=== PATIENT | male | born 1940 | race Caucasian/White ===

== ENCOUNTER → 2016-06-10 | Outpatient (CLI) | payer OTHER ==
[~2016-06-10] MED LIST: AMLO2.5T2 PO; ATOR10TA88 PO; CINN1CAP2 PO; DIPH30CA2 PO; FLM4 PO; GLC5 PO; LISI40TA PO; LORA0.5T12 PO; MELA1CAP5 PO; NRV/5 PO; OMEGCAP2 PO; TAMS0.4C59 PO; TOLT1CAP6 PO
[2016-06-10 09:31] LABS: BASO % 0.3 %; BASO ABS # 0.01 K/uL (0-0.2); COMPLETE YES; EOS % 1.2 %; HEMATOCRIT 45.7 % (42-52); IG% 0.3 %; LYMPH % 20.9 %; LYMPH ABS # 0.72 K/uL (1.2-3.4); MEAN CELL VOLUME 91.4 fL (80-100); MEAN CORPUSCULAR HEMOGLOBIN 31.2 pg (25-34); MEAN CORPUSCULAR HGB CONC 34.1 g/dl (32-36); MEAN PLATELET VOLUME 12.2 fL (7.4-10.4); MONO % 6.4 %; NEUT % 70.9 %; PLATELET COUNT 73 K/uL (130-400); WHITE BLOOD COUNT 3.44 K/uL (4.8-10.8)
[2016-06-10 09:44] LABS: ALT/SGPT 33 U/L (12-78); BLOOD UREA NITROGEN 15 mg/dl (7-18); BUN/CREATININE RATIO 11.8 (10-20); CALCIUM 9.1 mg/dl (8.5-10.1); CARBON DIOXIDE 27 mmol/L (21-32); CHLORIDE 103 mmol/L (98-107); CHOLESTEROL 119 mg/dl (0-200); GLUCOSE 123 mg/dl (70-99); SODIUM 139 mmol/L (136-145); TRIGLYCERIDES 62 mg/dl (0-150); VERY LOW DENSITY LIPOPROT CALC 12 mg/dl
[2016-06-10 09:46] LABS: ALB/GLOB RATIO 0.9 (0.9-2); ALKALINE PHOSPHATASE 82 U/L (45-117); AST/SGOT 33 U/L (15-37); CHOLESTEROL/HDL RATIO 2.5; HDL CHOLESTEROL 48 mg/dl; LDL CHOLESTEROL CALCULATED 59 mg/dl
[2016-06-10 10:01] LABS: ESTIMATED AVERAGE GLUCOSE 146 mg/dl; HA1C FLAG Normal (Normal)
== END | disposition home or self-care (01) ==
LOC: C.LAB 07:52
PROVIDERS: ATTEND Internal Medicine Geriatric Medicine
DX: I10 Essential (primary) hypertension (principal); E11.9 Type 2 diabetes mellitus without complications; R31.9 Hematuria, unspecified; D72.819 Decreased white blood cell count, unspecified; D69.6 Thrombocytopenia, unspecified

== ENCOUNTER 2016-06-22 09:26 | Emergency (ER) | payer OTHER ==
[~2016-06-22] VITALS: Ht 170.2 cm; Wt 71.7 kg
[~2016-06-22 09:26] MED LIST changes: -ATOR10TA88 PO; -FLM4 PO; -MELA1CAP5 PO; -NRV/5 PO; -TOLT1CAP6 PO
[2016-06-22 09:34] VITALS: TEMP 36.6; Ht 170.2 cm; Wt 71.7 kg
--- NOTE | 2016-06-22 09:49 | EMERGENCY ROOM VISIT NOTE ---
History Report prepared by Scribe: Serenity Victor Under the Supervision of: Dr. Navin Patrick M.D. First contact with patient: 09:38 Chief Complaint: STROKE SYMPTOMS Stated Complaint: NUMBNESS IN FACE, SHAKES, DRY MOUTH Nursing Triage Summary: pt c/o facial numbness started on thursady after starting med called sertraline 50mg, 1/2 tab daily. right eye is normally droop. feels like had teeth pulled and novacaine has not worn off. denies any difficulty breathing History of Present Illness The patient is a 75 year old male who presents to the Emergency Room with complaints of possible stroke-like symptoms that started 2 days ago. He is accompanied by his . The patient complains of persistent bilateral facial numbness, worse on the left side, that began 2 days ago, after starting Sertraline, mg daily, for 6 days. He took the Sertraline 2 days ago, and yesterday, but did not take it this morning. He states he feels like he has " had teeth pulled, and the Novocaine has not worn off yet". He denies any difficulty breathing but complains of a "tingling" feeling in his bilateral hands. His notes he complained of chest pain intermittently over the past few days and told her the pain felt "like gas". The patient was born with a right eye droop that is unchanged by his current symptoms. He denies any previous history of TIA's or CVA's but admits to a history of seizures. He is a non-smoker. He states he has been eating and drinking normally recently. 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 A total of 10 systems reviewed and were otherwise negative. Past Medical & Surgical Medical Problems: (1) DIAB JACK WO COMPL, TYPE II OR UNSPEC TYPE, NOT UNCNTRLD (2) DIVERTICULOSIS COLON (W/O MENT OF HEMORRHAGE) (3) HYPERLIPIDEMIA NEC/NOS (4) HYPERTENSION NOS (5) MALIGNANT NEOPL RECTUM Social History Smoking Status: Never Smoker Alcohol Use: occasionally Drug Use: none Marital Status: Housing Status: lives with family Occupation Status: retired Current/Historical Medications Scheduled Amlodipine Besylate (Amlodipine Besylate), 5 MG PO DAILY Atorvastatin (Lipitor), 10 MG PO DAILY Cinnamon (Cinnamon), 500 MG PO DAILY Lisinopril (Zestril), 40 MG PO DAILY Oxjuusaum-Sczhhyke-Swyllnlsk-P (Sleep), 1 CAP PO DAILY [place]-3 Fatty Acids (Fish Oil), 1 CAP PO DAILY Tamsulosin HCl (Tamsulosin HCl), 0.4 MG PO DAILY Tolterodine Tartrate (Tolterodine Tartrate ER), 2 MG PO DAILY Scheduled PRN Diphenhydramine Hcl (Sleep) (Zzzquil), 2 CAP PO HS PRN for Sleep Glipizide (Glipizide), 5 MG PO DAILY PRN for PRN Lorazepam (Lorazepam), 0.5 MG PO DAILY PRN Allergies Coded Allergies: Metoprolol (Verified Allergy, Intermediate, NONTOLERATED, DIZZINESS, ) Sertraline (Unverified Allergy, Unknown, "NUMBNESS IN MY FACE", 06/22/16) PT SAID HE THINKS IT'S THE ZOLOFT THAT CAUSE THE NUMBNESS IN HIS FACE, BUT NOT 100% SURE Physical Exam Vital Signs Date Time Temp Pulse Resp B/P Pulse Ox O2 Delivery O2 Flow Rate FiO2 06/22/16 14:32 46 16 151/73 96 06/22/16 13:57 46 16 134/65 96 06/22/16 12:01 47 06/22/16 11:57 50 16 172/72 98 06/22/16 09:34 36.6 83 18 157/81 98 Room Air Physical Exam GENERAL: Patient is anxious appearing but appears to be in no acute distress. HEENT: Droop of right eyelid (chronic). Mild pain with palpation of bilateral sinuses. No acute trauma, normocephalic atraumatic, mucous membranes moist, clear rhinorrhea, no scleral icterus. NECK: No stridor, no adenopathy, no meningismus, trachea is midline. LUNGS: No dyspnea. Clear to auscultation and equal bilaterally. No wheeze, no rhonchi. HEART: Regular rate and rhythm with multiple dropped beats. No murmurs, rubs, gallops appreciated. ABDOMEN: Soft, nontender, bowel sounds positive, no masses appreciated, no peritonitis. BACK: No midline tenderness, no CVA tenderness EXTREMITIES: Normal motion all extremities, no cyanosis, no edema. NEUROLOGIC: Alert and oriented, no acute motor or sensory deficits, no focal weakness, cranial nerves grossly intact. SKIN: No rash, no jaundice, no diaphoresis. Medical Decision & Procedures ER Provider Diagnostic Interpretation: These CT scans were reviewed and interpreted by the radiologist and reviewed by myself. CT SCAN OF THE BRAIN WITHOUT IV CONTRAST IMPRESSION: There is no hemorrhage, mass effect, or evidence of acute territorial ischemia by CT criteria. Electronically signed by: Richy Grace M.D. 06/22/2016 10:[address] SCAN OF THE PARANASAL SINUSES IMPRESSION: No significant paranasal sinus disease. See above. Electronically signed by: Richy Grace M.D. 06/22/2016 10:31 AM This MRI was reviewed and interpreted by the radiologist and reviewed by myself. MRI OF THE BRAIN WITHOUT IV CONTRAST IMPRESSION: There is no hemorrhage, mass effect, or evidence of acute ischemia. Electronically signed by: Richy Grace M.D. 06/22/2016 1:35 PM Laboratory Results 06/22/16 09:59 Red Blood Count 5.04, Mean Corpuscular Volume 91.1, Mean Corpuscular Hemoglobin 32.9, Mean Corpuscular Hemoglobin Concent 36.2, Mean Platelet Volume 11.1, Neutrophils (%) (Auto) 78.7, Lymphocytes (%) (Auto) 13.2, Monocytes (%) (Auto) 6.8, Eosinophils (%) (Auto) 1.0, Basophils (%) (Auto) 0.0, Neutrophils # (Auto) 3.03, Lymphocytes # (Auto) 0.51, Monocytes # (Auto) 0.26, Eosinophils # (Auto) 0.04, Basophils # (Auto) 0.00 06/22/16 09:59 Test 06/22/16 09:59 White Blood Count 3.85 K/uL (4.8-10.8) Red Blood Count 5.04 M/uL (4.7-6.1) Hemoglobin 16.6 g/dL (14.0-18.0) Hematocrit 45.9 % (42-52) Mean Corpuscular Volume 91.1 fL (80-100) Mean Corpuscular Hemoglobin 32.9 pg (25-34) Mean Corpuscular Hemoglobin Concent 36.2 g/dl (32-36) Platelet Count 63 K/uL (130-400) Mean Platelet Volume 11.1 fL (7.4-10.4) Neutrophils (%) (Auto) 78.7 % Lymphocytes (%) (Auto) 13.2 % Monocytes (%) (Auto) 6.8 % Eosinophils (%) (Auto) 1.0 % Basophils (%) (Auto) 0.0 % Neutrophils # (Auto) 3.03 K/uL (1.4-6.5) Lymphocytes # (Auto) 0.51 K/uL (1.2-3.4) Monocytes # (Auto) 0.26 K/uL (0.11-0.59) Eosinophils # (Auto) 0.04 K/uL (0-0.5) Basophils # (Auto) 0.00 K/uL (0-0.2) RDW Standard Deviation 42.4 fL (36.4-46.3) RDW Coefficient of Variation 12.7 % (11.5-14.5) Immature Granulocyte % (Auto) 0.3 % Immature Granulocyte # (Auto) 0.01 K/uL (0.00-0.02) Anion Gap 10.0 mmol/L (3-11) Est Creatinine Clear Calc Drug Dose 42.6 ml/min Estimated GFR () 56.6 Estimated GFR (Non- 48.8 BUN/Creatinine Ratio 11.5 (10-20) Calcium Level 9.2 mg/dl (8.5-10.1) Magnesium Level 2.2 mg/dl (1.8-2.4) Troponin I < 0.015 ng/ml (0-0.045) Laboratory results as reviewed by me. ECG Indication: weakness (weakness, bilateral facial numbness) Rate (beats per minute): 52 Rhythm: sinus bradycardia Findings: mobitz I block, other (bifasicular block similar to previous EKG) Comparison ECG Date: 2nd degree heart block is new. QRS is similar to previous Change: 2nd EKG from 06/22/16: Sinus bradycardia, rate of 51, 2nd degree AV block, Movitz type 1. When compared to EKG from earlier today, it is felt to be similar. ED Course 0941: The patient was evaluated in room A10. A complete history and physical exam was performed. 1037: I reevaluated the patient. He is resting comfortably. I discussed the risks and benefits associated with an MRI and he is agreeable to get one. 1145: I reevaluated the patient. He is feeling alright and resting comfortably. 1219: I discussed the patients case with [place]. [place], [facility] [place] [facility] He looked at both EKGs and feels they are both a second degree heart block, type 1. If the patient is ruled out from ACS stand point, he will follow up with the patient in the clinic and will try to get the patient a 24 hour heart monitor. 1230: I reevaluated the patient. He is feeling well. 1345: I reevaluated the patient. He is feeling well and will follow up as an outpatient with his doctors. I discussed his results and discharge instructions and he verbalized complete understanding and agreement. Medical Decision Differential: Sepsis, Infectious (UTI/Pneumonia/Meningitis/etc), Metabolic/ Electrolyte Abnormality, Cardiac, Hepatic, Endocrine, Toxicologic, Neurologic, amongst other pathologies entertained. 75 yr old male arrives with bilateral (L>R) facial paresthesias. He has no other neuro deficits nor any CN deficits other than right eye droop which is chronic. Exam unremarkable other than cardiac which revealed multiple skipped beats. EKG with what appears to be 2nd degree heart block with similar QRS to previous EKGs. Repeat EKG similar. He has no CP though relates some epigastric discomfort every so often (last time yesterday) which resolved after burping. Denies any chest pain. Walks several miles every day and never any cp nor sob. With no acute ischemia on EKG and normal Trop I do not feel that he has had ACS in last few days. States he feels fine now other than some facial paresthesia that he was sent over by PCP for stroke rule out. Given minimal symptom went ahead with MRI head here (as this is necessary with his risk factor). MRI without acute findings. I suspect paresthesias may be reaction to new sertraline rx. He is stable, no dstress and feeling well. Reviewed with cardiology who will see as outpatient. Ordered holter monitor which will get set up in next few days. Patient aware of symptoms requiring immediate return to ED. Consults Time Called: 1210 Consulting Physician: [facility] Returned Call: 1219 I discussed the patients case with [facility]. He looked at both EKGs and feels they are both a second degree heart block, type 1. If the patient is ruled out from ACS stand point, he will follow up with the patient in the clinic and will try to get the patient a 24 hour heart monitor. Impression Primary Impression: Second degree heart block Additional Impression: Left facial numbness Scribe Attestation The scribe's documentation has been prepared under my direction and personally reviewed by me in its entirety. I confirm that the note above accurately reflects all work, treatment, procedures, and medical decision making performed by me. Departure Information Dispostion Home / Self-Care Referrals Estuardo Daigle M.D. (PCP) Patient Instructions My [facility] Additional Instructions Your work-up reveals no clear cause of the tingling in your face. It is likely this is due to your new medication and if this symptom is bothering you you should stop further use of the medication. Your EKG shows that you have a dropped heart beat on a regular basis. There is no indication of a heart attack or need for admission at this time. Call 911 if you develop chest pain/pressure, lightheaded or passing out, nausea/ vomiting, difficulty breathing, weakness in extremities or other concerns. We are Always here to help. You will need to follow up with Cardiology. Dr Giordano is aware of your case and you will be seen by either him or his colleague in the then week. Problem Qualifiers
[2016-06-22 10:07] LABS: HEMATOCRIT 45.9 % (42-52); MEAN CELL VOLUME 91.1 fL (80-100); MEAN CORPUSCULAR HEMOGLOBIN 32.9 pg (25-34); MEAN CORPUSCULAR HGB CONC 36.2 g/dl (32-36); RED BLOOD COUNT 5.04 M/uL (4.7-6.1); WHITE BLOOD COUNT 3.85 K/uL (4.8-10.8)
[2016-06-22 10:17] LABS: COMPLETE YES; IG% 0.3 %; LYMPH % 13.2 %; LYMPH ABS # 0.51 K/uL (1.2-3.4); MEAN PLATELET VOLUME 11.1 fL (7.4-10.4); MONO % 6.8 %; NEUT % 78.7 %; PLATELET COUNT 63 K/uL (130-400)
[2016-06-22 10:24] LABS: BLOOD UREA NITROGEN 16 mg/dl (7-18); BUN/CREATININE RATIO 11.5 (10-20); CALCIUM 9.2 mg/dl (8.5-10.1); CARBON DIOXIDE 27 mmol/L (21-32); CHLORIDE 102 mmol/L (98-107); GLUCOSE 139 mg/dl (70-99); MAGNESIUM 2.2 mg/dl (1.8-2.4); POTASSIUM 3.9 mmol/L (3.5-5.1); SODIUM 139 mmol/L (136-145)
--- NOTE | 2016-06-22 10:31 | DIAGNOSTIC IMAGING REPORT ---
CT SCAN OF THE BRAIN WITHOUT IV CONTRAST CLINICAL HISTORY: Generalized weakness. COMPARISON STUDY: No priors. TECHNIQUE: Unenhanced axial CT scan of the brain is performed from the vertex to the skull base. FINDINGS: Brain parenchyma: There are age-related involutional changes noting mild subcortical and periventricular microangiopathic change. There is no hemorrhage, mass effect, or evidence of acute territorial ischemia by CT criteria. Talbert-white matter is preserved. No extra-axial fluid collection is seen. Ventricles, sulci, cisterns: Prominent secondary to involutional change. Intracranial vasculature: There is atherosclerotic calcification of the cavernous carotid and vertebral arteries. Calvarium: Unremarkable. Sinuses and mastoids: The visualized paranasal sinuses are clear. The mastoid air cells are well pneumatized. Orbits: The bony orbits are grossly intact. IMPRESSION: There is no hemorrhage, mass effect, or evidence of acute territorial ischemia by CT criteria. Electronically signed by: Richy Grace M.D. 06/22/2016 10:29 AM Dictated Date/Time: 06/22/2016 10:27 AM
--- NOTE | 2016-06-22 10:33 | DIAGNOSTIC IMAGING REPORT ---
CT SCAN OF THE PARANASAL SINUSES CLINICAL HISTORY: Sinus congestion. COMPARISON STUDY: No priors. TECHNIQUE: High-resolution CT scan of the paranasal sinuses is performed. Images are reviewed in the axial, sagittal, and coronal planes. IV contrast was not administered for this examination. FINDINGS: Maxillary antra: There is trace dependent mucosal thickening seen bilaterally. Anterior ethmoid sinuses: Clear. Posterior ethmoid sinuses: Clear. Sphenoid sinuses: Clear. Frontal sinuses: Trace mucosal thickening is seen bilaterally. Ostiomeatal complexes: Patent bilaterally. Frontoethmoidal and sphenoethmoidal recesses: Patent bilaterally. Carotid arteries: The carotid arteries are covered and without septal attachments. Ethmoid roofs: The ethmoid roofs are symmetric. Nasal turbinates: Normal in appearance. Nasal septum: There is leftward deviation of the bony nasal septum with a small spur. Optic nerves: Covered. Orbits: The bony orbits are intact. Orbital contents are normal in appearance. Calvarium: The skeletal structures are osteopenic. The imaged calvarium is normal in appearance Mastoid air cells: There is a trace right mastoid effusion. The left mastoid air cells are well Pneumatized. Brain parenchyma: Partially visualized brain parenchyma is within normal limits noting age-related involutional change. IMPRESSION: No significant paranasal sinus disease. See above. Electronically signed by: Richy Grace M.D. 06/22/2016 10:31 AM Dictated Date/Time: 06/22/2016 10:29 AM
[2016-06-22] MEDS ORDERED: NRV/5 PO (10:42)
[2016-06-22] MEDS ORDERED: GLC5 PO (10:42)
[2016-06-22] MEDS ORDERED: FLM4 PO (10:42)
[2016-06-22] MEDS ORDERED: TOLT1CAP6 PO (10:42)
[2016-06-22] MEDS ORDERED: MELA1CAP5 PO (10:42)
[2016-06-22] MEDS ORDERED: ATOR10TA88 PO (10:42)
--- NOTE | 2016-06-22 13:37 | DIAGNOSTIC IMAGING REPORT ---
MRI OF THE BRAIN WITHOUT IV CONTRAST CLINICAL HISTORY: Left facial paresthesias. COMPARISON STUDY: CT of the brain dated 06/22/2016. TECHNIQUE: MRI of the brain was performed utilizing various T1 and T2-weighted sequences in the axial, sagittal, and coronal planes. IV contrast was not administered for this examination. FINDINGS: Brain parenchyma: There are age-related involutional changes noting mild patchy subcortical and periventricular microangiopathic disease. 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 There is no hemorrhage or mass effect. There is no restricted diffusion to suggest acute ischemia. Talbert-white matter differentiation is preserved. No extra-axial fluid collection is seen. The cerebellar tonsils are normal in configuration. Ventricles, sulci, and cisterns: Prominent secondary to involutional change. Pituitary and sella: Unremarkable. Intracranial vasculature: Normal flow voids are maintained at the skull base. Orbits: The bony orbits are grossly intact. Orbital contents are normal in appearance. Sinuses and mastoids: There is a trace right mastoid effusion. The left mastoid air cells are clear, as are the paranasal sinuses. Calvarium: Unremarkable. Cervical cord: Partially visualized cervical spinal cord is normal in morphology and signal intensity. IMPRESSION: There is no hemorrhage, mass effect, or evidence of acute ischemia. Electronically signed by: Richy Grace M.D. 06/22/2016 1:35 PM Dictated Date/Time: 06/22/2016 1:30 PM
[2016-06-22 14:32] VITALS: BP 151/73; PULSE 46; O2SAT 96
== END 2016-06-22 14:50 | disposition home or self-care (01) ==
LOC: C.EDB 09:30 → C.EDA 14:50
DX: I44.1 Atrioventricular block, second degree (principal); R20.0 Anesthesia of skin; E11.9 Type 2 diabetes mellitus without complications; E78.5 Hyperlipidemia, unspecified; I10 Essential (primary) hypertension

== ENCOUNTER → 2016-07-15 | Outpatient (CLI) | payer OTHER ==
[~2016-07-15] MED LIST changes: -AMLO2.5T2 PO; +ATOR10TA88 PO; +FLM4 PO; +MELA1CAP5 PO; +NRV/5 PO; -TAMS0.4C59 PO; +TOLT1CAP6 PO
[2016-07-15 14:22] LABS: LYME DISEASE AB IGG NEG (NEG); LYME DISEASE AB IGM EQUIVOCAL (NEG)
[2016-07-19 10:34] LABS: 18KDIGG BAND NONREACTIVE (NONREACTIVE); 23KDIGG BAND NONREACTIVE (NONREACTIVE); 23KDIGM BAND REACTIVE (NONREACTIVE); 28KDIGG BAND NONREACTIVE (NONREACTIVE); 30KDIGG BAND NONREACTIVE (NONREACTIVE); 39KDIGG BAND NONREACTIVE (NONREACTIVE); 39KDIGM BAND NONREACTIVE (NONREACTIVE); 41KDIGG BAND REACTIVE (NONREACTIVE); 41KDIGM BAND NONREACTIVE (NONREACTIVE); 45KDIGG BAND NONREACTIVE (NONREACTIVE); 58KDIGG BAND NONREACTIVE (NONREACTIVE); 66KDIGG BAND NONREACTIVE (NONREACTIVE); 93KDIGG BAND NONREACTIVE (NONREACTIVE)
== END | disposition home or self-care (01) ==
LOC: C.LABBC 09:14
PROVIDERS: ATTEND Internal Medicine Geriatric Medicine
DX: R20.0 Anesthesia of skin (principal)

== ENCOUNTER → 2016-08-05 | Outpatient (CLI) | payer OTHER ==
[2016-08-05 09:39] LABS: HEMATOCRIT 42.9 % (42-52); MEAN CELL VOLUME 90.3 fL (80-100); MEAN CORPUSCULAR HEMOGLOBIN 31.4 pg (25-34); MEAN CORPUSCULAR HGB CONC 34.7 g/dl (32-36); RED BLOOD COUNT 4.75 M/uL (4.7-6.1); WHITE BLOOD COUNT 3.49 K/uL (4.8-10.8)
[2016-08-05 09:46] LABS: INR 1.1 (0.9-1.1); PARTIAL THROMBOPLASTIN RATIO 1.1; PROTHROMBIN TIME (PATIENT) 12.3 SECONDS (9.0-12.0)
[2016-08-05 09:55] LABS: BLOOD UREA NITROGEN 14 mg/dl (7-18); BUN/CREATININE RATIO 10.8 (10-20); CALCIUM 8.7 mg/dl (8.5-10.1); CARBON DIOXIDE 31 mmol/L (21-32); CHLORIDE 102 mmol/L (98-107); GLUCOSE 111 mg/dl (70-99); POTASSIUM 4.1 mmol/L (3.5-5.1); SODIUM 140 mmol/L (136-145)
[2016-08-05 10:03] LABS: MEAN PLATELET VOLUME 11.6 fL (7.4-10.4); PLATELET COUNT 73 K/uL (130-400)
== END | disposition home or self-care (01) ==
LOC: C.LAB 07:50
PROVIDERS: ATTEND Internal Medicine Cardiovascular Disease
DX: Z01.818 Encounter for other preprocedural examination (principal)

== ENCOUNTER 2016-08-08 08:19 | Observation (INO) | payer OTHER ==
[~2016-08-08] VITALS: Ht 170.2 cm; Wt 69.8 kg
[2016-08-08] VITALS (8 sets, daily range): BP systolic 133–157; BP diastolic 64–87; PULSE 60–75; TEMP 36.3–37; O2SAT 95–98; Ht 170.2 cm; Wt 69.8 kg
[2016-08-08] MEDS: CEFAZOLIN 1000MG/55 ML D5W 55 ML IV SCH ×2 (10:19→10:54)
[2016-08-08] MEDS ORDERED: BACITRACIN 50000 UNIT VIAL ONE (10:20)
[2016-08-08] MEDS ORDERED: LIDOCAINE HCL 1% 20 ML VIAL ONE (10:20)
[2016-08-08] MEDS ORDERED: MIDAZOLAM HCL 5 MG/ML 1 ML VIAL ONE (10:20)
[2016-08-08] MEDS ORDERED: BACITRACIN OINT 0.9 GM PKT ONE (10:20)
[2016-08-08] MEDS ORDERED: FENTANYL CITRATE INJ 50 MCG/1 ML 2 ML VIAL ONE ×2 (10:20→10:54)
--- NOTE | 2016-08-08 10:45 | Procedure Note ---
Pre-Mod Sedation Assessment General Date of Moderate Sedation: Aug 08, 2016. Vital Signs: Vital Signs Past 12 Hours Date Time Temp Pulse Resp B/P Pulse Ox O2 Delivery O2 Flow Rate FiO2 08/08/16 09:19 36.3 70 20 151/64 98 Room Air Review Cardiovascular: + bradycardia, + irregularly irregular (Second degree AV block) Abdomen: normal bowel sounds Lungs: lungs clear Pre-Sedation Airway Assessment Oral Cavity: WNL Smoking Status: Never Smoker Procedure Planning Contraindications-for Mod Sed: None Yes Notes The planned sedation has been discussed with the patient and consent obtained. I have identified the patient, determined the appropriateness of sedation and have assessed the patient immediately prior to the procedure. All medicine(s) and interventions are by my order.
[2016-08-08] MEDS: MIDAZOLAM HCL 5 MG/ML 1 ML VIAL ONE (10:54)
--- NOTE | 2016-08-08 11:48 | Procedure Note ---
Post-Mod Sedation Assessment General Date of Moderate Sedation Aug 08, 2016. Vital Signs: Vital Signs Past 12 Hours Date Time Temp Pulse Resp B/P Pulse Ox O2 Delivery O2 Flow Rate FiO2 08/08/16 09:19 36.3 70 20 151/64 98 Room Air Review - Discharge Criteria Vital Signs Stable: Yes Alert/Oriented/Conversant: Yes Returned to Baseline Mental St: Yes Nausea Absent/Minimal: Yes Pain/Discomfort/Absent/Minimal: Yes Normal/Baseline Respirations: Yes Active Bleeding?: No
--- NOTE | 2016-08-08 11:49 | Cardiology Procedure Brief Nt ---
Preliminary Cardiology Note Procedure Date Aug 08, 2016. Pre-Procedure Diagnosis second-degree AV block Post-Procedure Diagnosis same Procedure(s) Performed Dual chamber pacemaker implantation Eligibility Manager Dr. Giordano Drying Equipment Operator(s) none Estimated Blood Loss 20 cc Preliminary Findings Good lead position, good measurements Recommendations Monitor overnight Specimens None Anesthesia local with sedation Complication(s) None Disposition PCU
[2016-08-08] MEDS ORDERED: KETOROLAC TROMETHAMINE 10 MG TAB PO PRN (12:00)
[2016-08-08] MEDS ORDERED: ACETAMINOPHEN 325 MG TAB PO PRN (12:00)
[2016-08-08] MEDS ORDERED: IV FLUIDS COMPLETED PRN (13:30)
[2016-08-08] MEDS: CEFAZOLIN IV 1,000 MG in DEXTROSE 5% 50ML 50 ML IV SCH (17:12)
--- NOTE | 2016-08-08 23:12 | OPERATIVE REPORT ---
DATE OF OPERATION: 08/08/2016 PREOPERATIVE DIAGNOSIS: Second degree atrioventricular block. POSTOPERATIVE DIAGNOSIS: Same. PROCEDURE: Dual chamber pacemaker implantation. SURGEON: Benjamin Giordano MD ANESTHESIA: Local with sedation. 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 On Holter monitoring, his heart rate ranged from 32-87 with an average of only 53 beats per minute. He has very frequent episodes of what appears to be Mobitz I second degree AV block. He is having diminished exercise tolerance, which might be due to poor heart rate response with activity. Given his bradycardia, his very abnormal intraventricular conduction pattern and the progressive nature of this, it is felt that he should have a pacemaker in place. He is therefore brought to the laboratory for dual chamber pacemaker implantation. DESCRIPTION OF PROCEDURE: After obtaining informed consent for the procedure, he was brought to the laboratory on the morning of 08/08/2016 being NPO after midnight. He was identified in the laboratory, prepped and draped in standard sterile manner for a left-sided pacemaker implantation. The left prepectoral region was anesthetized with 1% lidocaine local anesthetic and left subclavian venipuncture was performed by percutaneous technique and a guidewire placed through the left subclavian vein into the superior vena cava. The area was further infiltrated with 1% lidocaine local anesthetic and a 5 cm incision was made parallel to the left clavicle and 2 cm below it and carried down to the anterior pectoralis fascia. A pacemaker pocket was formed by blunt dissection anterior to the pectoralis fascia and a bacitracin-soaked sponge (50,000 units in 50 mL normal saline solution) was placed in the pocket. An 8-[place] Medtronic lead introducer was placed over the guidewire into the left subclavian vein, the dilator and guidewire were removed and a bipolar active fixation steroid-tipped ventricular lead was advanced through the introducer into the superior vena cava. The guidewire was traced back through introducer and introducer stripped away from lead and guidewire. Another 8-[place] Medtronic lead introducer was placed over the guidewire into the left subclavian vein, the dilator and guidewire were removed and a bipolar active fixation steroid-tipped atrial lead was advanced through the introducer into the superior vena cava. The guidewire was placed through the introducer and introducer stripped away from lead and guidewire. Using a curved stylette, the ventricular lead was advanced through the right ventricular outflow tract into the pulmonary artery and then using a straight stylette was positioned in the right ventricular apex. Once in position, the ventricular pacing threshold was evaluated in bipolar configuration at a pulse width of 0.5 milliseconds. Final ventricular pacing threshold was 0.4 volts with a current of 0.5 milliamp, 5-volt lead impedance was 707 ohms and R-waves were sensed at 7.0 millivolts. Diaphragmatic pacing was not present with a 10 volt bipolar output. The atrial lead was positioned in the region of the atrial appendage and screw extended fixing the lead in position. The atrial pacing threshold was evaluated in bipolar configuration and a pulse of 0.5 milliseconds. Final atrial pacing threshold was 0.8 volts with a current of 1.2 milliamps, 5-volt lead impedance is 889 ohms and P-waves were sensed at 3.1 millivolts. Diaphragmatic pacing was not present with a 10 volt bipolar output. Once leads were in position, they were attached to the anterior pectoralis fascia using 2 sutures of 2-0 silk around each lead collar. The bacitracin-soaked sponge was removed from the pocket, the guidewire was removed from left subclavian vein and hemostasis was obtained. The pacemaker (Medtronic Advisa DR) was attached to the leads and found to be functioning normally. It was placed in the pocket with the leads coiled beneath it and the incision was closed with a running double subcutaneous closure of 3-0 Vicryl followed by running subcuticular skin closure of 4-0 Vicryl. Bacitracin ointment was placed on incision and a pressure dressing applied. The patient tolerated the procedure well, there were no complications and estimated blood loss was 20 mL. The patient was transferred to the telemetry unit for monitoring. The atrial lead is a Medtronic model 5076, serial #[id number] and is a bipolar active fixation steroid-tipped MRI compatible lead. The ventricular lead is a Medtronic model 5076, serial #[id number] and is a bipolar active fixation steroid-tipped MRI compatible lead. The pacemaker is a Medtronic Advisa DR MRI SureScan model A2DR01, serial #[id number]. The pacemaker was reprogrammed in the laboratory to final settings. This is an MRI compatible device. YENNY
[2016-08-09] MEDS ORDERED: NURSING VERBAL MED ORDER ONE (00:45)
[2016-08-09] MEDS: CEFAZOLIN IV 1,000 MG in DEXTROSE 5% 50ML 50 ML IV SCH ×2 (01:29→09:29)
[2016-08-09 03:49] VITALS: BP 131/73; PULSE 60; TEMP 36.9; O2SAT 96
--- NOTE | 2016-08-09 06:25 | DIAGNOSTIC IMAGING REPORT ---
CHEST 2 VIEWS ROUTINE CLINICAL HISTORY: EXACT TIME ORDERED Evaluate for pneumothorax and lead placement COMPARISON STUDY: 72,013 FINDINGS: Bipolar cardiac pacemaker in position. Leads are in good position. No evidence of pneumothorax. Several old right-sided rib fractures. IMPRESSION: Cardiac pacemaker placed with leads in good position. No evidence of pneumothorax. Electronically signed by: Cruz Landry M.D. 08/09/2016 6:24 AM Dictated Date/Time: 08/09/2016 6:23 AM
[2016-08-09 08:19] VITALS: BP 154/88; PULSE 74; TEMP 37.2; O2SAT 99
[2016-08-09 08:26] VITALS: BP 135/75; PULSE 75; TEMP 37.5; O2SAT 95
[2016-08-09] MEDS ORDERED: LISINOPRIL 40 MG TAB PO SCH (09:00)
[2016-08-09] MEDS ORDERED: ATORVASTATIN 10 MG TAB PO SCH (09:00)
[2016-08-09] MEDS ORDERED: AMLODIPINE BESYLATE 5 MG TAB PO SCH (09:00)
[2016-08-09] MEDS ORDERED: TAMSULOSIN HCL 0.4 MG CAP PO SCH (09:00)
[2016-08-09] MEDS ORDERED: TOLTERODINE TARTRATE LA 2 MG CAPCR PO SCH (09:00)
--- NOTE | 2016-08-09 09:21 | Discharge Instructions ---
Discharge Instructions Date of Service Aug 09, 2016. Admission Second Degree AV Block Discharge Discharge Diagnosis / Problem: Dual-chamber pacemaker implantation Discharge Goals Goal(s): Improve disease control Activity Recommendations Activity Limitations: as noted below ACTIVITY RECOMMENDATIONS: * Do not raise affected arm over head for 2 weeks. SPECIAL CARE INSTRUCTIONS: * If bleeding occurs, apply direct pressure to area for 5 minutes. * Call your doctor if you have severe pain, fever, drainage or bleeding at site. * Keep dressing on and dry for 48 hours then remove. * Keep any scheduled doctor's appointment. * Implant Card - hand held device with website information given. SKIN IRRITATION: * You may experience some redness and/or swelling in the area where radiation was administered. If any skin irritation occurs, please contact your family physician. FOLLOW UP VISIT: 08/12/16 @ 10:30 am for incision check 09/04/16 @ 2:30 pm for device check . Current Hospital Diet Patient's current hospital diet: AHA Diet (Heart Healthy) Discharge Diet Recommended Diet: AHA Diet (Heart Healthy) Pending Studies Studies pending at discharge: no Laboratory Results Hemoglobin A1c Test 06/10/16 08:00 Range/Units Estimated Average Glucose 146 mg/dl Hemoglobin A1c 6.7 H 4.5-5.6 % Lipid Panel Test 06/10/16 08:00 Range/Units Triglycerides Level 62 0-150 mg/dl Cholesterol Level 119 0-200 mg/dl HDL Cholesterol 48 mg/dl Cholesterol/HDL Ratio 2.5 LDL Cholesterol, Calculated 59 mg/dl Medical Emergencies . Who to Call and When: Medical Emergencies: If at any time you feel your situation is an emergency, please call 911 immediately. . Non-Emergent Contact Non-Emergency issues call your: Statement Processor . . "Provider Documentation" section prepared by Uzma Sun. VTE Core Measure Inpt VTE Proph given/why not?: Treatment not indicated
--- NOTE | 2016-08-09 09:23 | Cardiology Follow-Up ---
Subjective Date of Service: Aug 09, 2016. Pt evaluation today including: conversation w/ patient, physical exam, lab review, review of studies, review of inpatient medication list History of Present Illness No complaints today, doing well post-pacemaker implantation yesterday. Social History Smoking Status: Never Smoker History of Alcohol Use: No Review of Systems Respiratory: No shortness of breath Cardiac: No chest pain Objective Vital Signs Past 12 Hours Date Time Temp Pulse Resp B/P Pulse Ox O2 Delivery O2 Flow Rate FiO2 08/09/16 08:26 37.5 75 16 135/75 95 Room Air 08/09/16 08:00 Room Air 08/09/16 04:00 Room Air 08/09/16 03:49 36.9 60 18 131/73 96 Room Air 08/08/16 23:59 Room Air 08/08/16 23:25 37.0 60 18 143/74 97 Room Air Last Recorded Weight-Kilograms: 69.800 Intake & Output 8-Hour Column 08/08/16 08/09/16 08/09/16 16:00 00:00 08:00 Intake Total 150 ml 50 ml Output Total 375 ml 300 ml 400 ml Balance -225 ml -300 ml -350 ml 24-Hour Column 08/09/16 08:00 Intake Total 200 ml Output Total 1075 ml Balance -875 ml Physical Exam Constitutional: Level of Distress: NAD Lungs: Auscultation: breath sounds normal Cardiovascular: Heart Auscultation: RRR, no rubs Pacemaker site is clean and dry, no significant swelling or hematoma Data Imaging: Chest x-ray shows good lead position, no pneumothorax EKG: AV sequential pacing with appropriate atrial and ventricular capture. Telemetry reviewed: Predominantly AV sequential pacing, appropriate pacemaker function. Pacemaker evaluation, excellent pacing and sensing characteristics. Assessment and Plan Doing well POD#1 pace implant, site looks good, CXR and pacer check good. Stable for discharge.
--- NOTE | 2016-08-09 09:30 | Discharge Summary ---
Discharge Summary Admission Date: Aug 08, 2016 at 11:53 Discharge Date: Aug 09, 2016 Discharge Disposition: Home Primary Diagnosis: Second degree AV block Secondary Diagnoses/Problems: Medical Problems: (1) Left facial numbness Status: Acute (2) Second degree heart block Status: Acute Procedures: Dual-chamber pacemaker implantation Discharge Instructions Last Recorded Wt (Kilograms): 69.800 Activity Recommendations: limitations as noted below Diet At Discharge: resume previous diet Allergies: Coded Allergies: Metoprolol (Verified Allergy, Intermediate, NONTOLERATED, DIZZINESS, ) Sertraline (Verified Allergy, Intermediate, "NUMBNESS IN MY FACE", 08/08/16) PT SAID HE THINKS IT'S THE ZOLOFT THAT CAUSE THE NUMBNESS IN HIS FACE, BUT NOT 100% SURE Additional Instructions: ACTIVITY RECOMMENDATIONS: * Do not raise affected arm over head for 2 weeks. SPECIAL CARE INSTRUCTIONS: * If bleeding occurs, apply direct pressure to area for 5 minutes. * Call your doctor if you have severe pain, fever, drainage or bleeding at site. * Keep dressing on and dry for 48 hours then remove. * Keep any scheduled doctor's appointment. * Implant Card - hand held device with website information given. SKIN IRRITATION: * You may experience some redness and/or swelling in the area where radiation was administered. If any skin irritation occurs, please contact your family physician. FOLLOW UP VISIT: Keep any scheduled doctor appointments. Special Care: Call your doctor if: * Temperature above 101 degrees * Pain not relieved by pain medicine ordered * There is increased drainage or redness from any incision * You have any unanswered questions or concerns. Avoid all tobacco products. If you need help to stop smoking, call [place]'s FREE QUITLINE at . This is a free call. 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 On Holter monitoring, his heart rate ranged from 32-87 with an average of only 53 beats per minute. He has very frequent episodes of what appears to be Mobitz I second degree AV block. He is having diminished exercise tolerance, which might be due to poor heart rate response with activity. Given his bradycardia, his very abnormal intraventricular conduction pattern and the progressive nature of this, it is felt that he should have a pacemaker in place. He is therefore brought to the laboratory for dual chamber pacemaker implantation. Admission Physical Exam Constitutional: Alert, cooperative and in no distress. HEENT: Unremarkable Neck: No jugular venous distention, carotid pulses are normal and equal bilaterally without bruits. Pulmonary: Clear to auscultation bilaterally. Cardiac: Slow irregular rhythm with no murmur, gallop or rub. Abdomen: Soft, nontender with normal bowel sounds. Extremities: No edema. Distal pulses intact. Neurologic: No focal findings. Gait is steady. Skin: No rash, ecchymoses or petechiae. Hospital Course Patient is a 75-year-old male with second degree AV block who underwent dual- chamber pacemaker implantation on 08/08/[address] Giordano. He tolerated the procedure well. Device check the following day showed excellent sensing and pacing characteristics. CXR showed good lead placement and no evidence of pneumothorax. He was deemed stable for discharge home. He will have follow-up in 3 days for a wound check and in 1 month for a device check. Total time spent on discharge = This includes examination of the patient, discharge planning, medication reconciliation, and communication with other providers.
[2016-08-09 09:58] VITALS: BP 135/75; PULSE 75; TEMP 37.5; O2SAT 95
== END 2016-08-09 10:45 | disposition home or self-care (01) ==
LOC: C.ACU 08:19 → C.2T 11:53
PROVIDERS: ADMIT Internal Medicine Cardiovascular Disease; ATTEND Internal Medicine Cardiovascular Disease
DX: I44.1 Atrioventricular block, second degree (principal); R00.1 Bradycardia, unspecified; I10 Essential (primary) hypertension; L57.0 Actinic keratosis; E11.3299 Type 2 diabetes mellitus with mild nonproliferative diabetic retinopathy without macular edema, unspecified eye; Z86.008 Personal history of in-situ neoplasm of other site; Z90.49 Acquired absence of other specified parts of digestive tract; Z80.0 Family history of malignant neoplasm of digestive organs

== ENCOUNTER → 2016-12-24 | Outpatient (CLI) | payer OTHER ==
[~2016-12-24] MED LIST changes: -MELA1CAP5 PO
== END | disposition home or self-care (01) ==
LOC: C.PATHSPEC 11:35
PROVIDERS: ATTEND Plastic Surgery
DX: C44.729 Squamous cell carcinoma of skin of left lower limb, including hip (principal)

== ENCOUNTER → 2016-12-25 | Outpatient (CLI) | payer OTHER ==
[2016-12-25 09:45] LABS: BLOOD UREA NITROGEN 21 mg/dl (7-18); CARBON DIOXIDE 30 mmol/L (21-32); CHLORIDE 106 mmol/L (98-107); GLUCOSE 121 mg/dl (70-99); POTASSIUM 4.1 mmol/L (3.5-5.1); SODIUM 140 mmol/L (136-145)
[2016-12-25 09:49] LABS: HEMATOCRIT 44.2 % (42-52); MEAN CELL VOLUME 92.7 fL (80-100); MEAN CORPUSCULAR HEMOGLOBIN 32.3 pg (25-34); MEAN CORPUSCULAR HGB CONC 34.8 g/dl (32-36); RED BLOOD COUNT 4.77 M/uL (4.7-6.1)
[2016-12-25 09:54] LABS: ESTIMATED AVERAGE GLUCOSE 163 mg/dl; HA1C FLAG Normal (Normal)
[2016-12-25 10:01] LABS: URINE PROTIEN/CREAT RATIO 0.1 (0-0.2); URINE TOTAL PROTEIN 11.9 mg/dl (0-11.9)
[2016-12-25 10:09] LABS: COMPLETE YES; EOS % 1.6 %; IG% 0.3 %; LYMPH % 17.7 %; LYMPH ABS # 0.55 K/uL (1.2-3.4); MEAN PLATELET VOLUME 11.8 fL (7.4-10.4); MONO % 9.7 %; NEUT % 70.7 %; PLATELET COUNT 69 K/uL (130-400); PLT ESTIMATE DECREASED
== END | disposition home or self-care (01) ==
LOC: C.LAB 07:29
PROVIDERS: ATTEND Internal Medicine Geriatric Medicine
DX: I10 Essential (primary) hypertension (principal); E11.9 Type 2 diabetes mellitus without complications; D72.819 Decreased white blood cell count, unspecified; D69.6 Thrombocytopenia, unspecified

== ENCOUNTER → 2017-01-03 | Outpatient (CLI) | payer OTHER ==
--- NOTE | 2017-01-03 12:17 | DIAGNOSTIC IMAGING REPORT ---
(RENAL)RETROPERITON COMP CLINICAL HISTORY: 76 years-old Male presenting with CHRONIC KIDNEY DISEASE STAGE 3. TECHNIQUE: Real-time grayscale and limited color Doppler ultrasound imaging of the kidneys and bladder was performed. COMPARISON: 12/06/2012. FINDINGS: Right kidney: Normal echogenicity. Right kidney measures 11.2 cm. No hydronephrosis. 2 subcentimeter anechoic well-defined lesions consistent with simple cysts. Additionally, 2 mm hyperechogenic shadowing focus with tingling artifact indicative of a lower pole calculus. Additional similar-appearing 2 millimeter calculus at the lower pole. Minimal perinephric fluid at the inferior pole. Normal perfusion. Left kidney: Normal echogenicity. Left kidney measures 11.6 cm. No hydronephrosis. Minimal perinephric fluid noted. Normal perfusion. Bladder: No bladder wall thickening. Bilateral ureteral jets present. Other: Heterogeneous liver parenchyma, possibly indicating fibrosis or steatosis. Hepatic veins patent. IMPRESSION: 1. No evidence of obstruction. 2. Two nonobstructing small renal calculi at the lower pole of the right kidney. 3. Heterogeneous liver parenchyma can indicate fibrosis or steatosis. Electronically signed by: Rex Goldberg M.D. 01/03/2017 12:16 PM Dictated Date/Time: 01/03/2017 12:13 PM
== END | disposition home or self-care (01) ==
LOC: C.ULTRBC 10:42
PROVIDERS: ATTEND Internal Medicine Geriatric Medicine
DX: N18.3 Chronic kidney disease, stage 3 (moderate) (principal); N20.0 Calculus of kidney

== ENCOUNTER → 2017-03-06 | Outpatient (CLI) | payer OTHER ==
--- NOTE | 2017-03-06 14:28 | DIAGNOSTIC IMAGING REPORT ---
L-SPINE MIN 4 VIEWS ROUTINE CLINICAL HISTORY: Low back pain. COMPARISON: None. FINDINGS: Alignment of the lumbar spine is anatomic. Vertebral body heights are maintained. No fracture or suspicious lesion is identified within the lumbar spine. Mild multilevel disc space narrowing and osteophytosis is noted with moderate to severe multilevel facet arthrosis. Iliolumbar ligament ossification is noted. This is chronic. IMPRESSION: 1. No acute lumbar spine fracture or subluxation. 2. Mild multilevel degenerative disc disease and moderate to severe multilevel facet arthrosis of the lumbar spine. 3. Ossification of the iliolumbar ligaments, a chronic finding. Electronically signed by: Jordan Tim M.D. 03/06/2017 2:27 PM Dictated Date/Time: 03/06/2017 2:22 PM
== END | disposition home or self-care (01) ==
LOC: C.RAD 13:55
PROVIDERS: ATTEND Nurse Practitioner
DX: M47.896 Other spondylosis, lumbar region (principal); M67.88 Other specified disorders of synovium and tendon, other site

== ENCOUNTER → 2017-07-10 | Outpatient (CLI) | payer OTHER ==
[~2017-07-10] MED LIST changes: +ATOR10TA82 PO; -ATOR10TA88 PO
[2017-07-10 10:26] LABS: HEMATOCRIT 42.3 % (42-52); HEMOGLOBIN 14.6 g/dL (14.0-18.0); MEAN CELL VOLUME 92.4 fL (80-100); MEAN CORPUSCULAR HEMOGLOBIN 31.9 pg (25-34); MEAN CORPUSCULAR HGB CONC 34.5 g/dl (32-36); PLATELET COUNT 63 K/uL (130-400); RED CELL DISTRIBUTION WIDTH SD 43.9 fL (36.4-46.3); WHITE BLOOD COUNT 2.88 K/uL (4.8-10.8)
[2017-07-10 10:27] LABS: EOS % 2.4 %; EOS ABS # 0.07 K/uL (0-0.5); LYMPH % 22.2 %; LYMPH ABS # 0.64 K/uL (1.2-3.4); MONO % 6.9 %; NEUT % 68.5 %; NEUT ABS # 1.97 K/uL (1.4-6.5)
[2017-07-10 10:30] LABS: ALBUMIN 3.6 gm/dl (3.4-5.0); BLOOD UREA NITROGEN 17 mg/dl (7-18); CALCIUM 8.8 mg/dl (8.5-10.1); CARBON DIOXIDE 26 mmol/L (21-32); CREATININE 1.23 mg/dl (0.60-1.40); GLUCOSE 114 mg/dl (70-99); POTASSIUM 3.9 mmol/L (3.5-5.1); SODIUM 137 mmol/L (136-145)
[2017-07-10 10:34] LABS: ALKALINE PHOSPHATASE 101 U/L (45-117); ALT/SGPT 40 U/L (12-78); AST/SGOT 39 U/L (15-37); CHOLESTEROL 93 mg/dl (0-200); LDL CHOLESTEROL CALCULATED 40 mg/dl; TOTAL PROTEIN 7.3 gm/dl (6.4-8.2)
== END | disposition home or self-care (01) ==
LOC: C.LAB 08:09
PROVIDERS: ATTEND Internal Medicine Geriatric Medicine
DX: E11.29 Type 2 diabetes mellitus with other diabetic kidney complication (principal); I12.9 Hypertensive chronic kidney disease with stage 1 through stage 4 chronic kidney disease, or unspecified chronic kidney disease; N18.3 Chronic kidney disease, stage 3 (moderate); D69.6 Thrombocytopenia, unspecified

== ENCOUNTER → 2017-07-30 | Outpatient (CLI) | payer OTHER | END | disposition home or self-care (01) | LOC: C.PATHSPEC 16:46 | PROVIDERS: ATTEND Physician Assistant | DX: C44.629 Squamous cell carcinoma of skin of left upper limb, including shoulder (principal) ==

== ENCOUNTER → 2017-08-19 | Outpatient (CLI) | payer OTHER | END | disposition home or self-care (01) | LOC: C.PATHSPEC 17:52 | PROVIDERS: ATTEND Plastic Surgery | DX: C44.629 Squamous cell carcinoma of skin of left upper limb, including shoulder (principal); D04.62 Carcinoma in situ of skin of left upper limb, including shoulder ==

== ENCOUNTER 2020-10-27 09:17 | Observation (INO) ==
[2020-10-27 10:17] LABS: Hemoglobin 12.9 g/dL (14.0-18.0); Mean Corpuscular Hemoglobin 30.9 pg (25-34); Mean Corpuscular Hgb Conc 33.9 g/dL (32-36); Mean Corpuscular Volume 91.1 fL (80-100); RDW Coefficient of Variation 13.4 % (11.5-14.5); RDW Standard Deviation 44.3 fL (36.4-46.3); Red Blood Count 4.17 M/uL (4.7-6.1); White Blood Count 2.55 K/uL (4.8-10.8)
[2020-10-27 10:19] LABS: Mean Platelet Volume 11.6 fL (7.4-10.4); Platelet Count 57 K/uL (130-400)
[2020-10-27 10:30] LABS: INR 1.2 (0.9-1.1); Partial Thromboplastin Ratio 1.1; Partial Thromboplastin Time 29.3 Seconds (21.0-31.0); Prothrombin Time 12.3 Seconds (9.0-12.0)
[2020-10-27 10:35] LABS: Eosinophils # (auto) 0.05 K/uL (0-0.5); Lymphocytes # (auto) 0.31 K/uL (1.2-3.4); Lymphocytes % (auto) 12.2 %; Monocytes # (auto) 0.22 K/uL (0.11-0.59); Monocytes % (auto) 8.6 %; Neutrophils # (auto) 1.97 K/uL (1.4-6.5); Neutrophils % (auto) 77.2 %
[2020-10-27 10:43] LABS: BUN Creatinine Ratio 11.1 (10-20); Calcium 8.5 mg/dl (8.5-10.1); Creatinine Clr Calc Pharmacy 45.8 ml/min; Est GFR (African American) 68.6 ml/min; Est GFR (Non-African American) 59.1 ml/min; Potassium 3.7 mmol/L (3.5-5.1)
[2020-10-27 10:45] LABS: Albumin Globulin Ratio 0.7 (0.9-2); Bilirubin,Total 0.9 mg/dl (0.2-1); Globulin 4.2 gm/dl (2.5-4.0); Total Protein 7.2 gm/dl (6.4-8.2)
[2020-10-27 10:58] LABS: Beta-Hydroxybutyrate 0.78 mg/dl (0.2-2.81)
[2020-10-27] MEDS ORDERED: OPTIRAY 320 100ml IV ONE (11:16)
--- NOTE | 2020-10-27 11:32 | CT Scan Report ---
CT abd pelvis IV con only CLINICAL HISTORY: hematochezia COMPARISON STUDY: None. TECHNIQUE: Patient was scanned in a dynamic helical fashion during intravenous administration of 88 c c of Optiray 320. A dose lowering technique was utilized adhering to the principles of ALARA. CT DOSE: 404.46 mGy.cm FINDINGS: Lower chest: There are mild dependent atelectatic changes. There are coronary artery calcifications. Pacemaker electrodes are visualized. Liver: The liver has a cirrhotic morphology. No focal masses are visualized. Gallbladder: Surgically absent Spleen: Enlarged measuring 15.4 cm. There is trace anterior perisplenic/subcapsular fluid. Pancreas: There is a 1 cm cystic lesion within the distal pancreatic body, statistically representing a side branch IPMN Adrenal glands: Unremarkable. Kidneys: There are bilateral renal cortical cysts. No solid renal masses are visualized. Bowel: There are postsurgical changes of a low rectal anastomosis. There is no evidence of acute dive rticulitis. There are postsurgical changes involving the cecum and small bowel. By history the append ix is surgically absent. There is trace periduodenal fluid. Peritoneum: There is no intraperitoneal free air or abdominal ascites. There is a fat-containing righ t inguinal hernia. There are multiple small fat-containing supraumbilical ventral hernias Vasculature: The abdominal aorta is normal in course and caliber. Adenopathy: There are borderline enlarged para-aortic and periportal nodes. Pelvic viscera: The bladder, and pelvic viscera are unremarkable. Skeletal structures: There are postsurgical changes of left anterior abdominal wall suggesting a prio r colostomy site. No destructive skeletal lesions are visualized. There is a chronic lower thoracic v ertebral body compression deformity. IMPRESSION: 1. Postsurgical changes involving the bowel 2. No evidence of bowel obstruction. No evidence of free air 3. No evidence of acute diverticulitis 4. Cirrhotic morphology the liver 5. Splenomegaly with trace perisplenic/subcapsular fluid 6. Trace periduodenal fluid 7. Borderline enlarged para-aortic and periportal lymph nodes 8. Small fat-containing supraumbilical ventral hernias 9. Fat-containing right inguinal hernia 10. 1 cm cystic pancreatic lesion, statistically representing a side branch IPMN ACT 112: Negative or not required by law. Electronically signed by: Kamran Yu M.D. 10/27/2020 11:31 AM
--- NOTE | 2020-10-27 11:35 | Emergency Department Note ---
History of Present Illness General Chief complaint: Rectal Bleed Stated complaint: RECTAL BLEED Time Seen by Provider: 10/27/20 09:27 Source: patient and RN notes reviewed Mode of arrival: ambulatory Limitations: no limitations History of Present Illness Provider complaint: Rectal bleed This patient is an 80-year-old male who presents to the emergency department with complaints of rectal bleeding. Patient states he has a history of hemorrhoids and is on Eliquis for h/o atrial fib. He has had some recurrent rectal bleeding but lately this has not been well controlled. He has a history of rectal cancer with a resection and has declined colonoscopy. Patient states he has been using a washcloth as a pad at night to prevent dirtying the sheets. Patient states he has multiple runs to the bathroom urgently but it is usually a bright red/liquidy discharge. He denies any pain, nausea or vomiting. He denies any recent trauma. Home Medications Medication Instructions Recorded Confirmed Type cholecalciferol (vitamin D3) 25 1,000 units PO QAM 01/08/19 10/27/20 History mcg (1,000 unit) capsule blood sugar diagnostic #200 ea 03/21/20 09/25/20 Rx lorazepam 0.5 mg tablet See Rx Instructions PO DAILY PRN 10/17/20 10/27/20 Rx #15 tab amlodipine 5 mg PO QAM 10/27/20 10/27/20 History atorvastatin 10 mg PO HS 10/27/20 10/27/20 History lisinopril 40 mg PO QAM 10/27/20 10/27/20 History mirtazapine 7.5 mg PO HS 10/27/20 10/27/20 History tamsulosin 0.4 mg PO QA 10/27/20 10/27/20 History Allergies Allergy/AdvReac Type Severity Reaction Status Date / Time metoprolol Allergy Intermediate NONTOLERATED, Verified 10/27/20 10:29 DIZZINESS sertraline Allergy Intermediate "NUMBNESS Verified 10/27/20 10:29 IN MY FACE" Past Med/Surg History Medical History Chronic kidney disease Chronic leukopenia Past evaluation by Hematology with negative work up. No changes with CBC over time. Diabetes mellitus, type II Diverticulosis of colon (12/06/12) Heart failure with preserved ejection fraction History of rectal cancer s/p surgical resection (1999). Previously monitored by periodic colonoscopy (08/12 unremarkable w/ 3-5 year follow up) Hypertension Insomnia Olecranon fracture history of open treatment of fracture of the olecranon Presence of cardiac pacemaker Second degree AV block Followed by cardiology Thrombocytopenia Surgical History History of excision of lesion History of partial colectomy Hx of appendectomy Hx of cholecystectomy Hx of colonoscopy Hx of hernia repair Family History Family/Other Cancer Colorectal cancer Heart disease Hypertension Sister Breast cancer Father Myocardial infarction Mother Myocardial infarction Denies family history of Ovarian cancer Prostate cancer Lung cancer Social History Smoking Status: Never smoker Second Hand Exposure: No; Hx Alcohol Use: No Hx Substance Use: No Preferred Language: Hebrew Communication Ability: Effective Visual Impairment: Limited Hearing Ability: Normal Clinical Social Work Therapist Required: No Beliefs That Will Affect Care: None marital status: Current Living Situation: Alone current occupational status: retired How many Children do You have: 2 Feels Safe at Home: Yes Childhood Exposure to Second-Hand Smoke: Yes caffeine: Yes Dental Care, Regularly: No Physical Activity Frequency: Daily Physical Activity Frequency Comment: walking Seatbelt Use: always Sunscreen Use: Yes Assistive Devices: None Review of Systems See HPI for pertinent positives & negatives. and A total of 10 systems reviewed and were otherwise negative Physical Exam Vital Signs Vital Signs - 24 hr 10/27/20 09:26 10/27/20 10:17 10/27/20 11:28 Temperature 36.7 C Temperature Source Temporal Artery Scan Pulse Rate 95 H Pulse Rate [Right Finger] 92 H Pulse Rhythm Regular Pulse Strength Normal Respiratory Rate 18 24 Respiratory Effort / Characteristics Non-Labored Spontaneous Non-Labored Respiratory Depth Normal Normal Respiratory Pattern Regular Blood Pressure 142/71 H Blood Pressure [Left Arm] 144/65 H Blood Pressure Mean 94 Blood Pressure Mean [Left Arm] 91 Blood Pressure Position Sitting Pulse Oximetry 97 99 99 Oxygen Delivery Method Room Air Room Air Room Air Sepsis Recent Fever Within 48 Hours No Sepsis New/Unexplained Change in Mental Status N/A Sepsis Action Taken by Nursing No Action Required Vital signs reviewed. General: Well-appearing, elderly 80 yo male, in no significant distress. HEENT: No scleral icterus, PERRLA, neck supple. Atraumatic. Cardiovascular: Regular rate and rhythm, systolic ejection murmur Pulmonary: Clear to auscultation bilaterally, normal work of breathing. Abdomen: Soft, nontender, nondistended, positive bowel sounds. Musculoskeletal: Atraumatic, no peripheral edema. Rectal: external varicosities noted, no large thrombus. Guaiac positive melanotic stool with BRB evident. Neurologic: Patient awake alert and oriented x 3 Skin: Warm, dry, no rash Course Administered Medications Discontinued Medications Amlodipine Besylate (Amlodipine Besylate 5 Mg Tab) [facility] [place] [facility] Stop: 11/27/20 08:59 Last Admin: 10/28/20 08:33 Dose: 5 mg Documented by: [id number] Atorvastatin Calcium (Atorvastatin 10 Mg Tab) 10 mg PO HS [facility] Stop: 11/26/20 20:59 Last Admin: 10/27/20 20:58 Dose: 10 mg Documented by: [id number] Insulin Aspart (Insulin Aspart 100 Units/Ml 3 Ml Pen) 0 units SC ACHS [facility] Stop: 11/26/20 18:05 Last Admin: 10/28/20 11:57 Dose: Not Given Documented by: [id number] Admin: 10/28/20 08:36 Dose: 1 units Documented by: [id number] Cosigned by: [id number] Admin: 10/27/20 21:04 Dose: 1 units Documented by: [id number] Cosigned by: [id number] Admin: 10/27/20 21:03 Dose: Not Given Documented by: [id number] Cosigned by: [id number] Insulin Human Regular (Novolin-R Insulin Per Unit Charge) 10 units SC NOW STA Stop: 10/27/20 14:07 Last Admin: 10/27/20 14:23 Dose: Not Given Documented by: [id number] Ioversol (Optiray 320 100ml) 88 ml IV ONCE ONE Stop: 10/27/20 11:17 Last Admin: 10/27/20 11:17 Dose: 88 ml Documented by: [id number] Lisinopril (Lisinopril 40 Mg Tab) 40 mg PO [facility] [place] [facility] [place] Stop: 11/27/20 08:59 Last Admin: 10/28/20 08:33 Dose: 40 mg Documented by: [id number] Mirtazapine (Mirtazapine Tab 15 Mg Tab) 7.5 mg PO [facility] Stop: 11/26/20 20:59 Last Admin: 10/27/20 20:58 Dose: 7.5 mg Documented by: [id number] Tamsulosin HCl (Tamsulosin Hcl 0.4 Mg Cap) 0.4 mg PO [facility] [place] [facility] [place] Stop: 11/27/20 08:59 Last Admin: 10/28/20 08:33 Dose: 0.4 mg Documented by: [id number] Vitamin D (Cholecalciferol 1,000 Units 25 Mcg Tab) 1,000 units PO [facility] Stop: 11/27/20 08:59 Last Admin: 10/28/20 08:33 Dose: 1,000 units Documented by: [id number] Medical Decision Making Differential Diagnosis Diverticulosis, AVM, coagulopathy, colitis, inflammatory bowel disease, malignancy, [place]-H[place] tear, esophagitis, peptic ulcer disease, variceal bleed, gastritis, epistaxis, fissure, hemorrhoids, as well as other pathologies. Medical Records Attestation: I reviewed the patient's medical records. Home Medications Current Medication List: was personally reviewed by me Laboratory Data Attestation: I reviewed the patient's lab results. Result diagrams: 10/28/20 10:07 10/28/20 02:07 Lab Results 10/27/20 10/27/20 10/27/20 Range/Units 10:04 10:04 10:04 WBC 2.55 L (4.8-10.8) K/uL RBC 4.17 L (4.7-6.1) M/uL Hgb 12.9 L (14.0-18.0) g/dL Hct 38.0 L (42-52) % MCV 91.1 (80-100) fL MCH 30.9 (25-34) pg MCHC 33.9 (32-36) g/dL RDW Std Deviation 44.3 (36.4-46.3) fL RDW Coeff of Ro 13.4 (11.5-14.5) % Plt Count 57 L (130-400) K/uL MPV 11.6 H (7.4-10.4) fL Immature Gran % (Auto) 0.0 % Neut % (Auto) 77.2 % Lymph % (Auto) 12.2 % Tripp % (Auto) 8.6 % Eos % (Auto) 2.0 % Baso % (Auto) 0.0 % Neut # (Auto) 1.97 (1.4-6.5) K/uL Lymph # (Auto) 0.31 L (1.2-3.4) K/uL Tripp # (Auto) 0.22 (0.11-0.59) K/uL Eos # (Auto) 0.05 (0-0.5) K/uL Baso # (Auto) 0.00 (0-0.2) K/uL Immature Gran # (Auto) 0.00 (0.00-0.02) K/uL PT 12.3 H (9.0-12.0) Seconds INR 1.2 H (0.9-1.1) APTT 29.3 (21.0-31.0) Seconds PTT Ratio 1.1 Sodium 138 (136-145) mmol/L Potassium 3.7 (3.5-5.1) mmol/L Chloride 105 (98-107) mmol/L Carbon Dioxide 29 (21-32) mmol/L Anion Gap 4.0 (3-11) BUN 13 (7-18) mg/dl Creatinine 1.16 (0.6-1.4) mg/dl Est Cr Clr Drug Dosing 45.8 ml/min Est GFR ( Amer) 68.6 ml/min Est GFR (Non-Af Amer) 59.1 ml/min BUN/Creatinine Ratio 11.1 (10-20) Glucose 310 H* (70-99) mg/dl POC Glucose (70-99) mg/dl Calcium 8.5 (8.5-10.1) mg/dl Total Bilirubin 0.9 (0.2-1) mg/dl AST 50 H (15-37) U/L ALT 45 (12-78) U/L Alkaline Phosphatase 153 H (45-117) U/L Total Protein 7.2 (6.4-8.2) gm/dl Albumin 3.0 L (3.4-5.0) gm/dl Globulin 4.2 H (2.5-4.0) gm/dl Albumin/Globulin Ratio 0.7 L (0.9-2) Beta-Hydroxybutyric Acd 0.78 (0.2-2.81) mg/dl POC Stool Occult Blood (Negative) COVID-19 Eval Order SARS-CoV-2 (PCR) (Negative) 10/27/20 10/27/20 10/27/20 Range/Units 10:17 14:20 14:20 WBC (4.8-10.8) K/uL RBC (4.7-6.1) M/uL Hgb (14.0-18.0) g/dL Hct (42-52) % MCV (80-100) fL MCH (25-34) pg MCHC (32-36) g/dL RDW Std Deviation (36.4-46.3) fL RDW Coeff of Ro (11.5-14.5) % Plt Count (130-400) K/uL MPV (7.4-10.4) fL Immature Gran % (Auto) % Neut % (Auto) % Lymph % (Auto) % Tripp % (Auto) % Eos % (Auto) % Baso % (Auto) % Neut # (Auto) (1.4-6.5) K/uL Lymph # (Auto) (1.2-3.4) K/uL Tripp # (Auto) (0.11-0.59) K/uL Eos # (Auto) (0-0.5) K/uL Baso # (Auto) (0-0.2) K/uL Immature Gran # (Auto) (0.00-0.02) K/uL PT (9.0-12.0) Seconds INR (0.9-1.1) APTT (21.0-31.0) Seconds PTT Ratio Sodium (136-145) mmol/L Potassium (3.5-5.1) mmol/L Chloride (98-107) mmol/L Carbon Dioxide (21-32) mmol/L Anion Gap (3-11) BUN (7-18) mg/dl Creatinine (0.6-1.4) mg/dl Est Cr Clr Drug Dosing ml/min Est GFR ( Amer) ml/min Est GFR (Non-Af Amer) ml/min BUN/Creatinine Ratio (10-20) Glucose (70-99) mg/dl POC Glucose 164 H (70-99) mg/dl Calcium (8.5-10.1) mg/dl Total Bilirubin (0.2-1) mg/dl AST (15-37) U/L ALT (12-78) U/L Alkaline Phosphatase (45-117) U/L Total Protein (6.4-8.2) gm/dl Albumin (3.4-5.0) gm/dl Globulin (2.5-4.0) gm/dl Albumin/Globulin Ratio (0.9-2) Beta-Hydroxybutyric Acd (0.2-2.81) mg/dl POC Stool Occult Blood Positive A (Negative) COVID-19 Eval Order Covid19 at [facility] SARS-CoV-2 (PCR) (Negative) 10/27/20 Range/Units 14:20 WBC (4.8-10.8) K/uL RBC (4.7-6.1) M/uL Hgb (14.0-18.0) g/dL Hct (42-52) % MCV (80-100) fL MCH (25-34) pg MCHC (32-36) g/dL RDW Std Deviation (36.4-46.3) fL RDW Coeff of Ro (11.5-14.5) % Plt Count (130-400) K/uL MPV (7.4-10.4) fL Immature Gran % (Auto) % Neut % (Auto) % Lymph % (Auto) % Tripp % (Auto) % Eos % (Auto) % Baso % (Auto) % Neut # (Auto) (1.4-6.5) K/uL Lymph # (Auto) (1.2-3.4) K/uL Tripp # (Auto) (0.11-0.59) K/uL Eos # (Auto) (0-0.5) K/uL Baso # (Auto) (0-0.2) K/uL Immature Gran # (Auto) (0.00-0.02) K/uL PT (9.0-12.0) Seconds INR (0.9-1.1) APTT (21.0-31.0) Seconds PTT Ratio Sodium (136-145) mmol/L Potassium (3.5-5.1) mmol/L Chloride (98-107) mmol/L Carbon Dioxide (21-32) mmol/L Anion Gap (3-11) BUN (7-18) mg/dl Creatinine (0.6-1.4) mg/dl Est Cr Clr Drug Dosing ml/min Est GFR ( Amer) ml/min Est GFR (Non-Af Amer) ml/min BUN/Creatinine Ratio (10-20) Glucose (70-99) mg/dl POC Glucose (70-99) mg/dl Calcium (8.5-10.1) mg/dl Total Bilirubin (0.2-1) mg/dl AST (15-37) U/L ALT (12-78) U/L Alkaline Phosphatase (45-117) U/L Total Protein (6.4-8.2) gm/dl Albumin (3.4-5.0) gm/dl Globulin (2.5-4.0) gm/dl Albumin/Globulin Ratio (0.9-2) Beta-Hydroxybutyric Acd (0.2-2.81) mg/dl POC Stool Occult Blood (Negative) COVID-19 Eval Order SARS-CoV-2 (PCR) NEGATIVE (Negative) Imaging Data Radiologist's Impression: Abdomen/Pelvis CT 10/27/20 11:03 CT abd pelvis IV con only CLINICAL HISTORY: hematochezia COMPARISON STUDY: None. TECHNIQUE: Patient was scanned in a dynamic helical fashion during intravenous administration of 88 cc of Optiray 320. A dose lowering technique was utilized adhering to the principles of ALARA. CT DOSE: 404.46 mGy.cm FINDINGS: Lower chest: There are mild dependent atelectatic changes. There are coronary artery calcifications. Pacemaker electrodes are visualized. Liver: The liver has a cirrhotic morphology. No focal masses are visualized. Gallbladder: Surgically absent Spleen: Enlarged measuring 15.4 cm. There is trace anterior perisplenic/subcapsular fluid. Pancreas: There is a 1 cm cystic lesion within the distal pancreatic body, statistically representing a side branch IPMN Adrenal glands: Unremarkable. Kidneys: There are bilateral renal cortical cysts. No solid renal masses are visualized. Bowel: There are postsurgical changes of a low rectal anastomosis. There is no evidence of acute diverticulitis. There are postsurgical changes involving the cecum and small bowel. By history the appendix is surgically absent. There is trace periduodenal fluid. Peritoneum: There is no intraperitoneal free air or abdominal ascites. There is a fat-containing right inguinal hernia. There are multiple small fat-containing supraumbilical ventral hernias Vasculature: The abdominal aorta is normal in course and caliber. Adenopathy: There are borderline enlarged para-aortic and periportal nodes. Pelvic viscera: The bladder, and pelvic viscera are unremarkable. Skeletal structures: There are postsurgical changes of left anterior abdominal wall suggesting a prior colostomy site. No destructive skeletal lesions are visualized. There is a chronic lower thoracic vertebral body compression deformity. IMPRESSION: 1. Postsurgical changes involving the bowel 2. No evidence of bowel obstruction. No evidence of free air 3. No evidence of acute diverticulitis 4. Cirrhotic morphology the liver 5. Splenomegaly with trace perisplenic/subcapsular fluid 6. Trace periduodenal fluid 7. Borderline enlarged para-aortic and periportal lymph nodes 8. Small fat-containing supraumbilical ventral hernias 9. Fat-containing right inguinal hernia 10. 1 cm cystic pancreatic lesion, statistically representing a side branch IPMN ACT 112: Negative or not required by law. Electronically signed by: Kamran Yu M.D. 10/27/2020 11:31 AM ECG Data Attestation: I personally reviewed and interpreted this ECG as follows: Indication: + other (GIB) Rate (beats per minute): 84 Rhythm: + other (Atrially sensed and ventricularly paced) ECG Intervals/blocks: + Prolonged QT ECG ST segments: + Normal ST segments ECG Findings: no PACs and no PVCs Blood Pressure Blood Pressure Findings: Elevated blood pressure Blood Pressure Disposition: further management by hospitalist MDM Narrative This patient was evaluated and appeared to be in no distress. IV access was obtained and lab work was drawn. An order for cardiac monitoring was placed and pt was noted to be in a paced rhythm at 90 bpm. Hbg is slighly lower, but no significant drop was appreciated. Rectal exam is positive for gross blood and guaiac positive. Pt has been off and on his Eliquis in an attempt to gain control of the bleeding, however it is now not manageable. Pt was recently and his children are out of town. At this time the safest disposition is hospitalization until bleeding can be controlled and gor GI eval. Pt was agreeable with this plan. Hospitalist was consulted. Impression & Plan GIB (gastrointestinal bleeding), PAF (paroxysmal atrial fibrillation), Chronic anticoagulation Discharge Plan Visit Data Chief Complaint: Rectal Bleed Stated Complaint: RECTAL BLEED ED Provider: Aubree Rosen ED Midlevel Provider: Mahamed,Jax A. Discharge Problem: GIB (gastrointestinal bleeding), PAF (paroxysmal atrial fibrillation), Chronic anticoagulation Patient Disposition: Still a Patient Discharge Instructions Interventions: ED Discharge Assessment Last Done: 10/27/20 17:33 Discharge Problem: GIB (gastrointestinal bleeding) Qualifiers: GI bleed type/associated pathology: anorectal hemorrhage Qualified Code(s): K62.5 - Hemorrhage of anus and rectum
[2020-10-27] MEDS ORDERED: NovoLIN-R INSULIN PER UNIT CHARGE SC STA (14:06)
--- NOTE | 2020-10-27 15:05 | History & Physical Report ---
Date of Service October 27, 2020 Assessment & Plan (1) Rectal bleed: Most likely is internal hemorrhoids, although recurrence of rectal cancer is certainly concern I will place patient in a monitored observation Follow H&H every 8 hours. No need for transfusion at this time We will place on a clear liquid diet only for now We will ask GI to evaluate. I did discuss with the patient will possibly getting a colonoscopy, he will consider (2) PAF (paroxysmal atrial fibrillation): For now, will have to discontinue Eliquis completely Continue heart monitor (3) Hypertension: Patient's blood pressure is elevated Continue amlodipine, lisinopril as per outpatient. Consider third agent if patient's blood pressure continues to be elevated (4) Diabetes mellitus, type II: Noted in his history but he does not appear to be on diabetic medications and We will order a low sliding scale along with a diabetic diet. Check hemoglobin A1c History of Present Illness Chief Complaint: Rectal bleed Primary Care Provider: Alfredo Moreno, This is an 80-year-old male with past medical history of chronic kidney disease, atrial fibrillation on Eliquis, rectal CA in 1999 status post resection that presents today complaining of rectal bleed. Patient is a good historian. Patient tells me that approximately 2 weeks ago he started noting bright red blood per rectum. This was painless. It was inconsistent and did not occur with every bowel movement. He denies any abdominal pain, chest pain, fever or chills. He denies any melena or nausea or vomiting, or hematemesis. He is on Eliquis 5 mg every 12 hours secondary to his PAF which is followed by Dr. Giordano. Patient seems a little reluctant to stay in the hospital but is willing to be monitored. He is resistant to the idea of getting a colonoscopy as he has had many in the past. Allergies Allergy/AdvReac Type Severity Reaction Status Date / Time metoprolol Allergy Intermediate NONTOLERATED, Verified 10/27/20 10:29 DIZZINESS sertraline Allergy Intermediate "NUMBNESS Verified 10/27/20 10:29 IN MY FACE" Home Medications Medication Instructions Recorded Confirmed Type cholecalciferol (vitamin D3) 25 1,000 units PO QAM 01/08/19 10/27/20 History mcg (1,000 unit) capsule apixaban 5 mg tablet 5 mg PO BID #180 tab 02/08/20 10/27/20 Rx blood sugar diagnostic #200 ea 03/21/20 09/25/20 Rx lorazepam 0.5 mg tablet See Rx Instructions PO DAILY PRN 10/17/20 10/27/20 Rx #15 tab amlodipine 5 mg PO QAM 10/27/20 10/27/20 History atorvastatin 10 mg PO HS 10/27/20 10/27/20 History lisinopril 40 mg PO QAM 10/27/20 10/27/20 History mirtazapine 7.5 mg PO HS 10/27/20 10/27/20 History tamsulosin 0.4 mg PO QAM 10/27/20 10/27/20 History Past Med/Surg History Medical History Chronic kidney disease Chronic leukopenia Diabetes mellitus, type II Diverticulosis of colon (12/06/12) Heart failure with preserved ejection fraction History of rectal cancer Hypertension Insomnia Olecranon fracture Presence of cardiac pacemaker Second degree AV block Thrombocytopenia Surgical History History of excision of lesion History of partial colectomy Hx of appendectomy Hx of cholecystectomy Hx of colonoscopy Hx of hernia repair Family History Family/Other Cancer Colorectal cancer Heart disease Hypertension Sister Breast cancer Father Myocardial infarction Mother Myocardial infarction Denies family history of Ovarian cancer Prostate cancer Lung cancer Social History Smoking Status: Never smoker Second Hand Exposure: No; Hx Alcohol Use: No Hx Substance Use: No Preferred Language: Swedish Communication Ability: Effective Visual Impairment: Limited Hearing Ability: Normal 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 marital status: Current Living Situation: Alone current occupational status: retired How many Children do You have: 2 Feels Safe at Home: Yes Childhood Exposure to Second-Hand Smoke: Yes caffeine: Yes Dental Care, Regularly: No Physical Activity Frequency: Daily Physical Activity Frequency Comment: walking Seatbelt Use: always Sunscreen Use: Yes Review of Systems Constitutional: no fever, no chills, no weakness, no weight loss and no weight gain Eyes: as per Subjective / HPI Respiratory: no cough, no chest congestion, no dyspnea and no dyspnea on exertion Cardiovascular: no chest pain, no orthopnea, no palpitations, no lightheadedness and no edema Gastrointestinal: + change in bowel habits and + blood in stools; no abdominal pain, no nausea, no vomiting, no coffee ground emesis, no hematemesis, no constipation and no diarrhea/loose stools Genitourinary: no dysuria, no difficulty urinating, no urinary hesitancy and no urinary incontinence Musculoskeletal: no back pain, no neck pain, no joint pain, no stiffness and no myalgia Integumentary: no rash Neurologic: no gait abnormality, no unsteadiness, no falls and no generalized weakness Results & Data Results & Data ([facility]) Vital Signs (Past 12 Hours) Vital Signs Temp Pulse Pulse Resp BP BP Pulse Ox 10/27/20 14:02 68 18 160/65 H 99 10/27/20 11:28 92 H 24 144/65 H 99 10/27/20 10:17 99 10/27/20 09:26 36.7 C 95 H 18 142/71 H 97 PG Care Time/CCT Total # of Minutes Spent Total Time Spent with Patient: Total time spent is greater than 50% in coordination of care (as documented) at patient's floor/unit and/or counseling patient: Coding Level of Care Code 35917 OBS Care - Level 3 Diagnoses Rectal bleed K62.5 PAF (paroxysmal atrial fibrillation) I48.0 Hypertension I10 Diabetes mellitus, type II E11.9
--- NOTE | 2020-10-27 15:49 | Electrocardiogram Report ---
Test Reason : Blood Pressure : / mmHG Vent. Rate : 084 BPM Atrial Rate : 084 BPM P-R Int : 210 ms QRS Dur : 160 ms QT Int : 426 ms P-R-T Axes : 079 -80 084 degrees QTc Int : 503 ms Atrial-sensed ventricular-paced rhythm with prolonged AV conduction Abnormal ECG When compared with ECG of 08-AUG-2016 13:26, Vent. rate has increased BY 24 BPM Confirmed by Hector Warner ([id number]) on 10/27/2020 3:49:00 PM Referred By: REFERRED SELF Confirmed By:Hector Warner
[2020-10-27] MEDS ORDERED: GLUCOSE 10 TABS/TUBE PO PRN (18:06)
[2020-10-27] MEDS ORDERED: LORazepam 0.5 MG TAB PO PRN (18:06)
[2020-10-27] MEDS ORDERED: ACETAMINOPHEN 325 MG TAB PO PRN (18:06)
[2020-10-27] MEDS ORDERED: DEXTROSE 50% 50 ML SYRINGE IV PRN (18:06)
[2020-10-27] MEDS ORDERED: GLUCAGON FOR INJ 1 MG VIAL SQ PRN (18:06)
[2020-10-27] MEDS ORDERED: GLUCOSE 40% GEL 15 GM TUBE PO PRN (18:06)
[2020-10-27] MEDS ORDERED: ONDANSETRON INJ 2 MG/ML 2 ML VIAL IV PRN (18:06)
[2020-10-27] MEDS ORDERED: CARBOHYDRATES FOR HYPOGLYCEMIA PO PRN (18:06)
[2020-10-27 19:12] LABS: Hematocrit (blood only) 37.8 % (42-52); Hemoglobin 12.9 g/dL (14.0-18.0)
[2020-10-27] MEDS: INSULIN ASPART 100 UNITS/ML 3 ML PEN SC SCH ×3 (20:58→21:04)
[2020-10-27] MEDS ORDERED: MIRTAZAPINE TAB 15 MG TAB PO SCH (21:00)
[2020-10-27] MEDS ORDERED: ATORVASTATIN 10 MG TAB PO SCH (21:00)
[2020-10-28 02:22] LABS: Hematocrit (blood only) 33.5 % (42-52); Hemoglobin 11.3 g/dL (14.0-18.0); Mean Corpuscular Hgb Conc 33.7 g/dL (32-36); RDW Coefficient of Variation 13.5 % (11.5-14.5); RDW Standard Deviation 45.8 fL (36.4-46.3); Red Blood Count 3.64 M/uL (4.7-6.1); White Blood Count 2.61 K/uL (4.8-10.8)
[2020-10-28 02:39] LABS: BUN Creatinine Ratio 11.1 (10-20); Calcium 7.8 mg/dl (8.5-10.1); Creatinine Clr Calc Pharmacy 58.6 ml/min; Est GFR (African American) 88.4 ml/min; Est GFR (Non-African American) 76.3 ml/min; Magnesium 1.9 mg/dl (1.8-2.4); Potassium 3.4 mmol/L (3.5-5.1)
[2020-10-28 02:44] LABS: Basophils # (auto) 0.01 K/uL (0-0.2); Basophils % (auto) 0.4 %; Eosinophils # (auto) 0.09 K/uL (0-0.5); Eosinophils % (auto) 3.4 %; Lymphocytes % (auto) 19.2 %; Mean Platelet Volume 10.9 fL (7.4-10.4); Monocytes # (auto) 0.24 K/uL (0.11-0.59); Monocytes % (auto) 9.2 %; Neutrophils # (auto) 1.77 K/uL (1.4-6.5); Neutrophils % (auto) 67.8 %; Platelet Count 67 K/uL (130-400); Platelet Estimate Decreased (Normal)
[2020-10-28] MEDS: INSULIN ASPART 100 UNITS/ML 3 ML PEN SC SCH ×2 (08:36→11:57)
[2020-10-28] MEDS ORDERED: amLODIPine BESYLATE 5 MG TAB PO SCH (09:00)
[2020-10-28] MEDS ORDERED: CHOLECALCIFEROL 1,000 UNITS 25 MCG TAB PO SCH (09:00)
[2020-10-28] MEDS ORDERED: TAMSULOSIN HCL 0.4 MG CAP PO SCH (09:00)
[2020-10-28] MEDS ORDERED: lisinopril 40 MG TAB PO SCH (09:00)
[2020-10-28 10:18] LABS: Hematocrit (blood only) 36.3 % (42-52); Hemoglobin 12.5 g/dL (14.0-18.0)
--- NOTE | 2020-10-28 11:50 | Consultation Report ---
DATE OF CONSULTATION: 10/28/2020 GASTROINTESTINAL CONSULT NOTE REASON FOR EVALUATION: Rectal bleeding. HISTORY OF PRESENT ILLNESS: The patient is an 80-year-old who for the last 2 months has been noting some intermittent episodes of bright red painless bleeding through the rectum. He has had 2 episodes where there was significantly more blood passed, one of these was 2 days ago where his underwear became saturated and there has been blood in the toilet bowl as well. Blood is bright red and painless. He does have a history of rectal cancer with surgical resection 21 years ago. He said 2 years ago, he had a colonoscopy that showed no evidence of recurrent disease. Of note is on his CAT scan that was performed in the Emergency Room showed that he has a nodular liver and splenomegaly consistent with cirrhosis. He was unaware of this diagnosis when I talked to him about it and he reports he has never had any known problems with his liver in the past. He does have pancytopenia, which would be consistent with chronic liver disease and splenomegaly. Currently, the patient is sitting in a bedside chair, in no acute distress. PAST MEDICAL HISTORY: Remarkable for chronic kidney disease, pancytopenia, diabetes type 2, diverticulosis, rectal cancer. He has had congestive heart failure, hypertension. PAST SURGICAL HISTORY: He has a cardiac pacemaker. He has had appendectomy, cholecystectomy and colon resection and a hernia repair. PHYSICAL EXAMINATION: GENERAL: The patient appears in no acute distress, sitting in the bedside chair. VITAL SIGNS: Normal. He is afebrile. HEENT: He does have some ptosis of his right eyelid. ABDOMEN: Shows a midline scar and an ostomy scar, which are healed with some incisional hernias. There is no internal organs palpable and there is no tenderness. EXTREMITIES: He has multiple ecchymoses on his arms. IMPRESSION AND PLAN: The patient is having rectal bleeding, most likely from hemorrhoids. These are more likely to occur in the presence of portal hypertension and his CAT scan strongly suggests that he may have underlying cirrhosis based on the morphology of his liver and splenic enlargement, which would probably explain his pancytopenia as well. I plan on doing multiple blood tests to evaluate his liver for an underlying potential cause for liver disease and we will follow his blood count and I advised him to notify the nurse any time he had a bowel movement and not to flush so we can track his rate of bleeding. He is not real keen on having a colonoscopy, but we may be able to do an outpatient sigmoid exam if he remains stable and his bleeding is not significant. We will continue to follow the patient.
[2020-10-28 12:08] LABS: Ferritin 144.8 ng/ml (8-388)
--- NOTE | 2020-10-28 13:44 | Discharge Summary ---
Date of Service October 28, 2020 Admission HPI Per Admitting Provider This is an 80-year-old male with past medical history of chronic kidney disease, atrial fibrillation on Eliquis, rectal CA in 1999 status post resection that presents today complaining of rectal bleed. Patient is a good historian. Patient tells me that approximately 2 weeks ago he started noting bright red blood per rectum. This was painless. It was inconsistent and did not occur with every bowel movement. He denies any abdominal pain, chest pain, fever or chills. He denies any melena or nausea or vomiting, or hematemesis. He is on Eliquis 5 mg every 12 hours secondary to his PAF which is followed by Dr. Jo Ann cooper. Patient seems a little reluctant to stay in the hospital but is willing to be monitored. He is resistant to the idea of getting a colonoscopy as he has had many in the past. Admission Exam Per Admitting Provider Constitutional: no fever, no chills, no weakness, no weight loss and no weight gain Eyes: as per Subjective / HPI Respiratory: no cough, no chest congestion, no dyspnea and no dyspnea on exertion Cardiovascular: no chest pain, no orthopnea, no palpitations, no lightheadedness and no edema Gastrointestinal: + change in bowel habits and + blood in stools; no abdominal pain, no nausea, no vomiting, no coffee ground emesis, no hematemesis, no constipation and no diarrhea/loose stools Genitourinary: no dysuria, no difficulty urinating, no urinary hesitancy and no urinary incontinence Musculoskeletal: no back pain, no neck pain, no joint pain, no stiffness and no myalgia Integumentary: no rash Neurologic: no gait abnormality, no unsteadiness, no falls and no generalized weakness Principal Diagnosis Hematochezia Discharge Exam Constitutional: no fever, no chills, no weakness, no weight loss and no weight gain Eyes: as per Subjective / HPI Respiratory: no cough, no chest congestion, no dyspnea and no dyspnea on exertion Cardiovascular: no chest pain, no orthopnea, no palpitations, no lightheadedness and no edema Gastrointestinal: + change in bowel habits and + blood in stools; no abdominal pain, no nausea, no vomiting, no coffee ground emesis, no hematemesis, no constipation and no diarrhea/loose stools Genitourinary: no dysuria, no difficulty urinating, no urinary hesitancy and no urinary incontinence Musculoskeletal: no back pain, no neck pain, no joint pain, no stiffness and no myalgia Integumentary: no rash Neurologic: no gait abnormality, no unsteadiness, no falls and no generalized weakness Discharge Data Allergies Allergy/AdvReac Type Severity Reaction Status Date / Time metoprolol Allergy Intermediate NONTOLERATED, Verified 10/27/20 10:29 DIZZINESS sertraline Allergy Intermediate "NUMBNESS Verified 10/27/20 10:29 IN MY FACE" Consultations 10/27/20 18:06 Consult Gastroenterology Routine Consult Psychiatry Routine Ordered Studies 10/27/20 11:03 CT abd pelvis IV con only Stat Hospital Course (1) Rectal bleed: Mr. Mancia is an 80 year old man with DMII, CHF, Atrial fibrillation on chronic anticoagulation who has been dealing with hematochezia for some time that had become more significant with spontaneous bleeding rather than just with bowel movements who presented to ED last night for this problem. Hematochezia and cirrhosis Multiple possible etiologies including hemorrhoidal bleeding, diverticulosis, AV malformation, and given patient's history, rectal cancer No other symptoms, H and H stable >12 without need for any transfusion, one bloody stool in ED, eliquis was held and bleeding appears to have stopped completely GI consulted, feel imaging suspicious for liver cirrhosis which could lead to increased portal hypertension and increased prominence of internal hemorrhoids Will hold eliquis on discharge, until bleeding thought to be completely resolved but WOULD NOT recommend holding indefinitely, patient at least a 5 on CHADSVASC, high risk for stroke off anticoagulation, would likely benefit from restarting after flexible sigmoidoscopy vs colonoscopy from GI within the next few weeks. Would benefit from follow up with PCP within the week and GI follow up as soon as possible to further evaluate bleeding with colonoscopy vs sigmoidoscopy and to further evaluate cirrhosis (2) Heart failure with preserved ejection fraction: (3) Hypertension: (4) PAF (paroxysmal atrial fibrillation): (5) Anticoagulant long-term use: (6) Diabetes mellitus, type II: (7) Chronic kidney disease: (8) History of rectal cancer: Total Time Total Time Spent Total Time Spent (In Minutes): <30 Discharge Plan Discharge Items Patient Disposition: Home - Self-Care Reason For Visit: LGIB Discharge Diagnosis: Hematochezia Activity: Per Instructions section Non-emergency contact: Primary Care Provider and Occupational Health Specialist Call non-emergency contact if: you have any medication questions and your symptoms worsen Follow-up/Referrals: Alfredo Moreno, [Primary Care Provider] - Diet: Regular Addtl Attending Provider Instructions: Mr. Mancia, It was our pleasure taking care of you for your rectal bleeding. Fortunately, your bleeding has improved since stopping your blood thinning medication, eliquis. On imaging it appears your liver has some characteristics of cirrhosis or scarring of the liver. This could be causing enlarged internal hemorrhoids which in turn could be the source for your bleeding. We would recommend using a daily stool softener to prevent constipation which could exacerbate this problem. We would recommend following up with [facility] Dr. Patel's office for further evaluation and possible flexible sigmoidoscopy to evaluate the area. We will also hold the eliquis for now. You should restart this in the near future after discussion with your primary care provider because without this you are at a high risk of stroke (7.7% per year) without the eliquis. Should the bleeding return or get worse, if you are feeling lightheaded or weak or have any other concerning symptoms please return to medical care without hesitation. We would recommend making a follow up appointment with primary care in the next week and with gastroenterology in the next two weeks. Thank you and we wish you all the best. Pending Studies at Discharge: No Stand-Alone Forms: My [facility], Smoking Cessation Medications and DC Order Prescriptions: Continued (DME) OneTouch Ultra Blue Test Strip Strip See Dose Instructions .ROUTE .MEDSUPPLY Qty: 200 RF: 0 lorazepam 0.5 mg tablet See Rx Instructions PO DAILY PRN (Reason: anxiety) Qty: 15 RF: 2 cholecalciferol (vitamin D3) 1,000 unit capsule 1,000 units PO QAM RF: 0 atorvastatin 10 mg tablet 10 mg PO HS RF: 0 amlodipine 5 mg tablet 5 mg PO QAM RF: 0 tamsulosin 0.4 mg capsule 0.4 mg PO QAM RF: 0 lisinopril 40 mg tablet 40 mg PO QAM RF: 0 mirtazapine 7.5 mg tablet 7.5 mg PO HS RF: 0 Discontinued Eliquis 5 mg tablet 5 mg PO BID Qty: 180 RF: 3 Discharge Orders: Discharge Order (Routine); Ordered 10/28/20 Ordered By: Francisco Briseno Admission Data Admit Date/Time: 10/27/20 15:16 Attending Provider: Jax Moreno Admit Provider: Viral Pinto Primary Care Provider: Alfredo Moreno Other Providers: Dave Patel ; Angélica Walls ; Dr Nikhil ; Kaya De Luna ; Rex Cardona ; Viral Pinto Other Interventions: Discharge Summary Assessment (RN) Last Done: 10/28/20 12:06 Supervising Physician Co-Signing Physician Notes I personally examined the patient and verified all hauser points of history and exam, discussed case, and agree with decision making with Dr Briseno. Feels good. Bleeding has stopped. Discussed plan. Patient very comfortable with the idea of going home. GI input appreciated. Vitals noted, in general he is awake and alert pleasant no distress. HEENT normocephalic atraumatic mucous membranes moist. Breathing unlabored no accessory muscle use good effort. Skin shows no rashes no pallor or icterus. Neuro shows no focal deficits. Lower GI bleed with no acute blood loss anemiahemodynamically stablevery likely hemorrhoidal. Stable for home. Hold anticoagulation for a short period of time, but given the risk benefit of stroke versus bleeding, with his minor bleeding that fortunately has not been of any hemodynamic significance versus risk of stroke right now the risk benefit would definitely favor resuming anticoagulation after a few days. Outpatient follow-up with GI. Stable from, otherwise as above Resident Activity Tracking Resident Involvement: Resident Care Provided Care Provided: Adult Hospital Medicine
--- NOTE | 2020-10-28 18:02 | Billing Data ---
Date of Service October 28, 2020 Coding Level of Care Code 43461 OBS Care - Discharge
[2020-10-30 10:38] LABS: Hepatitis B Surf Ag Rflx Conf Neg (Neg)
[2020-10-30 10:56] LABS: Hepatitis C IgG 13Yrs+Old_Rflx Neg (Neg)
[2020-11-01 10:12] LABS: Alpha 1 Antitrypsin 176 mg/dL (83-199); Anti Nuclear Antibody Screen NEGATIVE (NEGATIVE)
== END 2020-10-28 14:34 | disposition home or self-care (01) ==
LOC: ED 09:17 → 2W 09:17 → SUATTDRO 15:16 → 2W 17:33

== ENCOUNTER 2021-05-06 18:36 | Inpatient (IN) ==
[2021-05-06] MEDS ORDERED: methylPREDNISolone 125 MG/2 ML VIAL IV STA (18:47)
[2021-05-06] MEDS ORDERED: diphenhydrAMINE 50 MG/ML VIAL IV STA (18:47)
[2021-05-06] MEDS ORDERED: FUROSEMIDE 40 MG/4 ML VIAL IV STA (18:47)
[2021-05-06] MEDS ORDERED: FAMOTIDINE 20MG IV PUSH 20 MG/5 ML SYR IV STA (18:47)
--- NOTE | 2021-05-06 18:52 | Emergency Department Note ---
History of Present Illness General Chief complaint: Shortness of Breath/Dyspnea Time Seen by Provider: 05/06/21 18:37 Source: patient and EMS Mode of arrival: EMS History of Present Illness Provider complaint: Facial swelling Onset (ago): week(s) Location: face Pain Consistency: + constant Quality: + other (Swelling) Relieved By: + none Associated symptoms: + shortness of breath and + other (Distention of the abdomen without pain); no chest pain, no cough, no fever/chills, no headaches or no nausea/vomiting This is an 80-year-old male brought in by ambulance for evaluation of facial swelling. He states that he has had intermittent facial swelling. He had an episode about a month ago which resolved. He then started having facial swelling starting about a week ago. At the same time he has had distention of his abdomen. He did not really notice any swelling to the arms or legs but his family thought they were swollen. He does complain of shortness of breath but states that this may be due to his abdomen being distended and making it hard to take deep breaths. He denies any swelling to his tongue or throat. He denies any itching. He is on lisinopril. He denies any recent illness, headache, fever, cough or cold symptoms, chest pain, abdominal pain, vomiting or diarrhea. He does state that he thinks he is urinating less than usual. Home Medications Medication Instructions Recorded Confirmed Type lisinopril 40 mg tablet 40 mg PO QAM 10/27/20 05/06/21 History cholecalciferol (vitamin D3) 25 25 mcg PO QAM 11/02/20 05/06/21 History mcg (1,000 unit) capsule amlodipine 5 mg tablet 5 mg PO QAM #90 tab 02/08/21 05/06/21 Rx atorvastatin 10 mg tablet 10 mg PO HS #90 tab 03/19/21 05/06/21 Rx tamsulosin 0.4 mg capsule 0.4 mg PO QAM #90 cap 04/10/21 05/06/21 Rx acetaminophen 500 mg tablet 500 mg PO Q6H PRN 05/06/21 05/06/21 History (Tylenol Extra Strength) mirtazapine 15 mg tablet 15 mg PO HS 05/06/21 05/06/21 History Allergies Allergy/AdvReac Type Severity Reaction Status Date / Time metoprolol Allergy Intermediate NONTOLERATED, Verified 05/06/21 20:04 DIZZINESS sertraline Allergy Intermediate "NUMBNESS Verified 05/06/21 20:04 IN MY FACE" Past Med/Surg History Medical History Chronic kidney disease Chronic leukopenia Past evaluation by Hematology with negative work up. No changes with CBC over time. Diabetes mellitus, type II Diverticulosis of colon (12/06/12) Heart failure with preserved ejection fraction History of Mohs micrographic surgery for skin cancer History of rectal cancer s/p surgical resection (1999). Previously monitored by periodic colonoscopy (08/12 unremarkable w/ 3-5 year follow up) Hypertension Insomnia Olecranon fracture history of open treatment of fracture of the olecranon Presence of cardiac pacemaker Second degree AV block Followed by cardiology Thrombocytopenia Surgical History History of excision of lesion History of partial colectomy Hx of appendectomy Hx of cholecystectomy Hx of colonoscopy Hx of hernia repair Family History Family/Other Cancer Colorectal cancer Heart disease Hypertension Sister Breast cancer Father Myocardial infarction Mother Myocardial infarction Denies family history of Ovarian cancer Prostate cancer Lung cancer Social History Smoking Status: Never smoker Second Hand Exposure: No; Hx Alcohol Use: No Hx Substance Use: No Preferred Language: Maori Communication Ability: Effective Visual Impairment: Limited Hearing Ability: Normal Flask Pusher Required: No Beliefs That Will Affect Care: None marital status: Current Living Situation: Alone current occupational status: retired How many Children do You have: 2 Feels Safe at Home: Yes Childhood Exposure to Second-Hand Smoke: Yes caffeine: Yes Dental Care, Regularly: No Physical Activity Frequency: Daily Physical Activity Frequency Comment: walking Seatbelt Use: always Sunscreen Use: Yes Assistive Devices: None Review of Systems See HPI for pertinent positives & negatives. and A total of 10 systems reviewed and were otherwise negative Physical Exam Vital Signs Vital Signs - 24 hr 05/06/21 18:27 05/06/21 19:10 05/06/21 19:30 Temperature 37.2 C Temperature Source Oral Pulse Rate 109 H 74 Pulse Rate [Finger] Pulse Rhythm Regular Pulse Strength Normal Respiratory Rate 20 24 Respiratory Effort / Characteristics Non-Labored Non-Labored Spontaneous Respiratory Depth Normal Respiratory Pattern Regular Blood Pressure 135/74 128/68 Blood Pressure [Left Arm] Blood Pressure Mean 94 88 Blood Pressure Mean [Left Arm] Pulse Oximetry 98 97 96 Oxygen Delivery Method Room Air Room Air Sepsis Recent Fever Within 48 Hours No Sepsis New/Unexplained Change in Mental Status N/A Sepsis Action Taken by Nursing No Action Required 05/06/21 19:33 05/06/21 19:39 05/06/21 20:00 Temperature Temperature Source Pulse Rate 68 Pulse Rate [Finger] 67 Pulse Rhythm Pulse Strength Respiratory Rate 24 24 Respiratory Effort / Characteristics Respiratory Depth Normal Respiratory Pattern Blood Pressure 141/70 H Blood Pressure [Left Arm] 135/74 Blood Pressure Mean 93 Blood Pressure Mean [Left Arm] 94 Pulse Oximetry 96 97 96 Oxygen Delivery Method Room Air Room Air Sepsis Recent Fever Within 48 Hours Sepsis New/Unexplained Change in Mental Status Sepsis Action Taken by Nursing 05/06/21 20:30 05/06/21 21:30 Temperature Temperature Source Pulse Rate 67 62 Pulse Rate [Finger] Pulse Rhythm Pulse Strength Respiratory Rate 22 24 Respiratory Effort / Characteristics Respiratory Depth Respiratory Pattern Blood Pressure 147/94 H 150/62 H Blood Pressure [Left Arm] Blood Pressure Mean 111 91 Blood Pressure Mean [Left Arm] Pulse Oximetry 94 94 Oxygen Delivery Method Sepsis Recent Fever Within 48 Hours Sepsis New/Unexplained Change in Mental Status Sepsis Action Taken by Nursing Constitutional: Vital signs reviewed. Eyes: Pupils are equal round reactive to light. Conjunctiva are noninjected. ENT: Diffuse facial swelling including the orbits. No signs of glottic or uvular swelling. Pharynx is clear without erythema or exudate. Mucous membranes are moist. Neck supple without meningeal signs. Respiratory: Clear to auscultation bilaterally. Breath sounds are equal bilaterally. No wheezing or stridor. Cardiovascular: Regular rate and rhythm. No rubs or gallops. GI: Soft, distended and nontender. Ascites. Bowel sounds are present. Musculoskeletal: Pitting edema to the lower extremities without tenderness. No strangulation from the wedding ring on the left hand. Integumentary: No cyanosis. or jaundice. Neurological: The patient is awake and alert. No focal deficits. Psychiatric: Normal affect. Not anxious appearing. Course Administered Medications Discontinued Medications Diphenhydramine HCl (Diphenhydramine 50 Mg/Ml Vial) 50 mg IV NOW STA Stop: 05/06/21 18:48 Last Admin: 05/06/21 19:22 Dose: 50 mg Documented by: [id number] Furosemide (Furosemide 40 Mg/4 Ml Vial) 40 mg IV NOW STA Stop: 05/06/21 18:48 Last Admin: 05/06/21 19:22 Dose: 40 mg Documented by: [id number] Famotidine (Pepcid 20mg Iv Push) 20 mg in 5 mls @ 2.5 mls/min IV NOW STA Stop: 05/06/21 18:48 Last Admin: 05/06/21 19:22 Dose: 2.5 mls/min Documented by: [id number] Methylprednisolone (Methylprednisolone 125 Mg/2 Ml Vial) 125 mg IV NOW STA Stop: 05/06/21 18:48 Last Admin: 05/06/21 19:22 Dose: 125 mg Documented by: [id number] Medical Decision Making Differential Diagnosis Anasarca, EMMETT inhibitor induced angioedema, allergic reaction, kidney failure, nephrotic syndrome, liver disease Medical Records Attestation: I reviewed the patient's medical records. I did perform a limited focused review of portions of the patient's old chart on the electronic medical record. The patient was seen by Dr. Moreno on April 13. He had Covid symptoms at that time but a test was not obtained. He was placed in isolation. He also complained of facial edema of unclear etiology. Home Medications Current Medication List: was personally reviewed by me Laboratory Data Attestation: I reviewed the patient's lab results. Result diagrams: 05/06/21 19:10 05/06/21 19:10 Lab Results 05/06/21 05/06/21 05/06/21 Range/Units 19:10 19:10 19:10 WBC 2.41 L (4.8-10.8) K/uL RBC 3.71 L (4.7-6.1) M/uL Hgb 11.6 L (14.0-18.0) g/dL Hct 35.3 L (42-52) % MCV 95.1 (80-100) fL MCH 31.3 (25-34) pg MCHC 32.9 (32-36) g/dL RDW Std Deviation 50.4 H (36.4-46.3) fL RDW Coeff of Ro 14.4 (11.5-14.5) % Plt Count 67 L (130-400) K/uL MPV 10.8 H (7.4-10.4) fL Immature Gran % (Auto) 0.4 % Neut % (Auto) 68.4 % Lymph % (Auto) 15.8 % Pepin % (Auto) 12.9 % Eos % (Auto) 2.5 % Baso % (Auto) 0.0 % Neut # (Auto) 1.65 (1.4-6.5) K/uL Lymph # (Auto) 0.38 L (1.2-3.4) K/uL Pepin # (Auto) 0.31 (0.11-0.59) K/uL Eos # (Auto) 0.06 (0-0.5) K/uL Baso # (Auto) 0.00 (0-0.2) K/uL Immature Gran # (Auto) 0.01 (0.00-0.02) K/uL Sodium 141 (136-145) mmol/L Potassium 3.6 (3.5-5.1) mmol/L Chloride 109 H (98-107) mmol/L Carbon Dioxide 24 (21-32) mmol/L Anion Gap 8.0 (3-11) BUN 16 (7-18) mg/dl Creatinine 1.25 (0.6-1.4) mg/dl Est Cr Clr Drug Dosing Not Reportable Est GFR ( Amer) 62.6 ml/min Est GFR (Non-Af Amer) 54.0 ml/min BUN/Creatinine Ratio 12.7 (10-20) Glucose 139 H (70-99) mg/dl Calcium 8.0 L (8.5-10.1) mg/dl Total Bilirubin 1.5 H (0.2-1) mg/dl AST 54 H (15-37) U/L ALT 42 (12-78) Alkaline Phosphatase 123 H (45-117) U/L Troponin I 0.050 H* (0-0.045) ng/ml NT-Pro-B Natriuret Pep 1202 (0-1800) pg/ml Total Protein 6.9 (6.4-8.2) gm/dl Albumin 2.6 L (3.4-5.0) gm/dl Globulin 4.3 H (2.5-4.0) gm/dl Albumin/Globulin Ratio 0.6 L (0.9-2) Urine Color Yellow Urine Appearance Clear (Clear) Urine pH 6.0 (4.5-7.5) Ur Specific [place]ow 1.016 (1.000-1.030) Urine Protein Trace H (Negative) Urine Glucose (UA) Negative (Negative) Urine Ketones Negative (Negative) Urine Blood Negative (Negative) Urine Nitrite Negative (Negative) Urine Bilirubin Negative (Negative) Urine Urobilinogen Negative (Negative) Ur Leukocyte Esterase Trace H (Negative) Urine WBC (Auto) 1-5 (0-5) /hpf Urine RBC (Auto) 0-4 (0-4) /hpf U Hyaline Cast (Auto) 1-5 (0-5) /lpf U Epithel Cells (Auto) 5-10 H (0-5) /lpf Urine Bacteria (Auto) Negative (Negative) SARS-CoV-2, RNA, NAAT (NEGATIVE) 05/06/21 Range/Units 20:10 WBC (4.8-10.8) K/uL RBC (4.7-6.1) M/uL Hgb (14.0-18.0) g/dL Hct (42-52) % MCV (80-100) fL MCH (25-34) pg MCHC (32-36) g/dL RDW Std Deviation (36.4-46.3) fL RDW Coeff of Ro (11.5-14.5) % Plt Count (130-400) K/uL MPV (7.4-10.4) fL Immature Gran % (Auto) % Neut % (Auto) % Lymph % (Auto) % Pepin % (Auto) % Eos % (Auto) % Baso % (Auto) % Neut # (Auto) (1.4-6.5) K/uL Lymph # (Auto) (1.2-3.4) K/uL Pepin # (Auto) (0.11-0.59) K/uL Eos # (Auto) (0-0.5) K/uL Baso # (Auto) (0-0.2) K/uL Immature Gran # (Auto) (0.00-0.02) K/uL Sodium (136-145) mmol/L Potassium (3.5-5.1) mmol/L Chloride (98-107) mmol/L Carbon Dioxide (21-32) mmol/L Anion Gap (3-11) BUN (7-18) mg/dl Creatinine (0.6-1.4) mg/dl Est Cr Clr Drug Dosing Est GFR ( Amer) ml/min Est GFR (Non-Af Amer) ml/min BUN/Creatinine Ratio (10-20) Glucose (70-99) mg/dl Calcium (8.5-10.1) mg/dl Total Bilirubin (0.2-1) mg/dl AST (15-37) U/L ALT (12-78) Alkaline Phosphatase (45-117) U/L Troponin I (0-0.045) ng/ml NT-Pro-B Natriuret Pep (0-1800) pg/ml Total Protein (6.4-8.2) gm/dl Albumin (3.4-5.0) gm/dl Globulin (2.5-4.0) gm/dl Albumin/Globulin Ratio (0.9-2) Urine Color Urine Appearance (Clear) Urine pH (4.5-7.5) Ur Specific [place]ow (1.000-1.030) Urine Protein (Negative) Urine Glucose (UA) (Negative) Urine Ketones (Negative) Urine Blood (Negative) Urine Nitrite (Negative) Urine Bilirubin (Negative) Urine Urobilinogen (Negative) Ur Leukocyte Esterase (Negative) Urine WBC (Auto) (0-5) /hpf Urine RBC (Auto) (0-4) /hpf U Hyaline Cast (Auto) (0-5) /lpf U Epithel Cells (Auto) (0-5) /lpf Urine Bacteria (Auto) (Negative) SARS-CoV-2, RNA, NAAT NEGATIVE (NEGATIVE) Imaging Data Radiologist's Impression: Chest X-Ray 05/06/21 18:47 XR chest 1V portable HISTORY: Dyspnea COMPARISON: Chest 12/07/2012. FINDINGS: No pneumothorax. No pleural effusions. The heart is mildly enlarged. There is mild pulmonary vascular congestion without overt edema. No focal lung consolidations. Left-sided dual-chamber pacemaker. There are old, healed right- sided rib fractures. IMPRESSION: Cardiomegaly with mild congestive change. ACT 112: Negative or not required by law. Electronically signed by: Howard Ames M.D. 05/06/2021 7:21 PM ECG Data Attestation: I personally reviewed and interpreted this ECG as follows: Indication: + SOB/dyspnea Rate (beats per minute): 66 Rhythm: + other (Paced rhythm) ECG Findings: + PVCs and + Other (QRS is 158 ms) Comparison ECG Date: from (October 27, 2020) Change: no significant change MDM Narrative I did evaluate the patient as noted above. He is presenting with facial swelling and what appears to be ascites and anasarca. He is on an EMMETT inhibitor but has no swelling to his tongue or uvula. IV access was established. I did treat him with Lasix IV. He is also given Solu-Medrol, Benadryl and Pepcid IV. I did place an order for continuous cardiac monitoring. The monitor showed a paced rhythm at a rate of 66 bpm. did order and personally review the patient's 12-lead EKG as described above. He has a paced rhythm. I did order and personally reviewed the images of the patient's chest x-ray as described above. He does have cardiomegaly and mild congestive changes.I did order a urine analysis. He has some proteinuria but no signs of infection. I did order and review the patient's blood work as noted in the electronic medical record. He has chronic pancytopenia with a white count of 2.4, hemoglobin of 11.6 and platelet count of 67. Electrolytes are unremarkable other than a chloride of 109 and calcium of 8 LFTs show a bilirubin 1.5 and an AST of 54 with alk phos of 123. His albumin is 2.6. Troponin is 0.050. I did discuss the test results with the patient. He denies having any chest discomfort or pain. He states he is occasionally short of breath. I did recommend hospitalization for further care and evaluation. I did discuss case with the hospitalist and shoe caser. I did reassess the patient later. He has no signs of angioedema on my examination. He has no complaints currently. I did talk to his daughter who is now at the bedside. She states that he has a history of nonalcoholic cirrhosis and the swelling has been going on continually for about a month. He has seen his doctor twice but the swelling has not been addressed. Given this history it seems unlikely that the patient had an allergic reaction or EMMETT inhibitor induced angioedema. I did discuss the test results with the patient's daughter and the hospitalist will see the patient shortly for further inpatient care. Impression & Plan Anasarca, Abdominal ascites, Elevated troponin, Pancytopenia, Hypoalbuminemia, Hypocalcemia Discharge Plan Visit Data Chief Complaint: Shortness of Breath/Dyspnea ED Provider: Sesar Yang Discharge Problem: Anasarca, Abdominal ascites, Elevated troponin, Pancytopenia, Hypoalbuminemia, Hypocalcemia Patient Disposition: Being Evaluated by Hospitalist Forms Stand Alone Forms: My [facility] Prescriptions Prescriptions: No Action amlodipine 5 mg tablet 5 mg PO QAM Qty: 90 RF: 3 tamsulosin 0.4 mg capsule 0.4 mg PO QAM Qty: 90 RF: 3 atorvastatin 10 mg tablet 10 mg PO HS Qty: 90 RF: 3 cholecalciferol (vitamin D3) 25 mcg (1,000 unit) capsule 25 mcg PO QAM RF: 0 lisinopril 40 mg tablet 40 mg PO QAM RF: 0 acetaminophen [Tylenol Extra Strength] 500 mg Tablet 500 mg PO Q6H PRN (Reason: Pain) RF: 0 mirtazapine 15 mg tablet 15 mg PO HS RF: 0 Referrals Referrals: Alfredo Moreno DO [Primary Care Provider] - Discharge Problem: Abdominal ascites Qualifiers: Ascites type: other type Qualified Code(s): R18.8 - Other ascites
--- NOTE | 2021-05-06 19:23 | XRay Report ---
XR chest 1V portable HISTORY: Dyspnea COMPARISON: Chest 12/07/2012. FINDINGS: No pneumothorax. No pleural effusions. The heart is mildly enlarged. There is mild pulmonar y vascular congestion without overt edema. No focal lung consolidations. Left-sided dual-chamber pace maker. There are old, healed right-sided rib fractures. IMPRESSION: Cardiomegaly with mild congestive change. ACT 112: Negative or not required by law. Electronically signed by: Howard Ames M.D. 05/06/2021 7:21 PM
[2021-05-06 19:24] LABS: Hematocrit (blood only) 35.3 % (42-52); Hemoglobin 11.6 g/dL (14.0-18.0); Mean Corpuscular Hemoglobin 31.3 pg (25-34); Mean Corpuscular Hgb Conc 32.9 g/dL (32-36); Mean Corpuscular Volume 95.1 fL (80-100); RDW Coefficient of Variation 14.4 % (11.5-14.5); RDW Standard Deviation 50.4 fL (36.4-46.3); Red Blood Count 3.71 M/uL (4.7-6.1); White Blood Count 2.41 K/uL (4.8-10.8)
[2021-05-06 19:31] LABS: Mean Platelet Volume 10.8 fL (7.4-10.4); Platelet Count 67 K/uL (130-400)
[2021-05-06 19:40] LABS: Alanine Aminotransferase 42 (12-78); Albumin Level 2.6 gm/dl (3.4-5.0); Aspartate Aminotransferase 54 U/L (15-37); BUN Creatinine Ratio 12.7 (10-20); Blood Urea Nitrogen 16 mg/dl (7-18); Carbon Dioxide 24 mmol/L (21-32); Chloride 109 mmol/L (98-107); Est GFR (African American) 62.6 ml/min; Glucose 139 mg/dl (70-99); Potassium 3.6 mmol/L (3.5-5.1); Sodium 141 mmol/L (136-145)
[2021-05-06 19:41] LABS: Eosinophils # (auto) 0.06 K/uL (0-0.5); Eosinophils % (auto) 2.5 %; Immature Granulocytes # (auto) 0.01 K/uL (0.00-0.02); Immature Granulocytes % (auto) 0.4 %; Lymphocytes # (auto) 0.38 K/uL (1.2-3.4); Lymphocytes % (auto) 15.8 %; Monocytes # (auto) 0.31 K/uL (0.11-0.59); Monocytes % (auto) 12.9 %; Neutrophils # (auto) 1.65 K/uL (1.4-6.5); Neutrophils % (auto) 68.4 %
[2021-05-06 19:50] LABS: Albumin Globulin Ratio 0.6 (0.9-2); Alkaline Phosphatase 123 U/L (45-117); Bilirubin,Total 1.5 mg/dl (0.2-1); Globulin 4.3 gm/dl (2.5-4.0); NT Pro B Type Natriuretic Pept 1202 pg/ml (0-1800); Total Protein 6.9 gm/dl (6.4-8.2)
[2021-05-06 20:06] LABS: Appearance Urine Clear (Clear); Bacteria Urine Automated Negative (Negative); Bilirubin Urine Negative (Negative); Blood Urine Negative (Negative); Color Urine Yellow; Glucose Urine UA Negative (Negative); Ketones Urine Negative (Negative); Leukocyte Esterase Urine Trace (Negative); Nitrite Urine Negative (Negative); Protein Urine Trace (Negative); RBC Urine Automated 0-4 /hpf (0-4); Specific Gravity Urine 1.016 (1.000-1.030); Urobilinogen Urine Negative (Negative)
--- NOTE | 2021-05-06 22:54 | History & Physical Report ---
Date of Service May 06, 2021 Assessment & Plan (1) Anasarca: Plan: Etiology unclear at this time. ?worsening CHF possibly secondary to AF, ?worsening liver function -Lasix given, monitor response -Daily weights, strict I/Os -Check TSH, urine protein:Cr -Check 2D echo -Lasix 40mg IV given - continue daily (2) Elevated troponin: Plan: Patient denies chest pain -Telemetry monitoring -Trend troponin (3) Pancytopenia: Plan: Blood counts are near baseline -Monitor (4) Hypertension: Plan: Chronic. Well controlled -Continue Amlodipine, Lisinopril -Continue to monitor (5) PAF (paroxysmal atrial fibrillation): Plan: Presently V-paced. Not on any rate controlling agents. Not on anticoagulation due to history of large volume lower GIB -Monitor Plan: F/E/N - Diuresis as above, monitor electrolytes, Low Na diet Ppx - Lovenox Remeron 15mg po qHS for sleep and anxiety Code - Full Dispo- Admit to medical History of Present Illness Chief Complaint: swelling Primary Care Provider: Alfredo Moreno DO Polo Mancia is an 80yo male with history of MANLEY, PAF, CKD, DM, CHF, HTN presenting with worsening shortness of breath, edema/anasarca and weight gain. Daughter is at bedside and assists with history. Patient had a URI appx 1 month ago. He took Robitussin for cough after which he developed facial swelling - no airway involvement. He was seen by his PCP on 04/13/21 for this issue and it was thought to be secondary to an allergic reaction to Robitussin. He was prescribed Claritin. Daughter visited patient for Thanksgiving and noted that he still had swelling. She also felt that he was more short of breath than usual and was becomming dyspneic with ambulation of short distances in the home. Patient reports worsening of shortness of breath and swelling - increase in abdominal girth. Patient states that he was unable to pull up his pants recently due to swelling. Patient states that he has gained weight and feels swollen. He denies chest pain, palpitations, nausea, vomiting, diarrhea or constipation He had a recent pacer check and noted to have increase in AF/AT burden. ER Course: Benadryl, Pepcid, Solumedrol, Lasix Allergies Allergy/AdvReac Type Severity Reaction Status Date / Time metoprolol Allergy Intermediate NONTOLERATED, Verified 05/06/21 20:04 DIZZINESS sertraline Allergy Intermediate "NUMBNESS Verified 05/06/21 20:04 IN MY FACE" Home Medications Medication Instructions Recorded Confirmed Type lisinopril 40 mg tablet 40 mg PO QAM 10/27/20 05/06/21 History cholecalciferol (vitamin D3) 25 25 mcg PO QAM 11/02/20 05/06/21 History mcg (1,000 unit) capsule amlodipine 5 mg tablet 5 mg PO QAM #90 tab 02/08/21 05/06/21 Rx atorvastatin 10 mg tablet 10 mg PO HS #90 tab 03/19/21 05/06/21 Rx tamsulosin 0.4 mg capsule 0.4 mg PO QAM #90 cap 04/10/21 05/06/21 Rx acetaminophen 500 mg tablet 500 mg PO Q6H PRN 05/06/21 05/06/21 History (Tylenol Extra Strength) mirtazapine 15 mg tablet 15 mg PO HS 05/06/21 05/06/21 History Past Med/Surg History Medical History Chronic kidney disease Chronic leukopenia Past evaluation by Hematology with negative work up. No changes with CBC over time. Diabetes mellitus, type II Diverticulosis of colon (12/06/12) Heart failure with preserved ejection fraction History of Mohs micrographic surgery for skin cancer History of rectal cancer s/p surgical resection (1999). Previously monitored by periodic colonoscopy (08/12 unremarkable w/ 3-5 year follow up) Hypertension Insomnia Olecranon fracture history of open treatment of fracture of the olecranon Presence of cardiac pacemaker Second degree AV block Followed by cardiology Thrombocytopenia Surgical History History of excision of lesion History of partial colectomy Hx of appendectomy Hx of cholecystectomy Hx of colonoscopy Hx of hernia repair Family History Family/Other Cancer Colorectal cancer Heart disease Hypertension Sister Breast cancer Father Myocardial infarction Mother Myocardial infarction Denies family history of Ovarian cancer Prostate cancer Lung cancer Social History Smoking Status: Never smoker Second Hand Exposure: No; Hx Alcohol Use: No Hx Substance Use: No Preferred Language: Slovak Communication Ability: Effective Visual Impairment: Limited Hearing Ability: Normal Peanut Separator Required: No Beliefs That Will Affect Care: None marital status: Current Living Situation: Alone current occupational status: retired How many Children do You have: 2 Other Information That Helps Us Care for You: No Feels Safe at Home: Yes Childhood Exposure to Second-Hand Smoke: Yes caffeine: Yes Dental Care, Regularly: No Physical Activity Frequency: Daily Physical Activity Frequency Comment: walking Seatbelt Use: always Sunscreen Use: Yes Assistive Devices: None Review of Systems Review of Systems: All systems reviewed & are unremarkable except as noted in HPI & below Physical Exam Physical Exam: General: patient resting comfortably, NAD, non-toxic in appearance, AA&O x 4 Skin: warm, dry, intact, no rashes or lesions HEENT: NC/AT, PERRL, EOMI, anicteric sclera, conjunctiva without injection, external ear normal to inspection and nontender, nares patent, moist mucus membranes, dentition intact, no oropharyngeal lesions, neck supple, trachea midline, no LAD, no thyromegaly, no JVD, periorbital edema bilaterally, no swelling of lips/tongue/palate or uvula Heart: +S1/S2, regular, V paced on monitor no m/r/g Lungs: equal air entry bilaterally, rales to mid lung ramos bilaterally Abd: +BS, soft, distended, nontoxic Ext: warm, 2+ pulses in UE/LE bilaterally, no clubbing/cyanosis, 2+ edema Neuro: nonfocal, patient AA&O x 4, speech intact, no facial droop, moving all extremities on command with equal strength 5/5 Results & Data Results & Data ([facility] [place]) Vital Signs (Past 12 Hours) Vital Signs Temp Pulse Pulse Resp BP BP Pulse Ox 05/06/21 21:30 62 24 150/62 H 94 05/06/21 20:30 67 22 147/94 H 94 05/06/21 20:00 68 24 141/70 H 96 05/06/21 19:39 97 05/06/21 19:33 67 24 135/74 96 05/06/21 19:30 74 24 128/68 96 05/06/21 19:10 97 05/06/21 18:27 37.2 C 109 H 20 135/74 98 Laboratory Results Laboratory Results WBC 2.41 K/uL (4.8-10.8) L 05/06/21 19:10 RBC 3.71 M/uL (4.7-6.1) L 05/06/21 19:10 Hgb 11.6 g/dL (14.0-18.0) L 05/06/21 19:10 Hct 35.3 % (42-52) L 05/06/21 19:10 MCV 95.1 fL (80-100) 05/06/21 19:10 MCH 31.3 pg (25-34) 05/06/21 19:10 MCHC 32.9 g/dL (32-36) 05/06/21 19:10 RDW Std Deviation 50.4 fL (36.4-46.3) H 05/06/21 19:10 RDW Coeff of Ro 14.4 % (11.5-14.5) 05/06/21 19:10 Plt Count 67 K/uL (130-400) L 05/06/21 19:10 MPV 10.8 fL (7.4-10.4) H 05/06/21 19:10 Immature Gran % (Auto) 0.4 % 05/06/21 19:10 Neut % (Auto) 68.4 % 05/06/21 19:10 Lymph % (Auto) 15.8 % 05/06/21 19:10 [place] % (Auto) 12.9 % 05/06/21 19:10 Eos % (Auto) 2.5 % 05/06/21 19:10 Baso % (Auto) 0.0 % 05/06/21 19:10 Neut # (Auto) 1.65 K/uL (1.4-6.5) 05/06/21 19:10 Lymph # (Auto) 0.38 K/uL (1.2-3.4) L 05/06/21 19:10 [place] # (Auto) 0.31 K/uL (0.11-0.59) 05/06/21 19:10 Eos # (Auto) 0.06 K/uL (0-0.5) 05/06/21 19:10 Baso # (Auto) 0.00 K/uL (0-0.2) 05/06/21 19:10 Immature Gran # (Auto) 0.01 K/uL (0.00-0.02) 05/06/21 19:10 Sodium 141 mmol/L (136-145) 05/06/21 19:10 Potassium 3.6 mmol/L (3.5-5.1) 05/06/21 19:10 Chloride 109 mmol/L (98-107) H 05/06/21 19:10 Carbon Dioxide 24 mmol/L (21-32) 05/06/21 19:10 Anion Gap 8.0 (3-11) 05/06/21 19:10 BUN 16 mg/dl (7-18) 05/06/21 19:10 Creatinine 1.25 mg/dl (0.6-1.4) 05/06/21 19:10 Est Cr Clr Drug Dosing Not Reportable 05/06/21 19:10 Est GFR ( Amer) 62.6 ml/min 05/06/21 19:10 Est GFR (Non-Af Amer) 54.0 ml/min 05/06/21 19:10 BUN/Creatinine Ratio 12.7 (10-20) 05/06/21 19:10 Glucose 139 mg/dl (70-99) H 05/06/21 19:10 Calcium 8.0 mg/dl (8.5-10.1) L 05/06/21 19:10 Phosphorus 2.5 mg/dl (2.5-4.9) 05/06/21 19:10 Magnesium 2.2 mg/dl (1.8-2.4) 05/06/21 19:10 Total Bilirubin 1.5 mg/dl (0.2-1) H 05/06/21 19:10 AST 54 U/L (15-37) H 05/06/21 19:10 ALT 42 (12-78) 05/06/21 19:10 Alkaline Phosphatase 123 U/L (45-117) H 05/06/21 19:10 Troponin I 0.050 ng/ml (0-0.045) H* 05/06/21 19:10 NT-Pro-B Natriuret Pep 1202 pg/ml (0-1800) 05/06/21 19:10 Total Protein 6.9 gm/dl (6.4-8.2) 05/06/21 19:10 Albumin 2.6 gm/dl (3.4-5.0) L 05/06/21 19:10 Globulin 4.3 gm/dl (2.5-4.0) H 05/06/21 19:10 Albumin/Globulin Ratio 0.6 (0.9-2) L 05/06/21 19:10 TSH 3.880 uIu/ml (0.300-4.500) 05/06/21 19:10 Urine Color Yellow 05/06/21 19:10 Urine Appearance Clear (Clear) 05/06/21 19:10 Urine pH 6.0 (4.5-7.5) 05/06/21 19:10 Ur Specific [place] 1.016 (1.000-1.030) 05/06/21 19:10 Urine Protein Trace (Negative) H 05/06/21 19:10 Urine Glucose (UA) Negative (Negative) 05/06/21 19:10 Urine Ketones Negative (Negative) 05/06/21 19:10 Urine Blood Negative (Negative) 05/06/21 19:10 Urine Nitrite Negative (Negative) 05/06/21 19:10 Urine Bilirubin Negative (Negative) 05/06/21 19:10 Urine Urobilinogen Negative (Negative) 05/06/21 19:10 Ur Leukocyte Esterase Trace (Negative) H 05/06/21 19:10 Urine WBC (Auto) 1-5 /hpf (0-5) 05/06/21 19:10 Urine RBC (Auto) 0-4 /hpf (0-4) 05/06/21 19:10 U Hyaline Cast (Auto) 1-5 /lpf (0-5) 05/06/21 19:10 U Epithel Cells (Auto) 5-10 /lpf (0-5) H 05/06/21 19:10 Urine Bacteria (Auto) Negative (Negative) 05/06/21 19:10 SARS-CoV-2, RNA, NAAT NEGATIVE (NEGATIVE) 05/06/21 20:10 Impressions Chest X-Ray 05/06/21 18:47 XR chest 1V portable HISTORY: Dyspnea COMPARISON: Chest 12/07/2012. FINDINGS: No pneumothorax. No pleural effusions. The heart is mildly enlarged. There is mild pulmonary vascular congestion without overt edema. No focal lung consolidations. Left-sided dual-chamber pacemaker. There are old, healed right- sided rib fractures. IMPRESSION: Cardiomegaly with mild congestive change. ACT 112: Negative or not required by law. Electronically signed by: Howard Ames M.D. 05/06/2021 7:21 PM Code Status & VTE Plan VTE Prophylaxis Plan VTE Prophylaxis will be ordered: Yes PG Care Time/CCT Total # of Minutes Spent Total Time Spent with Patient: Total time spent is greater than 50% in coordination of care (as documented) at patient's floor/unit and/or counseling patient: Coding Level of Care Code 59517 Initial Inpt Care Lvl 3 Diagnoses Anasarca R60.1 Elevated troponin R77.8 Pancytopenia D61.818 Hypertension I10 PAF (paroxysmal atrial fibrillation) I48.0
[2021-05-07] MEDS ORDERED: DOCUSATE SODIUM 100 MG CAP PO PRN (00:20)
[2021-05-07] MEDS ORDERED: ONDANSETRON INJ 2 MG/ML 2 ML VIAL IV PRN (00:20)
[2021-05-07] MEDS ORDERED: ACETAMINOPHEN 500 MG TAB PO PRN (00:28)
[2021-05-07 01:16] LABS: Magnesium 2.2 mg/dl (1.8-2.4); Phosphorus 2.5 mg/dl (2.5-4.9)
[2021-05-07] MEDS: ENOXAPARIN INJ 40 MG/0.4 ML SYR SQ SCH ×3 (01:55→21:34)
[2021-05-07 04:16] LABS: Creatinine Urine Random 32.6 mg/dl; Total Protein Urine Random < 5.0 mg/dl (0-11.9)
[2021-05-07 06:55] LABS: Hematocrit (blood only) 36.2 % (42-52); Mean Corpuscular Hemoglobin 31.5 pg (25-34); Mean Corpuscular Hgb Conc 33.1 g/dL (32-36); RDW Coefficient of Variation 14.4 % (11.5-14.5); RDW Standard Deviation 49.7 fL (36.4-46.3); Red Blood Count 3.81 M/uL (4.7-6.1); White Blood Count 1.41 K/uL (4.8-10.8)
[2021-05-07 06:57] LABS: Mean Platelet Volume 11.6 fL (7.4-10.4); Platelet Count 66 K/uL (130-400)
[2021-05-07 07:03] LABS: INR 1.4 (0.9-1.1); Prothrombin Time 13.8 Seconds (9.0-12.0)
[2021-05-07 07:23] LABS: Eosinophils # (auto) 0.01 K/uL (0-0.5); Eosinophils % (auto) 0.7 %; Lymphocytes # (auto) 0.21 K/uL (1.2-3.4); Lymphocytes % (auto) 14.9 %; Monocytes # (auto) 0.02 K/uL (0.11-0.59); Monocytes % (auto) 1.4 %; Neutrophils # (auto) 1.17 K/uL (1.4-6.5)
[2021-05-07 07:29] LABS: Albumin Level 2.5 gm/dl (3.4-5.0); BUN Creatinine Ratio 14.7 (10-20); Bilirubin Direct 0.5 mg/dl (0-0.2); Calcium 8.2 mg/dl (8.5-10.1); Creatinine Clr Calc Pharmacy 51.6 ml/min; Est GFR (African American) 64.5 ml/min; Est GFR (Non-African American) 55.6 ml/min; Potassium 3.9 mmol/L (3.5-5.1)
[2021-05-07 07:34] LABS: Bilirubin,Total 1.4 mg/dl (0.2-1); Total Protein 6.7 gm/dl (6.4-8.2); Troponin I 0.045 ng/ml (0-0.045)
[2021-05-07] MEDS: TAMSULOSIN HCL 0.4 MG CAP PO SCH (07:40)
[2021-05-07] MEDS: lisinopril 40 MG TAB PO SCH (07:40)
[2021-05-07] MEDS: amLODIPine BESYLATE 5 MG TAB PO SCH (07:40)
[2021-05-07] MEDS: FUROSEMIDE 40 MG/4 ML VIAL IV SCH ×3 (08:45→22:24)
[2021-05-07] MEDS ORDERED: FUROSEMIDE 40 MG/4 ML VIAL IV SCH (09:00)
--- NOTE | 2021-05-07 11:41 | Cardiology Consultation ---
Date of Consultation May 07, 2021 Assessment & Plan (1) Anasarca: (2) Heart failure with preserved ejection fraction: (3) PAF (paroxysmal atrial fibrillation): (4) Presence of cardiac pacemaker: (5) Hypoalbuminemia: Mr. 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 These symptoms seemed to start in Mid April and definitely seemed get worse after Thanks. Patient had a "cold" in early April 2021. He was using Robitussin for an associated cough after which he developed facial swelling -- but no airway involvement or wheezing. He was seen by his PCP on 04/13/21 for this issue and it was thought to be secondary to an allergic reaction to Robitussin. Robitussin was discontinued and the patient was prescribed Claritin. His daughter visited the patient for Thanksgiving and noted that he still had some facial and was developing lower extremity swelling. She also noted that he was more short of breath than usual -- had difficulty catching his breath while shopping at [employer] and was becoming short of breath even walking a short distance in his home. Patient appeared to have some pulmonary vascular congestion on his initial chest x-ray, but his proBNP was within normal limits. He is in a AV sequentially paced rhythm (which replaced A-Fib on his pacemaker interrogation on 04/18/21). Patient has not experienced any angina pectoris or anginal equivalent symptoms. His initial troponin I was minimally elevated at 0.050 ng/mL but this subsequently trended down to 0.045 ng/mL. He has no evidence that this is an acute coronary syndrome, and is most likely secondary to myocardial O2 supply demand mismatch. His hypervolemia is likely multifactorial -- increase dietary salt intake around , cirrhosis with ascites/anasarca, hypoalbuminemia, and some degree CHF (possibly right-sided) verses Diastolic CHF. Patient is feeling significantly better at this time and has had a negative fluid balance of 2.6 L. Patient has a known history of paroxysmal atrial fibrillation and his [id number] is elevated at 6. Patient is not a candidate for anticoagulation due to recurrent GI/rectal bleeding. He made this decision along with his PCP and his 2 children. He is aware that he has been in atrial fibrillation for the past 40 days and that carries increased risk of stroke and other thromboembolic phenomena. He is not interested in anticoagulation which is certainly a reasonable decision. Recommend the followin. Echocardiogram ordered. 2. Continue to diurese with IV Lasix 40 mg b.i.d.. 3. Closely monitor renal function. 4. Monitor daily body weights and I&O's. 5. Continue Amlodipine 5 mg daily. If any reduction in LV systolic function, discontinue this medication and start beta-eleonora. 6. Continue Lisinopril 40 mg daily. 7. Continue Atorvastatin 10 mg daily. 8. Maintain a 2 gram low sodium diet. We will continue to closely follow this patient while hospitalized and afterwards. Thank you for asking us to see this patient in consultation. History of Present Illness Reason for Consultation: -- Congestive Heart Failure. -- History of HFpEF. -- Ascites. Requesting Physician: Mike Ferreira MD Attending Physician: Hector Warner MD History of Present Illness Mr. 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 Patient had a "cold" in early April 2021. He was using Robitussin for an associated cough after which he developed facial swelling - but no airway involvement. He was seen by his PCP on 04/13/21 for this issue and it was thought to be secondary to an allergic reaction to Robitussin. Robitussin was discontinued and the patient was prescribed Claritin. Daughter visited patient for Thanksgiving and noted that he still had swelling. She also noted that he was more short of breath than usual -- had difficulty catching his breath while shopping at [employer] and was becoming short of breath even walking a short distance in his home. Patient denies any chest pain, heaviness, tightness or pressure. No neck, jaw, back, or arm pain. His breathing has improved since being admitted. He has a negative fluid balance of 2.6 liters so far. He denies any orthopnea or PND. Please note that I saw the patient on 04/18/21 for a pacemaker check -- he was asymptomaticbut his A-Fib burden had increased according to his device interrogation -- He was in A-Fib 7% of the time, he had been in A-Fib over the preceding 40 days leading up to that visit. Allergies Allergy/AdvReac Type Severity Reaction Status Date / Time metoprolol Allergy Intermediate NONTOLERATED, Verified 05/06/21 20:04 DIZZINESS sertraline Allergy Intermediate "NUMBNESS Verified 05/06/21 20:04 IN MY FACE" Home Medications Medication Instructions Recorded Confirmed Type lisinopril 40 mg tablet 40 mg PO QAM 10/27/20 05/06/21 History cholecalciferol (vitamin D3) 25 25 mcg PO QAM 11/02/20 05/06/21 History mcg (1,000 unit) capsule amlodipine 5 mg tablet 5 mg PO QAM #90 tab 02/08/21 05/06/21 Rx atorvastatin 10 mg tablet 10 mg PO HS #90 tab 03/19/21 05/06/21 Rx tamsulosin 0.4 mg capsule 0.4 mg PO QAM #90 cap 04/10/21 05/06/21 Rx acetaminophen 500 mg tablet 500 mg PO Q6H PRN 05/06/21 05/06/21 History (Tylenol Extra Strength) mirtazapine 15 mg tablet 15 mg PO HS 05/06/21 05/06/21 History Patient History Medical History Chronic kidney disease Chronic leukopenia Past evaluation by Hematology with negative work up. No changes with CBC over time. Diabetes mellitus, type II Diverticulosis of colon (12/06/12) Heart failure with preserved ejection fraction History of Mohs micrographic surgery for skin cancer History of rectal cancer s/p surgical resection (1999). Previously monitored by periodic colonoscopy (08/12 unremarkable w/ 3-5 year follow up) Hypertension Insomnia Olecranon fracture history of open treatment of fracture of the olecranon Presence of cardiac pacemaker Second degree AV block Followed by cardiology Thrombocytopenia Surgical History History of excision of lesion History of partial colectomy Hx of appendectomy Hx of cholecystectomy Hx of colonoscopy Hx of hernia repair Family History Family/Other Cancer Colorectal cancer Heart disease Hypertension Sister Breast cancer Father Myocardial infarction Mother Myocardial infarction Denies family history of Ovarian cancer Prostate cancer Lung cancer Social History Smoking Status: Never smoker Second Hand Exposure: No; Hx Alcohol Use: No Hx Substance Use: No Preferred Language: Greenlandic Communication Ability: Effective Visual Impairment: Limited Hearing Ability: Normal Drying Machine Back Tender Required: No Beliefs That Will Affect Care: None marital status: Current Living Situation: Alone current occupational status: retired How many Children do You have: 2 Other Information That Helps Us Care for You: No Feels Safe at Home: Yes Childhood Exposure to Second-Hand Smoke: Yes caffeine: Yes Dental Care, Regularly: No Physical Activity Frequency: Daily Physical Activity Frequency Comment: walking Seatbelt Use: always Sunscreen Use: Yes Assistive Devices: Glasses Physical Exam Physical Exam: GENERAL: Patient in no acute distress. HEENT: Head is atraumatic, normocephalic. Face appears edematous. EOM's intact. Facies symmetric. No perioral cyanosis. NECK: JVD is present. JVP is elevated. Carotid upstrokes are + 2 bilaterally without obvious bruits. CHEST/LUNGS: Mildly diminished breath sounds in bilateral bases, otherwise clear. CVS: S1 and S2 are regular at 68 bpm without obvious murmurs, gallops, or rubs. PMI is nondisplaced. No lifts, heaves, or thrills. No abdominal aortic or renal bruits. Palpable pacemaker generator present left subclavian fossa. ABDOMINAL EXAM: Abdomen is distended. Bowel sounds are present. No masses, organomegaly, or tenderness. EXTREMITIES: No clubbing or cyanosis. +2 bilateral ankle and bipedal edema. Intact radial pulses bilaterally. NEUROLOGIC EXAM: Patient is awake, alert, and oriented. Pleasant and cooperative. Answers questions appropriately. Speech is clear EKG 05/06/21: -- A-V sequential pacing at 66 bpm. Results & Data ([facility]) Vital Signs (Past 12 Hours) Vital Signs Temp Pulse Resp BP Pulse Ox 05/07/21 07:30 36.7 C 69 16 125/68 95 05/07/21 00:20 36.9 C 60 18 130/72 94 Laboratory Results Laboratory Results - last 24 hr 05/06/21 05/06/21 05/06/21 19:10 19:10 19:10 WBC 2.41 L RBC 3.71 L Hgb 11.6 L Hct 35.3 L MCV 95.1 MCH 31.3 MCHC 32.9 RDW Std Deviation 50.4 H RDW Coeff of Ro 14.4 Plt Count 67 L MPV 10.8 H Immature Gran % (Auto) 0.4 Neut % (Auto) 68.4 Lymph % (Auto) 15.8 [place] % (Auto) 12.9 Eos % (Auto) 2.5 Baso % (Auto) 0.0 Neut # (Auto) 1.65 Lymph # (Auto) 0.38 L [place] # (Auto) 0.31 Eos # (Auto) 0.06 Baso # (Auto) 0.00 Immature Gran # (Auto) 0.01 PT INR Sodium 141 Potassium 3.6 Chloride 109 H Carbon Dioxide 24 Anion Gap 8.0 BUN 16 Creatinine 1.25 Est Cr Clr Drug Dosing Not Reportable Est GFR ( Amer) 62.6 Est GFR (Non-Af Amer) 54.0 BUN/Creatinine Ratio 12.7 Glucose 139 H Calcium 8.0 L Phosphorus 2.5 Magnesium 2.2 Total Bilirubin 1.5 H Direct Bilirubin AST 54 H ALT 42 Alkaline Phosphatase 123 H Troponin I 0.050 H* NT-Pro-B Natriuret Pep 1202 Total Protein 6.9 Albumin 2.6 L Globulin 4.3 H Albumin/Globulin Ratio 0.6 L TSH 3.880 Urine Color Yellow Urine Appearance Clear Urine pH 6.0 Ur Specific [place] 1.016 Urine Protein Trace H Urine Glucose (UA) Negative Urine Ketones Negative Urine Blood Negative Urine Nitrite Negative Urine Bilirubin Negative Urine Urobilinogen Negative Ur Leukocyte Esterase Trace H Urine WBC (Auto) 1-5 Urine RBC (Auto) 0-4 U Hyaline Cast (Auto) 1-5 U Epithel Cells (Auto) 5-10 H Urine Bacteria (Auto) Negative Ur Random Creatinine U Random Total Protein SARS-CoV-2, RNA, NAAT 05/06/21 05/07/21 05/07/21 20:10 05:22 05:22 WBC 1.41 L RBC 3.81 L Hgb 12.0 L Hct 36.2 L MCV 95.0 MCH 31.5 MCHC 33.1 RDW Std Deviation 49.7 H RDW Coeff of Ro 14.4 Plt Count 66 L MPV 11.6 H Immature Gran % (Auto) 0.0 Neut % (Auto) 83.0 Lymph % (Auto) 14.9 [place] % (Auto) 1.4 Eos % (Auto) 0.7 Baso % (Auto) 0.0 Neut # (Auto) 1.17 L Lymph # (Auto) 0.21 L [place] # (Auto) 0.02 L Eos # (Auto) 0.01 Baso # (Auto) 0.00 Immature Gran # (Auto) 0.00 PT INR Sodium 140 Potassium 3.9 Chloride 109 H Carbon Dioxide 24 Anion Gap 7.0 BUN 18 Creatinine 1.22 Est Cr Clr Drug Dosing 51.6 Est GFR ( Amer) 64.5 Est GFR (Non-Af Amer) 55.6 BUN/Creatinine Ratio 14.7 Glucose 187 H Calcium 8.2 L Phosphorus Magnesium Total Bilirubin 1.4 H Direct Bilirubin 0.5 H AST 44 H ALT 39 Alkaline Phosphatase 108 Troponin I 0.045 NT-Pro-B Natriuret Pep Total Protein 6.7 Albumin 2.5 L Globulin Albumin/Globulin Ratio TSH Urine Color Urine Appearance Urine pH Ur Specific [place] Urine Protein Urine Glucose (UA) Urine Ketones Urine Blood Urine Nitrite Urine Bilirubin Urine Urobilinogen Ur Leukocyte Esterase Urine WBC (Auto) Urine RBC (Auto) U Hyaline Cast (Auto) U Epithel Cells (Auto) Urine Bacteria (Auto) Ur Random Creatinine U Random Total Protein SARS-CoV-2, RNA, NAAT NEGATIVE 05/07/21 05/07/21 05:22 Unknown WBC RBC Hgb Hct MCV MCH MCHC RDW Std Deviation RDW Coeff of Ro Plt Count MPV Immature Gran % (Auto) Neut % (Auto) Lymph % (Auto) [place] % (Auto) Eos % (Auto) Baso % (Auto) Neut # (Auto) Lymph # (Auto) [place] # (Auto) Eos # (Auto) Baso # (Auto) Immature Gran # (Auto) PT 13.8 H INR 1.4 H Sodium Potassium Chloride Carbon Dioxide Anion Gap BUN Creatinine Est Cr Clr Drug Dosing Est GFR ( Amer) Est GFR (Non-Af Amer) BUN/Creatinine Ratio Glucose Calcium Phosphorus Magnesium Total Bilirubin Direct Bilirubin AST ALT Alkaline Phosphatase Troponin I NT-Pro-B Natriuret Pep Total Protein Albumin Globulin Albumin/Globulin Ratio TSH Urine Color Urine Appearance Urine pH Ur Specific [place] Urine Protein Urine Glucose (UA) Urine Ketones Urine Blood Urine Nitrite Urine Bilirubin Urine Urobilinogen Ur Leukocyte Esterase Urine WBC (Auto) Urine RBC (Auto) U Hyaline Cast (Auto) U Epithel Cells (Auto) Urine Bacteria (Auto) Ur Random Creatinine 32.6 U Random Total Protein < 5.0 SARS-CoV-2, RNA, NAAT Diagnostic Findings PORTABLE CXR 05/06/21: FINDINGS: -- No pneumothorax. No pleural effusions. The heart is mildly enlarged. There is mild pulmonary vascular congestion without overt edema. No focal lung consolidations. Left-sided dual-chamber pacemaker. There are old, healed right- sided rib fractures. IMPRESSION: -- Cardiomegaly with mild congestive change. Medications Administered Medications lisinopril 40 mg tablet 40 mg PO QAM 10/27/20 [History Confirmed 05/06/21] cholecalciferol (vitamin D3) 25 mcg (1,000 unit) capsule 25 mcg PO QAM 11/02/20 [History Confirmed 05/06/21] amlodipine 5 mg tablet 5 mg PO QAM #90 tab 02/08/21 [Rx Confirmed 05/06/21] atorvastatin 10 mg tablet 10 mg PO HS #90 tab 03/19/21 [Rx Confirmed 05/06/21] tamsulosin 0.4 mg capsule 0.4 mg PO QAM #90 cap 04/10/21 [Rx Confirmed 05/06/21] acetaminophen 500 mg tablet (Tylenol Extra Strength) 500 mg PO Q6H PRN 05/06/21 [History Confirmed 05/06/21] mirtazapine 15 mg tablet 15 mg PO 05/06/21 [History Confirmed 05/06/21] Home Medications Acetaminophen (Acetaminophen 500 Mg Tab) 500 mg PO Q6H PRN PRN Reason: Pain Stop: 06/06/21 00:27 Amlodipine Besylate (Amlodipine Besylate 5 Mg Tab) [facility] [place]: 06/06/21 08:59 Last Admin: 05/07/21 07:40 Dose: 5 mg Documented by: Atorvastatin Calcium (Atorvastatin 10 Mg Tab) 10 mg PO [facility] Stop: 06/06/21 20:59 Docusate Sodium (Docusate Sodium 100 Mg Cap) 100 mg PO BID PRN PRN Reason: Constipation Stop: 06/06/21 00:19 Enoxaparin Sodium (Enoxaparin Inj 40 Mg/0.4 Ml Syr) 40 mg SQ [facility] Stop: 06/06/21 01:29 Last Admin: 05/07/21 01:55 Dose: 40 mg Documented by: Furosemide (Furosemide 40 Mg/4 Ml Vial) 40 mg IV Q12H [facility] Stop: 06/06/21 08:44 Last Admin: 05/07/21 08:45 Dose: Not Given Documented by: Lisinopril (Lisinopril 40 Mg Tab) 40 mg PO [facility] Stop: 06/06/21 08:59 Last Admin: 05/07/21 07:40 Dose: 40 mg Documented by: Mirtazapine (Mirtazapine Tab 15 Mg Tab) 15 mg PO [facility] Stop: 06/06/21 20:59 Ondansetron HCl (Ondansetron Inj 2 Mg/Ml 2 Ml Vial) 4 mg IV Q6H PRN PRN Reason: Nausea Stop: 06/06/21 00:19 Tamsulosin HCl (Tamsulosin Hcl 0.4 Mg Cap) 0.4 mg PO [facility] Stop: 06/06/21 08:59 Last Admin: 05/07/21 07:40 Dose: 0.4 mg Documented by: PG Care Time/CCT Total # of Minutes Spent Total Time Spent with Patient: Total time spent is greater than 50% in coordination of care (as documented) at patient's floor/unit and/or counseling patient:35 Coding Level of Care Code 99708 Initial Inpt Care Lvl 3 Diagnoses Anasarca R60.1 Heart failure with preserved ejection fraction I50.30 PAF (paroxysmal atrial fibrillation) I48.0 Presence of cardiac pacemaker Z95.0 Hypoalbuminemia E88.09 Time Spent (min) 50
--- NOTE | 2021-05-07 13:27 | Hospitalist Progress Note ---
Date of Service May 07, 2021 Assessment & Plan (1) Anasarca: Plan: Suspect acute biventricular failure producing edema. Currently on parenteral Lasix. Monitor intake and output. Serial lab studies. Cardiology consultation appreciated. Await cardiac echo results. (2) Elevated troponin: Plan: Patient denies chest pain. No evidence of acute coronary syndrome. Continue telemetry (3) Pancytopenia: Plan: Blood counts are near baseline. Serial lab studies (4) Hypertension: Plan: Chronic. Well controlled -Continue Amlodipine, Lisinopril -Continue to monitor (5) PAF (paroxysmal atrial fibrillation): Plan: Presently V-paced. Not on any rate controlling agents. Not on anticoagulation due to history of large volume lower GIB -Monitor Plan: F/E/N - Diuresis as above, monitor electrolytes, Low Na diet Ppx - Lovenox Remeron 15mg po qHS for sleep and anxiety Code - Full Dispo-eventual discharge to home Admission and Anticipated Discharge Date Admission Date: May 06, 2021 Subjective Alert and oriented. Pleasant. Case discussed with cardiology who has seen the patient already. Continuing intravenous Lasix diuresis. The patient refuses a Olivo catheter placement at this time. Will await cardiac echo results. He appears to have biventricular failure with anasarca. Review of Systems Review of Systems: Constitutional-no fever or chills ENT-no blurred vision, no double vision, no epistaxis, no sore throat Respiratory-no cough, no wheezing. Shortness of breath Cardiac-no palpitations, no chest pain, no syncope GI-no nausea, vomiting, diarrhea, melena, hematochezia -no urinary retention, no urinary incontinence, no dysuria, no hematuria Musculoskeletal-no joint pain, no muscle tenderness Skin-no bruising, no rashes, no pruritus Neuro-no isolated weakness, no paresthesia, no weakness Psych-no depression, no anxiety Physical Exam Physical Exam: General-alert and oriented x3, no fevers, no chills HEENT-head atraumatic and normocephalic, TMs intact bilaterally, pupils equal and reactive to light, extraocular muscles intact Neck-no lymphadenopathy or thyromegaly, trachea midline Chest-bibasilar inspiratory rales. No wheezing. Cardiac-regular rate and rhythm, normal S1 and S2. Hepatojugular reflux noted Abdomen-distended. Nontender. Normal bowel sounds. No tenderness [id number] pitting edema in both lower extremities Neuro-cranial nerves II through XII intact, motor and sensory function within normal limits, strength symmetrical , no focal deficits Psych-normal affect, normal mood Results & Data Results & Data ([facility]) Vital Signs (Past 12 Hours) Vital Signs Temp Pulse Resp BP Pulse Ox 05/07/21 07:30 36.7 C 69 16 125/68 95 Laboratory Results 05/07/21 05:22 05/07/21 05:22 PG Care Time/CCT Total # of Minutes Spent Total Time Spent with Patient: Total time spent is greater than 50% in coordination of care (as documented) at patient's floor/unit and/or counseling patient: Coding Level of Care Code 42243 Subseq Hosp Care Lvl 3 Diagnoses Anasarca R60.1 Elevated troponin R77.8 Pancytopenia D61.818 Hypertension I10 PAF (paroxysmal atrial fibrillation) I48.0
--- NOTE | 2021-05-07 14:32 | XCELERA ---
[id number]
--- NOTE | 2021-05-07 15:52 | Electrocardiogram Report ---
Test Reason : Blood Pressure : / mmHG Vent. Rate : 066 BPM Atrial Rate : 057 BPM P-R Int : 214 ms QRS Dur : 158 ms QT Int : 464 ms P-R-T Axes : 210 -86 098 degrees QTc Int : 486 ms AV dual-paced rhythm with prolonged AV conduction Abnormal ECG When compared with ECG of 27-OCT-2020 10:24, Vent. rate has decreased BY 18 BPM Confirmed by Hector Warner ([id number]) on 05/07/2021 3:51:50 PM Referred By: REFERRED SELF Confirmed By:Hector Warner
[2021-05-07] MEDS ORDERED: ATORVASTATIN 10 MG TAB PO SCH (21:00)
[2021-05-07] MEDS ORDERED: MIRTAZAPINE TAB 15 MG TAB PO SCH (21:00)
[2021-05-08 06:45] LABS: Hematocrit (blood only) 34.1 % (42-52); Hemoglobin 11.2 g/dL (14.0-18.0); Mean Corpuscular Hemoglobin 31.5 pg (25-34); Mean Corpuscular Hgb Conc 32.8 g/dL (32-36); Mean Corpuscular Volume 96.1 fL (80-100); RDW Coefficient of Variation 14.6 % (11.5-14.5); RDW Standard Deviation 51.7 fL (36.4-46.3); Red Blood Count 3.55 M/uL (4.7-6.1); White Blood Count 2.95 K/uL (4.8-10.8)
[2021-05-08 06:55] LABS: Mean Platelet Volume 11.4 fL (7.4-10.4); Platelet Count 70 K/uL (130-400)
[2021-05-08 07:09] LABS: Basophils # (auto) 0.01 K/uL (0-0.2); Basophils % (auto) 0.3 %; Eosinophils # (auto) 0.04 K/uL (0-0.5); Eosinophils % (auto) 1.4 %; Lymphocytes # (auto) 0.48 K/uL (1.2-3.4); Lymphocytes % (auto) 16.3 %; Monocytes # (auto) 0.29 K/uL (0.11-0.59); Monocytes % (auto) 9.8 %; Neutrophils # (auto) 2.13 K/uL (1.4-6.5); Neutrophils % (auto) 72.2 %
[2021-05-08 08:01] LABS: BUN Creatinine Ratio 19.5 (10-20); Calcium 8.4 mg/dl (8.5-10.1); Creatinine Clr Calc Pharmacy 41.7 ml/min; Est GFR (African American) 58.6 ml/min; Est GFR (Non-African American) 50.6 ml/min; Potassium 3.3 mmol/L (3.5-5.1)
[2021-05-08] MEDS: lisinopril 40 MG TAB PO SCH (08:40)
[2021-05-08] MEDS: TAMSULOSIN HCL 0.4 MG CAP PO SCH (08:40)
[2021-05-08] MEDS: amLODIPine BESYLATE 5 MG TAB PO SCH (08:41)
[2021-05-08] MEDS: FUROSEMIDE 40 MG/4 ML VIAL IV SCH (08:41)
--- NOTE | 2021-05-08 09:35 | Cardiology Progress Note ---
Date of Service May 08, 2021 Assessment & Plan (1) Anasarca: Plan: Patient has a history of cirrhosis, abdominal ascites, anasarca. -- Responding to IV Lasix with negative fluid balance of > 4 liters. -- Abdomen is less distended, peripheral edema improved. -- Recommend Spironolactone 50 mg daily at discharge. -- Low sodium diet at discharge. -- Monitor daily body weights following discharge. (2) Heart failure with preserved ejection fraction: Plan: Patient has normal LV systolic function, LVEF 65% to 70%, normal RV systolic function, mild concentric LVH, and grade II LV diastolic dysfunction on Echocardiogram 05/07/21. I suspect that heart failure is not playing a significant role in his fluid retention, anasarca -- but that the majority is related to cirrhosis. We reviewed his echocardiogram findings in detail. -- He is responding to IV Lasix 40 mg b.i.d.. -- Negative fluid balance of 4341 mL, body weight is coming down (although today's body weight probably is not accurate). -- Continue Lisinopril 40 mg daily. -- Potassium supplement ordered. -- Monitor daily labs, BUN is 26 mg/dL and creatinine has risen from 1.22 mg/dL to 1.32 mg/dL. -- Monitor I&O's, body weights. -- Strict low sodium diet at discharge. -- Recommend Spironolactone at discharge. (3) Elevated troponin: Plan: Troponin I is down to 0.020 ng/mL today, Echo showed normal wall motion. -- Myocardial O2 supply/demand mismatch. -- No further ischemic evaluation is necessary at this time. -- Continue Atorvastatin 10 mg daily. -- Continue Amlodipine 5 mg daily. -- Continue Lisinopril 40 mg daily. (4) PAF (paroxysmal atrial fibrillation): Plan: -- Patient is asymptomatic when he is in A-Fib, and he paces from the RV 100% of the time even when he is in A-Fib. -- [id number] is 6. -- Patient is not a candidate for anticoagulation due to recurrent GI/rectal bleeding. He made this decision along with his PCP and his 2 children. He is not interested in anticoagulation which is certainly a reasonable decision. -- Based on this decision, I discontinued Lovenox at patient's request. Admission and Anticipated Discharge Date Admission Date: May 06, 2021 Subjective Mr. Mancia continues to diurese and his dyspnea has completely resolved and his edema, abdominal distention has improved as well. Patient is pleased with how he is feeling and how quickly he's improved. He feels that he is ready to go home. He denies any chest pain, heaviness, tightness or pressure. No neck, jaw, back, or arm pain. He denies any orthopnea or PND. No palpitations or A- Fib to his knowledge. Patient is frustrated because Lovenox is ordered for DVT prophylaxis and he refuses to be anticoagulated due to prior, recurrent GI/rectal bleeding. He has a negative fluid balance of 4341 mL, but he's noted to be hypokalemic with a K of 3.3 mmol/L. Physical Exam Physical Exam: GENERAL: Patient in no acute distress, sitting in a bedside chair. HEENT: Head is atraumatic, normocephalic. Face appears edematous. EOM's intact. Facies symmetric. No perioral cyanosis. NECK: JVD is present. JVP is elevated. Carotid upstrokes are + 2 bilaterally without obvious bruits. CHEST/LUNGS: Clear to auscultation throughout all lung ramos. CVS: S1 and S2 are regular at 64 bpm without obvious murmurs, gallops, or rubs. PMI is nondisplaced. No lifts, heaves, or thrills. No abdominal aortic or renal bruits. Palpable pacemaker generator present left subclavian fossa. ABDOMINAL EXAM: Abdomen is less distended. Bowel sounds are present. No masses, organomegaly, or tenderness. EXTREMITIES: No clubbing or cyanosis. +1 pretibial, bilateral ankle and bipedal edema. Intact radial pulses bilaterally. NEUROLOGIC EXAM: Patient is awake, alert, and oriented. Pleasant and cooperative. Answers questions appropriately. Speech is clear. ECHOCARDIOGRAM 05/08/21: -- Normal LV size, wall motion, and systolic function. -- LVEF 65% to 70%. -- Mild concentric LVH. -- Normal RV size and systolic function. -- Mild MR. -- Mild TR. -- IVC was not visualized. Results & Data ([facility]) Vital Signs (Past 12 Hours) Vital Signs Temp Pulse Resp BP Pulse Ox 05/08/21 07:00 36.6 C 85 16 144/74 H 93 05/07/21 21:54 36.7 C 87 16 123/68 95 Laboratory Results Laboratory Results - last 24 hr 05/07/21 05/08/21 05/08/21 12:35 05:28 05:28 WBC 2.95 L RBC 3.55 L Hgb 11.2 L Hct 34.1 L MCV 96.1 MCH 31.5 MCHC 32.8 RDW Std Deviation 51.7 H RDW Coeff of Ro 14.6 H Plt Count 70 L MPV 11.4 H Immature Gran % (Auto) 0.0 Neut % (Auto) 72.2 Lymph % (Auto) 16.3 [place] % (Auto) 9.8 Eos % (Auto) 1.4 Baso % (Auto) 0.3 Neut # (Auto) 2.13 Lymph # (Auto) 0.48 L [place] # (Auto) 0.29 Eos # (Auto) 0.04 Baso # (Auto) 0.01 Immature Gran # (Auto) 0.00 Sodium 140 Potassium 3.3 L D Chloride 108 H Carbon Dioxide 27 Anion Gap 5.0 BUN 26 H Creatinine 1.32 Est Cr Clr Drug Dosing 41.7 Est GFR ( Amer) 58.6 Est GFR (Non-Af Amer) 50.6 BUN/Creatinine Ratio 19.5 Glucose 99 Calcium 8.4 L Troponin I 0.020 Medications Administered Medications lisinopril 40 mg tablet 40 mg PO QAM 10/27/20 [History Confirmed 05/06/21] cholecalciferol (vitamin D3) 25 mcg (1,000 unit) capsule 25 mcg PO QAM 11/02/20 [History Confirmed 05/06/21] amlodipine 5 mg tablet 5 mg PO QAM #90 tab 02/08/21 [Rx Confirmed 05/06/21] atorvastatin 10 mg tablet 10 mg PO HS #90 tab 03/19/21 [Rx Confirmed 05/06/21] tamsulosin 0.4 mg capsule 0.4 mg PO QAM #90 cap 04/10/21 [Rx Confirmed 05/06/21] acetaminophen 500 mg tablet (Tylenol Extra Strength) 500 mg PO Q6H PRN 05/06/21 [History Confirmed 05/06/21] mirtazapine 15 mg tablet 15 mg PO HS 05/06/21 [History Confirmed 05/06/21] Home Medications Acetaminophen (Acetaminophen 500 Mg Tab) 500 mg PO Q6H PRN PRN Reason: Pain Stop: 06/06/21 00:27 Amlodipine Besylate (Amlodipine Besylate 5 Mg Tab) [facility] [place]: 06/06/21 08:59 Last Admin: 05/08/21 08:41 Dose: 5 mg Documented by: Atorvastatin Calcium (Atorvastatin 10 Mg Tab) 10 mg PO [facility] Stop: 06/06/21 20:59 Last Admin: 05/07/21 21:26 Dose: 10 mg Documented by: Docusate Sodium (Docusate Sodium 100 Mg Cap) 100 mg PO BID PRN PRN Reason: Constipation Stop: 06/06/21 00:19 Furosemide (Furosemide 40 Mg/4 Ml Vial) 40 mg IV Q12H [facility] Stop: 06/06/21 08:44 Last Admin: 05/08/21 08:41 Dose: 40 mg Documented by: Lisinopril (Lisinopril 40 Mg Tab) 40 mg PO [facility] Stop: 06/06/21 08:59 Last Admin: 05/08/21 08:40 Dose: 40 mg Documented by: Mirtazapine (Mirtazapine Tab 15 Mg Tab) 15 mg PO [facility] Stop: 06/06/21 20:59 Last Admin: 05/07/21 21:26 Dose: 15 mg Documented by: Ondansetron HCl (Ondansetron Inj 2 Mg/Ml 2 Ml Vial) 4 mg IV Q6H PRN PRN Reason: Nausea Stop: 06/06/21 00:19 Potassium Chloride (Potassium Chloride Crtab 20 Meq Tabcr) 20 meq PO BID [facility] Stop: 06/07/21 20:59 Tamsulosin HCl (Tamsulosin Hcl 0.4 Mg Cap) 0.4 mg PO [facility] Stop: 06/06/21 08:59 Last Admin: 05/08/21 08:40 Dose: 0.4 mg Documented by: PG Care Time/CCT Total # of Minutes Spent Total Time Spent with Patient: Total time spent is greater than 50% in coordination of care (as documented) at patient's floor/unit and/or counseling patient:25 Coding Level of Care Code 53878 Subseq Hosp Care Lvl 3 Diagnoses Anasarca R60.1 Heart failure with preserved ejection fraction I50.30 Elevated troponin R77.8 PAF (paroxysmal atrial fibrillation) I48.0 Time Spent (min) 40
--- NOTE | 2021-05-08 11:35 | Discharge Summary ---
Date of Service May 08, 2021 Admission HPI Per Admitting Provider Polo Mancia is an 80yo male with history of MANLEY, PAF, CKD, DM, CHF, HTN presenting with worsening shortness of breath, edema/anasarca and weight gain. Daughter is at bedside and assists with history. Patient had a URI appx 1 month ago. He took Robitussin for cough after which he developed facial swelling - no airway involvement. He was seen by his PCP on 04/13/21 for this issue and it was thought to be secondary to an allergic reaction to Robitussin. He was prescribed Claritin. Daughter visited patient for Thanksgiving and noted that he still had swelling. She also felt that he was more short of breath than usual and was becomming dyspneic with ambulation of short distances in the home. Patient reports worsening of shortness of breath and swelling - increase in abdominal girth. Patient states that he was unable to pull up his pants recently due to swelling. Patient states that he has gained weight and feels swollen. He denies chest pain, palpitations, nausea, vomiting, diarrhea or constipation He had a recent pacer check and noted to have increase in AF/AT burden. ER Course: Benadryl, Pepcid, Solumedrol, Lasix Principal Diagnosis Acute on chronic diastolic CHF, anasarca Discharge Exam General-alert and oriented x3, no fevers, no chills HEENT-head atraumatic and normocephalic, TMs intact bilaterally, pupils equal and reactive to light, extraocular muscles intact Neck-no lymphadenopathy or thyromegaly, trachea midline Chest-clear to auscultation percussion. No rales wheezing or rhonchi Cardiac-regular rate and rhythm, normal S1 and S2, no murmurs Abdomen-normal bowel sounds, nontender, no hepatosplenomegaly Extremities-no cyanosis, clubbing. Anasarca resolving Neuro-cranial nerves II through XII intact, motor and sensory function within normal limits, strength symmetrical , no focal deficits Psych-normal affect, normal mood Discharge Data Allergies Allergy/AdvReac Type Severity Reaction Status Date / Time metoprolol Allergy Intermediate NONTOLERATED, Verified 05/06/21 20:04 DIZZINESS sertraline Allergy Intermediate "NUMBNESS Verified 05/06/21 20:04 IN MY FACE" Consultations 05/06/21 21:02 ED Decision to Admit Stat 05/07/21 08:34 Consult Cardiology Routine Hospital Course (1) Anasarca: Due to acute on chronic exacerbation of diastolic CHF. Cardiac echo report noted. He does not have right heart failure. He has had a brisk diuresis to intravenous Lasix. He does not require oxygen at this time and is ambulating well. He will be discharged home today and continue oral Lasix with a potassium supplement daily. Cardiology consultation appreciated. (2) Elevated troponin: Patient denies chest pain. No evidence of acute coronary syndrome. Continue telemetry (3) Pancytopenia: Blood counts are near baseline. Serial lab studies (4) Hypertension: Chronic. Well controlled -Continue Amlodipine, Lisinopril -Continue to monitor -Consider discontinuing amlodipine because this could be contributing to peripheral edema (5) PAF (paroxysmal atrial fibrillation): Presently V-paced. Not on any rate controlling agents. Not on anticoa gulation due to history of large volume lower GIB -Monitor F/E/N - Diuresis as above, monitor electrolytes, Low Na diet Ppx - Lovenox Remeron 15mg po qHS for sleep and anxiety Code - Full Dispo- discharge to home per seventh, with addition of oral Lasix and potassium Total Time Total Time Spent Total Time Spent (In Minutes): 35 Discharge Plan Discharge Items Patient Disposition: Home - Self-Care Reason For Visit: EDEMA, WEIGHT GAIN Discharge Diagnosis: Acute on chronic diastolic CHF, anasarca Activity: Resume your previous activity Non-emergency contact: Primary Care Provider Call non-emergency contact if: you have any medication questions Follow-up/Referrals: Alfredo Moreno DO [Primary Care Provider] - 05/16/21 11:30 am Diet: Carb Consistent or DM2 and Heart Healthy Addtl Attending Provider Instructions: Take Lasix (furosemide) afternoon after lunch. Potassium can be taken anytime during the day Pending Studies at Discharge: No Stand-Alone Forms: My [employer], Smoking Cessation Medications and DC Order Prescriptions: New furosemide [Lasix] 40 mg tablet 40 mg PO .daily after lunch Qty: 30 RF: 0 potassium chloride 10 mEq capsule, extended release 10 meq PO DAILY Qty: 30 RF: 0 Continued amlodipine 5 mg tablet 5 mg PO QAM Qty: 90 RF: 3 tamsulosin 0.4 mg capsule 0.4 mg PO QAM Qty: 90 RF: 3 atorvastatin 10 mg tablet 10 mg PO HS Qty: 90 RF: 3 cholecalciferol (vitamin D3) 25 mcg (1,000 unit) capsule 25 mcg PO QAM RF: 0 lisinopril 40 mg tablet 40 mg PO QAM RF: 0 acetaminophen [Tylenol Extra Strength] 500 mg Tablet 500 mg PO Q6H PRN (Reason: Pain) RF: 0 mirtazapine 15 mg tablet 15 mg PO HS RF: 0 Discharge Orders: Discharge Order (Routine); Ordered 05/08/21 Ordered By: Mike Ferreira Admission Data Admit Date/Time: 05/06/21 22:53 Attending Provider: Mike Ferreira Admit Provider: Angela Guardado Primary Care Provider: Alfredo Moreno Other Providers: Angela Guardado ; Darek Hill ; Eugene Burks ; Hector Warner ; Benjamin Giordano ; Julito Kaur Jr ; Glenroy Solo ; Adele Farley ; Uzma Blackwell ; Shantanu Blackmon ; Shantanu Deshpande ; Mike Clemons ; Briana Nails ; Nicolette Pineda ; Ike Weinberg ; Geo Perrin ; Maco Castanon Coding Level of Care Code D/C DAY MANAGEMENT >30 MINS Diagnoses Anasarca R60.1 Elevated troponin R77.8 Pancytopenia D61.818 Hypertension I10 PAF (paroxysmal atrial fibrillation) I48.0
[2021-05-08] MEDS ORDERED: POTASSIUM CHLORIDE CRTAB 20 MEQ TABCR PO SCH (21:00)
== END 2021-05-08 15:41 | disposition home or self-care (01) | DRG 291 ==
LOC: ED 18:36 → SUATTDRO 22:53 → 3E 22:53
DX: Z79.899 Other long term (current) drug therapy; E87.6 Hypokalemia; E11.22 Type 2 diabetes mellitus with diabetic chronic kidney disease; I50.33 Acute on chronic diastolic (congestive) heart failure; Z88.8 Allergy status to other drugs, medicaments and biological substances; I13.0 Hypertensive heart and chronic kidney disease with heart failure and stage 1 through stage 4 chronic kidney disease, or unspecified chronic kidney disease; I48.0 Paroxysmal atrial fibrillation; E83.51 Hypocalcemia; E88.09 Other disorders of plasma-protein metabolism, not elsewhere classified; N18.9 Chronic kidney disease, unspecified; D61.818 Other pancytopenia; K75.81 Nonalcoholic steatohepatitis (NASH); Z87.19 Personal history of other diseases of the digestive system; R77.8 Other specified abnormalities of plasma proteins; Z95.0 Presence of cardiac pacemaker; R60.1 Generalized edema; K74.60 Unspecified cirrhosis of liver; Z20.822 Contact with and (suspected) exposure to COVID-19

== ENCOUNTER 2021-07-30 12:54 | Observation (INO) ==
[2021-07-30 13:39] LABS: Hematocrit (blood only) 38.3 % (42-52); Hemoglobin 13.2 g/dL (14.0-18.0); Mean Corpuscular Hemoglobin 32.4 pg (25-34); Mean Corpuscular Hgb Conc 34.5 g/dL (32-36); Mean Corpuscular Volume 93.9 fL (80-100); RDW Coefficient of Variation 14.1 % (11.5-14.5); RDW Standard Deviation 48.6 fL (36.4-46.3); Red Blood Count 4.08 M/uL (4.7-6.1); White Blood Count 3.24 K/uL (4.8-10.8)
[2021-07-30 13:51] LABS: Mean Platelet Volume 11.6 fL (7.4-10.4); Platelet Count 71 K/uL (130-400)
[2021-07-30 13:56] LABS: INR 1.2 (0.9-1.1); Partial Thromboplastin Ratio 1.1; Partial Thromboplastin Time 28.5 Seconds (21.0-31.0); Prothrombin Time 12.3 Seconds (9.0-12.0)
--- NOTE | 2021-07-30 14:16 | CT Scan Report ---
CT OF THE HEAD WITHOUT CONTRAST CLINICAL HISTORY: Stroke alert. Left facial numbness. COMPARISON STUDY: Head CT and MRI of the brain June 22, 2016. CT DOSE: 614.27 mGy.cm TECHNIQUE: Helical axial images of the head were obtained without IV contrast. Automated exposure con trol was utilized for the study. A dose lowering technique was utilized adhering to the principles o f ALARA. FINDINGS: No acute intracranial hemorrhage, midline shift or mass effect is present. The ventricular system is stable. White matter hypodensities favor small vessel disease. The basal cisterns are paten t. No extra-axial collections are present. There are no findings to suggest acute dural sinus thrombo sis or acute territorial infarct. No significant calvarial abnormalities are present. Visualized port ions of the sinuses and mastoid air cells are clear. IMPRESSION: No acute intracranial findings. ACT 112: Negative or not required by law. Electronically signed by: Jordan Tim M.D. 07/30/2021 2:15 PM
--- NOTE | 2021-07-30 14:24 | Emergency Department Note ---
History of Present Illness General Chief complaint: Referred by Doctor Stated complaint: L SIDE FACE NUMB, DR DAVE MCGARRY. Time Seen by Provider: 07/30/21 14:06 Source: patient History of Present Illness Provider complaint: Facial numbness Onset (ago): day(s) Location: face and left Radiation: non-radiation Pain Consistency: + intermittent Quality: + other (Like his face was injected with Novocain) Relieved By: + none Exacerbated By: + none Associated symptoms: no chest pain, no cough, no fever/chills, no headaches, no malaise, no nausea/vomiting, no shortness of breath or no weakness This is a 89-year-old male who presents with numbness to the left side of his fa ce starting yesterday approximately 1 PM. The patient states that it feels like there is Novocain to the left side of the mid and lower portion of his face. He has no other symptoms associated with it. It did go away yesterday but this morning he was taking a shower and it came back and has not resolved. 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 He has had no trouble with swallowing, speaking, thinking or walking. He walks unassisted. He has had no visual changes. He denies any fever, cough or cold symptoms, chest pain, shortness of breath, abdominal pain, vomiting, diarrhea, black or bloody stools or urinary symptoms other than frequency secondary to Lasix use. He has never had a stroke in the past. Home Medications Medication Instructions Recorded Confirmed Type cholecalciferol (vitamin D3) 25 25 mcg PO QAM 11/02/20 07/30/21 History mcg (1,000 unit) capsule amlodipine 5 mg tablet 5 mg PO QAM #90 tab 02/08/21 07/30/21 Rx atorvastatin 10 mg tablet 10 mg PO HS #90 tab 03/19/21 07/30/21 Rx tamsulosin 0.4 mg capsule 0.4 mg PO QAM #90 cap 04/10/21 07/30/21 Rx acetaminophen 500 mg tablet 500 mg PO Q6H PRN 05/06/21 07/30/21 History (Tylenol Extra Strength) spironolactone 25 mg tablet 25 mg PO QAM #30 tab 05/17/21 07/30/21 Rx mirtazapine 15 mg tablet 15 mg PO HS #30 tab 05/21/21 07/30/21 Rx lisinopril 40 mg tablet 40 mg PO QAM #90 tab 07/02/21 07/30/21 Rx Allergies Allergy/AdvReac Type Severity Reaction Status Date / Time metoprolol Allergy Intermediate NONTOLERATED, Verified 07/30/21 15:33 DIZZINESS sertraline Allergy Intermediate "NUMBNESS Verified 07/30/21 15:33 IN MY FACE" Past Med/Surg History Medical History Chronic kidney disease Chronic leukopenia Past evaluation by Hematology with negative work up. No changes with CBC over time. Diabetes mellitus, type II Diverticulosis of colon (12/06/12) Heart failure with preserved ejection fraction History of Mohs micrographic surgery for skin cancer History of rectal cancer s/p surgical resection (1999). Previously monitored by periodic colonoscopy (08/12 unremarkable w/ 3-5 year follow up) Hypertension Insomnia Olecranon fracture history of open treatment of fracture of the olecranon Presence of cardiac pacemaker Second degree AV block Followed by cardiology Thrombocytopenia Surgical History History of excision of lesion History of partial colectomy Hx of appendectomy Hx of cholecystectomy Hx of colonoscopy Hx of hernia repair Family History Family/Other Cancer Colorectal cancer Heart disease Hypertension Sister Breast cancer Father Myocardial infarction Mother Myocardial infarction Denies family history of Ovarian cancer Prostate cancer Lung cancer Social History Smoking Status: Never smoker Second Hand Exposure: No; Hx Alcohol Use: No Hx Substance Use: No Preferred Language: Micronesian Communication Ability: Effective Visual Impairment: Limited Hearing Ability: Normal Surgical Consultant Required: No Beliefs That Will Affect Care: None marital status: / Current Living Situation: Alone current occupational status: retired How many Children do You have: 2 Feels Safe at Home: Yes Childhood Exposure to Second-Hand Smoke: Yes caffeine: Yes Dental Care, Regularly: No Physical Activity Frequency: Daily Physical Activity Frequency Comment: walking Seatbelt Use: always Sunscreen Use: Yes Assistive Devices: Walker Review of Systems See HPI for pertinent positives & negatives. and A total of 10 systems reviewed and were otherwise negative Physical Exam Vital Signs Vital Signs - 24 hr 07/30/21 12:59 07/30/21 15:47 07/30/21 15:50 Temperature 36.7 C Temperature Source Temporal Artery Scan Pulse Rate 83 74 74 Respiratory Rate 20 24 20 Respiratory Effort / Characteristics Non-Labored Spontaneous Respiratory Depth Normal Respiratory Pattern Regular Blood Pressure 138/70 Blood Pressure Mean 92 Pulse Oximetry 99 98 97 Oxygen Delivery Method Room Air Room Air Room Air Sepsis Recent Fever Within 48 Hours No Sepsis New/Unexplained Change in Mental Status No Sepsis Action Taken by Nursing No Action Required 07/30/21 16:00 07/30/21 16:10 07/30/21 16:20 Temperature Temperature Source Pulse Rate 70 68 77 Respiratory Rate 21 22 21 Respiratory Effort / Characteristics Respiratory Depth Respiratory Pattern Blood Pressure Blood Pressure Mean Pulse Oximetry 98 98 97 Oxygen Delivery Method Room Air Room Air Room Air Sepsis Recent Fever Within 48 Hours Sepsis New/Unexplained Change in Mental Status Sepsis Action Taken by Nursing 07/30/21 16:30 07/30/21 16:40 Temperature Temperature Source Pulse Rate 74 81 Respiratory Rate 20 20 Respiratory Effort / Characteristics Respiratory Depth Respiratory Pattern Blood Pressure Blood Pressure Mean Pulse Oximetry 95 98 Oxygen Delivery Method Room Air Room Air Sepsis Recent Fever Within 48 Hours Sepsis New/Unexplained Change in Mental Status Sepsis Action Taken by Nursing Constitutional: Vital signs reviewed. Eyes: Pupils are equal round reactive to light. Conjunctiva are noninjected. ENT: Pharynx is clear without erythema or exudate. Mucous membranes are moist. Neck supple without meningeal signs. Respiratory: Clear to auscultation bilaterally. Breath sounds are equal bilaterally. Cardiovascular: Regular rate and rhythm. No rubs or gallops. GI: Soft, nondistended and nontender. Bowel sounds are present. Musculoskeletal: No peripheral edema. No lower extremity tenderness. Integumentary: No cyanosis. or jaundice. Neurologic: The patient is awake and alert. Cranial nerves II-XII are intact, except chronic ptosis of the right lid as well as dysesthesia to the maxillary and mandibular distributions of the left trigeminal nerve. Motor is 5 out of 5 all extremities. Sensation is intact to light touch all extremities. Normal speech. No pronator drift. No limb ataxia. Normal gait. Psychiatric: Normal affect. Not anxious appearing. Course Administered Medications Discontinued Medications Ioversol (Optiray 320 125ml) 120 ml IV ONCE ONE Stop: 07/30/21 14:38 Last Admin: 07/30/21 14:38 Dose: 120 ml Documented by: [id number] Medical Decision Making Differential Diagnosis TIA, CVA, intracranial mass, thromboembolism, metabolic derangement Medical Records Attestation: I reviewed the patient's medical records. I did perform a limited focused review of portions of the patient's old chart on the electronic medical record. The patient was seen by myself in May of last year for swelling to the face, abdomen and legs. He was admitted for CHF exacerbation as well as an elevated troponin. He did not mention any numbness to the face at that time. Home Medications Current Medication List: was personally reviewed by me Laboratory Data Attestation: I reviewed the patient's lab results. Result diagrams: 07/30/21 13:30 07/30/21 13:30 Lab Results 07/30/21 07/30/21 07/30/21 Range/Units 13:30 13:30 13:30 WBC 3.24 L (4.8-10.8) K/uL RBC 4.08 L (4.7-6.1) M/uL Hgb 13.2 L (14.0-18.0) g/dL Hct 38.3 L (42-52) % MCV 93.9 (80-100) fL MCH 32.4 (25-34) pg MCHC 34.5 (32-36) g/dL RDW Std Deviation 48.6 H (36.4-46.3) fL RDW Coeff of Ro 14.1 (11.5-14.5) % Plt Count 71 L (130-400) K/uL MPV 11.6 H (7.4-10.4) fL PT 12.3 H (9.0-12.0) Seconds INR 1.2 H (0.9-1.1) APTT 28.5 (21.0-31.0) Seconds PTT Ratio 1.1 Sodium 137 (136-145) mmol/L Potassium 3.8 (3.5-5.1) mmol/L Chloride 105 (98-107) mmol/L Carbon Dioxide 25 (21-32) mmol/L Anion Gap 7 (3-11) BUN 16 (6-23) mg/dl Creatinine 1.19 (0.6-1.4) mg/dl Est Cr Clr Drug Dosing 46.3 ml/min Est GFR ( Amer) 66.5 ml/min Est GFR (Non-Af Amer) 57.3 ml/min BUN/Creatinine Ratio 13.4 (10-20) Glucose 135 H (70-99(Fasting)) mg/dl Calcium 9.4 (8.5-10.1) mg/dl Magnesium 1.8 (1.7-2.4) mg/dl Total Bilirubin 1.6 H (0.2-1.0) mg/dl AST 37 (13-39) U/L ALT 28 (7-52) U/L Alkaline Phosphatase 96 (34-104) U/L Total Protein 7.3 (6.0-8.3) gm/dl Albumin 3.7 (3.4-5.0) gm/dl Globulin 3.6 (2.5-4.0) gm/dl Albumin/Globulin Ratio 1.0 (0.9-2) SARS-CoV-2, RNA, NAAT (NEGATIVE) 07/30/21 Range/Units 15:40 WBC (4.8-10.8) K/uL RBC (4.7-6.1) M/uL Hgb (14.0-18.0) g/dL Hct (42-52) % MCV (80-100) fL MCH (25-34) pg MCHC (32-36) g/dL RDW Std Deviation (36.4-46.3) fL RDW Coeff of Ro (11.5-14.5) % Plt Count (130-400) K/uL MPV (7.4-10.4) fL PT (9.0-12.0) Seconds INR (0.9-1.1) APTT (21.0-31.0) Seconds PTT Ratio Sodium (136-145) mmol/L Potassium (3.5-5.1) mmol/L Chloride (98-107) mmol/L Carbon Dioxide (21-32) mmol/L Anion Gap (3-11) BUN (6-23) mg/dl Creatinine (0.6-1.4) mg/dl Est Cr Clr Drug Dosing ml/min Est GFR ( Amer) ml/min Est GFR (Non-Af Amer) ml/min BUN/Creatinine Ratio (10-20) Glucose (70-99(Fasting)) mg/dl Calcium (8.5-10.1) mg/dl Magnesium (1.7-2.4) mg/dl Total Bilirubin (0.2-1.0) mg/dl AST (13-39) U/L ALT (7-52) U/L Alkaline Phosphatase (34-104) U/L Total Protein (6.0-8.3) gm/dl Albumin (3.4-5.0) gm/dl Globulin (2.5-4.0) gm/dl Albumin/Globulin Ratio (0.9-2) SARS-CoV-2, RNA, NAAT NEGATIVE (NEGATIVE) Imaging Data Radiologist's Impression: Head CT 07/30/21 13:02 CT OF THE HEAD WITHOUT CONTRAST CLINICAL HISTORY: Stroke alert. Left facial numbness. COMPARISON STUDY: Head CT and MRI of the brain June 22, 2016. CT DOSE: 614.27 mGy.cm TECHNIQUE: Helical axial images of the head were obtained without IV contrast. Automated exposure control was utilized for the study. A dose lowering te [place] was utilized adhering to the principles of ALARA. FINDINGS: No acute intracranial hemorrhage, midline shift or mass effect is present. The ventricular system is stable. White matter hypodensities favor small vessel disease. The basal cisterns are patent. No extra-axial collections are present. There are no findings to suggest acute dural sinus thrombosis or acute territorial infarct. No significant calvarial abnormalities are present. Visualized portions of the sinuses and mastoid air cells are clear. IMPRESSION: No acute intracranial findings. ACT 112: Negative or not required by law. Electronically signed by: Jordan Tim M.D. 07/30/2021 2:15 PM Head CTA 07/30/21 14:21 HEAD & NECK CTA HISTORY: Left-sided facial numbness. Stroke Like Symptoms TECHNIQUE: Multiaxial CT images of the head were performed following the intravenous administration of contrast to evaluate the major cerebral vessels. Multiaxial CT images of the neck were also performed following the intravenous administration of contrast to evaluate the major cervical vessels. Maximum intensity projection images were also obtained. A dose lowering technique was utilized adhering to the principles of ALARA. COMPARISON: Head CT 07/30/2021. FINDINGS: There is no mass, hematoma, midline shift, or acute infarct. Visualized intracranial internal carotid arteries, distal vertebral arteries, and basilar artery are widely patent. There is no significant stenosis, occlusion, or aneurysm seen within the bilateral ACAs, MCAs, or hub cutter. Mild calcified plaque within the bilateral carotid siphons. There is a severely hypoplastic right A1 segment which is likely developmental. The major dural venous sinuses appear patent. The aortic arch and proximal great vessels are widely patent. There is no significant stenosis, occlusion, or dissection identified within the bilateral common carotid, internal carotid, or vertebral arteries. Punctate calcified granuloma within the right lung apex. Left-sided pacemaker wires are noted. Mild calcified plaque within the bilateral carotid bifurcations. IMPRESSION: 1. No significant stenosis, occlusion, or aneurysm within the [place]. 2. No significant stenosis, occlusion, or dissection identified within the car otid or vertebral arteries. ACT 112: Negative or not required by law. Electronically signed by: Howard Ames M.D. 07/30/2021 3:07 PM Neck CTA 07/30/21 14:21 HEAD & NECK CTA HISTORY: Left-sided facial numbness. Stroke Like Symptoms TECHNIQUE: Multiaxial CT images of the head were performed following the intravenous administration of contrast to evaluate the major cerebral vessels. Multiaxial CT images of the neck were also performed following the intravenous administration of contrast to evaluate the major cervical vessels. Maximum intensity projection images were also obtained. A dose lowering technique was utilized adhering to the principles of ALARA. COMPARISON: Head CT 07/30/2021. FINDINGS: There is no mass, hematoma, midline shift, or acute infarct. Visualized intracranial internal carotid arteries, distal vertebral arteries, and basilar artery are widely patent. There is no significant stenosis, occlusion, or aneurysm seen within the bilateral ACAs, MCAs, or hub cutter. Mild calcified plaque within the bilateral carotid siphons. There is a severely hypoplastic right A1 segment which is likely developmental. The major dural venous sinuses appear patent. The aortic arch and proximal great vessels are widely patent. There is no significant stenosis, occlusion, or dissection identified within the bilateral common carotid, internal carotid, or vertebral arteries. Punctate calcified granuloma within the right lung apex. Left-sided pacemaker wires are noted. Mild calcified plaque within the bilateral carotid bifurcations. IMPRESSION: 1. No significant stenosis, occlusion, or aneurysm within the [place]. 2. No significant stenosis, occlusion, or dissection identified within the carotid or vertebral arteries. ACT 112: Negative or not required by law. Electronically signed by: Howard Ames M.D. 07/30/2021 3:07 PM ECG Data Attestation: I personally reviewed and interpreted this ECG as follows: Indication: + other (Strokelike symptoms) Rate (beats per minute): 81 Rhythm: + other (AV dual paced rhythm) ECG Intervals/blocks: no Normal QRS ECG Duarte: + Normal ECG Findings: + PVCs (Complex) Comparison ECG Date: from (May 06, 2021) Change: the following changes noted (Couplet is now present) MDM Narrative I did evaluate the patient as noted above. IV access was established. I did place an order for continuous cardiac monitoring. The monitor showed a paced rhythm at a rate of 81 bpm. Occasionally he does go into bigeminy. I did order and personally review the patient's 12-lead EKG as described above. He has a paced rhythm with a couplet. I did order and review the patient's blood work as noted in the electronic medical record. He has chronic pancytopenia with a WBC count of 3.2, hemoglobin 13.2 and platelet count of 71. INR is 1.2. Fabiana ctrolytes are unremarkable. LFTs are unremarkable other than a total bili of 1.6. I did order a CT of the head and CT angiogram of the head and neck. I did review the images myself as well as the radiology report as described above. There is no evidence of acute process within the head or neck. I did reevaluate the patient. He states he continues to have numbness to the left side of his face although it is somewhat better. I did recommend hospitalization for further care and evaluation and MRI of the brain. I did discuss the case with the hospitalist and case maker. Covid screening testing is negative. Impression & Plan Left facial numbness, Congenital ptosis, right, Bigeminy, Pancytopenia Discharge Plan Visit Data Chief Complaint: Referred by Doctor Stated Complaint: L SIDE FACE NUMB, DR MORENO REFR'D. ED Provider: Sesar Yang Discharge Problem: Left facial numbness, Congenital ptosis, right, Bigeminy, Pancytopenia Patient Disposition: Being Evaluated by Hospitalist Forms Stand Alone Forms: My [facility] Prescriptions Prescriptions: No Action amlodipine 5 mg tablet 5 mg PO QAM Qty: 90 RF: 3 tamsulosin 0.4 mg capsule 0.4 mg PO QAM Qty: 90 RF: 3 spironolactone 25 mg tablet 25 mg PO QAM Qty: 30 RF: 2 mirtazapine 15 mg tablet 15 mg PO HS Qty: 30 RF: 2 lisinopril 40 mg tablet 40 mg PO QAM Qty: 90 RF: 3 atorvastatin 10 mg tablet 10 mg PO HS Qty: 90 RF: 3 cholecalciferol (vitamin D3) 25 mcg (1,000 unit) capsule 25 mcg PO QAM RF: 0 acetaminophen [Tylenol Extra Strength] 500 mg Tablet 500 mg PO Q6H PRN (Reason: Pain) RF: 0 Referrals Referrals: Alfredo Moreno DO [Primary Care Provider] -
[2021-07-30 14:25] LABS: Albumin Level 3.7 gm/dl (3.4-5.0); BUN Creatinine Ratio 13.4 (10-20); Bilirubin,Total 1.6 mg/dl (0.2-1.0); Calcium 9.4 mg/dl (8.5-10.1); Creatinine Clr Calc Pharmacy 46.3 ml/min; Est GFR (African American) 66.5 ml/min; Est GFR (Non-African American) 57.3 ml/min; Globulin 3.6 gm/dl (2.5-4.0); Magnesium 1.8 mg/dl (1.7-2.4); Potassium 3.8 mmol/L (3.5-5.1); Total Protein 7.3 gm/dl (6.0-8.3)
[2021-07-30] MEDS ORDERED: OPTIRAY 320 125ml IV ONE (14:37)
--- NOTE | 2021-07-30 15:08 | CT Scan Report ---
HEAD & NECK CTA HISTORY: Left-sided facial numbness. Stroke Like Symptoms TECHNIQUE: Multiaxial CT images of the head were performed following the intravenous administration o f contrast to evaluate the major cerebral vessels. Multiaxial CT images of the neck were also perform ed following the intravenous administration of contrast to evaluate the major cervical vessels. Maxim um intensity projection images were also obtained. A dose lowering technique was utilized adhering to the principles of ALARA. COMPARISON: Head CT 07/30/2021. FINDINGS: There is no mass, hematoma, midline shift, or acute infarct. Visualized intracranial internal carotid arteries, distal vertebral arteries, and basilar artery are widely patent. There is no significant s tenosis, occlusion, or aneurysm seen within the bilateral ACAs, MCAs, or ocean freight manager. Mild calcified plaque within the bilateral carotid siphons. There is a severely hypoplastic right A1 segment which is likel y developmental. The major dural venous sinuses appear patent. The aortic arch and proximal great vessels are widely patent. There is no significant stenosis, occ lusion, or dissection identified within the bilateral common carotid, internal carotid, or vertebral arteries. Punctate calcified granuloma within the right lung apex. Left-sided pacemaker wires are not ed. Mild calcified plaque within the bilateral carotid bifurcations. IMPRESSION: 1. No significant stenosis, occlusion, or aneurysm within the [place] of [place]. 2. No significant stenosis, occlusion, or dissection identified within the carotid or vertebral arter ies. ACT 112: Negative or not required by law. Electronically signed by: Howard Ames M.D. 07/30/2021 3:07 PM
--- NOTE | 2021-07-30 15:08 | CT Scan Report ---
HEAD & NECK CTA HISTORY: Left-sided facial numbness. Stroke Like Symptoms TECHNIQUE: Multiaxial CT images of the head were performed following the intravenous administration o f contrast to evaluate the major cerebral vessels. Multiaxial CT images of the neck were also perform ed following the intravenous administration of contrast to evaluate the major cervical vessels. Maxim um intensity projection images were also obtained. A dose lowering technique was utilized adhering to the principles of ALARA. COMPARISON: Head CT 07/30/2021. FINDINGS: There is no mass, hematoma, midline shift, or acute infarct. Visualized intracranial internal carotid arteries, distal vertebral arteries, and basilar artery are widely patent. There is no significant s tenosis, occlusion, or aneurysm seen within the bilateral ACAs, MCAs, or drill operator pneumatic. Mild calcified plaque within the bilateral carotid siphons. There is a severely hypoplastic right A1 segment which is likel y developmental. The major dural venous sinuses appear patent. The aortic arch and proximal great vessels are widely patent. There is no significant stenosis, occ lusion, or dissection identified within the bilateral common carotid, internal carotid, or vertebral arteries. Punctate calcified granuloma within the right lung apex. Left-sided pacemaker wires are not ed. Mild calcified plaque within the bilateral carotid bifurcations. IMPRESSION: 1. No significant stenosis, occlusion, or aneurysm within the [place] of [place]. 2. No significant stenosis, occlusion, or dissection identified within the carotid or vertebral arter ies. ACT 112: Negative or not required by law. Electronically signed by: Howard Ames M.D. 07/30/2021 3:07 PM
[2021-07-30] MEDS ORDERED: LORazepam 2 MG/1 ML VIAL IV STA (18:17)
--- NOTE | 2021-07-30 18:20 | History & Physical Report ---
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 Facial Numbness - less likely to be stroke given small area of effect however possible TIA vs. small vessel ischemic disease causing symptoms. - CTA head/neck negative for stenosis or infarct - high risk for CVA in patient with Afib not on anticoagulation however per chart review decision to discontinue anticoags was due to recurrent GIB/rectal bleeding. Patient aware of higher risk of embolic events without anticoagulation. - MRI ordered. Order for cardiology consult placed to assist with [employer] setting change of Pacemaker for MRI. Scheduled tentatively for 9 AM tomorrow . - electrolytes wnl, differential includes trigeminal neuralgia as well. - no rash to indicate shingles infection. patient does not recall having had shingles vaccination. Chronic Conditions Cirrhosis - stable, no acute lab abnormalities. continue spironolactone HTN - stable, continue lisinopril + amlodipine HLD - cont statin Insomnia - cont mirtazipine LUTS - cont tamsulosin Chronic Leukopenia - stable, no signs of sepsis/infection DVT ppx: SCDs FEN/GI: oral fluid intake, 2gm salt restriction per day, regular diet Code Status: Full Code Dispo: home at discharge (2) Pancytopenia: (3) Heart failure with preserved ejection fraction: (4) Presence of cardiac pacemaker: (5) Chronic kidney disease: (6) Diabetes mellitus, type II: (7) History of rectal cancer: (8) Cirrhosis: (9) Chronic leukopenia: (10) Hypertension: History of Present Illness Primary Care Provider: Alfredo Moreno, DO 80 yo M w/ PMH HFpEF and second degree AV block s/p Bivent pacemaker placement, afib NOT on anticoagulation, Dm2, CKD, Cirrhosis, hx rectal cancer s/p surgical resection, anasarca, pancytopenia who was brought to the ER for complaints of L sided facial numbness. He states that this morning he noticed the left part of his face by his eye was numb and tingly, and then progressed down to his left cheek. He called his daughter, who called his PCP, who advised him to go to the ER. He was able to drive himself here. He denies any pain over these regions, any movement of pain to the opposite side, dysarthria. He had a similar episode 2 months ago prior to going into a CHF exacerbation, to his recollection. He denies any history of stroke, weakness, or any unilateral symptoms other than his face. No change in vision, blurring, pain with eye movement. 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 No recent medication changes. No chest pain, SOB, dyspnea, N/V/D, gait changes. No recent medication changes. Allergies Allergy/AdvReac Type Severity Reaction Status Date / Time metoprolol Allergy Intermediate NONTOLERATED, Verified 07/30/21 15:33 DIZZINESS sertraline Allergy Intermediate "NUMBNESS Verified 07/30/21 15:33 IN MY FACE" Home Medications Medication Instructions Recorded Confirmed Type cholecalciferol (vitamin D3) 25 25 mcg PO QAM 11/02/20 07/30/21 History mcg (1,000 unit) capsule amlodipine 5 mg tablet 5 mg PO QAM #90 tab 02/08/21 07/30/21 Rx atorvastatin 10 mg tablet 10 mg PO HS #90 tab 03/19/21 07/30/21 Rx tamsulosin 0.4 mg capsule 0.4 mg PO QAM #90 cap 04/10/21 07/30/21 Rx acetaminophen 500 mg tablet 500 mg PO Q6H PRN 05/06/21 07/30/21 History (Tylenol Extra Strength) spironolactone 25 mg tablet 25 mg PO QAM #30 tab 05/17/21 07/30/21 Rx mirtazapine 15 mg tablet 15 mg PO HS #30 tab 05/21/21 07/30/21 Rx lisinopril 40 mg tablet 40 mg PO QAM #90 tab 07/02/21 07/30/21 Rx Past Med/Surg History Medical History (Updated 07/30/21 @ 19:07 by Evelyn Meyers MD) Chronic anticoagulation Chronic kidney disease Chronic leukopenia Past evaluation by Hematology with negative work up. No changes with CBC over time. Diabetes mellitus, type II Diverticulosis of colon (12/06/12) Heart failure with preserved ejection fraction History of Mohs micrographic surgery for skin cancer History of rectal cancer s/p surgical resection (1999). Previously monitored by periodic colonoscopy (08/12 unremarkable w/ 3-5 year follow up) Hypertension Insomnia Olecranon fracture history of open treatment of fracture of the olecranon Presence of cardiac pacemaker Second degree AV block Followed by cardiology Thrombocytopenia Surgical History History of excision of lesion History of partial colectomy Hx of appendectomy Hx of cholecystectomy Hx of colonoscopy Hx of hernia repair Family History Family/Other Cancer Colorectal cancer Heart disease Hypertension Sister Breast cancer Father Myocardial infarction Mother Myocardial infarction Denies family history of Ovarian cancer Prostate cancer Lung cancer Social History Smoking Status: Never smoker Second Hand Exposure: No; Hx Alcohol Use: No Hx Substance Use: No Preferred Language: Divehi Communication Ability: Effective Visual Impairment: Limited Hearing Ability: Normal Jawbone Puller Required: No Beliefs That Will Affect Care: None marital status: / Current Living Situation: Alone Current Living Situation Comment: patient lives alone in an apartment, uses elevator instead of stairs. current occupational status: retired How many Children do You have: 2 Other Information That Helps Us Care for You: No Feels Safe at Home: Yes Safety Concerns: Feels Safe At This Time Childhood Exposure to Second-Hand Smoke: Yes caffeine: Yes Dental Care, Regularly: No Physical Activity Frequency: Daily Physical Activity Frequency Comment: walking Seatbelt Use: always Sunscreen Use: Yes Assistive Devices: None Review of Systems Review of Systems: All systems reviewed & are unremarkable except as noted in Subjective Physical Exam Constitutional: well developed; no acute distress and not ill appearing Eyes: + eyelid abnormality (right ptosis), PERRL and EOM intact bilaterally Respiratory: normal respiratory effort, lungs clear to auscultation Auscultation: no crackles, no rales and no wheezes Cardiovascular: Rate/Rhythm: regular rate and + irregularly irregular Vessels: + JVD Extremities: normal capillary refill; no edema Gastrointestinal (Abdomen): Inspection/Auscultation: + abdomen distended, normal bowel sounds and + abdominal surgical scar; no abdominal wall ecchymosis and no abdominal edema Skin: no rashes, warm and dry Neurologic: normal touch/pain/proprioception, CN's II-XI intact bilaterally (L CN V2 abnormal sensation), moves all extremities and awake; no focal motor deficits, not confused and not obtunded Speech / Cognition: normal speech, no expressive aphasia and no receptive aphasia Motor/Sensory: no tremor, no pronator drift and no asterixis Cranial Nerves: normal accommodation, EOM intact bilaterally and tongue midline Results & Data Results & Data ([facility]) Vital Signs (Past 12 Hours) Vital Signs Temp Pulse Resp BP Pulse Ox 07/30/21 17:50 85 24 99 07/30/21 17:40 84 13 100 07/30/21 17:30 72 24 100 07/30/21 17:20 79 17 99 07/30/21 17:10 79 20 99 07/30/21 17:00 75 20 99 07/30/21 16:50 87 18 99 07/30/21 16:47 140/79 07/30/21 16:46 84 23 140/79 07/30/21 16:40 81 20 98 07/30/21 16:30 74 20 95 07/30/21 16:20 77 21 97 07/30/21 16:10 68 22 98 07/30/21 16:00 70 21 98 07/30/21 15:50 74 20 97 07/30/21 15:47 74 24 98 07/30/21 12:59 36.7 C 83 20 138/70 99 Laboratory Results Laboratory Results WBC 3.24 K/uL (4.8-10.8) L 07/30/21 13:30 RBC 4.08 M/uL (4.7-6.1) L 07/30/21 13:30 Hgb 13.2 g/dL (14.0-18.0) L 07/30/21 13:30 Hct 38.3 % (42-52) L 07/30/21 13:30 MCV 93.9 fL (80-100) 07/30/21 13:30 MCH 32.4 pg (25-34) 07/30/21 13:30 MCHC 34.5 g/dL (32-36) 07/30/21 13:30 RDW Std Deviation 48.6 fL (36.4-46.3) H 07/30/21 13:30 RDW Coeff of Ro 14.1 % (11.5-14.5) 07/30/21 13:30 Plt Count 71 K/uL (130-400) L 07/30/21 13:30 MPV 11.6 fL (7.4-10.4) H 07/30/21 13:30 PT 12.3 Seconds (9.0-12.0) H 07/30/21 13:30 INR 1.2 (0.9-1.1) H 07/30/21 13:30 APTT 28.5 Seconds (21.0-31.0) 07/30/21 13:30 PTT Ratio 1.1 07/30/21 13:30 Sodium 137 mmol/L (136-145) 07/30/21 13:30 Potassium 3.8 mmol/L (3.5-5.1) 07/30/21 13:30 Chloride 105 mmol/L (98-107) 07/30/21 13:30 Carbon Dioxide 25 mmol/L (21-32) 07/30/21 13:30 Anion Gap 7 (3-11) 07/30/21 13:30 BUN 16 mg/dl (6-23) 07/30/21 13:30 Creatinine 1.19 mg/dl (0.6-1.4) 07/30/21 13:30 Est Cr Clr Drug Dosing 46.3 ml/min 07/30/21 13:30 Est GFR ( Amer) 66.5 ml/min 07/30/21 13:30 Est GFR (Non-Af Amer) 57.3 ml/min 07/30/21 13:30 BUN/Creatinine Ratio 13.4 (10-20) 07/30/21 13:30 Glucose 135 mg/dl (70-99(Fasting)) H 07/30/21 13:30 Calcium 9.4 mg/dl (8.5-10.1) 07/30/21 13:30 Magnesium 1.8 mg/dl (1.7-2.4) 07/30/21 13:30 Total Bilirubin 1.6 mg/dl (0.2-1.0) H 07/30/21 13:30 AST 37 U/L (13-39) 07/30/21 13:30 ALT 28 U/L (7-52) 07/30/21 13:30 Alkaline Phosphatase 96 U/L (34-104) 07/30/21 13:30 Total Protein 7.3 gm/dl (6.0-8.3) 07/30/21 13:30 Albumin 3.7 gm/dl (3.4-5.0) 07/30/21 13:30 Globulin 3.6 gm/dl (2.5-4.0) 07/30/21 13:30 Albumin/Globulin Ratio 1.0 (0.9-2) 07/30/21 13:30 SARS-CoV-2, RNA, NAAT NEGATIVE (NEGATIVE) 07/30/21 15:[address] 07/30/21 13:02 CT OF THE HEAD WITHOUT CONTRAST CLINICAL HISTORY: Stroke alert. Left facial numbness. COMPARISON STUDY: Head CT and MRI of the brain June 22, 2016. CT DOSE: 614.27 mGy.cm TECHNIQUE: Helical axial images of the head were obtained without IV contrast. Automated exposure control was utilized for the study. A dose lowering technique was utilized adhering to the principles of ALARA. FINDINGS: No acute intracranial hemorrhage, midline shift or mass effect is present. The ventricular system is stable. White matter hypodensities favor small vessel disease. The basal cisterns are patent. No extra-axial collections are present. There are no findings to suggest acute dural sinus thrombosis or acute territorial infarct. No significant calvarial abnormalities are present. Visualized portions of the sinuses and mastoid air cells are clear. IMPRESSION: No acute intracranial findings. ACT 112: Negative or not required by law. Electronically signed by: Jordan Tim M.D. 07/30/2021 2:15 PM Head CTA 07/30/21 14:21 HEAD & NECK CTA HISTORY: Left-sided facial numbness. Stroke Like Symptoms TECHNIQUE: Multiaxial CT images of the head were performed following the intravenous administration of contrast to evaluate the major cerebral vessels. Multiaxial CT images of the neck were also performed following the intravenous administration of contrast to evaluate the major cervical vessels. Maximum intensity projection images were also obtained. A dose lowering technique was utilized adhering to the principles of ALARA. COMPARISON: Head CT 07/30/2021. FINDINGS: There is no mass, hematoma, midline shift, or acute infarct. Visualized intracranial internal carotid arteries, distal vertebral arteries, and basilar artery are widely patent. There is no significant stenosis, occlusion, or aneurysm seen within the bilateral ACAs, MCAs, or diet supervisor. Mild calcified plaque within the bilateral carotid siphons. There is a severely hypoplastic right A1 segment which is likely developmental. The major dural venous sinuses appear patent. The aortic arch and proximal great vessels are widely patent. There is no significant stenosis, occlusion, or dissection identified within the bilateral common carotid, internal carotid, or vertebral arteries. Punctate calcified granuloma within the right lung apex. Left-sided pacemaker wires are noted. Mild calcified plaque within the bilateral carotid bifurcations. IMPRESSION: 1. No significant stenosis, occlusion, or aneurysm within the [place]. 2. No significant stenosis, occlusion, or dissection identified within the carotid or vertebral arteries. ACT 112: Negative or not required by law. Electronically signed by: Howard Ames M.D. 07/30/2021 3:07 PM Neck CTA 07/30/21 14:21 HEAD & NECK CTA HISTORY: Left-sided facial numbness. Stroke Like Symptoms TECHNIQUE: Multiaxial CT images of the head were performed following the intravenous administration of contrast to evaluate the major cerebral vessels. Multiaxial CT images of the neck were also performed following the intravenous administration of contrast to evaluate the major cervical vessels. Maximum inten sity projection images were also obtained. A dose lowering technique was utilized adhering to the principles of ALARA. COMPARISON: Head CT 07/30/2021. FINDINGS: There is no mass, hematoma, midline shift, or acute infarct. Visualized intracranial internal carotid arteries, distal vertebral arteries, and basilar artery are widely patent. There is no significant stenosis, occlusion, or aneury sm seen within the bilateral ACAs, MCAs, or diet supervisor. Mild calcified plaque within the bilateral carotid siphons. There is a severely hypoplastic right A1 segment which is likely developmental. The major dural venous sinuses appear patent. The aortic arch and proximal great vessels are widely patent. There is no significant stenosis, occlusion, or dissection identified within the bilateral common carotid, internal carotid, or vertebral arteries. Punctate calcified granuloma within the right lung apex. Left-sided pacemaker wires are noted. Mild calcified plaque within the bilateral carotid bifurcations. IMPRESSION: 1. No significant stenosis, occlusion, or aneurysm within the [place]. 2. No significant stenosis, occlusion, or dissection identified within the carot id or vertebral arteries. ACT 112: Negative or not required by law. Electronically signed by: Howard Ames M.D. 07/30/2021 3:07 PM Supervising Physician Co-Signing Physician Notes I personally saw and examined the patient. I verified all hauser points and agree with resident physician Dr Evelyn Meyers with the following exceptions and/or additions: 80 year old male admission for left facial numbness. He reports a similar episode in May when he was diagnosed with acute CHF which resolved after a diuretics and potassium corrected. He denies any current swelling or shortness of breath however. O/E Right eyelid droop (pt reports chronic), facial numbness in V2-3 distribution, facial strength otherwise normal. pupil reactive to light, No focal neurological deficit in extremities, HS 1+2, no murmurs, Chest CTAB A/P Left facial numbness - MRI brain to r/o CVA. If negative consider additional diuresis given this is what helped his symptoms previously although he appears relatively euvolemic at this time. Resident Activity Tracking Resident Involvement: Resident Care Provided Care Provided: Adult Hospital Medicine
[2021-07-30] MEDS ORDERED: ONDANSETRON INJ 2 MG/ML 2 ML VIAL IV PRN (20:35)
[2021-07-30] MEDS ORDERED: ALUMINUM/MAGNESIUM SUSP 30 ML UDC PO PRN (20:35)
[2021-07-30] MEDS ORDERED: MAGNESIUM HYDROXIDE SUSP 30 ML UDC PO PRN (20:35)
[2021-07-30] MEDS ORDERED: ACETAMINOPHEN 325 MG TAB PO PRN (20:35)
[2021-07-30] MEDS ORDERED: ATORVASTATIN 10 MG TAB PO SCH (21:00)
[2021-07-30] MEDS ORDERED: MIRTAZAPINE TAB 15 MG TAB PO SCH (21:00)
--- NOTE | 2021-07-31 07:17 | Hospitalist Progress Note ---
Date of Service July 31, 2021 Assessment & Plan Admission and Anticipated Discharge Date Admission Date: July 30, 2021 Subjective 80 y/o with h.o of Afib who is ? days S/P admittance to [facility] with a CC for LT facial numbness. Of not he is not on Anti-coag for concerns of recurrent GI bleeding. CN exam. Is the n TGN Migraine Stroke TIA Onset of MS Results & Data Results & Data ([facility]) Vital Signs (Past 12 Hours) Vital Signs Temp Pulse Pulse Pulse Resp BP Pulse Ox 07/31/21 06:20 62 07/31/21 03:01 36.9 C 56 L 18 109/62 95 07/30/21 23:19 36.6 C 62 18 103/51 L 95 07/30/21 21:00 36.5 C 59 L 16 126/64 96 07/30/21 20:41 36.5 C 59 L 16 126/64 96
--- NOTE | 2021-07-31 07:41 | Hospitalist Progress Note ---
Date of Service July 31, 2021 Assessment & Plan (1) Left facial numbness: Plan: 80 yo M with extensive PMH notable for HFpEF and AV ira dysfunction s/p biventricular pacemaker placement, cirrhosis, HTN, PAF, hx rectal cancer, DM2 admitted for monitoring of stroke like symptoms. Facial Numbness - less likely to be stroke given small area of effect however possible TIA vs. small vessel ischemic disease causing symptoms. - CTA head/neck negative for stenosis or infarct - high risk for CVA in patient with Afib not on anticoagulation however per chart review decision to discontinue anticoags was due to recurrent GIB/rectal bleeding. Patient aware of higher risk of embolic events without anticoagulation. - MRI ordered. Order for cardiology consult placed to assist with [employer] setting change of Pacemaker for MRI. Scheduled tentatively for 9 AM tomorrow . - electrolytes wnl, differential includes trigeminal neuralgia as well. - no rash to indicate shingles infection. patient does not recall having had shingles vaccination. Chronic Conditions Cirrhosis - stable, no acute lab abnormalities. continue spironolactone HTN - stable, continue lisinopril + amlodipine HLD - cont statin Insomnia - cont mirtazipine LUTS - cont tamsulosin Chronic Leukopenia - stable, no signs of sepsis/infection DVT ppx: SCDs FEN/GI: oral fluid intake, 2gm salt restriction per day, regular diet Code Status: Full Code Dispo: home at discharge (2) Pancytopenia: (3) Heart failure with preserved ejection fraction: (4) Presence of cardiac pacemaker: (5) Chronic kidney disease: (6) Diabetes mellitus, type II: (7) History of rectal cancer: (8) Cirrhosis: (9) Chronic leukopenia: (10) Hypertension: Admission and Anticipated Discharge Date Admission Date: July 30, 2021 Results & Data Results & Data ([facility]) Vital Signs (Past 12 Hours) Vital Signs Temp Pulse Pulse Pulse Resp BP Pulse Ox 07/31/21 06:20 62 07/31/21 03:01 36.9 C 56 L 18 109/62 95 07/30/21 23:19 36.6 C 62 18 103/51 L 95 07/30/21 21:00 36.5 C 59 L 16 126/64 96 07/30/21 20:41 36.5 C 59 L 16 126/64 96
--- NOTE | 2021-07-31 08:48 | Hospitalist Progress Note ---
Date of Service July 31, 2021 Assessment & Plan (1) Left facial numbness: Plan: Facial Numbness. 1) DDx 1 - Stroke/Ischemic Infarct - CTA head/neck negative for stenosis or infarct - Stroke is unlikely given that left cheek numbness is his only Sx - high risk for CVA in patient with Afib not on anticoagulation however per chart review decision to discontinue anticoags was due to recurrent GIB/rectal bleeding. Patient aware of higher risk of embolic events without anticoagulation. - MRI negative. 2) DDx 2 - Trigeminal Nerve Neuralgia - Possible Dx given that TNN presents with unilateral facial pain. However he describes his Sx as numbness and not painful which is not consistent with the presentation of TNN. 3) DDx 3 - Post-herpetic Neuralgia - His Sx of numbness is localized to his left cheek and does not cross his midline which is consistent with post-herpetic neuralgia. However, this Dx is preceded by an episode of shingles to the same area and he denies having shingles 8 weeks ago or within the last week. 4) DDx 4 Vitamin B12 deficiency secondary to Anemia - Loss of Vitamin B12 can cause a wide variety of Sx including numbness. However, his Hgb and MCV are WNL making this an unlikely diagnoses. In addition, loss of Vitamin B12 would most likely lead to other seemingly unrelated Sx but he denies other Sx. Chronic Conditions Cirrhosis - stable, no acute lab abnormalities. continue spironolactone HTN - stable, continue lisinopril + amlodipine HLD - cont statin Insomnia - cont mirtazipine LUTS - cont tamsulosin Chronic Leukopenia - stable, no signs of sepsis/infection DVT ppx: SCDs FEN/GI: oral fluid intake, 2gm salt restriction per day, regular diet Code Status: Full Code Dispo: home at discharge Admission and Anticipated Discharge Date Admission Date: July 30, 2021 Subjective 80 y/o male with h/o of Afib presents with CC of left sided facial numbness. He rates the numbness as a 5/10 and at the worst as a 8/10. He denies pain or difficulty with swallowing. No sudden changes in his vision or hearing. He has not noticed any lesions to the left side of his face. Describes the numbness as "going to the dentist and having novocaine". He states that the sensation is not painful. He states the numbness is improved from yesterday. He denies any loss of strength or sensation in his UE and LE. Denies neck pain. Denies PIKE. Denies h/o of migraines. He is unsure if he had chicken pox as a child and is unsure of his shingles vaccine status. Denies significant loss of energy. Denies recent fever, chills and night sweats. Denies recent h.o of trauma to his face and neck. Denies any recent falls. Review of Systems Review of Systems: All systems reviewed & are unremarkable except as noted in Subjective Physical Exam Physical Exam: General: NAD, well appearing, pleasant affect, responding appropriately to questions HEENT: No discharge from his eyes or ears. Cardio: RRR, no rubs, no murmurs, no gallops Pulm: lungs CTA BL, no labored breathing MSK: multiple sebheorric keratosis diffusely located. No maculopapular rashes. No ecchymosis or erythema. No lesions which are localized to a dermatome and do not cross his midline. Neuro: CN II - XII intact. UE and LE strength and sensation intact. No hoarseness in his voice. No slurring of his speech. Sensation to his left and r ight cheek intact. No facial tics. Results & Data Results & Data ([facility]) Vital Signs (Past 12 Hours) Vital Signs Temp Pulse Pulse Pulse Resp BP Pulse Ox 07/31/21 07:47 37.0 C 83 18 120/61 96 07/31/21 06:20 62 07/31/21 03:01 36.9 C 56 L 18 109/62 95 07/30/21 23:19 36.6 C 62 18 103/51 L 95 07/30/21 21:00 36.5 C 59 L 16 126/64 96 07/30/21 20:41 36.5 C 59 L 16 126/64 96 Laboratory Results 07/30/21 07/30/21 07/30/21 15:40 13:30 13:30 WBC RBC Hgb Hct MCV MCH MCHC RDW Std Deviation RDW Coeff of Ro Plt Count MPV PT 12.3 H INR 1.2 H APTT 28.5 PTT Ratio 1.1 Sodium 137 Potassium 3.8 Chloride 105 Carbon Dioxide 25 Anion Gap 7 BUN 16 Creatinine 1.19 Est Cr Clr Drug Dosing 46.3 Est GFR ( Amer) 66.5 Est GFR (Non-Af Amer) 57.3 BUN/Creatinine Ratio 13.4 Glucose 135 H Calcium 9.4 Magnesium 1.8 Total Bilirubin 1.6 H AST 37 ALT 28 Alkaline Phosphatase 96 Total Protein 7.3 Albumin 3.7 Globulin 3.6 Albumin/Globulin Ratio 1.0 SARS-CoV-2, RNA, NAAT NEGATIVE 07/30/21 13:30 WBC 3.24 L RBC 4.08 L Hgb 13.2 L Hct 38.3 L MCV 93.9 MCH 32.4 MCHC 34.5 RDW Std Deviation 48.6 H RDW Coeff of Ro 14.1 Plt Count 71 L MPV 11.6 H PT INR APTT PTT Ratio Sodium Potassium Chloride Carbon Dioxide Anion Gap BUN Creatinine Est Cr Clr Drug Dosing Est GFR ( Amer) Est GFR (Non-Af Amer) BUN/Creatinine Ratio Glucose Calcium Magnesium Total Bilirubin AST ALT Alkaline Phosphatase Total Protein Albumin Globulin Albumin/Globulin Ratio SARS-CoV-2, RNA, NAAT
[2021-07-31] MEDS ORDERED: lisinopril 40 MG TAB PO SCH (09:00)
[2021-07-31] MEDS ORDERED: TAMSULOSIN HCL 0.4 MG CAP PO SCH (09:00)
[2021-07-31] MEDS ORDERED: SPIRONOLACTONE 25 MG TAB PO SCH (09:00)
[2021-07-31] MEDS ORDERED: amLODIPine BESYLATE 5 MG TAB PO SCH (09:00)
[2021-07-31] MEDS ORDERED: LORazepam 2 MG/1 ML VIAL IV SCH (09:00)
--- NOTE | 2021-07-31 10:31 | Magnetic Resonance Report ---
MR brain wo con CLINICAL HISTORY: L facial numbness TECHNIQUE: Multiplanar and multisequence MR images of the brain were obtained without intravenous con trast. Comparison: None available at the time of this dictation. FINDINGS: No abnormal restricted diffusion is identified. Foci of T2 and FLAIR hyperintensity are noted in the paraventricular areas consistent with chronic small vessel ischemic disease. Ex vacuo ventriculomegal y and sulcal enlargement is noted compatible with diffuse encephalomalacia. There are no masses, mass effect, or midline shift. No abnormal enhancement is seen. There is no evidence of acute intraparenc hymal hemorrhage. No extra axial fluid collections are seen. The corpus callosum, pituitary gland, an d cerebellar tonsils appear grossly unremarkable. Flow voids of the major intracranial arterial vessels are identified. The imaged portions of the para nasal sinuses, mastoid air cells, and orbits are unremarkable. IMPRESSION: No acute abnormalities and in particular no evidence of acute infarct. ACT 112: Negative or not required by law. Electronically signed by: Sami Aguilar M.D. 07/31/2021 10:30 AM
--- NOTE | 2021-07-31 10:51 | Billing Data ---
Date of Service Jul 30, 2021 Coding Level of Care Code INT OBSERVATION CARE 50M LVL 2
--- NOTE | 2021-07-31 12:56 | Electrocardiogram Report ---
Test Reason : Blood Pressure : / mmHG Vent. Rate : 081 BPM Atrial Rate : 081 BPM P-R Int : 000 ms QRS Dur : 148 ms QT Int : 438 ms P-R-T Axes : 000 097 267 degrees QTc Int : 508 ms Sinus rhythm with frequent AV dual-paced complexes Rightward axis Non-specific intra-ventricular conduction block Abnormal ECG When compared with ECG of 06-MAY-2021 18:43, Vent. rate has increased BY 15 BPM Confirmed by Hector Warner ([id number]) on 07/31/2021 12:55:50 PM Referred By: Alfredo Moreno Confirmed By:Hector Warner
--- NOTE | 2021-07-31 14:51 | Discharge Summary ---
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 He states that this morning he noticed the left part of his face by his eye was numb and tingly, and then progressed down to his left cheek. He called his daughter, who called his PCP, who advised him to go to the ER. He was able to drive himself here. He denies any pain over these regions, any movement of pain to the opposite side, dysarthria. He had a similar episode 2 months ago prior to going into a CHF exacerbation, to his recollection. He denies any history of stroke, weakness, or any unilateral symptoms other than his face. No change in vision, blurring, pain with eye movement. 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 No recent medication changes. No chest pain, SOB, dyspnea, N/V/D, gait changes. No recent medication changes. Admission Exam Per Admitting Provider Constitutional: well developed; no acute distress and not ill appearing Eyes: + eyelid abnormality (right ptosis), PER RL and EOM intact bilaterally Respiratory: normal respiratory effort, lungs clear to auscultation Auscultation: no crackles, no rales and no wheezes Cardiovascular: Rate/Rhythm: regular rate and + irregularly irregular Vessels: + JVD Extremities: normal capillary refill; no edema Gastrointestinal (Abdomen): Inspection/Auscultation: + abdomen distended, normal bowel sounds and + abdominal surgical scar; no abdominal wall ecchymosis and no abdominal edema Skin: no rashes, warm and dry Neurologic: normal touch/pain/proprioception, CN's II-XI intact bilaterally (L CN V2 abnormal sensation), moves all extremities and awake; no focal motor deficits, not confused and not obtunded Speech / Cognition: normal speech, no expressive aphasia and no receptive aphasia Motor/Sensory: no tremor, no pronator drift and no asterixis Cranial Nerves: normal accommodation, EOM intact bilaterally and tongue midline Principal Diagnosis Left Facial Numbness Discharge Exam Constitutional WD/WN, vitals as above Eyes normal visual ramos by confrontation and + eyelid abnormality (on right, congenital) ENMT external ear and nose normal, oropharynx normal Neck trachea midline, no thyromegaly Respiratory normal respiratory effort, lungs clear to auscultation Cardiovascular Rate/Rhythm: regular rate and + irregularly irregular Chest (Breasts) Chest: normal inspection of chest Gastrointestinal (Abdomen) normal bowel sounds, soft, nontender, no hepatosplenomegaly Skin no rashes, warm and dry Neurologic Cranial Nerves: sense of smell intact, PERRL, normal accommodation, EOM intact bilaterally, normal facial strength, tongue midline, normal gag reflex, normal hearing, able to rotate head bilaterally, able to elevate shoulders bilaterally, no nystagmus and symmetric palate elevation decreased sensation/numbness of V2 region of trigeminal nerve on left face Psychiatric A+Ox3, euthymic affect Discharge Data Allergies Allergy/AdvReac Type Severity Reaction Status Date / Time metoprolol Allergy Intermediate NONTOLERATED, Verified 07/30/21 15:33 DIZZINESS sertraline Allergy Intermediate "NUMBNESS Verified 07/30/21 15:33 IN MY FACE" Consultations 07/30/21 16:55 ED Decision to Admit Stat 07/30/21 18:41 Consult Cardiology Routine Ordered Studies 07/30/21 13:02 CT head/brain wo con Stat 07/30/21 14:21 CT angio head w con Stat CT angio neck with con Stat 07/31/21 00:00 MR brain wo con Stat Hospital Course (1) Left facial numbness: 80 yo M with extensive PMH notable for HFpEF and AV ira dysfunction s/p biventricular pacemaker placement, cirrhosis, HTN, PAF, hx rectal cancer, DM2 admitted for monitoring of stroke like symptoms. Patient to follow up with PCP after leaving hospital Facial Numbness Less likely to be stroke given small area of effect however possible TIA vs. small vessel ischemic disease causing symptoms. Patient has history afib on pacer not on anticoagulation given hx GI bleed. CTA head/neck negative for stenosis or infarct, MRI brain negative for infarct. Pacemaker settings adjusted for MRI. Electrolytes wnl, no rash to indicate shingles infection. Patient does not recall having had shingles vaccination. PAtient denies headache, migraine. Consider conversion disorder given grief over recent of . Chronic Conditions Cirrhosis - stable, no acute lab abnormalities. continue spironolactone HTN - stable, continue lisinopril + amlodipine HLD - cont statin Insomnia - cont mirtazipine LUTS - cont tamsulosin Chronic Leukopenia - stable, no signs of sepsis/infection (2) Pancytopenia: (3) Heart failure with preserved ejection fraction: (4) Presence of cardiac pacemaker: (5) Chronic kidney disease: (6) Diabetes mellitus, type II: (7) History of rectal cancer: (8) Cirrhosis: (9) Chronic leukopenia: (10) Hypertension: Total Time Total Time Spent Total Time Spent (In Minutes): <30 Discharge Plan Discharge Items Patient Disposition: Home - Self-Care Reason For Visit: L FACIAL NUMBNESS Discharge Diagnosis: Left Facial Nubmness Activity: Resume your previous activity Non-emergency contact: Primary Care Provider Call non-emergency contact if: you have any medication questions, your symptoms worsen and you have a fever Follow-up/Referrals: Alfredo Moreno DO [Primary Care Provider] - 08/07/21 2:00 pm Diet: Regular Addtl Attending Provider Instructions: You were admitted to the hospital for Left Facial Numbness. Imaging of your head shows that you are unliekly to have a stroke. While we are unsure of the exact cause of your symptoms, we do not believe it is dangerous or debilitating at this time. Please follow up with your PCP after leaving the hospital. A discharge summary will be sent to your primary care physician to ensure continuity of care. Please bring this discharge summary with you to your next office appointment so that your provider can review it at that time. Follow-up appointments: Make a follow-up appointment with your PCP within the next week. It is very important that you follow up with them shortly after discharge from the hospital. Keep all your follow-up appointments as already scheduled. If you cannot make an appointment, notify your provider. Medications: Your medication list has been reviewed and reconciled upon discharge to ensure accuracy and continuity of care. An updated list of all your medications is included with your hospital discharge paperwork. Please review this list closely, and make note of any changes. Take your medications as instructed; do not skip a dose of your medicines. Make sure all of your doctors know every medicine you are taking (including kjdr-inp-uhshcbe medicines, vitamins, and supplements). Call your primary care provider before taking any new medicines (including edaf-aue-cucfxir medicines, vitamins, and supplements), because some of these may interact with your current medications, or may make your symptoms worse. Tell your primary care provider if you cannot afford your medications. CONTACT YOUR PRIMARY CARE PROVIDER if you experience any of the following: fever, shortness of breath, chest pain weakness, loss of sensation Difficulty following your treatment plan, or difficulty taking medications CALL 911 OR GO TO THE EMERGENCY DEPARTMENT if you experience any of the following: Sudden, severe abdominal pain or nausea/vomiting Severe chest pain, or chest pain that radiates (moves) to your jaw or arm Sudden, severe shortness of breath or difficulty breathing Thank you for allowing us to participate in your care. Pending Studies at Discharge: No Stand-Alone Forms: My [facility] [employer], Smoking Cessation Medications and DC Order Prescriptions: Continued amlodipine 5 mg tablet 5 mg PO QAM Qty: 90 RF: 3 tamsulosin 0.4 mg capsule 0.4 mg PO QAM Qty: 90 RF: 3 spironolactone 25 mg tablet 25 mg PO QAM Qty: 30 RF: 2 mirtazapine 15 mg tablet 15 mg PO HS Qty: 30 RF: 2 lisinopril 40 mg tablet 40 mg PO QAM Qty: 90 RF: 3 atorvastatin 10 mg tablet 10 mg PO HS Qty: 90 RF: 3 cholecalciferol (vitamin D3) 25 mcg (1,000 unit) capsule 25 mcg PO QAM RF: 0 acetaminophen [Tylenol Extra Strength] 500 mg Tablet 500 mg PO Q6H PRN (Reason: Pain) RF: 0 Discharge Orders: Discharge Order (Routine); Ordered 07/31/21 Ordered By: Geno Cummins Admission Data Admit Date/Time: 07/30/21 18:15 Attending Provider: Jax Moreno Admit Provider: Evelyn Meyers Primary Care Provider: Alfredo Moreno Other Providers: Walker Nagel ; Eugene Burks Other Interventions: Discharge Summary Assessment (RN) Last Done: 07/31/21 13:51 Supervising Physician Co-Signing Physician Notes I personally examined the patient and verified all hauser points of history and exam, discussed case, and agree with decision making with Dr Cummins Feels fine except for ongoing left face paresthesias across his cheek. Started Friday. Has not changednot better or worse. Happened in the past as well. Feels up to going home. Vitals noted, in general he is awake and alert pleasant no distress. HEENT normocephalic atraumatic mucous membranes moist. Breathing unlabored no accessory muscle use good effort. Other than the numbness on the side of his face, no focal neuro deficitshe does note he has a chronic right-sided eyelid droop Facial paresthesiasgiven the duration of the paresthesias and the normal MRI, any stroke or strokelike illness is extremely unlikely. I wonder about just simply trigeminal irritationsomewhat in the family of trigeminal neuralgia, but really more with paresthesias than pain. I also wonder about migrainous pathophysiology absent of a headache. At any rate, patient is very stable to go home, wants to go home, has no overt threatening cause of his symptoms, and is safe for outpatient follow-up. Otherwise as above Resident Activity Tracking Resident Involvement: Resident Care Provided Care Provided: Adult Hospital Medicine
--- NOTE | 2021-07-31 17:57 | Billing Data ---
Date of Service July 31, 2021 Coding Level of Care Code 72200 OBS Care - Discharge
== END 2021-07-31 17:30 | disposition home or self-care (01) ==
LOC: ED 12:54 → 2W 12:54 → SUATTDRO 18:15 → 2W 20:11

== ENCOUNTER 2022-10-09 10:21 | Inpatient (IN) ==
--- NOTE | 2022-10-09 11:27 | XRay Report ---
SINGLE VIEW CHEST CLINICAL HISTORY: Atypical chest pain. Dyspnea. FINDINGS: An AP, portable, upright chest radiograph is compared to study dated 05/06/2021 and correlat ed with chest CT dated 09/25/2022. The examination is degraded by portable technique, apical lordotic positioning, and patient rotation. A 2-lead cardiac pacemaker is unchanged in position and partially obscures the left upper chest. The heart is enlarged noting atherosclerotic calcification of the tho racic aorta. The pulmonary vasculature is noncongested. Chronic interstitial thickening and mild elev ation of the right hemidiaphragm is similar to previous the lungs and pleural spaces are clear nothin g bibasilar scarring/atelectasis. No pneumothorax is seen. The skeletal structures are osteopenic. Th ere are chronic/healed right-sided rib fractures. IMPRESSION: 1. Cardiomegaly and cardiac pacemaker without radiographic evidence of congestive failure. 2. No airspace consolidation or pleural effusion is identified. ACT 112: Negative or not required by law. Electronically signed by: Richy Grace M.D. 10/09/2022 11:25 AM
--- NOTE | 2022-10-09 11:28 | Emergency Department Note ---
Impression & Plan Dyspnea, Chest pain, LUDIN (acute kidney injury) ED Provider Note ED Provider Note NAME: TERESA VALDEZ AGE:81 SEX: Male : 1940 ARRIVES VIA: private vehicle INFORMANT: Patient ED PROVIDER(s): Karen Ascencio DO CHIEF COMPLAINT: shortness of breath, chest pain HPI: This is an 81-year-old male presents emergency department due to concern for shortness of breath. Patient states he had increased shortness of breath particularly with any exertion over the last 2 weeks. Patient states he also feels as though someone is sticking their fist into the center of his chest. Patient does have extensive heart history and follows with Dr. Tolbert or of cardiology. He does have an indwelling pacemaker. No anticoagulation due to prior significant GI bleed. Patient states he has had subjective fevers and chills as well as rhinorrhea, no nasal congestion, no sore throat, no cough. Patient states he is also had some recent upper back and neck pain which seems intermittent. He states the pain at times is severe enough to cause nausea and subsequent vomiting. No other change in bowel or bladder function. No recent change in medications. PAST MEDICAL HISTORY:See Below PAST SURGICAL HISTORY:See Below FAMILY HISTORY:See Below SOCIAL HISTORY:See Below HOME MEDICATIONS:See Below ALLERGIES:See Below VITALS:See Below PHYSICAL EXAMINATION: GENERAL: alert, well appearing, well nourished, no distress, non-toxic EYE EXAM: normal conjunctiva, PERRL and EOM's grossly intact OROPHARYNX: no exudate, no erythema, lips, buccal mucosa, and tongue normal and mucous membranes are moist NECK: supple, no nuchal rigidity, no adenopathy, non-tender LUNGS: Clear to auscultation. Normal chest wall mechanics, no w/r/r HEART: no murmurs, S1 normal and S2 normal, pacemaker noted left anterior s uperior chest wall ABDOMEN: abdomen soft, non-tender, normo-active bowel sounds, no masses, no rebound or guarding. BACK: Back is symmetrical on inspection and there is no deformity, no midline tenderness, no CVA tenderness. SKIN: no rashes, petechiae, orbruising UPPER EXTREMITIES: upper extremities are grossly normal. FROM, nml pulses b/l. LOWER EXTREMITIES: 1+ b/l pitting edema. FROM, nml pulses b/l. NEURO EXAM: Normal sensorium, cranial nerves II-XII grossly intact, normal speech, no facial droop,nogross weakness of arms, no gross weakness of legs. Gross sensation intact. No ataxia. Vital Signs: reviewed and remarkable Differential Diagnosis: ACS, CHF, PE, pneumonia, pleural effusion, anemia, electrolyte abnormality, LUDIN, medication reaction, URI, as well as others were considered MEDICAL DECISION MAKING: This is an 81-year-old male presents emergency department due to 2 weeks of increased dyspnea with exertion and accompanying chest pain. Patient was afebrile and vital signs stable. He was not hypoxic and had no increased work of breathing. Patient does have significant prior cardiac history. Labs drawn and sent, IV established, EKG and chest x-ray performed interpreted by me at bedside, patient monitored on telemetry. Patient's pacemaker was interrogated as a precaution, no significant abnormalities were noted on the preliminary [employer] report. Patient noted to have LUDIN on labs. No evidence of UTI. No other evidence of obstructive uropathy on CT imaging. Pancytopenia noted on the patient although this is stable compared to prior. I discussed results with patient and niece at bedside. Case discussed with hospitalist for additional evaluation and management. Consultation(s): [] ER Treatment Provided: See below Diagnostics Interpreted By Me: -ECG: Paced, rightward axis, prolonged intervals consistent with pacing, no acute ST/T wave changes -Cardiac Monitoring: An order was placed for continuous cardiac monitoring. The monitor shows a rate of 72 with paced rhythm. -Laboratory studies: As stated above and show below. -Imaging studies: X-ray Chest: A single view study of the chest was reviewed and was negative for cardiomegaly, focal infiltrate, effusion, pulmonary edema, or wide mediastinum. Pacemaker noted. Triage Nursing Note Reviewed Prior/Outside Records Reviewed -prior cardiology visit reviewed Past Med/Surg History Medical History Atrial fibrillation Chronic kidney disease Chronic leukopenia Diabetes mellitus, type II Diverticulosis of colon (12/06/12) GIB (gastrointestinal bleeding) Heart failure with preserved ejection fraction History of Mohs micrographic surgery for skin cancer History of rectal cancer Hyperlipidemia Hypertension Insomnia Olecranon fracture Portal hypertension Presence of cardiac pacemaker Pulmonary nodules Second degree AV block Splenomegaly Thrombocytopenia Surgical History History of excision of lesion History of partial colectomy Hx of appendectomy Hx of cataract surgery Hx of cholecystectomy Hx of colonoscopy Hx of hernia repair Family History Sister Breast cancer Heart disease Hypertension Father Myocardial infarction Mother Myocardial infarction Cause of injury, MVA Son Aortic aneurysm Brother Hypertension Diabetes Heart disease Dementia CHF (congestive heart failure) Mental health problem Sister Hypertension Daughter Hypertension Asthma COPD (chronic obstructive pulmonary disease) Depression Anxiety Basal cell carcinoma Colonic polyp Denies family history of Ovarian cancer Prostate cancer Lung cancer Social History Smoking Status: Never smoker Second Hand Exposure: No; Do You Dip or Chew Tobacco: No; Hx Alcohol Use: No Hx Substance Use: No Preferred Language: Kazakh Communication Ability: Effective Visual Impairment: Limited Hearing Ability: Normal Multi Media Specialist Required: No Beliefs That Will Affect Care: None marital status: / Current Living Situation: Alone Current Living Situation Comment: patient lives alone in an apartment, uses elevator instead of stairs. current occupational status: retired How many Children do You have: 2 Other Information That Helps Us Care for You: No Feels Safe at Home: Yes Safety Concerns: Feels Safe At This Time Childhood Exposure to Second-Hand Smoke: No Diet: regular caffeine: No during the past year weight has: remained stable Physical Activity Frequency: Daily Physical Activity Frequency Comment: walking Seatbelt Use: always Sunscreen Use: Yes Do you think of yourself as: straight/heterosexual Assistive Devices: Glasses Allergies Allergies Allergy/AdvReac Type Severity Reaction Status Date / Time metoprolol Allergy Intermediate NONTOLERATED, Verified 10/09/22 15:55 DIZZINESS sertraline Allergy Intermediate "NUMBNESS Verified 10/09/22 15:55 IN MY FACE" apixaban [From Eliquis] AdvReac Intermediate rectal Verified 10/09/22 15:55 bleeding Home Meds Home Medications Medication Instructions Recorded Confirmed cholecalciferol (vitamin D3) 25 25 mcg PO QAM 11/02/20 10/09/22 mcg (1,000 unit) capsule atorvastatin 10 mg tablet 10 mg PO HS 10/09/22 10/09/22 Previous Rx's Medication Instructions Recorded tamsulosin 0.4 mg capsule 0.4 mg PO QAM #90 caps 03/14/22 lisinopril 40 mg tablet 40 mg PO QAM #90 tabs 06/12/22 mirtazapine 15 mg tablet 15 mg PO HS #30 tabs 08/06/22 spironolactone 25 mg tablet 25 mg PO QAM #90 tabs 08/06/22 Results & Data (ED) Vital Signs Vital Signs - 24 hr 10/09/22 10:29 10/09/22 11:38 10/09/22 11:38 Temperature 36.7 C Temperature Source Temporal Artery Scan Pulse Rate 77 Pulse Rate [Apical] Pulse Rate from SpO2 Sensor Respiratory Rate 22 Respiratory Effort / Characteristics Short of Breath Non-Labored Respiratory Depth Normal Normal Respiratory Pattern Regular Blood Pressure 108/53 L Blood Pressure [Right Arm] Blood Pressure Mean 71 Blood Pressure Mean [Right Arm] Pulse Oximetry 100 Oxygen Delivery Method Room Air Room Air Room Air Sepsis New/Unexplained Change in Mental Status N/A Sepsis Action Taken by Nursing No Action Required 10/09/22 11:52 10/09/22 12:13 10/09/22 11:28 Temperature Temperature Source Pulse Rate 69 68 Pulse Rate [Apical] 70 Pulse Rate from SpO2 Sensor 68 Respiratory Rate 14 19 Respiratory Effort / Characteristics Respiratory Depth Respiratory Pattern Blood Pressure Blood Pressure [Right Arm] 99/50 L Blood Pressure Mean Blood Pressure Mean [Right Arm] 66 Pulse Oximetry 99 100 Oxygen Delivery Method Room Air Room Air Sepsis New/Unexplained Change in Mental Status Sepsis Action Taken by Nursing 10/09/22 11:30 10/09/22 12:00 10/09/22 12:30 Temperature Temperature Source Pulse Rate 68 78 Pulse Rate [Apical] Pulse Rate from SpO2 Sensor 68 77 Respiratory Rate 25 H 20 Respiratory Effort / Characteristics Respiratory Depth Respiratory Pattern Blood Pressure 107/49 L Blood Pressure [Right Arm] Blood Pressure Mean 68 Blood Pressure Mean [Right Arm] Pulse Oximetry 100 100 Oxygen Delivery Method Room Air Room Air Sepsis New/Unexplained Change in Mental Status Sepsis Action Taken by Nursing 10/09/22 12:30 10/09/22 13:00 10/09/22 13:00 Temperature Temperature Source Pulse Rate 72 74 Pulse Rate [Apical] Pulse Rate from SpO2 Sensor 71 74 Respiratory Rate 25 H 21 Respiratory Effort / Characteristics Respiratory Depth Respiratory Pattern Blood Pressure 110/55 L Blood Pressure [Right Arm] Blood Pressure Mean 73 Blood Pressure Mean [Right Arm] Pulse Oximetry 100 100 Oxygen Delivery Method Room Air Room Air Sepsis New/Unexplained Change in Mental Status Sepsis Action Taken by Nursing 10/09/22 14:00 10/09/22 14:00 10/09/22 14:30 Temperature Temperature Source Pulse Rate 86 Pulse Rate [Apical] Pulse Rate from SpO2 Sensor 86 Respiratory Rate 23 Respiratory Effort / Characteristics Respiratory Depth Respiratory Pattern Blood Pressure 108/54 L 110/54 L Blood Pressure [Right Arm] Blood Pressure Mean 72 72 Blood Pressure Mean [Right Arm] Pulse Oximetry 99 Oxygen Delivery Method Room Air Sepsis New/Unexplained Change in Mental Status Sepsis Action Taken by Nursing 10/09/22 14:30 10/09/22 15:00 10/09/22 15:00 Temperature Temperature Source Pulse Rate 88 83 Pulse Rate [Apical] Pulse Rate from SpO2 Sensor 89 Respiratory Rate 29 H 24 Respiratory Effort / Characteristics Respiratory Depth Respiratory Pattern Blood Pressure 96/55 L Blood Pressure [Right Arm] Blood Pressure Mean 68 Blood Pressure Mean [Right Arm] Pulse Oximetry 98 Oxygen Delivery Method Room Air Room Air Sepsis New/Unexplained Change in Mental Status Sepsis Action Taken by Nursing 10/09/22 15:00 Temperature Temperature Source Pulse Rate Pulse Rate [Apical] 83 Pulse Rate from SpO2 Sensor Respiratory Rate 17 Respiratory Effort / Characteristics Non-Labored Spontaneous Respiratory Depth Normal Respiratory Pattern Regular Blood Pressure Blood Pressure [Right Arm] 96/55 L Blood Pressure Mean Blood Pressure Mean [Right Arm] 68 Pulse Oximetry 96 Oxygen Delivery Method Room Air Sepsis New/Unexplained Change in Mental Status Sepsis Action Taken by Nursing Laboratory Data 10/09/22 11:33 10/09/22 11:33 Lab Results 10/09/22 10/09/22 10/09/22 Range/Units 11:33 11:33 11:33 WBC 3.23 L (4.8-10.8) K/ul RBC 3.03 L (4.70-6.10) M/uL Hgb 10.1 L (14.0-18.0) g/dl Hct 30.0 L (42.0-52.0) % MCV 99.0 (80.0-100.0) fL MCH 33.3 (25.0-34.0) pg MCHC 33.7 (32.0-36.0) g/dL RDW Std Deviation 47.9 H (36.4-46.3) fL RDW Coeff of Ro 13.2 (11.5-14.5) % Plt Count 52 L (130-400) K/uL MPV 11.7 (9.4-12.4) fL Immature Gran % (Auto) 0.3 % Neut % (Auto) 91.3 % Lymph % (Auto) 1.9 % [place] % (Auto) 6.2 % Eos % (Auto) 0.0 % Baso % (Auto) 0.3 % Neut # (Auto) 2.95 (1.40-6.50) K/uL Lymph # (Auto) 0.06 L (1.2-3.4) K/uL [place] # (Auto) 0.20 (0.11-0.59) K/uL Eos # (Auto) 0.00 (0-0.50) K/uL Baso # (Auto) 0.01 (0-0.2) K/uL Immature Gran # (Auto) 0.01 (0.01-0.20) K/uL PT 13.8 H (9.0-12.0) Seconds INR 1.3 H (0.9-1.1) Sodium 136 (136-145) mmol/L Potassium 5.4 H (3.5-5.1) mmol/L Chloride 111 H (98-107) mmol/L Carbon Dioxide 17 L (21-32) mmol/L Anion Gap 8 (3-11) BUN 68 H (6-23) mg/dl Creatinine 2.43 H (0.6-1.4) mg/dl Est Cr Clr Drug Dosing 22.2 ml/min Est GFR ( Amer) 27.8 ml/min Est GFR (Non-Af Amer) 24.0 ml/min BUN/Creatinine Ratio 28.0 H (10-20) Glucose 159 H (70-99(Fasting)) mg/dl Calcium 7.9 L (8.6-10.3) mg/dl Magnesium 1.7 (1.7-2.4) mg/dl Total Bilirubin 1.6 H (0.2-1.0) mg/dl AST 42 H (13-39) U/L ALT 29 (7-52) U/L Alkaline Phosphatase 70 (34-104) U/L Troponin I High Sens 13.0 (0-20) pg/ml B-Natriuretic Peptide (0-100) pg/ml Total Protein 6.4 (6.0-8.3) gm/dl Albumin 3.3 L (3.4-5.0) gm/dl Globulin 3.1 (2.5-4.0) gm/dl Albumin/Globulin Ratio 1.1 (0.9-2) Lipase 29 (11-82) U/L TSH (0.300-4.500) uIu/ml Adenovirus (PCR) (NotDetected) B. pertussis DNA (PCR) (NotDetected) B.parapertussis DNA PCR (NotDetected) C. pneumoniae DNA (PCR) (NotDetected) Coronavirus OC43 (PCR) (NotDetected) Coronavirus HKU1 (PCR) (NotDetected) Coronavirus 229E (PCR) (NotDetected) SARS-CoV-2 (PCR) (NotDetected) Coronavirus NL63 (PCR) (NotDetected) Human Metapneumovir PCR (NotDetected) Influenza Type A (PCR) (NotDetected) Influenza Type B (PCR) (NotDetected) M. pneumoniae (PCR) (NotDetected) Parainfluenza 1 (PCR) (NotDetected) Parainfluenza 2 (PCR) (NotDetected) Parainfluenza 3 (PCR) (NotDetected) Parainfluenza 4 (PCR) (NotDetected) RSV (PCR) (NotDetected) Entero/Rhino (PCR) (NotDetected) 10/09/22 10/09/22 10/09/22 Range/Units 11:33 11:50 12:19 WBC (4.8-10.8) K/ul RBC (4.70-6.10) M/uL Hgb (14.0-18.0) g/dl Hct (42.0-52.0) % MCV (80.0-100.0) fL MCH (25.0-34.0) pg MCHC (32.0-36.0) g/dL RDW Std Deviation (36.4-46.3) fL RDW Coeff of Ro (11.5-14.5) % Plt Count (130-400) K/uL MPV (9.4-12.4) fL Immature Gran % (Auto) % Neut % (Auto) % Lymph % (Auto) % [place] % (Auto) % Eos % (Auto) % Baso % (Auto) % Neut # (Auto) (1.40-6.50) K/uL Lymph # (Auto) (1.2-3.4) K/uL [place] # (Auto) (0.11-0.59) K/uL Eos # (Auto) (0-0.50) K/uL Baso # (Auto) (0-0.2) K/uL Immature Gran # (Auto) (0.01-0.20) K/uL PT (9.0-12.0) Seconds INR (0.9-1.1) Sodium (136-145) mmol/L Potassium (3.5-5.1) mmol/L Chloride (98-107) mmol/L Carbon Dioxide (21-32) mmol/L Anion Gap (3-11) BUN (6-23) mg/dl Creatinine (0.6-1.4) mg/dl Est Cr Clr Drug Dosing ml/min Est GFR ( Amer) ml/min Est GFR (Non-Af Amer) ml/min BUN/Creatinine Ratio (10-20) Glucose (70-99(Fasting)) mg/dl Calcium (8.6-10.3) mg/dl Magnesium (1.7-2.4) mg/dl Total Bilirubin (0.2-1.0) mg/dl AST (13-39) U/L ALT (7-52) U/L Alkaline Phosphatase (34-104) U/L Troponin I High Sens (0-20) pg/ml B-Natriuretic Peptide 132 H (0-100) pg/ml Total Protein (6.0-8.3) gm/dl Albumin (3.4-5.0) gm/dl Globulin (2.5-4.0) gm/dl Albumin/Globulin Ratio (0.9-2) Lipase (11-82) U/L TSH 2.125 (0.300-4.500) uIu/ml Adenovirus (PCR) Not Detected (NotDetected) B. pertussis DNA (PCR) Not Detected (NotDetected) B.parapertussis DNA PCR Not Detected (NotDetected) C. pneumoniae DNA (PCR) Not Detected (NotDetected) Coronavirus OC43 (PCR) Not Detected (NotDetected) Coronavirus HKU1 (PCR) Not Detected (NotDetected) Coronavirus 229E (PCR) Not Detected (NotDetected) SARS-CoV-2 (PCR) Not Detected (NotDetected) Coronavirus NL63 (PCR) Not Detected (NotDetected) Human Metapneumovir PCR Not Detected (NotDetected) Influenza Type A (PCR) Not Detected (NotDetected) Influenza Type B (PCR) Not Detected (NotDetected) M. pneumoniae (PCR) Not Detected (NotDetected) Parainfluenza 1 (PCR) Not Detected (NotDetected) Parainfluenza 2 (PCR) Not Detected (NotDetected) Parainfluenza 3 (PCR) Not Detected (NotDetected) Parainfluenza 4 (PCR) Not Detected (NotDetected) RSV (PCR) Not Detected (NotDetected) Entero/Rhino (PCR) Not Detected (NotDetected) Administered Medications Sodium Bicarbonate 150 meq/ (Dextrose) 1,150 mls @ 80 mls/hr IV .[id number] [facility] Stop: 11/08/22 14:44 Last Admin: 10/09/22 15:27 Dose: 80 mls/hr Documented By: TANESHA Discontinued Medications Sodium Chloride (Nss) 500 mls @ 80 mls/hr IV .[id number] NATE Stop: 11/08/22 13:14 Last Infusion: 10/09/22 15:17 Dose: 0 mls/hr Documented By: Admin: 10/09/22 13:26 Dose: 80 mls/hr Documented By: DAVIE Acetaminophen (Ofirmev) 1,000 mg in 100 mls @ 400 mls/hr IV NOW STA Stop: 10/09/22 14:28 Last Infusion: 10/09/22 15:18 Dose: 0 mls/hr Documented By: Admin: 10/09/22 14:18 Dose: 400 mls/hr Documented By: EFE Ondansetron HCl (Ondansetron Inj 2 Mg/Ml 2 Ml Vial) 4 mg IV NOW STA Stop: 10/09/22 14:15 Last Admin: 10/09/22 14:18 Dose: 4 mg Documented By: EFE Imaging Data Radiologist's Impression: Chest X-Ray 10/09/22 11:06 SINGLE VIEW CHEST CLINICAL HISTORY: Atypical chest pain. Dyspnea. FINDINGS: An AP, portable, upright chest radiograph is compared to study dated 05/06/2021 and correlated with chest CT dated 09/25/2022. The examination is degraded by portable technique, apical lordotic positioning, and patient rotation. A 2-lead cardiac pacemaker is unchanged in position and partially obscures the left upper chest. The heart is enlarged noting atherosclerotic calcification of the thoracic aorta. The pulmonary vasculature is noncongested. Chronic interstitial thickening and mild elevation of the right hemidiaphragm is similar to previous the lungs and pleural spaces are clear nothing bibasilar scarring/atelectasis. No pneumothorax is seen. The skeletal structures are osteopenic. There are chronic/healed right-sided rib fractures. IMPRESSION: 1. Cardiomegaly and cardiac pacemaker without radiographic evidence of congestive failure. 2. No airspace consolidation or pleural effusion is identified. ACT 112: Negative or not required by law. Electronically signed by: Richy Grace M.D. 10/09/2022 11:25 AM Abdomen/Pelvis CT 10/09/22 13:06 CT SCAN OF THE ABDOMEN AND PELVIS WITHOUT IV CONTRAST CLINICAL HISTORY: Acute renal insufficiency. History of hepatocellular carcinoma with radiation therapy. COMPARISON STUDY: Abdominal CT dated 09/25/2022. TECHNIQUE: CT scan of the abdomen and pelvis is performed from the lung bases to the proximal femora. Images are reviewed in the axial, sagittal, and coronal planes. IV contrast was not administered for this examination. Note that the examination is suboptimal without oral and IV contrast. A dose lowering technique was utilized adhering to the principles of ALARA. CT DOSE: 755.06 mGy.cm FINDINGS: Lung bases: The heart is enlarged and without pericardial effusion. The coronary arteries are densely calcified. Pacemaker leads are in place. The lung bases are clear noting bibasilar scarring/atelectasis. There is a small hiatal hernia. Esophageal varices are noted. Liver: The unenhanced liver is cirrhotic in morphology and heterogeneous in attenuation. There is nodularity of the hepatic surface contour and hypertrophy of the left lobe. There is no intrahepatic biliary ductal dilatation. The low- attenuation lesion in the inferior right lobe of liver is again seen on image #126 and measures 1.9 x 1.6 cm. There is mild surrounding infiltration. Gallbladder: Surgically absent noting clips in the gallbladder fossa. Spleen: The spleen is enlarged, measuring 14.6 cm in length. Pancreas: The unenhanced pancreas is grossly unremarkable. Adrenal glands: Unremarkable. Kidneys: The unenhanced kidneys demonstrate mild cortical atrophy and are without hydronephrosis. There are no renal calculi identified. There is no evidence of contour deforming renal mass lesion. Abdominal vasculature: There is advanced atherosclerotic calcification and mild ectasia of the abdominal aorta. Bowel: There is postsurgical change from lower anterior resection with colocolonic anastomosis. Postoperative changes also seen adjacent to the cecum. No bowel obstruction is seen. A tiny diverticulum is noted. The appendix is not identified and reported surgically absent. Mild wall thickening of the right colon is seen at the splenic flexure. There is mild to moderate colonic fecal retention. Peritoneum: There is no intraperitoneal free air or abdominal ascites. Lymphadenopathy: Prominent upper abdominal lymph nodes are similar to previous and likely related to chronic liver disease. Pelvic viscera: The prostate gland is enlarged and heterogeneous noting median lobe hypertrophy. The bladder wall is thickened/trabeculated indicating chronic outlet obstruction. There is a fat-containing right inguinal hernia. Skeletal structures: The skeletal structures are osteopenic. There is mild to moderate lumbosacral spondylosis. No lytic or blastic lesions are seen. A chronic compression deformity is again seen in the lower thoracic spine. There are chronic/healed left-sided rib fractures. IMPRESSION: 1. The kidneys demonstrate mild cortical atrophy and are without hydronephrosis. 2. The liver is cirrhotic in morphology and heterogeneous in attenuation. 3. A low-attenuation lesion in the inferior right lobe has with mild surrounding inflammation has not significantly changed as compared 09/25/2022. Inflammation is likely related to radiation treatment. 4. Mild wall thickening of the adjacent colon is similar to previous and likely represents a mild colitis. 5. Esophageal varices and splenomegaly indicate portal hypertension. 6. Cardiomegaly and cardiac pacemaker. 7. Additional findings as above. ACT 112: Negative or not required by law. Electronically signed by: Richy Grace M.D. 10/09/2022 2:[address] 10/09/22 15:07 CT head/brain wo con CLINICAL HISTORY: 81 years-old Male with altered mental state. Acutely altered mental status TECHNIQUE: Multiple axial CT images of the head were obtained without contrast. A dose lowering technique was utilized adhering to the principles of ALARA. COMPARISON: Brain MRI 07/31/2021 FINDINGS: No acute intracranial hemorrhage, midline shift, intracranial mass, hydrocephalus, territorial ischemia or abnormal extra-axial collection. Involutional changes with mild chronic microvascular ischemic disease again noted. Cerebral vascular calcifications. The calvarium is intact. Prior bilateral lens repair. The paranasal sinuses, mastoid air cells, and middle ear cavities are clear. IMPRESSION: No acute intracranial abnormality. ACT 112: Negative or not required by law. The above report was generated using voice recognition software. It may contain grammatical, syntax or spelling errors. Electronically signed by: Mike Martinez M.D. 10/09/2022 4:47 PM Discharge Plan Visit Data Chief Complaint: Shortness of Breath/Dyspnea Stated Complaint: SOB,CHEST PAINS ED Provider: Karen Ascencio Discharge Problem: Dyspnea, Chest pain, LUDIN (acute kidney injury) Patient Disposition: Admitted As Inpatient Discharge Instructions Interventions: ED Discharge Assessment Last Done: 10/09/22 16:37
[2022-10-09 11:54] LABS: Hemoglobin 10.1 g/dl (14.0-18.0); Mean Corpuscular Hemoglobin 33.3 pg (25.0-34.0); Mean Corpuscular Hgb Conc 33.7 g/dL (32.0-36.0); Mean Platelet Volume 11.7 fL (9.4-12.4); Platelet Count 52 K/uL (130-400); RDW Coefficient of Variation 13.2 % (11.5-14.5); RDW Standard Deviation 47.9 fL (36.4-46.3); Red Blood Count 3.03 M/uL (4.70-6.10); White Blood Count 3.23 K/ul (4.8-10.8)
[2022-10-09 12:06] LABS: INR 1.3 (0.9-1.1); Prothrombin Time 13.8 Seconds (9.0-12.0)
[2022-10-09 12:19] LABS: Basophils # (auto) 0.01 K/uL (0-0.2); Basophils % (auto) 0.3 %; Immature Granulocytes # (auto) 0.01 K/uL (0.01-0.20); Immature Granulocytes % (auto) 0.3 %; Lymphocytes # (auto) 0.06 K/uL (1.2-3.4); Lymphocytes % (auto) 1.9 %; Monocytes % (auto) 6.2 %; Neutrophils # (auto) 2.95 K/uL (1.40-6.50); Neutrophils % (auto) 91.3 %
[2022-10-09 12:22] LABS: Albumin Level 3.3 gm/dl (3.4-5.0); Bilirubin,Total 1.6 mg/dl (0.2-1.0); Calcium 7.9 mg/dl (8.6-10.3); Magnesium 1.7 mg/dl (1.7-2.4); Potassium 5.4 mmol/L (3.5-5.1)
[2022-10-09 12:28] LABS: Albumin Globulin Ratio 1.1 (0.9-2); Creatinine Clr Calc Pharmacy 22.2 ml/min; Est GFR (African American) 27.8 ml/min; Globulin 3.1 gm/dl (2.5-4.0); Total Protein 6.4 gm/dl (6.0-8.3)
[2022-10-09 13:10] LABS: Appearance Urine Clear (Clear); Bilirubin Urine Negative (Negative); Blood Urine Negative (Negative); Color Urine Dark Yellow; Glucose Urine UA Negative (Negative); Ketones Urine Trace (Negative); Leukocyte Esterase Urine Negative (Negative); Nitrite Urine Negative (Negative); Protein Urine Negative (Negative); Specific Gravity Urine 1.021 (1.000-1.030); Urobilinogen Urine Negative (Negative)
[2022-10-09 13:11] LABS: Adenovirus PCR Not Detected (NotDetected); Bordetella parapertussis PCR Not Detected (NotDetected); Bordetella pertussis PCR Not Detected (NotDetected); Chlamydia pneumoniae PCR Not Detected (NotDetected); Coronavirus 229E PCR Not Detected (NotDetected); Coronavirus CoV-2 (COVID19)PCR Not Detected (NotDetected); Coronavirus HKU1 PCR Not Detected (NotDetected); Coronavirus NL63 PCR Not Detected (NotDetected); Coronavirus OC43PCR Not Detected (NotDetected); Human Metapneumovirus PCR Not Detected (NotDetected); Influenza A PCR Not Detected (NotDetected); Influenza B PCR Not Detected (NotDetected); Mycoplasma pneumoniae PCR Not Detected (NotDetected); Parainfluenza Virus 1 PCR Not Detected (NotDetected); Parainfluenza Virus 2 PCR Not Detected (NotDetected); Parainfluenza Virus 3 PCR Not Detected (NotDetected); Parainfluenza Virus 4 PCR Not Detected (NotDetected); Respiratory Syncytial VirusPCR Not Detected (NotDetected); Rhinovirus/Enterovirus PCR Not Detected (NotDetected)
[2022-10-09] MEDS ORDERED: SODIUM CHLORIDE 0.9% 500 ML IV SCH (13:15)
[2022-10-09] MEDS ORDERED: ONDANSETRON INJ 2 MG/ML 2 ML VIAL IV STA (14:14)
[2022-10-09] MEDS ORDERED: ACETAMINOPHEN 1,000 MG/100 ML VIAL IV STA (14:14)
--- NOTE | 2022-10-09 14:16 | CT Scan Report ---
CT SCAN OF THE ABDOMEN AND PELVIS WITHOUT IV CONTRAST CLINICAL HISTORY: Acute renal insufficiency. History of hepatocellular carcinoma with radiation the rapy. COMPARISON STUDY: Abdominal CT dated 09/25/2022. TECHNIQUE: CT scan of the abdomen and pelvis is performed from the lung bases to the proximal femora. Images are reviewed in the axial, sagittal, and coronal planes. IV contrast was not administered for this examination. Note that the examination is suboptimal without oral and IV contrast. A dose lower ing technique was utilized adhering to the principles of ALARA. CT DOSE: 755.06 mGy.cm FINDINGS: Lung bases: The heart is enlarged and without pericardial effusion. The coronary arteries are densely calcified. Pacemaker leads are in place. The lung bases are clear noting bibasilar scarring/atelecta sis. There is a small hiatal hernia. Esophageal varices are noted. Liver: The unenhanced liver is cirrhotic in morphology and heterogeneous in attenuation. There is nod ularity of the hepatic surface contour and hypertrophy of the left lobe. There is no intrahepatic shane iary ductal dilatation. The low-attenuation lesion in the inferior right lobe of liver is again seen on image #126 and measures 1.9 x 1.6 cm. There is mild surrounding infiltration. Gallbladder: Surgically absent noting clips in the gallbladder fossa. Spleen: The spleen is enlarged, measuring 14.6 cm in length. Pancreas: The unenhanced pancreas is grossly unremarkable. Adrenal glands: Unremarkable. Kidneys: The unenhanced kidneys demonstrate mild cortical atrophy and are without hydronephrosis. The re are no renal calculi identified. There is no evidence of contour deforming renal mass lesion. Abdominal vasculature: There is advanced atherosclerotic calcification and mild ectasia of the abdomi nal aorta. Bowel: There is postsurgical change from lower anterior resection with colocolonic anastomosis. Posto perative changes also seen adjacent to the cecum. No bowel obstruction is seen. A tiny diverticulum i s noted. The appendix is not identified and reported surgically absent. Mild wall thickening of the right colon is seen at the splenic flexure. There is mild to moderate colonic fecal retention. Peritoneum: There is no intraperitoneal free air or abdominal ascites. Lymphadenopathy: Prominent upper abdominal lymph nodes are similar to previous and likely related to chronic liver disease. Pelvic viscera: The prostate gland is enlarged and heterogeneous noting median lobe hypertrophy. The bladder wall is thickened/trabeculated indicating chronic outlet obstruction. There is a fat-containi ng right inguinal hernia. Skeletal structures: The skeletal structures are osteopenic. There is mild to moderate lumbosacral sp ondylosis. No lytic or blastic lesions are seen. A chronic compression deformity is again seen in the lower thoracic spine. There are chronic/healed left-sided rib fractures. IMPRESSION: 1. The kidneys demonstrate mild cortical atrophy and are without hydronephrosis. 2. The liver is cirrhotic in morphology and heterogeneous in attenuation. 3. A low-attenuation lesion in the inferior right lobe has with mild surrounding inflammation has not significantly changed as compared 09/25/2022. Inflammation is likely related to radiation treatment. 4. Mild wall thickening of the adjacent colon is similar to previous and likely represents a mild col itis. 5. Esophageal varices and splenomegaly indicate portal hypertension. 6. Cardiomegaly and cardiac pacemaker. 7. Additional findings as above. ACT 112: Negative or not required by law. Electronically signed by: Richy Grace M.D. 10/09/2022 2:15 PM
[2022-10-09] MEDS ORDERED: STAT IV STA (14:33)
--- NOTE | 2022-10-09 14:45 | History & Physical Report ---
Date of Service October 09, 2022 Assessment & Plan (1) Acute kidney injury: Plan: Suspect secondary to dehydration with recent nausea, vomiting and diarrheal illness in setting of lisinopril and spironolactone Stop lisinopril and spironolactone Suspect this is causing his generalized illness with back pain and shortness of breath on exertion - however given broad symptoms and unable to get a good history from patient will take blood culture, procalcitonin, CT head, lactate, CK, troponin, phosphorus, CT lumbar spine and CT head (2) Diarrhea: Plan: Suspect recent vomiting/diarrheal illness causing LUDIN as above is main reason for his presentation Stool PCR, c. diff toxin PCR Mild colitis noted on CT Lactate pending (3) Metabolic acidosis with normal anion gap and bicarbonate losses: Plan: Bicarb loss due to diarrhea and vomiting Stop NSS, start sodium bicarb 150 meq @ 80ml/hr Venous pH Monitor with BMP in AM (4) Back pain: Plan: L3 central pain Unclear cause of this. ?from fall out of bed one month ago. ?MSK in setting of electrolyte imbalance ?colitis ?radiation Obtain CT lumbar spine although no bone abnormalities seen on CT A/P (5) Dyspnea on exertion: Plan: Suspect due to metabolic acidosis No pulmonary edema or other etiology on CXR (6) Chest pain: Plan: Serial troponins TTE (7) Benign essential tremor: Plan: Consider propranolol if BP improves to help with this and esophageal varices rather than lisinopril/amlodipine Suspect worse than usual due to metabolic acidosis (8) Liver mass: Plan: Suspected hepatocellular, recent undergoing radiation (9) Pancytopenia: Plan: Secondary to liver cirrhosis/cancer. Monitor with CBC in AM. (10) Insomnia: Plan: Continue mirtazapine (11) PAF (paroxysmal atrial fibrillation): Plan: Currently in ventricular paced rhythm Not on anticoagulation due to recurrent GI/rectal bleeding per cardiology note in May 2021. Plt 52. INR 1.3. 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 His car was making a thumping noise at [facility] therefore he called his niece to help him out. Since he appeared very winded, complaining of some chest pain trying to get back to his car and with him also talking about his recent back pain she decided to bring him directly to the emergency room for evaluation. She usually sees him approximately once a week and he has had a significant decline since the last time she saw him. The patient denies any shortness of breath or chest pain except when I palpate his chest on exam. He reports having back pain in his mid lower back for the last 2 weeks. Getting progressively worse during that time. Exacerbated by standing up. Mainly his lower back but his neck has also been bothering him. No radiation down his legs. No urine/bowel incontinence or retention. However he has also been having diarrhea for around the same amount of time. Associated nausea and decreased appetite with this. He vomited the last two days but he thinks this is because of his pain. No recent change in diet - his niece provides him with many meals but he also eats a lot of frozen TV dinners. Allergies Allergy/AdvReac Type Severity Reaction Status Date / Time metoprolol Allergy Intermediate NONTOLERATED, Verified 10/09/22 15:55 DIZZINESS sertraline Allergy Intermediate "NUMBNESS Verified 10/09/22 15:55 IN MY FACE" apixaban [From Eliquis] AdvReac Intermediate rectal Verified 10/09/22 15:55 bleeding Home Medications Medication Instructions Recorded Confirmed Type cholecalciferol (vitamin D3) 25 25 mcg PO QAM 11/02/20 10/09/22 History mcg (1,000 unit) capsule tamsulosin 0.4 mg capsule 0.4 mg PO QAM #90 caps 03/14/22 10/09/22 Rx lisinopril 40 mg tablet 40 mg PO QAM #90 tabs 06/12/22 10/09/22 Rx mirtazapine 15 mg tablet 15 mg PO HS #30 tabs 03/07/23 05/10/23 Rx spironolactone 25 mg tablet 25 mg PO QAM #90 tabs 08/06/22 10/09/22 Rx atorvastatin 10 mg tablet 10 mg PO HS 10/09/22 10/09/22 History Past Med/Surg History Medical History Atrial fibrillation Chronic kidney disease Chronic leukopenia Diabetes mellitus, type II Diverticulosis of colon (12/06/12) GIB (gastrointestinal bleeding) Heart failure with preserved ejection fraction History of Mohs micrographic surgery for skin cancer History of rectal cancer Hyperlipidemia Hypertension Insomnia Olecranon fracture Portal hypertension Presence of cardiac pacemaker Pulmonary nodules Second degree AV block Splenomegaly Thrombocytopenia Surgical History History of excision of lesion History of partial colectomy Hx of appendectomy Hx of cataract surgery Hx of cholecystectomy Hx of colonoscopy Hx of hernia repair Family History Sister Breast cancer Heart disease Hypertension Father Myocardial infarction Mother Myocardial infarction Cause of injury, MVA Son Aortic aneurysm Brother Hypertension Diabetes Heart disease Dementia CHF (congestive heart failure) Mental health problem Sister Hypertension Daughter Hypertension Asthma COPD (chronic obstructive pulmonary disease) Depression Anxiety Basal cell carcinoma Colonic polyp Denies family history of Ovarian cancer Prostate cancer Lung cancer Social History Smoking Status: Never smoker Second Hand Exposure: No; Do You Dip or Chew Tobacco: No; Hx Alcohol Use: No Hx Substance Use: No Preferred Language: Japanese Communication Ability: Effective Visual Impairment: Limited Hearing Ability: Normal Form Maker Plaster Required: No Beliefs That Will Affect Care: None marital status: / Current Living Situation: Alone Current Living Situation Comment: patient lives alone in an apartment, uses elevator instead of stairs. current occupational status: retired How many Children do You have: 2 Other Information That Helps Us Care for You: No Feels Safe at Home: Yes Safety Concerns: Feels Safe At This Time Childhood Exposure to Second-Hand Smoke: No Diet: regular caffeine: No during the past year weight has: remained stable Physical Activity Frequency: Daily Physical Activity Frequency Comment: walking Seatbelt Use: always Sunscreen Use: Yes Do you think of yourself as: straight/heterosexual Assistive Devices: Glasses Review of Systems Review of Systems: All systems reviewed & are unremarkable except as noted in HPI & below Physical Exam Constitutional: well developed; + not well nourished and no acute distress Eyes: PERRL, conjunctivae normal, anicteric sclerae Right ptosis present ENMT: Mouth: + dry oral mucous membranes Respiratory: normal respiratory effort, lungs clear to auscultation Cardiovascular: Rate/Rhythm: regular rate and regular rhythm Heart Sounds: no murmur Extremities: normal capillary refill and + pedal edema (1+ pitting b/l equal); no calf tenderness Gastrointestinal (Abdomen): normal bowel sounds, soft, nontender, no hepatosplenomegaly Musculoskeletal: Spine: + lumbar spinal tenderness (L3 central on palpation) Skin: no rashes, warm and dry Neurologic: moves all extremities and awake; no focal motor deficits (no lateralizing decifit) and not confused Speech / Cognition: normal speech Motor/Sensory: + tremor (action) Cranial Nerves: PERRL, normal accommodation, EOM intact bilaterally, normal facial strength (chronic right ptosis), able to rotate head bilaterally, able to elevate shoulders bilaterally, no nystagmus and symmetric palate elevation Coordination: + abnormal [id number] test (L > R) Psychiatric: A+Ox3, euthymic affect Genitourinary: no CVA tenderness Results & Data Results & Data Vital Signs (Past 12 Hours) Vital Signs Temp Pulse Pulse Resp BP BP Pulse Ox 10/09/22 14:00 86 23 99 10/09/22 14:00 108/54 L 10/09/22 13:00 74 21 100 10/09/22 13:00 110/55 L 10/09/22 12:30 72 25 H 100 10/09/22 12:30 107/49 L 10/09/22 12:00 78 20 100 10/09/22 11:30 68 25 H 100 10/09/22 11:28 68 19 100 10/09/22 12:13 70 14 99/50 L 99 10/09/22 11:52 69 10/09/22 11:38 10/09/22 11:38 10/09/22 10:29 36.7 C 77 22 108/53 L 100 O2 Del Method 10/09/22 14:00 Room Air 10/09/22 14:00 10/09/22 13:00 Room Air 10/09/22 13:00 10/09/22 12:30 Room Air 10/09/22 12:30 10/09/22 12:00 Room Air 10/09/22 11:30 Room Air 10/09/22 11:28 Room Air 10/09/22 12:13 Room Air 10/09/22 11:52 10/09/22 11:38 Room Air 10/09/22 11:38 Room Air 10/09/22 10:29 Room Air Laboratory Results Abnormal lab results 10/09/22 10/09/22 10/09/22 Range/Units 11:33 11:33 11:33 WBC 3.23 L (4.8-10.8) K/ul RBC 3.03 L (4.70-6.10) M/uL Hgb 10.1 L (14.0-18.0) g/dl Hct 30.0 L (42.0-52.0) % RDW Std Deviation 47.9 H (36.4-46.3) fL Plt Count 52 L (130-400) K/uL Lymph # (Auto) 0.06 L (1.2-3.4) K/uL PT 13.8 H (9.0-12.0) Seconds INR 1.3 H (0.9-1.1) Potassium 5.4 H (3.5-5.1) mmol/L Chloride 111 H (98-107) mmol/L Carbon Dioxide 17 L (21-32) mmol/L BUN 68 H (6-23) mg/dl Creatinine 2.43 H (0.6-1.4) mg/dl BUN/Creatinine Ratio 28.0 H (10-20) Glucose 159 H (70-99(Fasting)) mg/dl Calcium 7.9 L (8.6-10.3) mg/dl Total Bilirubin 1.6 H (0.2-1.0) mg/dl AST 42 H (13-39) U/L B-Natriuretic Peptide (0-100) pg/ml Albumin 3.3 L (3.4-5.0) gm/dl Urine Ketones (Negative) 05/10/23 05/10/23 Range/Units 12:19 Unknown WBC (4.8-10.8) K/ul RBC (4.70-6.10) M/uL Hgb (14.0-18.0) g/dl Hct (42.0-52.0) % RDW Std Deviation (36.4-46.3) fL Plt Count (130-400) K/uL Lymph # (Auto) (1.2-3.4) K/uL PT (9.0-12.0) Seconds INR (0.9-1.1) Potassium (3.5-5.1) mmol/L Chloride (98-107) mmol/L Carbon Dioxide (21-32) mmol/L BUN (6-23) mg/dl Creatinine (0.6-1.4) mg/dl BUN/Creatinine Ratio (10-20) Glucose (70-99(Fasting)) mg/dl Calcium (8.6-10.3) mg/dl Total Bilirubin (0.2-1.0) mg/dl AST (13-39) U/L B-Natriuretic Peptide 132 H (0-100) pg/ml Albumin (3.4-5.0) gm/dl Urine Ketones Trace H (Negative) Diagnostic Findings SINGLE VIEW CHEST CLINICAL HISTORY: Atypical chest pain. Dyspnea. FINDINGS: An AP, portable, upright chest radiograph is compared to study dated 05/06/2021 and correlated with chest CT dated 09/25/2022. The examination is degraded by portable technique, apical lordotic positioning, and patient rotation. A 2-lead cardiac pacemaker is unchanged in position and partially obscures the left upper chest. The heart is enlarged noting atherosclerotic calcification of the thoracic aorta. The pulmonary vasculature is noncongested. Chronic interstitial thickening and mild elevation of the right hemidiaphragm is similar to previous the lungs and pleural spaces are clear nothing bibasilar scarring/atelectasis. No pneumothorax is seen. The skeletal structures are osteopenic. There are chronic/healed right-sided rib fractures. IMPRESSION: 1. Cardiomegaly and cardiac pacemaker without radiographic evidence of congestive failure. 2. No airspace consolidation or pleural effusion is identified. CT SCAN OF THE ABDOMEN AND PELVIS WITHOUT IV CONTRAST CLINICAL HISTORY: Acute renal insufficiency. History of hepatocellular carcinoma with radiation therapy. COMPARISON STUDY: Abdominal CT dated 09/25/2022. TECHNIQUE: CT scan of the abdomen and pelvis is performed from the lung bases to the proximal femora. Images are reviewed in the axial, sagittal, and coronal planes. IV contrast was not administered for this examination. Note that the examination is suboptimal without oral and IV contrast. A dose lowering technique was utilized adhering to the principles of ALARA. CT DOSE: 755.06 mGy.cm FINDINGS: Lung bases: The heart is enlarged and without pericardial effusion. The coronary arteries are densely calcified. Pacemaker leads are in place. The lung bases are clear noting bibasilar scarring/atelectasis. There is a small hiatal hernia. Esophageal varices are noted. Liver: The unenhanced liver is cirrhotic in morphology and heterogeneous in attenuation. There is nodularity of the hepatic surface contour and hypertrophy of the left lobe. There is no intrahepatic biliary ductal dilatation. The low- attenuation lesion in the inferior right lobe of liver is again seen on image #126 and measures 1.9 x 1.6 cm. There is mild surrounding infiltration. Gallbladder: Surgically absent noting clips in the gallbladder fossa. Spleen: The spleen is enlarged, measuring 14.6 cm in length. Pancreas: The unenhanced pancreas is grossly unremarkable. Adrenal glands: Unremarkable. Kidneys: The unenhanced kidneys demonstrate mild cortical atrophy and are without hydronephrosis. There are no renal calculi identified. There is no evidence of contour deforming renal mass lesion. Abdominal vasculature: There is advanced atherosclerotic calcification and mild ectasia of the abdominal aorta. Bowel: There is postsurgical change from lower anterior resection with colocolonic anastomosis. Postoperative changes also seen adjacent to the cecum. No bowel obstruction is seen. A tiny diverticulum is noted. The appendix is not identified and reported surgically absent. Mild wall thickening of the right colon is seen at the splenic flexure. There is mild to moderate colonic fecal retention. Peritoneum: There is no intraperitoneal free air or abdominal ascites. Lymphadenopathy: Prominent upper abdominal lymph nodes are similar to previous and likely related to chronic liver disease. Pelvic viscera: The prostate gland is enlarged and heterogeneous noting median lobe hypertrophy. The bladder wall is thickened/trabeculated indicating chronic outlet obstruction. There is a fat-containing right inguinal hernia. Skeletal structures: The skeletal structures are osteopenic. There is mild to moderate lumbosacral spondylosis. No lytic or blastic lesions are seen. A chronic compression deformity is again seen in the lower thoracic spine. There are chronic/healed left-sided rib fractures. IMPRESSION: 1. The kidneys demonstrate mild cortical atrophy and are without hydronephrosis. 2. The liver is cirrhotic in morphology and heterogeneous in attenuation. 3. A low-attenuation lesion in the inferior right lobe has with mild surrounding inflammation has not significantly changed as compared 09/25/2022. Inflammation is likely related to radiation treatment. 4. Mild wall thickening of the adjacent colon is similar to previous and likely represents a mild colitis. 5. Esophageal varices and splenomegaly indicate portal hypertension. 6. Cardiomegaly and cardiac pacemaker. 7. Additional findings as above. Medications Administered ER Medications Given: Acetaminophen 1000mg IV Ondansetron 4mg IV ECG Rate (beats per minute): 75 Findings: + paced rhythm (ventricular paced) Comparison ECG Date: from (Jul 30, 2021) Change: the following changes noted (PVCs no longer present, atria no longer paced) Code Status & VTE Plan Code Status Full - initially wished to be DNR but on discussion with his daughter he agreed with her to be full resuscitation VTE Prophylaxis Plan VTE Prophylaxis will be ordered: No PG Care Time/CCT Total # of Minutes Spent Total Time Spent with Patient: Total time spent is greater than 50% in coordination of care (as documented) at patient's floor/unit and/or counseling patient: Coding Level of Care Code 21227 INT INP/OBS CARE 3/75MIN Diagnoses Acute kidney injury N17.9 Diarrhea R19.7 Metabolic acidosis with normal anion gap and bicarbonate losses E87.20 Back pain M54.9 Dyspnea on exertion R06.09 Chest pain R07.9 Benign essential tremor G25.0 Liver mass R16.0 Pancytopenia D61.818 Insomnia G47.00 PAF (paroxysmal atrial fibrillation) I48.0 Heart failure with preserved ejection fraction I50.30 Cirrhosis K74.60 Congenital ptosis, right Q10.0 History of rectal cancer Z85.048
[2022-10-09] MEDS: SODIUM BICARBONATE 8.4% 150 MEQ in DEXTROSE 5% 1,000 ML IV SCH (15:27)
[2022-10-09 16:24] LABS: HCO3 VBG 18 mmol/L; Oxygen Saturation VBG < 60.0 %; PCO2 VBG 29 mmHg (38-50); PO2 VBG 28 mmHg; pH VBG 7.41 (7.36-7.41)
[2022-10-09 16:47] LABS: Phosphorus 2.7 mg/dl (2.5-4.9)
[2022-10-09 16:48] LABS: Troponin I High Sensitivity 15.3 pg/ml (0-20)
--- NOTE | 2022-10-09 16:49 | CT Scan Report ---
CT head/brain wo con CLINICAL HISTORY: 81 years-old Male with altered mental state. Acutely altered mental status TECHNIQUE: Multiple axial CT images of the head were obtained without contrast. A dose lowering tech nique was utilized adhering to the principles of ALARA. COMPARISON: Brain MRI 07/31/2021 FINDINGS: No acute intracranial hemorrhage, midline shift, intracranial mass, hydrocephalus, territorial ischem ia or abnormal extra-axial collection. Involutional changes with mild chronic microvascular ischemic disease again noted. Cerebral vascular calcifications. The calvarium is intact. Prior bilateral lens repair. The paranasal sinuses, mastoid air cells, and m iddle ear cavities are clear. IMPRESSION: No acute intracranial abnormality. ACT 112: Negative or not required by law. The above report was generated using voice recognition software. It may contain grammatical, syntax o r spelling errors. Electronically signed by: Mike Martinez M.D. 10/09/2022 4:47 PM
--- NOTE | 2022-10-09 17:03 | CT Scan Report ---
CT lumbar spine wo con CLINICAL HISTORY: L4 central back pain TECHNIQUE: Multidetector row helical CT of the lumbar spine was performed without administration of i ntravenous contrast. Coronal and sagittal reformations were obtained. Automated dose lowering techniq ues and/or adjustment according to patient size were utilized for this exam. CT DOSE: 1391.59 mGy.cm Comparison: None available at the time of this dictation. FINDINGS: For counting purposes, the last complete intervertebral disc space is considered L5-S1. No acute fractures are identified. Degenerative changes are noted in the visualized spine. Vertebral body alignment is within normal limits. Vascular calcifications are seen. IMPRESSION: Degenerative changes without evidence of acute bony injury. ACT 112: Negative or not required by law. Electronically signed by: Sami Aguilar M.D. 10/09/2022 5:00 PM
[2022-10-09 20:15] LABS: Adenovirus F 40/41 PCR Not Detected (NotDetected); Astrovirus PCR Not Detected (NotDetected); Campylobacter PCR Not Detected (NotDetected); Cryptosporidium PCR Not Detected (NotDetected); Cyclospora cayetanensis PCR Not Detected (NotDetected); Entamoeba histolytica PCR Not Detected (NotDetected); Enteroaggregative E.coli(EAEC) Not Detected (NotDetected); Enteropathogenic E.coli (EPEC) Not Detected (NotDetected); Enterotoxigenic E.coli (ETEC) Not Detected (NotDetected); Giardia lamblia PCR Not Detected (NotDetected); Plesiomonas shigelloides PCR Not Detected (NotDetected); Rotavirus A PCR Not Detected (NotDetected); Salmonella PCR Not Detected (NotDetected); Sapovirus PCR Not Detected (NotDetected); Shiga-like Toxin E.coli (STEC) Not Detected (NotDetected); Shigella/Enteroinvasive E.coli Not Detected (NotDetected); Vibrio cholerae PCR Not Detected (NotDetected); Vibrio species PCR Not Detected (NotDetected); Yersinia enterocolitica PCR Not Detected (NotDetected)
[2022-10-09 20:20] LABS: Norovirus GI/GII PCR DETECTED (NotDetected)
[2022-10-09] MEDS ORDERED: ONDANSETRON INJ 2 MG/ML 2 ML VIAL IV PRN (20:30)
[2022-10-09] MEDS: MIRTAZAPINE TAB 15 MG TAB PO SCH (21:13)
[2022-10-09] MEDS: ACETAMINOPHEN 325 MG TAB PO PRN (21:15)
[2022-10-09 21:28] LABS: Calcium 8.2 mg/dl (8.6-10.3)
[2022-10-09 21:33] LABS: BUN Creatinine Ratio 29.1 (10-20); Est GFR (African American) 32.6 ml/min; Est GFR (Non-African American) 28.2 ml/min
--- NOTE | 2022-10-10 05:45 | Electrocardiogram Report ---
Test Reason : Blood Pressure : / mmHG Vent. Rate : 071 BPM Atrial Rate : 000 BPM P-R Int : 000 ms QRS Dur : 168 ms QT Int : 162 ms P-R-T Axes : 000 258 000 degrees QTc Int : 176 ms Ventricular-paced rhythm Abnormal ECG When compared with ECG of 30-JUL-2021 13:17, Premature ventricular complexes are no longer Present Confirmed by Glenroy Solo ([id number]) on 10/10/2022 5:44:43 AM Referred By: Confirmed By:Glenroy Solo
[2022-10-10] MEDS ORDERED: DEXTROSE 50% 50 ML SYRINGE IV PRN (06:18)
[2022-10-10] MEDS ORDERED: CARBOHYDRATES FOR HYPOGLYCEMIA PO PRN (06:18)
[2022-10-10] MEDS ORDERED: GLUCOSE 10 TAB/TUBE PO PRN (06:18)
[2022-10-10] MEDS ORDERED: GLUCAGON FOR INJ 1 MG VIAL SQ PRN (06:18)
[2022-10-10] MEDS ORDERED: GLUCOSE 40% GEL 15 GM TUBE PO PRN (06:18)
[2022-10-10 08:44] LABS: Base Excess VBG 1.3 mEq/L; HCO3 VBG 25 mmol/L; Oxygen Saturation VBG < 60.0 %; PCO2 VBG 35 mmHg (38-50); PO2 VBG 10 mmHg; pH VBG 7.46 (7.36-7.41)
[2022-10-10 08:48] LABS: Hematocrit (blood only) 30.8 % (42.0-52.0); Hemoglobin 10.6 g/dl (14.0-18.0); Immature Granulocytes # (auto) 0.01 K/uL (0.01-0.20); Immature Granulocytes % (auto) 0.5 %; Lymphocytes # (auto) 0.13 K/uL (1.2-3.4); Mean Corpuscular Hemoglobin 33.8 pg (25.0-34.0); Mean Corpuscular Hgb Conc 34.4 g/dL (32.0-36.0); Mean Corpuscular Volume 98.1 fL (80.0-100.0); Mean Platelet Volume 11.6 fL (9.4-12.4); Monocytes # (auto) 0.15 K/uL (0.11-0.59); Monocytes % (auto) 8.1 %; Neutrophils # (auto) 1.56 K/uL (1.40-6.50); Neutrophils % (auto) 84.4 %; Platelet Count 40 K/uL (130-400); RDW Coefficient of Variation 12.8 % (11.5-14.5); RDW Standard Deviation 45.7 fL (36.4-46.3); Red Blood Count 3.14 M/uL (4.70-6.10); White Blood Count 1.85 K/ul (4.8-10.8)
[2022-10-10 08:58] LABS: INR 1.3 (0.9-1.1); Partial Thromboplastin Time 27.5 Seconds (21.0-31.0); Prothrombin Time 14.5 Seconds (9.0-12.0)
[2022-10-10] MEDS: TAMSULOSIN HCL 0.4 MG CAP PO SCH (09:03)
[2022-10-10] MEDS: CHOLECALCIFEROL 1,000 UNITS 25 MCG TAB PO SCH (09:03)
[2022-10-10] MEDS: SODIUM BICARBONATE 8.4% 150 MEQ in DEXTROSE 5% 1,000 ML IV SCH (09:27)
[2022-10-10 09:33] LABS: Troponin I High Sensitivity 29.1 pg/ml (0-20)
--- NOTE | 2022-10-10 09:38 | XCELERA ---
[id number]
[2022-10-10 09:59] LABS: Albumin Level 3.1 gm/dl (3.4-5.0); BUN Creatinine Ratio 26.4 (10-20); Bilirubin,Total 1.5 mg/dl (0.2-1.0); Calcium 7.8 mg/dl (8.6-10.3); Creatinine Clr Calc Pharmacy 26.3 ml/min; Est GFR (Non-African American) 30.2 ml/min; Magnesium 1.7 mg/dl (1.7-2.4); Potassium 4.2 mmol/L (3.5-5.1); Total Protein 6.1 gm/dl (6.0-8.3)
[2022-10-10] MEDS: ACETAMINOPHEN 325 MG TAB PO PRN (12:02)
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
--- NOTE | 2022-10-10 16:09 | CT Scan Report ---
CT cervical spine wo con CLINICAL HISTORY: 81 years-old Male with falls, neck pain, eval for fracture. Acute neck pain status post fall COMPARISON: CTA neck 07/30/2021, head CT 10/09/2022. TECHNIQUE: Multiple axial CT images of the cervical spine were obtained without contrast. A dose low ering technique was utilized adhering to the principles of ALARA. FINDINGS: Multilevel degenerative changes. Moderate size right mastoid effusion. Partially imaged lef t subclavian pacer leads. Atherosclerotic plaque of the carotid bulbs. The cervical soft tissues appe ar unremarkable. The visualized lung apices appear clear. IMPRESSION: No acute cervical spine fracture or subluxation identified. ACT 112: Negative or not required by law. The above report was generated using voice recognition software. It may contain grammatical, syntax o r spelling errors. Electronically signed by: Mike Martinez M.D. 10/10/2022 4:07 PM
[2022-10-10 16:13] LABS: Lyme Ab IgG w/WB Rflx Negative (Negative); Lyme Ab IgM w/WB Rflx Negative (Negative)
[2022-10-10] MEDS: LACTATED RINGER'S 1,000 ML IV SCH (16:58)
[2022-10-10] MEDS: rifAXIMin 550 MG TABLET PO SCH ×2 (17:48→21:24)
[2022-10-10] MEDS: MIRTAZAPINE TAB 15 MG TAB PO SCH (21:24)
[2022-10-11] MEDS: ACETAMINOPHEN 325 MG TAB PO PRN ×3 (00:28→19:35)
[2022-10-11] MEDS: LIDOCAINE 5% 1 PATCH TD SCH (02:41)
[2022-10-11] MEDS: LACTATED RINGER'S 1,000 ML IV SCH (05:16)
[2022-10-11] MEDS: DICLOFENAC SOD 1% GEL 100 GM TUBE EXT SCH ×4 (05:17→20:27)
[2022-10-11] MEDS: CHOLECALCIFEROL 1,000 UNITS 25 MCG TAB PO SCH (08:59)
[2022-10-11] MEDS: TAMSULOSIN HCL 0.4 MG CAP PO SCH (09:00)
[2022-10-11] MEDS: rifAXIMin 550 MG TABLET PO SCH ×2 (09:00→20:28)
[2022-10-11 09:49] LABS: Eosinophils # (auto) 0.01 K/uL (0-0.50); Eosinophils % (auto) 0.5 %; Hemoglobin 9.8 g/dl (14.0-18.0); Immature Granulocytes # (auto) 0.02 K/uL (0.01-0.20); Immature Granulocytes % (auto) 0.9 %; Lymphocytes # (auto) 0.19 K/uL (1.2-3.4); Lymphocytes % (auto) 8.6 %; Mean Corpuscular Hemoglobin 33.3 pg (25.0-34.0); Mean Corpuscular Volume 95.2 fL (80.0-100.0); Mean Platelet Volume 11.5 fL (9.4-12.4); Monocytes # (auto) 0.24 K/uL (0.11-0.59); Monocytes % (auto) 10.8 %; Neutrophils # (auto) 1.76 K/uL (1.40-6.50); Neutrophils % (auto) 79.2 %; Platelet Count 40 K/uL (130-400); RDW Coefficient of Variation 12.7 % (11.5-14.5); Red Blood Count 2.94 M/uL (4.70-6.10); White Blood Count 2.22 K/ul (4.8-10.8)
[2022-10-11 10:10] LABS: BUN Creatinine Ratio 20.8 (10-20); Calcium 7.9 mg/dl (8.6-10.3); Creatinine Clr Calc Pharmacy 37.6 ml/min; Est GFR (African American) 52.4 ml/min; Est GFR (Non-African American) 45.2 ml/min; Potassium 3.9 mmol/L (3.5-5.1)
--- NOTE | 2022-10-11 17:08 | Hospitalist Progress Note ---
Date of Service October 11, 2022 Assessment & Plan (1) Hepatic encephalopathy: Plan: 2nd MANLEY cirrhosis in setting of active infection (norovirus) + dehydration improving day #2 of rifaximin BID given his diarrhea from norovirus poor candidate for lactulose therapy at discharge would cont on rifaximin and take indefinitely repeat ammonia level today improved (2) Gastroenteritis due to norovirus: Plan: stool biofire + for such diarrhea slowly improving hydration status improving cont IVF again overnight with labs in am cont supportive care cont contact precautions (3) Neck pain: Plan: given recent falls, etc -- checked c-spine CT - negative for acute/subacute fracture(s) I do believe he had a fall in the 48 hours leading up to admission; pain likely from his fall (4) Pancytopenia: Plan: likely 2nd to cirrhosis low cell lines are chronic wbc and platelets will be lower in the setting of acute illness daily CBC no active bleeding; defer on platelet infusion despite level of 40 today (5) Acute kidney injury: Plan: Secondary to dehydration from norovirus infection in setting of lisinopril and spironolactone Stopped lisinopril and spironolactone Cont IVF Cr 1.4 - improved, and nearing his baseline today Repeat BMP am (6) Metabolic acidosis with normal anion gap and bicarbonate losses: Plan: 2nd to diarrhea - resolved (7) Back pain: Plan: lumbar spine CT with DJD but no acute fractures fortunately treat pain monitor suspect he had a recent fall and he simply can't recall when it occurred the elevated CPK is c/w such (8) Dyspnea on exertion: Plan: suspect he had respiratory alkalosis from his hepatic encephalopathy as well as nonanion gap met acidosis respiratory status stable cxr stable o2 sats wnl (9) Chest pain: Plan: Echo with preserved EF and normal wall motion Troponin scantly elevated at 29 No evidence of ACS Scant trop elevation - myocardial demand ischemia in setting of copious amounts of acute issues as noted above suspect trauma to the chest from a fall obtain right rib series due to pain today - r/o fracture (10) Benign essential tremor: Plan: h/o (11) Liver mass: Plan: 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 a/p findings of this lesion noted (12) Insomnia: Plan: Continue mirtazapine (13) PAF (paroxysmal atrial fibrillation): Plan: Currently in ventricular paced rhythm Not on anticoagulation due to recurrent GI/rectal bleeding per cardiology note in May 2021 (14) Heart failure with preserved ejection fraction: Plan: no evidence of decompensation cont IV fluids gently (15) Cirrhosis: Plan: 2nd to MANLEY known diagnosis follows with [facility] in [place] Now with hepatic encephalopathy as in #1 above (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, right: Plan: no issues (17) History of rectal cancer: Plan: noted (18) Rhabdomyolysis: Plan: mild CPK 700s cont isotonic fluids repeat CPK today 488 repeat level am tomorrow he has had falls - dates uncertain, but suspect he had a fall in the 48 hours prior to admission he is on chronic statin - doubt it is the cause - but stopped it in light of rhabdo + his cirrhosis (19) Right shoulder pain: Plan: check x-rays, r/o fracture & other pathology Plan VTE Prophylaxis - chemical prophylaxis deferred in light of severe thrombocytopenia Diet - Full liquids for now ; maybe start low fiber tomorrow daughter extensively updated at bedside yesterday & by phone today PT, OT when able very likely to need rehab post discharge Admission and Anticipated Discharge Date Admission Date: October 09, 2022 Subjective patient more awake/alert during the exam today he was able to answer questions more readily still sleepy at times, however - but again he is improved relative to yesterday still having liquid BMs/diarrhea no abd pain no fevers today still with poor appetite he c/o right shoulder pain and pain over the lateral right chest wall he states "well, I think it started when I came in" pain is worst when he moves the right arm around denies dyspnea today Review of Systems Review of Systems: gen - no fevers/chills; very weak, poor appetite cv - no orthopnea, no central chest pain pulm - no cough, no dyspnea at rest GI - no abd pain, nausea or emesis; incontinent of bowel movements neuro - headache improved today musculo - neck pain improved Physical Exam Physical Exam: gen - still ill-appearing but a little better than yesterday; more awake/alert today; still sleepy, however, at times mouth - MM more moist today eyes - R eye ptosis neck - no JVD heart - RRR, s1 s2 lungs - minimal dry rales bases unchanged, otherwise CTA b/l abd - soft, BS+, NT, liver not enlarged neuro - asterixis still present but not as severe ext - no edema, pulses 2+ b/l chest - tender to palpation over lateral right ribs at level of nipple line musculo - muscle wasting noted about the right shoulder c/w chronic rotator cuff disease; with passive rotation, flexion, extension he has pain over AC joint and subacromial region Results & Data Results & Data Vital Signs (Past 12 Hours) Vital Signs Temp Pulse Pulse Resp BP Pulse Ox O2 Del Method 10/11/22 15:50 36.7 C 68 18 111/67 98 Room Air 10/11/22 15:33 81 10/11/22 07:30 82 10/11/22 11:35 36.5 C 74 18 112/62 100 Room Air 10/11/22 09:33 Room Air 10/11/22 07:42 36.4 C L 69 18 110/57 L 98 Room Air Laboratory Results Laboratory Results - last 24 hr 10/11/22 10/11/22 10/11/22 07:39 09:31 09:31 WBC 2.22 L RBC 2.94 L Hgb 9.8 L Hct 28.0 L MCV 95.2 MCH 33.3 MCHC 35.0 RDW Std Deviation 44.0 RDW Coeff of Ro 12.7 Plt Count 40 L MPV 11.5 Immature Gran % (Auto) 0.9 Neut % (Auto) 79.2 Lymph % (Auto) 8.6 Mineral % (Auto) 10.8 Eos % (Auto) 0.5 Baso % (Auto) 0.0 Neut # (Auto) 1.76 Lymph # (Auto) 0.19 L Mineral # (Auto) 0.24 Eos # (Auto) 0.01 Baso # (Auto) 0.00 Immature Gran # (Auto) 0.02 Sodium 137 Potassium 3.9 Chloride 107 Carbon Dioxide 24 Anion Gap 6 BUN 30 H D Creatinine 1.44 H D Est Cr Clr Drug Dosing 37.6 Est GFR ( Amer) 52.4 Est GFR (Non-Af Amer) 45.2 BUN/Creatinine Ratio 20.8 H Glucose 153 H POC Glucose 122 H Calcium 7.9 L Ammonia Total Creatine Kinase 10/11/22 10/11/22 10/11/22 09:31 09:35 11:48 WBC RBC Hgb Hct MCV MCH MCHC RDW Std Deviation RDW Coeff of Ro Plt Count MPV Immature Gran % (Auto) Neut % (Auto) Lymph % (Auto) Mineral % (Auto) Eos % (Auto) Baso % (Auto) Neut # (Auto) Lymph # (Auto) Mineral # (Auto) Eos # (Auto) Baso # (Auto) Immature Gran # (Auto) Sodium Potassium Chloride Carbon Dioxide Anion Gap BUN Creatinine Est Cr Clr Drug Dosing Est GFR ( Amer) Est GFR (Non-Af Amer) BUN/Creatinine Ratio Glucose POC Glucose 134 H Calcium Ammonia 43.0 Total Creatine Kinase 488 H 10/11/22 10/11/22 16:50 20:31 WBC RBC Hgb Hct MCV MCH MCHC RDW Std Deviation RDW Coeff of Ro Plt Count MPV Immature Gran % (Auto) Neut % (Auto) Lymph % (Auto) Mineral % (Auto) Eos % (Auto) Baso % (Auto) Neut # (Auto) Lymph # (Auto) Mineral # (Auto) Eos # (Auto) Baso # (Auto) Immature Gran # (Auto) Sodium Potassium Chloride Carbon Dioxide Anion Gap BUN Creatinine Est Cr Clr Drug Dosing Est GFR ( Amer) Est GFR (Non-Af Amer) BUN/Creatinine Ratio Glucose POC Glucose 140 H 124 H Calcium Ammonia Total Creatine Kinase PG Care Time/CCT Total # of Minutes Spent Total Time Spent with Patient: Total time spent is greater than 50% in coordination of care (as documented) at patient's floor/unit and/or counseling patient: Coding Level of Care Code 82020 SUB INP/OBS CARE 3/50MIN Diagnoses Hepatic encephalopathy K76.82 Gastroenteritis due to norovirus A08.11 Neck pain M54.2 Pancytopenia D61.818 Acute kidney injury N17.9 Metabolic acidosis with normal anion gap and bicarbonate losses E87.20 Back pain M54.9 Dyspnea on exertion R06.09 Chest pain R07.9 Benign essential tremor G25.0 Liver mass R16.0 Insomnia G47.00 PAF (paroxysmal atrial fibrillation) I48.0 Heart failure with preserved ejection fraction I50.30 Cirrhosis K74.60 Congenital ptosis, right Q10.0 History of rectal cancer Z85.048 Rhabdomyolysis M62.82 Right shoulder pain M25.511
--- NOTE | 2022-10-11 18:12 | XRay Report ---
XR ribs RT min 2V w CXR1V CLINICAL HISTORY: mid-right rib pain, recent fall, eval acute Fx COMPARISON STUDY: Chest 10/09/2022. Chest CT 09/25/2022. FINDINGS: There are multiple old, healed right-sided rib fractures. No acute rib fractures identified . No pneumothorax. No pleural effusions. Is left-sided dual-chamber pacemaker. The heart remains norm al in size. No evidence for pulmonary edema. No new focal lung consolidations to suggest a pneumonia. IMPRESSION: 1. No acute rib fractures. No pneumothorax. 2. Multiple old, healed right-sided rib fractures again noted. ACT 112: Negative or not required by law. Electronically signed by: Howard Ames M.D. 10/11/2022 6:11 PM
--- NOTE | 2022-10-11 18:13 | XRay Report ---
XR shoulder RT min 2V routine CLINICAL HISTORY: recent fall, R shoulder pain, eval Fx COMPARISON STUDY: None. FINDINGS: No acute fracture or dislocation within the right shoulder. The right clavicle is intact. S oft tissues are unremarkable. There are old, healed right-sided rib fractures noted. IMPRESSION: No acute fracture or dislocation within the right shoulder. ACT 112: Negative or not required by law. Electronically signed by: Howard Ames M.D. 10/11/2022 6:12 PM
[2022-10-11] MEDS: MIRTAZAPINE TAB 15 MG TAB PO SCH (20:28)
[2022-10-11] MEDS ORDERED: Nursing to Pharmacy Communication SCH (21:30)
[2022-10-12] MEDS: LACTATED RINGER'S 1,000 ML IV SCH (02:47)
[2022-10-12 06:31] LABS: Hematocrit (blood only) 26.6 % (42.0-52.0); Hemoglobin 9.3 g/dl (14.0-18.0); Mean Corpuscular Hemoglobin 33.5 pg (25.0-34.0); Mean Corpuscular Volume 95.7 fL (80.0-100.0); Mean Platelet Volume 11.7 fL (9.4-12.4); Platelet Count 41 K/uL (130-400); RDW Coefficient of Variation 12.4 % (11.5-14.5); RDW Standard Deviation 43.6 fL (36.4-46.3); Red Blood Count 2.78 M/uL (4.70-6.10); White Blood Count 1.76 K/ul (4.8-10.8)
[2022-10-12 06:44] LABS: Albumin Level 2.6 gm/dl (3.4-5.0); BUN Creatinine Ratio 22.1 (10-20); Bilirubin,Total 1.4 mg/dl (0.2-1.0); Calcium 8.1 mg/dl (8.6-10.3); Creatinine Clr Calc Pharmacy 46.6 ml/min; Est GFR (African American) 69.8 ml/min; Est GFR (Non-African American) 60.2 ml/min; Globulin 2.6 gm/dl (2.5-4.0); Potassium 4.1 mmol/L (3.5-5.1); Total Protein 5.2 gm/dl (6.0-8.3)
[2022-10-12] MEDS: rifAXIMin 550 MG TABLET PO SCH ×2 (09:04→20:45)
[2022-10-12] MEDS: CHOLECALCIFEROL 1,000 UNITS 25 MCG TAB PO SCH (09:04)
[2022-10-12] MEDS: TAMSULOSIN HCL 0.4 MG CAP PO SCH (09:05)
[2022-10-12] MEDS: LIDOCAINE 5% 1 PATCH TD SCH (09:05)
[2022-10-12] MEDS: DICLOFENAC SOD 1% GEL 100 GM TUBE EXT SCH ×4 (09:05→20:45)
--- NOTE | 2022-10-12 18:25 | Hospitalist Progress Note ---
Date of Service October 12, 2022 Assessment & Plan (1) Hepatic encephalopathy: Plan: 2nd MANLEY cirrhosis in setting of active infection (norovirus) + dehydration improved/resolved day #3 of rifaximin BID given his diarrhea from norovirus poor candidate for lactulose therapy at this time will need to explore cost of rifaximin on Friday at discharge would cont on rifaximin and take indefinitely if cost is reasonable (2) Gastroenteritis due to norovirus: Plan: stool biofire + for such diarrhea improved dehydration resolved stop IVF cont contact precautions (3) Neck pain: Plan: given recent falls, etc -- checked c-spine CT - negative for acute/subacute fracture(s) I do believe he had a fall in the 48 hours leading up to admission; pain likely from his fall in the setting of DJD (4) Pancytopenia: Plan: likely 2nd to cirrhosis low cell lines are chronic wbc and platelets will be lower in the setting of acute illness CBC today remains acceptable no active bleeding; defer on platelet infusion despite current level counseled pt and his daughter the risk of bleeding with current level TSH, B12, and folate all wnl (5) Acute kidney injury: Plan: resolved stop IV fluids Repeat BMP am once again (6) Metabolic acidosis with normal anion gap and bicarbonate losses: Plan: 2nd to diarrhea - resolved (7) Back pain: Plan: lumbar spine CT with DJD but no acute fractures fortunately he has not mentioned back pain to me yesterday or today suspect he had a recent fall and he simply can't recall when it occurred the elevated CPK is c/w such (8) Dyspnea on exertion: Plan: suspect he had respiratory alkalosis from his hepatic encephalopathy as well as nonanion gap met acidosis respiratory status stable cxr stable no rib fractures or edema o2 sats wnl (9) Chest pain: Plan: Echo with preserved EF and normal wall motion Troponin scantly elevated at 29 No evidence of ACS Scant trop elevation - myocardial demand ischemia in setting of copious amounts of acute issues as noted above suspect trauma to the chest from a fall obtain right rib series yesterday due to pain - no obvious fractures seen (10) Benign essential tremor: Plan: h/o (11) Liver mass: Plan: 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 a/p findings of this lesion noted (12) Insomnia: Plan: Continue mirtazapine add melatonin (13) PAF (paroxysmal atrial fibrillation): Plan: Currently in ventricular paced rhythm Not on anticoagulation due to recurrent GI/rectal bleeding per cardiology note in May 2021 (14) Heart failure with preserved ejection fraction: Plan: no evidence of decompensation stop IV fluids (15) Cirrhosis: Plan: 2nd to MANLEY known diagnosis follows with [facility] in [place] Now with hepatic encephalopathy as in #1 above (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, right: Plan: no issues (17) History of rectal cancer: Plan: noted (18) Rhabdomyolysis: Plan: mild CPK 700s repeat CPK today now normal stop IV fluids he has had falls - dates uncertain, but suspect he had a fall in the 48 hours prior to admission he is on chronic statin - doubt it is the cause - but stopped it in light of rhabdo + his cirrhosis (19) Right shoulder pain: Plan: checked x-rays - NO fracture Plan VTE Prophylaxis - chemical prophylaxis deferred in light of severe thrombocytopenia Diet - advance to low fiber today daughter extensively updated at bedside cont PT, OT rehab needed post discharge Admission and Anticipated Discharge Date Admission Date: October 09, 2022 Subjective patient sitting at side of bed eating his dinner it is his Birthday daughter & grandson present at bedside he feels much better he is very awake/alert today less shaky better appetite diarrhea improved no abd pain, nausea or emesis we discussed rehab - he wasn't happy about such, but ultimately understood the necessity of such continues with mild neck discomfort, R shoulder discomfort, etc tele - pacing Review of Systems Review of Systems: gen - no fevers or chills cv - no chest pain pulm - no dyspnea GI - no pain or nausea/emesis Physical Exam Physical Exam: gen - awake/alert/oriented this afternoon, looks much better mouth - MMM eyes - R eye ptosis (chronic) neck - no JVD heart - RRR, s1 s2, no murmur lungs - minimal dry rales bases unchanged, otherwise CTA b/l abd - soft, BS+, NT, no hepatomegaly neuro - asterixis resolved ext - no edema, pulses 2+ b/l Results & Data Results & Data Vital Signs (Past 12 Hours) Vital Signs Temp Pulse Pulse Resp BP BP Pulse Ox 10/12/22 15:00 84 10/12/22 14:44 36.3 C L 79 18 127/64 99 10/12/22 11:30 36.6 C 74 20 110/63 100 10/12/22 10:19 10/12/22 08:10 36.3 C L 96 H 24 116/60 100 10/12/22 06:51 70 O2 Del Method 10/12/22 15:00 10/12/22 14:44 Room Air 10/12/22 11:30 Room Air 10/12/22 10:19 Room Air 10/12/22 08:10 Room Air 10/12/22 06:51 Laboratory Results Laboratory Results - last 24 hr 10/11/22 10/12/22 10/12/22 20:31 05:31 05:31 WBC 1.76 L RBC 2.78 L Hgb 9.3 L Hct 26.6 L MCV 95.7 MCH 33.5 MCHC 35.0 RDW Std Deviation 43.6 RDW Coeff of Ro 12.4 Plt Count 41 L MPV 11.7 Sodium 138 Potassium 4.1 Chloride 110 H Carbon Dioxide 25 Anion Gap 3 BUN 25 H Creatinine 1.13 D Est Cr Clr Drug Dosing 46.6 Est GFR ( Amer) 69.8 Est GFR (Non-Af Amer) 60.2 BUN/Creatinine Ratio 22.1 H Glucose 81 POC Glucose 124 H Calcium 8.1 L Total Bilirubin 1.4 H AST 46 H ALT 31 Alkaline Phosphatase 66 Total Creatine Kinase 220 Total Protein 5.2 L Albumin 2.6 L Globulin 2.6 Albumin/Globulin Ratio 1.0 10/12/22 10/12/22 10/12/22 07:45 11:34 16:31 WBC RBC Hgb Hct MCV MCH MCHC RDW Std Deviation RDW Coeff of Ro Plt Count MPV Sodium Potassium Chloride Carbon Dioxide Anion Gap BUN Creatinine Est Cr Clr Drug Dosing Est GFR ( Amer) Est GFR (Non-Af Amer) BUN/Creatinine Ratio Glucose POC Glucose 97 126 H 129 H Calcium Total Bilirubin AST ALT Alkaline Phosphatase Total Creatine Kinase Total Protein Albumin Globulin Albumin/Globulin Ratio PG Care Time/CCT Total # of Minutes Spent Total Time Spent with Patient: Total time spent is greater than 50% in coordination of care (as documented) at patient's floor/unit and/or counseling patient: Coding Level of Care Code 30699 SUB INP/OBS CARE 2/35MIN Diagnoses Hepatic encephalopathy K76.82 Gastroenteritis due to norovirus A08.11 Neck pain M54.2 Pancytopenia D61.818 Acute kidney injury N17.9 Metabolic acidosis with normal anion gap and bicarbonate losses E87.20 Back pain M54.9 Dyspnea on exertion R06.09 Chest pain R07.9 Benign essential tremor G25.0 Liver mass R16.0 Insomnia G47.00 PAF (paroxysmal atrial fibrillation) I48.0 Heart failure with preserved ejection fraction I50.30 Cirrhosis K74.60 Congenital ptosis, right Q10.0 History of rectal cancer Z85.048 Rhabdomyolysis M62.82 Right shoulder pain M25.511
[2022-10-12] MEDS: ACETAMINOPHEN 325 MG TAB PO PRN (19:04)
[2022-10-12] MEDS: MIRTAZAPINE TAB 15 MG TAB PO SCH (20:45)
[2022-10-13 06:33] LABS: Hematocrit (blood only) 25.7 % (42.0-52.0); Hemoglobin 8.9 g/dl (14.0-18.0); Mean Corpuscular Hemoglobin 33.3 pg (25.0-34.0); Mean Corpuscular Hgb Conc 34.6 g/dL (32.0-36.0); Mean Corpuscular Volume 96.3 fL (80.0-100.0); Mean Platelet Volume 11.4 fL (9.4-12.4); Platelet Count 48 K/uL (130-400); RDW Coefficient of Variation 12.5 % (11.5-14.5); RDW Standard Deviation 43.8 fL (36.4-46.3); Red Blood Count 2.67 M/uL (4.70-6.10); White Blood Count 1.89 K/ul (4.8-10.8)
[2022-10-13 06:57] LABS: BUN Creatinine Ratio 21.3 (10-20); Calcium 8.1 mg/dl (8.6-10.3); Creatinine Clr Calc Pharmacy 41.9 ml/min; Est GFR (African American) 60.6 ml/min; Est GFR (Non-African American) 52.3 ml/min; Potassium 4.1 mmol/L (3.5-5.1)
[2022-10-13] MEDS: CHOLECALCIFEROL 1,000 UNITS 25 MCG TAB PO SCH (07:53)
[2022-10-13] MEDS: LIDOCAINE 5% 1 PATCH TD SCH (07:53)
[2022-10-13] MEDS: DICLOFENAC SOD 1% GEL 100 GM TUBE EXT SCH ×4 (07:53→22:14)
[2022-10-13] MEDS: TAMSULOSIN HCL 0.4 MG CAP PO SCH (07:53)
[2022-10-13] MEDS: rifAXIMin 550 MG TABLET PO SCH ×2 (07:53→22:14)
[2022-10-13] MEDS: ACETAMINOPHEN 325 MG TAB PO PRN (10:34)
--- NOTE | 2022-10-13 20:17 | Hospitalist Progress Note ---
Date of Service October 13, 2022 Assessment & Plan (1) Hepatic encephalopathy: Plan: 2nd MANLEY cirrhosis in setting of active infection (norovirus) + dehydration resolved cont rifaximin 550mg BID given his diarrhea from norovirus poor candidate for lactulose therapy at this time will need to explore cost of rifaximin on Friday at discharge would cont on rifaximin and take indefinitely if cost is reasonable (2) Gastroenteritis due to norovirus: Plan: stool biofire + for such diarrhea / dehydration resolved diet advanced & tolerating such cont contact precautions (3) Neck pain: Plan: given recent falls, etc -- checked c-spine CT - negative for acute/subacute fracture(s) I do believe he had a fall in the 48 hours leading up to admission; pain likely from his fall in the setting of DJD pain has improved last 48 hours (4) Pancytopenia: Plan: likely 2nd to cirrhosis low cell lines are chronic wbc and platelets will be lower in the setting of acute illness CBC today remains acceptable no active bleeding; defer on platelet infusion despite current level TSH, B12, and folate all wnl cbc in am for stability (5) Acute kidney injury: Plan: resolved Repeat BMP am (6) Metabolic acidosis with normal anion gap and bicarbonate losses: Plan: 2nd to diarrhea - resolved (7) Back pain: Plan: lumbar spine CT with DJD but no acute fractures fortunately he has not mentioned back pain to me in several days suspect he had a recent fall and he simply can't recall when it occurred the elevated CPK is c/w such (8) Dyspnea on exertion: Plan: suspect he had respiratory alkalosis from his hepatic encephalopathy as well as nonanion gap met acidosis respiratory status stable cxr stable no rib fractures or edema o2 sats wnl he has not complained of dyspnea last 2-3 days (9) Chest pain: Plan: Echo with preserved EF and normal wall motion Troponin scantly elevated at 29 No evidence of ACS Scant trop elevation - myocardial demand ischemia in setting of copious amounts of acute issues as noted above suspect trauma to the chest from a fall obtain right rib series yesterday due to pain - no obvious fractures seen (10) Benign essential tremor: (11) Liver mass: Plan: 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 a/p findings of this lesion noted (12) Insomnia: Plan: Continue mirtazapine Continue melatonin (13) PAF (paroxysmal atrial fibrillation): Plan: Currently in ventricular paced rhythm Not on anticoagulation due to recurrent GI/rectal bleeding per cardiology note in May 2021 as well as thrombocytopenia from cirrhosis (14) Heart failure with preserved ejection fraction: Plan: no evidence of decompensation (15) Cirrhosis: Plan: 2nd to MANLEY known diagnosis follows with [facility] in [place] Now with hepatic encephalopathy as in #1 above but resolved on rifaximin (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, right: Plan: no issues (17) History of rectal cancer: Plan: noted (18) Rhabdomyolysis: Plan: resolved with IV fluids and time he had falls - dates uncertain, but suspect he had a fall in the 48 hours prior to admission he is on chronic statin - doubt it is the cause - but stopped it in light of rhabdo + his cirrhosis (19) Right shoulder pain: Plan: checked x-rays - NO fracture cont lidoderms ROM continues to improve suspect he injured the shoulder during a fall (20) Diabetes mellitus, type II: Plan: a1c 7.3% in 07/2022 control here mildly elevated at times due to stress of illness was not taking any meds at home pre-admission cont to follow with diet control alone Plan VTE Prophylaxis - chemical prophylaxis deferred in light of severe thrombocytopenia Diet - low fiber daughter extensively updated at bedside yestserday cont PT, OT rehab needed post discharge Admission and Anticipated Discharge Date Admission Date: October 09, 2022 Subjective patient w/o complaints eating has returned to normal no diarrhea today no abd pain no dyspnea still weak, but no worse than prior tele overnight wnl pt agreeable to rehab still Review of Systems Review of Systems: gen - no fevers or chills cv - no cp, no orthopnea pulm - no further dyspnea or [place] GI - no abd pain, nausea, emesis, diarrhea Physical Exam Physical Exam: gen - awake/alert/oriented x 3 and looks good mouth - MMM eyes - R eye ptosis (chronic) neck - no JVD heart - RRR, s1 s2, no murmur lungs - CTA b/l abd - soft, BS+, NT, no hepatomegaly neuro - asterixis resolved; has baseline resting tremor ext - no edema, pulses 2+ b/l Results & Data Results & Data Vital Signs (Past 12 Hours) Vital Signs Temp Pulse Pulse Resp BP Pulse Ox Pulse Ox 10/13/22 19:21 36.4 C L 65 18 129/67 99 10/13/22 17:00 95 10/13/22 15:19 36.6 C 65 20 101/58 L 98 10/13/22 14:48 67 10/13/22 11:19 36.3 C L 66 20 99/61 L 96 O2 Del Method O2 Del Method 10/13/22 19:21 Room Air 10/13/22 17:00 Room Air 10/13/22 15:19 Room Air 10/13/22 14:48 10/13/22 11:19 Room Air Laboratory Results Laboratory Results - last 24 hr 10/12/22 10/13/22 10/13/22 20:38 05:58 05:58 WBC 1.89 L RBC 2.67 L Hgb 8.9 L Hct 25.7 L MCV 96.3 MCH 33.3 MCHC 34.6 RDW Std Deviation 43.8 RDW Coeff of Ro 12.5 Plt Count 48 L MPV 11.4 Sodium 138 Potassium 4.1 Chloride 109 H Carbon Dioxide 26 Anion Gap 3 BUN 27 H Creatinine 1.27 Est Cr Clr Drug Dosing 41.9 Est GFR ( Amer) 60.6 Est GFR (Non-Af Amer) 52.3 BUN/Creatinine Ratio 21.3 H Glucose 86 POC Glucose 246 H Calcium 8.1 L 10/13/22 10/13/22 10/13/22 07:31 11:26 16:23 WBC RBC Hgb Hct MCV MCH MCHC RDW Std Deviation RDW Coeff of Ro Plt Count MPV Sodium Potassium Chloride Carbon Dioxide Anion Gap BUN Creatinine Est Cr Clr Drug Dosing Est GFR ( Amer) Est GFR (Non-Af Amer) BUN/Creatinine Ratio Glucose POC Glucose 95 172 H 111 H Calcium PG Care Time/CCT Total # of Minutes Spent Total Time Spent with Patient: Total time spent is greater than 50% in coordination of care (as documented) at patient's floor/unit and/or counseling patient: Coding Level of Care Code 50195 SUB INP/OBS CARE 2/35MIN Diagnoses Hepatic encephalopathy K76.82 Gastroenteritis due to norovirus A08.11 Neck pain M54.2 Pancytopenia D61.818 Acute kidney injury N17.9 Metabolic acidosis with normal anion gap and bicarbonate losses E87.20 Back pain M54.9 Dyspnea on exertion R06.09 Chest pain R07.9 Benign essential tremor G25.0 Liver mass R16.0 Insomnia G47.00 PAF (paroxysmal atrial fibrillation) I48.0 Heart failure with preserved ejection fraction I50.30 Cirrhosis K74.60 Congenital ptosis, right Q10.0 History of rectal cancer Z85.048 Rhabdomyolysis M62.82 Right shoulder pain M25.511 Diabetes mellitus, type II E11.9
[2022-10-13] MEDS: MIRTAZAPINE TAB 15 MG TAB PO SCH (22:14)
[2022-10-14] MEDS: ACETAMINOPHEN 325 MG TAB PO PRN (03:23)
[2022-10-14 06:37] LABS: Calcium 8.3 mg/dl (8.6-10.3); Creatinine Clr Calc Pharmacy 39.4 ml/min; Est GFR (African American) 56.3 ml/min; Est GFR (Non-African American) 48.5 ml/min; Potassium 4.2 mmol/L (3.5-5.1)
[2022-10-14 06:43] LABS: Hematocrit (blood only) 27.6 % (42.0-52.0); Hemoglobin 9.4 g/dl (14.0-18.0); Mean Corpuscular Hemoglobin 33.3 pg (25.0-34.0); Mean Corpuscular Hgb Conc 34.1 g/dL (32.0-36.0); Mean Corpuscular Volume 97.9 fL (80.0-100.0); Mean Platelet Volume 10.9 fL (9.4-12.4); Platelet Count 56 K/uL (130-400); RDW Coefficient of Variation 12.4 % (11.5-14.5); Red Blood Count 2.82 M/uL (4.70-6.10); White Blood Count 2.03 K/ul (4.8-10.8)
[2022-10-14] MEDS: LIDOCAINE 5% 1 PATCH TD SCH (08:52)
[2022-10-14] MEDS: rifAXIMin 550 MG TABLET PO SCH ×2 (08:52→20:33)
[2022-10-14] MEDS: TAMSULOSIN HCL 0.4 MG CAP PO SCH (08:52)
[2022-10-14] MEDS: DICLOFENAC SOD 1% GEL 100 GM TUBE EXT SCH ×4 (08:52→20:33)
[2022-10-14] MEDS: CHOLECALCIFEROL 1,000 UNITS 25 MCG TAB PO SCH (08:52)
--- NOTE | 2022-10-14 19:26 | Hospitalist Progress Note ---
Date of Service October 14, 2022 Assessment & Plan (1) Hepatic encephalopathy: Plan: 2nd MANLEY cirrhosis in setting of active infection (norovirus) + dehydration --> resolved cont rifaximin 550mg BID given his diarrhea from norovirus poor candidate for lactulose therapy at this time may be candidate for such in future but in order to avoid provoking diarrhea defer on this will need to explore cost of rifaximin today - social work aware at discharge would cont on rifaximin and take indefinitely if cost is reasonable (2) Gastroenteritis due to norovirus: Plan: stool biofire + for such diarrhea / dehydration resolved diet advanced & tolerating such cont contact precautions labs stable (3) Neck pain: Plan: given recent falls, etc -- checked c-spine CT - negative for acute/subacute fracture(s) I do believe he had a fall in the 48 hours leading up to admission; pain likely from his fall in the setting of DJD pain has improved last 48 hours (4) Pancytopenia: Plan: 2nd to cirrhosis low cell lines are chronic wbc and platelets will be lower in the setting of acute illness - platelets are trending up CBC overall remains acceptable today recent TSH, B12, and folate levels all wnl cbc in am for stability (5) Acute kidney injury: Plan: Peak Cr 2.3 resolved Cr today 1.3 Repeat BMP am (6) Metabolic acidosis with normal anion gap and bicarbonate losses: Plan: 2nd to Norovirus diarrhea - resolved (7) Back pain: Plan: lumbar spine CT with DJD but no acute fractures fortunately he has not mentioned back pain to me in several days suspect he had a recent fall and he simply can't recall when it occurred the elevated CPK is c/w such (8) Dyspnea on exertion: Plan: suspect he had respiratory alkalosis from his hepatic encephalopathy as well as nonanion gap met acidosis respiratory status stable cxr stable no rib fractures or edema o2 sats wnl he has not complained of dyspnea since admission (9) Chest pain: Plan: Echo with preserved EF and normal wall motion Troponin scantly elevated at 29 No evidence of ACS Scant trop elevation - myocardial demand ischemia in setting of copious amounts of acute issues as noted above suspect trauma to the chest from a fall obtained right rib series due to pain - no obvious fractures seen (10) Benign essential tremor: Plan: not bothersome follow (11) Liver mass: Plan: 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 This currently measures approximately 2.1 x 1.9 cm, previously measuring 4.9 x 4.5 cm. There is mild fat stranding surrounding the inferior aspect of the liver adjacent to this lesion suggesting post radiation changes. * There are at least 2 additional hypervascular foci within the right hepatic lobe as described above. These are indeterminate but could represent multifocal hepatocellular carcinoma. CT a/p this admission - A low-attenuation lesion in the inferior right lobe has with mild surrounding inflammation has not significantly changed as compared 09/25/2022. Inflammation is likely related to radiation treatment. review of notes from rad onc clinic at [facility] - 03/18/2022. MRI of the liver. Enhancing lesion in inferior aspect of segment 5 of the liver. 03/26/2022. AFP at 23,282. 04/18/2022. CT of chest abdomen pelvis. 4.9 x 4.4 mass within segment 5 of the liver. Suspicious for hepatocellular carcinoma. Prominent retroperitoneal and periportal lymph nodes. Splenomegaly and esophageal varices indicate portal hypertension. 2 right lower lobe pulmonary nodules. 04/19/2022. Telehealth visit with medical oncology. (Netta Escobar PA-C/Dr. Avalos) recommendation for SBRT to the liver lesion. 07/03/2022. Status post completion of SBRT to the liver lesion. He received 3000 cGy. Treatment given in 5 fractions Given the "2 additional foci" seen on 09/25/22 CT would refer back to oncology for re-evaluation (12) Insomnia: Plan: Continue mirtazapine Continue melatonin (13) PAF (paroxysmal atrial fibrillation): Plan: Currently in ventricular paced rhythm Not on anticoagulation due to recurrent GI/rectal bleeding per cardiology note in May 2021 as well as thrombocytopenia from cirrhosis (14) Heart failure with preserved ejection fraction: Plan: no evidence of decompensation (15) Cirrhosis: Plan: 2nd to MANLEY known diagnosis follows with [facility] in [place] Now with hepatic encephalopathy as in #1 above but resolved on rifaximin (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, right: Plan: no issues (17) History of rectal cancer: Plan: 1999 s/p resection, ileostomy creation, and ultimate reversal of ostomy (18) Rhabdomyolysis: Plan: resolved with IV fluids and time he had falls - dates uncertain, but suspect he had a fall in the 48 hours prior to admission he is on chronic statin - doubt it is the cause - but stopped it in light of rhabdo + his cirrhosis (19) Right shoulder pain: Plan: checked x-rays - NO fracture cont lidoderms ROM continues to improve suspect he injured the shoulder during a fall (20) Diabetes mellitus, type II: Plan: a1c 7.3% in 07/2022 control here mildly elevated at times due to stress of illness was not taking any meds at home pre-admission cont to follow with diet control alone Plan VTE Prophylaxis - chemical prophylaxis deferred in light of severe thrombocytopenia Diet - low fiber daughter extensively updated at bedside several times this admission cont PT, OT rehab needed post discharge - dispo is [facility] Admission and Anticipated Discharge Date Admission Date: October 09, 2022 Subjective only complaint is mild R shoulder pain but lidoderm patches help and the pain has improved since admission diarrhea has resolved as of yesterday no abd pain no nausea or emesis eating much better still agreeable to rehab at [facility] his brother actually resides there as well as a close friend tele - pacing Review of Systems Review of Systems: cv - no chest pain pulm - no dyspnea or cough GI - no abd pain Physical Exam Physical Exam: gen - awake/alert/oriented x 3 and looks very good mouth - MMM eyes - R eye ptosis (chronic) neck - no JVD heart - RRR, s1 s2, no murmur lungs - CTA b/l, occasional crackle bases abd - soft, BS+, NT, no hepatomegaly, no ascites neuro - asterixis resolved; has baseline resting tremor ext - no edema, pulses 2+ b/l Results & Data Results & Data Vital Signs (Past 12 Hours) Vital Signs Temp Pulse Pulse Resp BP Pulse Ox O2 Del Method 10/14/22 16:17 36.4 C L 75 16 135/70 99 Room Air 10/14/22 16:09 85 10/14/22 11:40 36.3 C L 72 16 102/57 L 99 Room Air 10/14/22 08:00 71 10/14/22 07:57 36.7 C 70 16 126/63 100 Room Air Laboratory Results Laboratory Results - last 24 hr 10/13/22 10/14/22 10/14/22 20:52 05:57 05:57 WBC 2.03 L RBC 2.82 L Hgb 9.4 L Hct 27.6 L MCV 97.9 MCH 33.3 MCHC 34.1 RDW Std Deviation 45.0 RDW Coeff of Ro 12.4 Plt Count 56 L MPV 10.9 Sodium 136 Potassium 4.2 Chloride 107 Carbon Dioxide 25 Anion Gap 4 BUN 27 H Creatinine 1.35 Est Cr Clr Drug Dosing 39.4 Est GFR ( Amer) 56.3 Est GFR (Non-Af Amer) 48.5 BUN/Creatinine Ratio 20.0 Glucose 83 POC Glucose 129 H Calcium 8.3 L 10/14/22 10/14/22 10/14/22 07:39 11:34 16:28 WBC RBC Hgb Hct MCV MCH MCHC RDW Std Deviation RDW Coeff of Ro Plt Count MPV Sodium Potassium Chloride Carbon Dioxide Anion Gap BUN Creatinine Est Cr Clr Drug Dosing Est GFR ( Amer) Est GFR (Non-Af Amer) BUN/Creatinine Ratio Glucose POC Glucose 92 196 H 148 H Calcium PG Care Time/CCT Total # of Minutes Spent Total Time Spent with Patient: Total time spent is greater than 50% in coordination of care (as documented) at patient's floor/unit and/or counseling patient: Coding Level of Care Code 24148 SUB INP/OBS CARE 2/35MIN Diagnoses Hepatic encephalopathy K76.82 Gastroenteritis due to norovirus A08.11 Neck pain M54.2 Pancytopenia D61.818 Acute kidney injury N17.9 Metabolic acidosis with normal anion gap and bicarbonate losses E87.20 Back pain M54.9 Dyspnea on exertion R06.09 Chest pain R07.9 Benign essential tremor G25.0 Liver mass R16.0 Insomnia G47.00 PAF (paroxysmal atrial fibrillation) I48.0 Heart failure with preserved ejection fraction I50.30 Cirrhosis K74.60 Congenital ptosis, right Q10.0 History of rectal cancer Z85.048 Rhabdomyolysis M62.82 Right shoulder pain M25.511 Diabetes mellitus, type II E11.9
[2022-10-14] MEDS: MIRTAZAPINE TAB 15 MG TAB PO SCH (20:33)
[2022-10-15 07:23] LABS: Hematocrit (blood only) 26.7 % (42.0-52.0); Hemoglobin 9.5 g/dl (14.0-18.0); Mean Corpuscular Hemoglobin 33.5 pg (25.0-34.0); Mean Corpuscular Hgb Conc 35.6 g/dL (32.0-36.0); Mean Platelet Volume 10.6 fL (9.4-12.4); Platelet Count 59 K/uL (130-400); RDW Coefficient of Variation 12.7 % (11.5-14.5); RDW Standard Deviation 43.8 fL (36.4-46.3); Red Blood Count 2.84 M/uL (4.70-6.10)
[2022-10-15 07:40] LABS: BUN Creatinine Ratio 20.3 (10-20); Calcium 8.5 mg/dl (8.6-10.3); Creatinine Clr Calc Pharmacy 45.1 ml/min; Est GFR (African American) 66.2 ml/min; Est GFR (Non-African American) 57.1 ml/min; Magnesium 1.7 mg/dl (1.7-2.4); Potassium 4.2 mmol/L (3.5-5.1)
[2022-10-15 07:49] LABS: Basophils # (auto) 0.01 K/uL (0-0.2); Basophils % (auto) 0.5 %; Eosinophils # (auto) 0.06 K/uL (0-0.50); Eosinophils % (auto) 2.7 %; Immature Granulocytes # (auto) 0.01 K/uL (0.01-0.20); Immature Granulocytes % (auto) 0.5 %; Lymphocytes # (auto) 0.52 K/uL (1.2-3.4); Lymphocytes % (auto) 23.6 %; Monocytes # (auto) 0.19 K/uL (0.11-0.59); Monocytes % (auto) 8.6 %; Neutrophils # (auto) 1.41 K/uL (1.40-6.50); Neutrophils % (auto) 64.1 %
[2022-10-15] MEDS: CHOLECALCIFEROL 1,000 UNITS 25 MCG TAB PO SCH (08:16)
[2022-10-15] MEDS: DICLOFENAC SOD 1% GEL 100 GM TUBE EXT SCH ×4 (08:16→20:33)
[2022-10-15] MEDS: rifAXIMin 550 MG TABLET PO SCH ×2 (08:17→20:34)
[2022-10-15] MEDS: TAMSULOSIN HCL 0.4 MG CAP PO SCH (08:17)
[2022-10-15] MEDS: LIDOCAINE 5% 1 PATCH TD SCH (08:17)
--- NOTE | 2022-10-15 19:18 | Hospitalist Progress Note ---
Date of Service October 15, 2022 Assessment & Plan (1) Gastroenteritis due to norovirus: Plan: stool biofire + for such diarrhea / dehydration resolved diet advanced & tolerating such cont contact precautions labs stable (2) Hepatic encephalopathy: Plan: 2nd MANLEY cirrhosis in setting of active infection (norovirus) + dehydration --> resolved Started rifaximin 550mg BID-nurse navigator initiating prior authorization through insurance given his diarrhea from norovirus poor candidate for lactulose therapy at this time, however this could be started as an outpatient (3) Neck pain: Plan: given recent falls, etc -- checked c-spine CT - negative for acute/subacute fracture(s)-->I do believe he had a fall in the 48 hours leading up to admission; pain likely from his fall in the setting of DJD pain has improved (4) Pancytopenia: Plan: 2nd to cirrhosis low cell lines are chronic wbc and platelets will be lower in the setting of acute illness - platelets are trending up CBC overall remains acceptable today recent TSH, B12, and folate levels all wnl (5) Acute kidney injury: Plan: Peak Cr 2.3 resolved Secondary to dehydration from norovirus (6) Metabolic acidosis with normal anion gap and bicarbonate losses: Plan: 2nd to Norovirus diarrhea - resolved (7) Back pain: Plan: lumbar spine CT with DJD but no acute fractures fortunately Resolved suspect he had a recent fall and he simply can't recall when it occurred the elevated CPK is c/w such (8) Dyspnea on exertion: Plan: suspect he had respiratory alkalosis from his hepatic encephalopathy as well as nonanion gap met acidosis respiratory status stable cxr stable no rib fractures or edema o2 sats wnl he has not complained of dyspnea since admission (9) Chest pain: Plan: Echo with preserved EF and normal wall motion Troponin scantly elevated at 29 No evidence of ACS Scant trop elevation - myocardial demand ischemia in setting of copious amounts of acute issues as noted above suspect trauma to the chest from a fall obtained right rib series due to pain - no obvious fractures seen (10) Benign essential tremor: Plan: not bothersome follow (11) Liver mass: Plan: 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 This currently measures approximately 2.1 x 1.9 cm, previously measuring 4.9 x 4.5 cm. There is mild fat stranding surrounding the inferior aspect of the liver adjacent to this lesion suggesting post radiation changes. * There are at least 2 additional hypervascular foci within the right hepatic lobe as described above. These are indeterminate but could represent multifocal hepatocellular carcinoma. CT a/p this admission - A low-attenuation lesion in the inferior right lobe has with mild surrounding inflammation has not significantly changed as compared 09/25/2022. Inflammation is likely related to radiation treatment. review of notes from rad onc clinic at [facility] - 03/18/2022. MRI of the liver. Enhancing lesion in inferior aspect of segment 5 of the liver. 03/26/2022. AFP at 23,282. 04/18/2022. CT of chest abdomen pelvis. 4.9 x 4.4 mass within segment 5 of the liver. Suspicious for hepatocellular carcinoma. Prominent retroperitoneal and periportal lymph nodes. Splenomegaly and esophageal varices indicate portal hypertension. 2 right lower lobe pulmonary nodules. 04/19/2022. Telehealth visit with medical oncology. (Netta Escobar PA-C/Dr. Avalos) recommendation for SBRT to the liver lesion. 07/03/2022. Status post completion of SBRT to the liver lesion. He received 3000 cGy. 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 (14) Heart failure with preserved ejection fraction: Plan: no evidence of decompensation (15) Cirrhosis: Plan: 2nd to MANLEY known diagnosis follows with [facility] in [place] with hepatic encephalopathy as above but resolved on rifaximin (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, right: Plan: no issues (17) History of rectal cancer: Plan: 1999 s/p resection, ileostomy creation, and ultimate reversal of ostomy (18) Rhabdomyolysis: Plan: resolved with IV fluids and time he had falls - dates uncertain, but suspect he had a fall in the 48 hours prior to admission he is on chronic statin - doubt it is the cause - but stopped it in light of rhabdo + his cirrhosis (19) Right shoulder pain: Plan: checked x-rays - NO fracture cont lidoderms ROM continues to improve suspect he injured the shoulder during a fall (20) Diabetes mellitus, type II: Plan: a1c 7.3% in 07/2022 control here mildly elevated at times due to stress of illness was not taking any meds at home pre-admission cont to follow with diet control alone Plan VTE Prophylaxis - chemical prophylaxis deferred in light of severe thrombocytopenia Diet - low fiber Disposition-his insurance denied SNF. I did a peer to peer review with the ryan murry at his insurance to upheld the denial, stating that he was doing as well as a patient who would be discharged from SNF. Plan is to go home with home health tomorrow Admission and Anticipated Discharge Date Admission Date: October 09, 2022 Anticipated date of discharge: 10/16/22 Subjective Pt feeling better. No BM at all x 2 days. Denies lightheadedness, CP, SOB. Is eating more than he usually does. Is independently ambulating in the room. Tele with paced rhythm, rates in the 60s Physical Exam Constitutional: WD/WN, vitals as above Eyes: + eyelid abnormality (OD ptosis) Respiratory: normal respiratory effort, lungs clear to auscultation Cardiovascular: RRR, no murmur, no edema Gastrointestinal (Abdomen): normal bowel sounds, soft, nontender, no hepatosplenomegaly Results & Data Results & Data Vital Signs (Past 12 Hours) Vital Signs Temp Pulse Pulse Resp BP BP Pulse Ox 10/15/22 17:29 73 10/15/22 14:26 36.2 C L 73 20 144/64 H 99 10/15/22 11:56 36.6 C 62 20 97/57 L 99 10/15/22 08:00 65 10/15/22 07:28 36.6 C 71 18 131/66 98 O2 Del Method 10/15/22 17:29 10/15/22 14:26 Room Air 10/15/22 11:56 Room Air 10/15/22 08:00 10/15/22 07:28 Room Air Laboratory Results CBC, BMP reviewed PG Care Time/CCT Total # of Minutes Spent Total Time Spent with Patient: Total time spent is greater than 50% in coordination of care (as documented) at patient's floor/unit and/or counseling patient: Coding Level of Care Code 10286 SUB INP/OBS CARE MIN Diagnoses Gastroenteritis due to norovirus A08.11 Hepatic encephalopathy K76.82 Neck pain M54.2 Pancytopenia D61.818 Acute kidney injury N17.9 Metabolic acidosis with normal anion gap and bicarbonate losses E87.20 Back pain M54.9 Dyspnea on exertion R06.09 Chest pain R07.9 Benign essential tremor G25.0 Liver mass R16.0 Insomnia G47.00 PAF (paroxysmal atrial fibrillation) I48.0 Heart failure with preserved ejection fraction I50.30 Cirrhosis K74.60 Congenital ptosis, right Q10.0 History of rectal cancer Z85.048 Rhabdomyolysis M62.82 Right shoulder pain M25.511 Diabetes mellitus, type II E11.9
[2022-10-15] MEDS: MIRTAZAPINE TAB 15 MG TAB PO SCH (20:33)
[2022-10-16] MEDS: CHOLECALCIFEROL 1,000 UNITS 25 MCG TAB PO SCH (10:44)
[2022-10-16] MEDS: rifAXIMin 550 MG TABLET PO SCH (10:44)
[2022-10-16] MEDS: TAMSULOSIN HCL 0.4 MG CAP PO SCH (10:45)
[2022-10-16] MEDS: LIDOCAINE 5% 1 PATCH TD SCH (10:47)
[2022-10-16] MEDS: DICLOFENAC SOD 1% GEL 100 GM TUBE EXT SCH (10:47)
--- NOTE | 2022-10-16 11:46 | Discharge Summary ---
Discharge Summary Date of Service October 16, 2022 Notes For Next Care Provider Needs follow up with Oncology for new liver lesions seen on CT liver from 09/25 Medication Changes From Visit Added Rifaximin Admission HPI Per Admitting Provider Polo Mancia is an 81 year old male who presents to the ER on advice of his niece due to shortness of breath on exertion while walking back to his car earlier today. His car was making a thumping noise at [facility] therefore he called his niece to help him out. Since he appeared very winded, complaining of some chest pain trying to get back to his car and with him also talking about his recent back pain she decided to bring him directly to the emergency room for evaluation. She usually sees him approximately once a week and he has had a significant decline since the last time she saw him. The patient denies any shortness of breath or chest pain except when I palpate his chest on exam. He reports having back pain in his mid lower back for the last 2 weeks. Getting progressively worse during that time. Exacerbated by standing up. Mainly his lower back but his neck has also been bothering him. No radiation down his legs. No urine/bowel incontinence or retention. However he has also been having diarrhea for around the same amount of time. Associated nausea and decreased appetite with this. He vomited the last two days but he thinks this is because of his pain. No recent change in diet - his niece provides him with many meals but he also eats a lot of frozen TV dinners. Principal Dx & Hospital Course #1 = Principal Diagnosis (1) Gastroenteritis due to norovirus: stool biofire + for such diarrhea / dehydration resolved diet advanced & tolerating such cont contact precautions labs stable (2) Hepatic encephalopathy: 2nd MANLEY cirrhosis in setting of active infection (norovirus) + dehydration --> resolved Started rifaximin 550mg BID-nurse navigator initiating prior authorization through insurance given his diarrhea from norovirus poor candidate for lactulose therapy at this time, however this could be started as an outpatient (3) Acute kidney injury: Peak Cr 2.3 resolved with hydration and holding home aldactone and lisinopril Secondary to dehydration from norovirus ok to restart aldactone and lisinopril (4) Metabolic acidosis with normal anion gap and bicarbonate losses: 2nd to Norovirus diarrhea - resolved (5) Neck pain: given recent falls, etc -- checked c-spine CT - negative for acute/subacute fracture(s)-->I do believe he had a fall in the 48 hours leading up to admission; pain likely from his fall in the setting of DJD pain has improved (6) Pancytopenia: 2nd to cirrhosis low cell lines are chronic wbc and platelets will be lower in the setting of acute illness - platelets are trending up CBC overall remains acceptable today recent TSH, B12, and folate levels all wnl (7) Back pain: lumbar spine CT with DJD but no acute fractures fortunately Resolved suspect he had a recent fall and he simply can't recall when it occurred the elevated CPK is c/w such (8) Dyspnea on exertion: suspect he had respiratory alkalosis from his hepatic encephalopathy as well as nonanion gap met acidosis respiratory status stable cxr stable no rib fractures or edema o2 sats wnl he has not complained of dyspnea since admission (9) Chest pain: Echo with preserved EF and normal wall motion Troponin scantly elevated at 29 No evidence of ACS Scant trop elevation - myocardial demand ischemia in setting of copious amounts of acute issues as noted above suspect trauma to the chest from a fall obtained right rib series due to pain - no obvious fractures seen (10) Benign essential tremor: not bothersome follow (11) Liver mass: 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 This currently measures approximately 2.1 x 1.9 cm, previously measuring 4.9 x 4.5 cm. There is mild fat stranding surrounding the inferior aspect of the liver adjacent to this lesion suggesting post radiation changes. * There are at least 2 additional hypervascular foci within the right hepatic l obe as described above. These are indeterminate but could represent multifocal hepatocellular carcinoma. CT a/p this admission - A low-attenuation lesion in the inferior right lobe has with mild surrounding inflammation has not significantly changed as compared 09/25/2022. Inflammation is likely related to radiation treatment. review of notes from rad onc clinic at [facility] - 03/18/2022. MRI of the liver. Enhancing lesion in inferior aspect of segment 5 of the liver. 03/26/2022. AFP at 23,282. 04/18/2022. CT of chest abdomen pelvis. 4.9 x 4.4 mass within segment 5 of the liver. Suspicious for hepatocellular carcinoma. Prominent retroperitoneal and periportal lymph nodes. Splenomegaly and esophageal varices indicate portal hypertension. 2 right lower lobe pulmonary nodules. 04/19/2022. Telehealth visit with medical oncology. (Netta Escobar PA-C/Dr. Avalos) recommendation for SBRT to the liver lesion. 07/03/2022. Status post completion of SBRT to the liver lesion. He received 3000 cGy. 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 (14) Heart failure with preserved ejection fraction: no evidence of decompensation restart home lisonpril and aldactone (15) Cirrhosis: 2nd to MANLEY known diagnosis follows with [facility] in [place] with hepatic encephalopathy as above but resolved on rifaximin (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, right: no issues (17) History of rectal cancer: 1999 s/p resection, ileostomy creation, and ultimate reversal of ostomy (18) Rhabdomyolysis: resolved with IV fluids and time he had falls - dates uncertain, but suspect he had a fall in the 48 hours prior to admission he is on chronic statin - doubt it is the cause - but stopped it in light of rhabdo + his cirrhosis --> restart on discharge (19) Right shoulder pain: checked x-rays - NO fracture treated with lidoderm patch and voltaren gel--> no longer needing lidoderm patch by discharge ok to continue Voltaren gel prn ROM continues to improve suspect he injured the shoulder during a fall (20) Diabetes mellitus, type II: a1c 7.3% in 07/2022 control here mildly elevated at times due to stress of illness was not taking any meds at home pre-admission cont to follow with diet control alone Plan VTE Prophylaxis - chemical prophylaxis deferred in light of severe thrombocytopenia Diet - low fiber Disposition-his insurance denied SNF. I did a peer to peer review with the physician at his insurance to upheld the denial, stating that he was doing as well as a patient who would be discharged from SNF. Plan is to go home with home health today. Overall much improved and ambulating independently in the room without a device at time of discharge Discharge Exam Constitutional WD/WN, vitals as above Eyes + eyelid abnormality (OD ptosis) Respiratory normal respiratory effort, lungs clear to auscultation Cardiovascular RRR, no murmur, no edema Gastrointestinal (Abdomen) normal bowel sounds, soft, nontender, no hepatosplenomegaly Updated Medication List Medication Instructions Recorded Confirmed Type cholecalciferol (vitamin D3) 25 25 mcg PO QAM 11/02/20 10/09/22 History mcg (1,000 unit) capsule tamsulosin 0.4 mg capsule 0.4 mg PO QAM #90 caps 03/14/22 10/09/22 Rx lisinopril 40 mg tablet 40 mg PO QAM #90 tabs 06/12/22 10/09/22 Rx mirtazapine 15 mg tablet 15 mg PO HS #30 tabs 08/06/22 10/09/22 Rx spironolactone 25 mg tablet 25 mg PO QAM #90 tabs 08/06/22 10/09/22 Rx atorvastatin 10 mg tablet 10 mg PO HS 10/09/22 10/09/22 History rifaximin 550 mg tablet (Xifaxan) 550 mg PO BID #60 tabs 10/14/22 Rx Hospital Stay Data Consultations 10/09/22 14:40 ED Decision to Admit Stat Diagnostic Imagining Performed 10/09/22 13:06 CT abd pelvis wo con Stat 10/09/22 15:07 CT head/brain wo con Stat 10/09/22 15:51 CT lumbar spine wo con Stat 10/10/22 14:34 CT cervical spine wo con Urgent Pending Results Patient Have Any Pending Studies at Discharge: No Discharge Instructions Given to Patient (Per Discharging Provider) You were admitted for dehydration from a viral GI illness that caused diarrhea. This has resolved. Your spironolactone and lisinopril were held due to kidney issues but now that you are improved, you can restart these medications at home. You were started on a medication called Xifaxan which helps prevent confusion that can be associated with liver cirrhosis. Please follow up with your Oncologist as we discussed regarding the results of your latest liver CT scan. Total Time Total Time Spent Total Time Spent (In Minutes): 35 min Coding Level of Care Code 07213 INP/OBS DISCH >30 MIN Diagnoses Gastroenteritis due to norovirus A08.11 Hepatic encephalopathy K76.82 Acute kidney injury N17.9 Metabolic acidosis with normal anion gap and bicarbonate losses E87.20 Neck pain M54.2 Pancytopenia D61.818 Back pain M54.9 Dyspnea on exertion R06.09 Chest pain R07.9 Benign essential tremor G25.0 Liver mass R16.0 Insomnia G47.00 PAF (paroxysmal atrial fibrillation) I48.0 Heart failure with preserved ejection fraction I50.30 Cirrhosis K74.60 Congenital ptosis, right Q10.0 History of rectal cancer Z85.048 Rhabdomyolysis M62.82 Right shoulder pain M25.511 Diabetes mellitus, type II E11.9
[2022-10-16] MEDS ORDERED: rifAXIMin 550 MG TABLET PO ONE (12:00)
[2022-10-16] MEDS ORDERED: rifAXIMin 550 MG TABLET PO SCH ×2 (12:00)
== END 2022-10-16 13:30 | disposition home health service (06) | DRG 683 ==
LOC: ED 10:21 → 2W 15:43 → SUATTDRO 15:43 → 2W 16:37

== ENCOUNTER 2022-10-31 22:38 | Inpatient (IN) ==
[2022-11-01 00:48] LABS: Alanine Aminotransferase 35 U/L (7-52); Albumin Globulin Ratio 0.9 (0.9-2); Albumin Level 3.4 gm/dl (3.4-5.0); Alkaline Phosphatase 114 U/L (34-104); Anion Gap 7 (3-11); Aspartate Aminotransferase 46 U/L (13-39); BUN Creatinine Ratio 23.9 (10-20); Bilirubin,Total 1.2 mg/dl (0.2-1.0); Blood Urea Nitrogen 32 mg/dl (6-23); Calcium 8.6 mg/dl (8.6-10.3); Carbon Dioxide 22 mmol/L (21-32); Chloride 110 mmol/L (98-107); Est GFR (African American) 56.8 ml/min; Globulin 3.9 gm/dl (2.5-4.0); Glucose 101 mg/dl (70-99(Fasting)); Magnesium 2.1 mg/dl (1.7-2.4); Potassium 3.8 mmol/L (3.5-5.1); Sodium 139 mmol/L (136-145); Total Protein 7.3 gm/dl (6.0-8.3)
[2022-11-01 00:49] LABS: Basophils # (auto) 0.01 K/uL (0-0.2); Basophils % (auto) 0.4 %; Eosinophils # (auto) 0.06 K/uL (0-0.50); Eosinophils % (auto) 2.6 %; Hematocrit (blood only) 28.8 % (42.0-52.0); Hemoglobin 9.4 g/dl (14.0-18.0); Immature Granulocytes # (auto) 0.01 K/uL (0.01-0.20); Immature Granulocytes % (auto) 0.4 %; Lymphocytes # (auto) 0.35 K/uL (1.2-3.4); Lymphocytes % (auto) 15.3 %; Mean Corpuscular Hemoglobin 33.5 pg (25.0-34.0); Mean Corpuscular Hgb Conc 32.6 g/dL (32.0-36.0); Mean Corpuscular Volume 102.5 fL (80.0-100.0); Mean Platelet Volume 11.4 fL (9.4-12.4); Monocytes # (auto) 0.24 K/uL (0.11-0.59); Monocytes % (auto) 10.5 %; Neutrophils # (auto) 1.62 K/uL (1.40-6.50); Neutrophils % (auto) 70.8 %; Platelet Count 59 K/uL (130-400); RDW Coefficient of Variation 13.4 % (11.5-14.5); RDW Standard Deviation 50.4 fL (36.4-46.3); Red Blood Count 2.81 M/uL (4.70-6.10); White Blood Count 2.29 K/ul (4.8-10.8)
[2022-11-01 00:53] LABS: Appearance Urine Clear (Clear); Bilirubin Urine Negative (Negative); Blood Urine Negative (Negative); Color Urine Yellow; Glucose Urine UA Negative (Negative); Ketones Urine Trace (Negative); Leukocyte Esterase Urine Negative (Negative); Nitrite Urine Negative (Negative); Protein Urine Negative (Negative); Specific Gravity Urine 1.019 (1.000-1.030); Urobilinogen Urine Negative (Negative); pH Urine 5.5 (4.5-7.5)
[2022-11-01] MEDS ORDERED: OPTIRAY 320 100ml IV ONE (01:06)
--- NOTE | 2022-11-01 01:07 | Emergency Department Note ---
Impression & Plan Abdominal pain, Acute GI bleeding, Pancytopenia ED Provider Note ED Provider Note NAME: TERESA VALDEZ Jr AGE:82 SEX: Male : 1940 ARRIVES VIA: Private vehicle INFORMANT: Patient, family ED PROVIDER(s): Karen Ascencio DO CHIEF COMPLAINT: Abdominal pain, GI bleed HPI: This is an 82-year-old male presents emergency department due to concern for abdominal pain and GI bleed tonight after starting a new medication. Patient recently admitted, and treated with rifaximin. At time of discharge this medication was found to be too expensive and not authorized by insurance so he was changed to lactulose. The visiting home nurse instructed him today that he could begin the lactulose. Patient states he took it this evening at 8:00 and approximately half an hour later had central abdominal pain, bloating, incr eased bowel noises. He then began having loose bowel movements/diarrhea. He states he noted bright red blood in these. He states he had 5-6 episodes at home, and contacted his family member to bring him to the emergency room. Patient does not take any antiplatelet or anticoagulation therapy. He is being treated for liver cancer and MANLEY. He does have a history of anemia. PAST MEDICAL HISTORY:See Below PAST SURGICAL HISTORY:See Below FAMILY HISTORY:See Below SOCIAL HISTORY:See Below HOME MEDICATIONS:See Below ALLERGIES:See Below VITALS:See Below PHYSICAL EXAMINATION: GENERAL: alert, well appearing, well nourished, no distress, non-toxic EYE EXAM: normal conjunctiva, PERRL and EOM's grossly intact OROPHARYNX: no exudate, no erythema, lips, buccal mucosa, and tongue normal and mucous membranes are moist NECK: supple, no nuchal rigidity, no denopathy, non-tender LUNGS: Clear to auscultation. Normal chest wall mechanics, no w/r/r HEART: no murmurs, S1 normal and S2 normal ABDOMEN: abdomen distended and tender to palpation, hyperactive and load bowel sounds, no masses, no rebound or guarding. BACK: Back is symmetrical on inspection and there is no deformity, no midline tenderness, no CVA tenderness. SKIN: no rashes, petechiae, orbruising UPPER EXTREMITIES: upper extremities are grossly normal. FROM, nml pulses b/l. LOWER EXTREMITIES: No pitting edema. FROM, nml pulses b/l. NEURO EXAM: Normal sensorium, cranial nerves II-XII grossly intact, normal speech, no facial droop,nogross weakness of arms, no gross weakness of legs. Gross sensation intact. No ataxia. Vital Signs: reviewed and remarkable Differential Diagnosis: Coagulopathy, diverticular bleed, hemorrhoidal bleeding, mesenteric ischemia, MEDICAL DECISION MAKING: This is an 82 yo male who presents to the ER due to concern for abdominal pain and GI bleed. VS stable and pt afebrile. Labs drawn and sent, IV established, EKG and CXR performed and interpreted at bedside, and patient placed on telemetr y. Patient sent for CT imaging which didn't show any bowel obstruction or active area of bleeding. Patient had another episode of bloody diarrhea here viewed by me and hemacult positive at bedside as performed by nursing staff. Patient given IVF and IV tylenol for pain. We discussed all results. Due to concern for bleeding given age and known pancytopenia, case discussed with hospitalist for additional evaluation and mgmt. Consultation(s): 0210: DIscussed with Dr. Alcantar. ER Treatment Provided: See below Diagnostics Interpreted By Me: -ECG: paced at 68 with prolonged intervals due to pacing, no acute ST/T wave changes -Cardiac Monitoring: An order was placed for continuous cardiac monitoring. The monitor shows a rate of 70 with normal sinus rhythm. -Laboratory studies: As stated above and show below. -Imaging studies: [] Triage Nursing Note Reviewed Prior/Outside Records Reviewed - prior DC summary reviewed Past Med/Surg History Medical History Atrial fibrillation Back pain Chronic kidney disease Chronic leukopenia Past evaluation by Hematology with negative work up. No changes with CBC over time. Diabetes mellitus, type II Diverticulosis of colon (12/06/12) GIB (gastrointestinal bleeding) Heart failure with preserved ejection fraction Hepatic encephalopathy History of Mohs micrographic surgery for skin cancer History of rectal cancer s/p surgical resection (1999). Previously monitored by periodic colonoscopy (08/12 unremarkable w/ 3-5 year follow up) Hyperlipidemia Hypertension Insomnia Olecranon fracture history of open treatment of fracture of the olecranon Portal hypertension Presence of cardiac pacemaker Pulmonary nodules Rectal bleed Second degree AV block Followed by cardiology Splenomegaly Thrombocytopenia Surgical History History of excision of lesion History of partial colectomy Hx of appendectomy Hx of cataract surgery Bilateral Hx of cholecystectomy Hx of colonoscopy Hx of hernia repair Left inguinal hernia Family History Sister Breast cancer Heart disease Hypertension Father , 61yo Myocardial infarction Secondary to electrocution Mother , 51yo Myocardial infarction Cause of injury, MVA Son Aortic aneurysm Had surgical repair Aortic heart valve Brother Hypertension Diabetes Heart disease Dementia CHF (congestive heart failure) Mental health problem Sister Hypertension Daughter Hypertension Asthma COPD (chronic obstructive pulmonary disease) Depression Anxiety Basal cell carcinoma Colonic polyp Denies family history of Ovarian cancer Prostate cancer Lung cancer Social History Smoking Status: Never smoker Second Hand Exposure: No; Do You Dip or Chew Tobacco: No; Hx Alcohol Use: No Hx Substance Use: No Preferred Language: Algerian Communication Ability: Effective Visual Impairment: Limited Hearing Ability: Normal Hardwood Floor Finisher Required: No Beliefs That Will Affect Care: None marital status: / Current Living Situation: Alone Current Living Situation Comment: patient lives alone in an apartment, uses elevator instead of stairs. current occupational status: retired How many Children do You have: 2 Feels Safe at Home: Yes Childhood Exposure to Second-Hand Smoke: No Diet: regular caffeine: No during the past year weight has: remained stable Physical Activity Frequency: Daily Physical Activity Frequency Comment: walking Seatbelt Use: always Sunscreen Use: Yes Do you think of yourself as: straight/heterosexual Assistive Devices: Walker Allergies Allergies Allergy/AdvReac Type Severity Reaction Status Date / Time metoprolol Allergy Intermediate NONTOLERATED, Verified 10/31/22 23:32 DIZZINESS sertraline Allergy Intermediate "NUMBNESS Verified 10/31/22 23:32 IN MY FACE" apixaban [From Eliquis] AdvReac Intermediate rectal Verified 10/31/22 23:32 bleeding Home Meds Home Medications Medication Instructions Recorded Confirmed cholecalciferol (vitamin D3) 25 25 mcg PO QAM 11/02/20 10/31/22 mcg (1,000 unit) capsule atorvastatin 10 mg tablet 10 mg PO HS 10/09/22 10/31/22 trazodone 50 mg tablet 25 mg PO HS 10/31/22 10/31/22 Previous Rx's Medication Instructions Recorded tamsulosin 0.4 mg capsule 0.4 mg PO QAM #90 caps 03/14/22 lisinopril 40 mg tablet 40 mg PO QAM #90 tabs 06/12/22 spironolactone 25 mg tablet 25 mg PO QAM #90 tabs 08/06/22 diclofenac sodium 1 % topical gel 4 g EXT QID PRN shoulder pain #100 10/16/22 (Voltaren Arthritis Pain) grams amlodipine 5 mg tablet 5 mg PO QAM #90 tabs 10/24/22 rifaximin 550 mg tablet (Xifaxan) 550 mg PO BID #0 tabs 11/02/22 Results & Data (ED) Vital Signs Vital Signs - 24 hr 10/31/22 22:49 10/31/22 23:02 10/31/22 23:00 Temperature 36.4 C L Temperature Source Oral Pulse Rate 79 Pulse Rate [Finger] 70 Pulse Rate from SpO2 Sensor Respiratory Rate 16 Respiratory Effort / Characteristics Non-Labored Spontaneous Respiratory Depth Normal Blood Pressure 124/65 Blood Pressure [Right Arm] 130/67 Blood Pressure Mean 84 Blood Pressure Mean [Right Arm] 88 Pulse Oximetry 99 Oxygen Delivery Method Room Air Sepsis Recent Fever Within 48 Hours No Sepsis New/Unexplained Change in Mental Status No Sepsis Action Taken by Nursing No Action Required 10/31/22 22:58 10/31/22 23:00 10/31/22 23:00 Temperature Temperature Source Pulse Rate 79 75 Pulse Rate [Finger] Pulse Rate from SpO2 Sensor 79 Respiratory Rate 26 H 30 H Respiratory Effort / Characteristics Respiratory Depth Blood Pressure 130/67 Blood Pressure [Right Arm] Blood Pressure Mean 103 Blood Pressure Mean [Right Arm] Pulse Oximetry 99 Oxygen Delivery Method Sepsis Recent Fever Within 48 Hours Sepsis New/Unexplained Change in Mental Status Sepsis Action Taken by Nursing 10/31/22 23:30 10/31/22 23:30 11/01/22 00:00 Temperature Temperature Source Pulse Rate 66 Pulse Rate [Finger] Pulse Rate from SpO2 Sensor 64 Respiratory Rate 17 Respiratory Effort / Characteristics Respiratory Depth Blood Pressure 112/59 L 114/66 Blood Pressure [Right Arm] Blood Pressure Mean 75 78 Blood Pressure Mean [Right Arm] Pulse Oximetry 99 Oxygen Delivery Method Sepsis Recent Fever Within 48 Hours Sepsis New/Unexplained Change in Mental Status Sepsis Action Taken by Nursing 11/01/22 00:00 Temperature Temperature Source Pulse Rate 69 Pulse Rate [Finger] Pulse Rate from SpO2 Sensor 66 Respiratory Rate 19 Respiratory Effort / Characteristics Respiratory Depth Blood Pressure Blood Pressure [Right Arm] Blood Pressure Mean Blood Pressure Mean [Right Arm] Pulse Oximetry 99 Oxygen Delivery Method Sepsis Recent Fever Within 48 Hours Sepsis New/Unexplained Change in Mental Status Sepsis Action Taken by Nursing Laboratory Data 10/31/22 23:04 10/31/22 23:04 Lab Results 10/31/22 10/31/22 10/31/22 Range/Units 23:04 23:04 23:04 WBC 2.29 L (4.8-10.8) K/ul RBC 2.81 L (4.70-6.10) M/uL Hgb 9.4 L (14.0-18.0) g/dl Hct 28.8 L (42.0-52.0) % MCV 102.5 H (80.0-100.0) fL MCH 33.5 (25.0-34.0) pg MCHC 32.6 (32.0-36.0) g/dL RDW Std Deviation 50.4 H (36.4-46.3) fL RDW Coeff of Ro 13.4 (11.5-14.5) % Plt Count 59 L (130-400) K/uL MPV 11.4 (9.4-12.4) fL Immature Gran % (Auto) 0.4 % Neut % (Auto) 70.8 % Lymph % (Auto) 15.3 % Perry % (Auto) 10.5 % Eos % (Auto) 2.6 % Baso % (Auto) 0.4 % Neut # (Auto) 1.62 (1.40-6.50) K/uL Lymph # (Auto) 0.35 L (1.2-3.4) K/uL Perry # (Auto) 0.24 (0.11-0.59) K/uL Eos # (Auto) 0.06 (0-0.50) K/uL Baso # (Auto) 0.01 (0-0.2) K/uL Immature Gran # (Auto) 0.01 (0.01-0.20) K/uL PT 13.2 H (9.0-12.0) Seconds INR 1.2 H (0.9-1.1) Sodium 139 (136-145) mmol/L Potassium 3.8 (3.5-5.1) mmol/L Chloride 110 H (98-107) mmol/L Carbon Dioxide 22 (21-32) mmol/L Anion Gap 7 (3-11) BUN 32 H (6-23) mg/dl Creatinine 1.34 (0.6-1.4) mg/dl Est Cr Clr Drug Dosing Not Reportable Est GFR ( Amer) 56.8 ml/min Est GFR (Non-Af Amer) 49.0 ml/min BUN/Creatinine Ratio 23.9 H (10-20) Glucose 101 H (70-99(Fasting)) mg/dl Calcium 8.6 (8.6-10.3) mg/dl Magnesium 2.1 (1.7-2.4) mg/dl Total Bilirubin 1.2 H (0.2-1.0) mg/dl AST 46 H (13-39) U/L ALT 35 (7-52) U/L Alkaline Phosphatase 114 H (34-104) U/L Total Protein 7.3 (6.0-8.3) gm/dl Albumin 3.4 (3.4-5.0) gm/dl Globulin 3.9 (2.5-4.0) gm/dl Albumin/Globulin Ratio 0.9 (0.9-2) Urine Color Urine Appearance (Clear) Urine pH (4.5-7.5) Ur Specific Elgin (1.000-1.030) Urine Protein (Negative) Urine Glucose (UA) (Negative) Urine Ketones (Negative) Urine Blood (Negative) Urine Nitrite (Negative) Urine Bilirubin (Negative) Urine Urobilinogen (Negative) Ur Leukocyte Esterase (Negative) SARS-CoV-2, RNA, NAAT (NEGATIVE) 10/31/22 10/31/22 Range/Units 23:04 23:04 WBC (4.8-10.8) K/ul RBC (4.70-6.10) M/uL Hgb (14.0-18.0) g/dl Hct (42.0-52.0) % MCV (80.0-100.0) fL MCH (25.0-34.0) pg MCHC (32.0-36.0) g/dL RDW Std Deviation (36.4-46.3) fL RDW Coeff of Ro (11.5-14.5) % Plt Count (130-400) K/uL MPV (9.4-12.4) fL Immature Gran % (Auto) % Neut % (Auto) % Lymph % (Auto) % Perry % (Auto) % Eos % (Auto) % Baso % (Auto) % Neut # (Auto) (1.40-6.50) K/uL Lymph # (Auto) (1.2-3.4) K/uL Perry # (Auto) (0.11-0.59) K/uL Eos # (Auto) (0-0.50) K/uL Baso # (Auto) (0-0.2) K/uL Immature Gran # (Auto) (0.01-0.20) K/uL PT (9.0-12.0) Seconds INR (0.9-1.1) Sodium (136-145) mmol/L Potassium (3.5-5.1) mmol/L Chloride (98-107) mmol/L Carbon Dioxide (21-32) mmol/L Anion Gap (3-11) BUN (6-23) mg/dl Creatinine (0.6-1.4) mg/dl Est Cr Clr Drug Dosing Est GFR ( Amer) ml/min Est GFR (Non-Af Amer) ml/min BUN/Creatinine Ratio (10-20) Glucose (70-99(Fasting)) mg/dl Calcium (8.6-10.3) mg/dl Magnesium (1.7-2.4) mg/dl Total Bilirubin (0.2-1.0) mg/dl AST (13-39) U/L ALT (7-52) U/L Alkaline Phosphatase (34-104) U/L Total Protein (6.0-8.3) gm/dl Albumin (3.4-5.0) gm/dl Globulin (2.5-4.0) gm/dl Albumin/Globulin Ratio (0.9-2) Urine Color Yellow Urine Appearance Clear (Clear) Urine pH 5.5 (4.5-7.5) Ur Specific Elgin 1.019 (1.000-1.030) Urine Protein Negative (Negative) Urine Glucose (UA) Negative (Negative) Urine Ketones Trace H (Negative) Urine Blood Negative (Negative) Urine Nitrite Negative (Negative) Urine Bilirubin Negative (Negative) Urine Urobilinogen Negative (Negative) Ur Leukocyte Esterase Negative (Negative) SARS-CoV-2, RNA, NAAT NEGATIVE (NEGATIVE) Administered Medications Discontinued Medications Amlodipine Besylate (Amlodipine Besylate 5 Mg Tab) 5 mg PO QAM NATE Stop: 12/01/22 08:59 Last Admin: 11/02/22 09:11 Dose: 5 mg Documented By: Admin: 11/01/22 09:08 Dose: 5 mg Documented By: KAN Atorvastatin Calcium (Atorvastatin 10 Mg Tab) 10 mg PO HS NATE Stop: 12/01/22 20:59 Last Admin: 11/01/22 19:43 Dose: 10 mg Documented By: DEEPIKA Pantoprazole Sodium 40 mg/ (Syringe) 10 mls @ 5 mls/min IV BID NATE Stop: 11/04/22 08:59 Last Admin: 11/02/22 09:14 Dose: 5 mls/min Documented By: Admin: 11/01/22 19:44 Dose: 5 mls/min Documented By: Admin: 11/01/22 09:07 Dose: 5 mls/min Documented By: KAN Pantoprazole Sodium 40 mg/ (Syringe) 10 mls @ 5 mls/min IV ONE STA Stop: 11/01/22 02:29 Last Admin: 11/01/22 02:55 Dose: 5 mls/min Documented By: RODRICK Sodium Chloride (Nss 1000ml) 1,000 mls @ 100 mls/hr IV .Q10H NATE Stop: 12/01/22 11:14 Last Infusion: 11/02/22 13:16 Dose: 0 mls/hr Documented By: Admin: 11/02/22 13:15 Dose: Not Given Documented By: Admin: 11/01/22 23:10 Dose: 100 mls/hr Documented By: Infusion: 11/01/22 23:03 Dose: 100 mls/hr Documented By: Admin: 11/01/22 13:03 Dose: 100 mls/hr Documented By: KAN Ioversol (Optiray 320 100ml) 90 ml IV ONCE ONE Stop: 11/01/22 01:07 Last Admin: 11/01/22 01:08 Dose: 90 ml Documented By: EAB Lisinopril (Lisinopril 40 Mg Tab) 40 mg PO [facility] Stop: 12/01/22 08:59 Last Admin: 11/02/22 09:12 Dose: 40 mg Documented By: Admin: 11/01/22 09:09 Dose: 40 mg Documented By: KAN Mirtazapine (Mirtazapine Tab 15 Mg Tab) 15 mg PO [facility] Stop: 12/01/22 20:59 Last Admin: 11/01/22 19:43 Dose: 15 mg Documented By: DEEPIKA Rifaximin (Rifaximin 550 Mg Tablet) 550 mg PO BID [facility] Stop: 12/01/22 20:59 Last Admin: 11/02/22 09:14 Dose: 550 mg Documented By: Admin: 11/01/22 20:42 Dose: 550 mg Documented By: DEEPIKA Spironolactone (Spironolactone 25 Mg Tab) 25 mg PO [facility] Stop: 12/01/22 08:59 Last Admin: 11/02/22 09:13 Dose: 25 mg Documented By: VincentO Admin: 11/01/22 09:09 Dose: 25 mg Documented By: KAN Tamsulosin HCl (Tamsulosin Hcl 0.4 Mg Cap) 0.4 mg PO [facility] Stop: 12/01/22 08:59 Last Admin: 11/02/22 09:13 Dose: 0.4 mg Documented By: Admin: 11/01/22 09:09 Dose: 0.4 mg Documented By: KAN Trazodone HCl (Trazodone Hcl 50 Mg Tab) 25 mg PO [facility] Stop: 12/01/22 20:59 Last Admin: 11/01/22 19:44 Dose: 25 mg Documented By: DEEPIKA Vitamin D (Cholecalciferol 1,000 Units 25 Mcg Tab) 1,000 units PO [facility] Stop: 12/01/22 08:59 Last Admin: 11/02/22 09:12 Dose: 1,000 units Documented By: Admin: 11/01/22 09:09 Dose: 1,000 units Documented By: KAN Imaging Data Radiologist's Impression: Abdomen/Pelvis CT 11/01/22 00:11 Exam(s): CT ABDOMEN + PELVIS With Contrast IV Amt: 90ml OPTIRAY 320 EXAM: CT Abdomen and Pelvis With Intravenous Contrast CLINICAL HISTORY: Reason for exam: abd pain, GI bleed. TECHNIQUE: Axial computed tomography images of the abdomen and pelvis with intravenous contrast. CTDI is 23.6 mGy and DLP is 1147.47 mGy-cm. Automated exposure control was utilized for the study. A dose lowering technique was utilized adhering to the principles of ALARA. CONTRAST: Patient received 90ml OPTIRAY 320 of IV contrast COMPARISON: October 09, 2022 FINDINGS: Lung bases: Unremarkable. No mass. No consolidation. ABDOMEN: Liver: Nodular liver surface consistent with cirrhosis. There is splenomegaly measuring 15 cm. Esophageal varices are present. No acute hemorrhage is seen. Gallbladder and bile ducts: Unremarkable. No calcified stones. No ductal dilation. Pancreas: Unremarkable. No mass. No ductal dilation. Spleen: See above. Adrenals: Unremarkable. No mass. Kidneys and ureters: Unremarkable. No solid mass. No hydronephrosis. Stomach and bowel: Unremarkable. No obstruction. No mucosal thickening. PELVIS: Appendix: Staple line adjacent to the cecum. The appendix is not visible. Bowel loops are nondilated. There is a previous small bowel anastomosis. No acute inflammatory changes are seen involving the bowel. Bladder: Unremarkable. No mass. Reproductive: Unremarkable as visualized. ABDOMEN and PELVIS: Intraperitoneal space: Unremarkable. No free air. No significant fluid collection. Bones/joints: Mild multilevel degenerative changes throughout the spine. No acute fracture or subluxation is seen. Soft tissues: Unremarkable. Vasculature: The portal vein is patent and within normal limits in diameter measuring 14 mm. The abdominal aorta is mildly calcified but nondilated. There is no aneurysm or dissection. Lymph nodes: Unremarkable. No enlarged lymph nodes. Tubes, lines and devices: Pacing device in place with severe coronary calcification. IMPRESSION: 1. Nodular liver surface consistent with cirrhosis. There is splenomegaly measuring 15 cm. Esophageal varices are present. No acute hemorrhage is seen. 2. Staple line adjacent to the cecum. The appendix is not visible. Bowel loops are nondilated. There is a previous small bowel anastomosis. No acute inflammatory changes are seen involving the bowel. No free fluid. Electronically signed by: Blaine Guardado MD 11/01/22 01:40 AM Discharge Plan Visit Data Chief Complaint: Abdominal Pain ED Provider: Karen Ascencio Discharge Problem: Abdominal pain, Acute GI bleeding, Pancytopenia Patient Disposition: Admitted As Inpatient Discharge Instructions Interventions: ED Discharge Assessment Last Done: 11/01/22 03:32
[2022-11-01 01:20] LABS: INR 1.2 (0.9-1.1); Prothrombin Time 13.2 Seconds (9.0-12.0)
--- NOTE | 2022-11-01 01:41 | CT Scan Report ---
Exam(s): CT ABDOMEN + PELVIS With Contrast IV Amt: 90ml OPTIRAY 320 EXAM: CT Abdomen and Pelvis With Intravenous Contrast CLINICAL HISTORY: Reason for exam: abd pain, GI bleed. TECHNIQUE: Axial computed tomography images of the abdomen and pelvis with intravenous contrast. CTDI is 23.6 mGy and DLP is 1147.47 mGy-cm. Automated exposure control was utilized for the study. A dose lowering technique was utilized adhering to the principles of ALARA. CONTRAST: Patient received 90ml OPTIRAY 320 of IV contrast COMPARISON: October 09, 2022 FINDINGS: Lung bases: Unremarkable. No mass. No consolidation. ABDOMEN: Liver: Nodular liver surface consistent with cirrhosis. There is splenomegaly measuring 15 cm. Esophageal varices are present. No acute hemorrhage is seen. Gallbladder and bile ducts: Unremarkable. No calcified stones. No ductal dilation. Pancreas: Unremarkable. No mass. No ductal dilation. Spleen: See above. Adrenals: Unremarkable. No mass. Kidneys and ureters: Unremarkable. No solid mass. No hydronephrosis. Stomach and bowel: Unremarkable. No obstruction. No mucosal thickening. PELVIS: Appendix: Staple line adjacent to the cecum. The appendix is not visible. Bowel loops are nondilated. There is a previous small bowel anastomosis. No acute inflammatory changes are seen involving the bowel. Bladder: Unremarkable. No mass. Reproductive: Unremarkable as visualized. ABDOMEN and PELVIS: Intraperitoneal space: Unremarkable. No free air. No significant fluid collection. Bones/joints: Mild multilevel degenerative changes throughout the spine. No acute fracture or subluxation is seen. Soft tissues: Unremarkable. Vasculature: The portal vein is patent and within normal limits in diameter measuring 14 mm. The abdominal aorta is mildly calcified but nondilated. There is no aneurysm or dissection. Lymph nodes: Unremarkable. No enlarged lymph nodes. Tubes, lines and devices: Pacing device in place with severe coronary calcification. IMPRESSION: 1. Nodular liver surface consistent with cirrhosis. There is splenomegaly measuring 15 cm. Esophageal varices are present. No acute hemorrhage is seen. 2. Staple line adjacent to the cecum. The appendix is not visible. Bowel loops are nondilated. There is a previous small bowel anastomosis. No acute inflammatory changes are seen involving the bowel. No free fluid. Electronically signed by: Blaine Guardado MD 11/01/22 01:40 AM
[2022-11-01] MEDS ORDERED: PANTOprazole 40 MG in SYRINGE 0 ML IV STA (02:28)
[2022-11-01] MEDS ORDERED: ACETAMINOPHEN 325 MG TAB PO PRN (03:50)
--- NOTE | 2022-11-01 06:16 | History & Physical Report ---
Date of Service November 01, 2022 Assessment & Plan (1) Acute GI bleeding: Plan: Patient presents to ED with complaints of abdominal pain associated with loose stools. Patient recently started on rifaximin as well as lactulose for management of his hepatic encephalopathy. Patient unable to continue rifaximin and recently started his lactulose yesterday and subsequently started passing loose blood-tinged stools. Stools are confirmed to be guaiac positive in the ED and his hemoglobin was 9.4 in the ED. Patient is a known history of underlying cirrhosis and hence will be monitored closely with GI consultation. Obtain serial H&H to ensure stability Check ammonia level (2) Abdominal pain: Plan: Patient presents with abdominal pain subsequent to starting lactulose. hold lactulose in the interim. CT of the abdomen shows a nodular liver surface consistent with cirrhosis with splenomegaly Previous small bowel anastomosis noted bowel loops of nondilated No acute inflammatory changes seen in the bowel with no free fluid noted. Continue symptomatic management (3) Pancytopenia: Plan: Patient found to have low white count of 2.2 along with low platelet of 59 and anemia Determined secondary to underlying cirrhosis low cell lines are chronic recent TSH, B12, and folate levels were within normal limits (4) Cirrhosis: Plan: Patient had presented with hepatic encephalopathy secondary to Jarrett cirrhosis in the setting of recent active norovirus infection associated with dehydration. Patient started on rifaximin 550 twice daily patient unable to be compliant with this medication due to insurance reasons. Patient recently started lactulose therapy and presents with loose stools along with streaks of blood. Continue to monitor H&H Patient being followed by GI -psu (5) Hypertension: Plan: Continue home dose of lisinopril and amlodipine with hold parameters Monitor blood pressure trend and titrate meds as tolerated (6) Diabetes mellitus, type II: Plan: Diet controlled recent A1c 7.3 in July 2022 Continue to monitor fingersticks with sliding scale coverage (7) PAF (paroxysmal atrial fibrillation): Plan: Patient in ventricular paced rhythm not on anticoagulation due to recurrent GI bleed per cardiology note as well as secondary to thrombocytopenia from cirrhosis. 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 This currently measures approximately 2.1 x 1.9 cm, previously measuring 4.9 x 4.5 cm. There is mild fat stranding surrounding the inferior aspect of the liver adjacent to this lesion suggesting post radiation changes. * There are at least 2 additional hypervascular foci within the right hepatic lobe as described above. These are indeterminate but could represent multifocal hepatocellular carcinoma. CT a/p this admission - A low-attenuation lesion in the inferior right lobe has with mild surrounding inflammation has not significantly changed as compared 09/25/2022. Inflammation is likely related to radiation treatment. review of notes from rad onc clinic at [facility] - 03/18/2022. MRI of the liver. Enhancing lesion in inferior aspect of segment 5 of the liver. 03/26/2022. AFP at 23,282. 04/18/2022. CT of chest abdomen pelvis. 4.9 x 4.4 mass within segment 5 of the liver. Suspicious for hepatocellular carcinoma. Prominent retroperitoneal and periportal lymph nodes. Splenomegaly and esophageal varices indicate portal hypertension. 2 right lower lobe pulmonary nodules. 04/19/2022. Telehealth visit with medical oncology. (Netta Escobar PA-C/Dr. Avalos) recommendation for SBRT to the liver lesion. 07/03/2022. Status post completion of SBRT to the liver lesion. He received 3000 cGy. Treatment given in 5 fractions Admission and Anticipated Discharge Date Admission Date: November 01, 2022 History of Present Illness Chief Complaint: Patient presents to ED with abdominal pain, loose stools tinged with blood Primary Care Provider: Alfredo Moreno DO This is a 82-year-old male with past medical history significant history of cirrhosis secondary to Jarrett, pancytopenia secondary to cirrhosis who presents to the emergency department with concerns for intermittent abdominal discomfort associated with passing loose blood-tinged stools. Patient has been recently admitted for hepatic encephalopathy associated with that norovirus infection and during the course of admission was started on rifaximin and lactulose for management of his cirrhosis. Patient reports that he was unable to obtain rifaximin secondary to insurance reason but had recently started his lactulose for management of his cirrhosis and associated encephalopathy. Patient was instructed by his visiting nurse to start his lactulose and patient took his first dose this evening and soon after started having some abdominal discomfort associated bloating sensation and subsequently started passing loose stools mixed with blood streaks. Patient subsequently had about 5-6 episodes and presents to ED for further evaluation. Patient was evaluated in the ED and confirmed to have blood in stools and hence is being admitted for further management of his acute GI bleed at this time. Allergies Allergy/AdvReac Type Severity Reaction Status Date / Time metoprolol Allergy Intermediate NONTOLERATED, Verified 10/31/22 23:32 DIZZINESS sertraline Allergy Intermediate "NUMBNESS Verified 10/31/22 23:32 IN MY FACE" apixaban [From Eliquis] AdvReac Intermediate rectal Verified 10/31/22 23:32 bleeding Home Medications Medication Instructions Recorded Confirmed Type cholecalciferol (vitamin D3) 25 25 mcg PO QAM 11/02/20 10/31/22 History mcg (1,000 unit) capsule tamsulosin 0.4 mg capsule 0.4 mg PO QAM #90 caps 03/14/22 10/31/22 Rx lisinopril 40 mg tablet 40 mg PO QAM #90 tabs 06/12/22 10/31/22 Rx mirtazapine 15 mg tablet 15 mg PO HS #30 tabs 08/06/22 10/31/22 Rx spironolactone 25 mg tablet 25 mg PO QAM #90 tabs 08/06/22 10/31/22 Rx atorvastatin 10 mg tablet 10 mg PO HS 10/09/22 10/31/22 History diclofenac sodium 1 % topical gel 4 g EXT QID PRN shoulder pain #100 10/16/22 10/31/22 Rx (Voltaren Arthritis Pain) grams amlodipine 5 mg tablet 5 mg PO QAM #90 tabs 10/24/22 10/31/22 Rx lactulose 20 gram/30 mL oral 20 g (30 mL) PO TID #3,000 mL 10/24/22 10/31/22 Rx solution trazodone 50 mg tablet 25 mg PO HS 10/31/22 10/31/22 History Past Med/Surg History Medical History Atrial fibrillation Back pain Chronic kidney disease Chronic leukopenia Past evaluation by Hematology with negative work up. No changes with CBC over time. Diabetes mellitus, type II Diverticulosis of colon (12/06/12) GIB (gastrointestinal bleeding) Heart failure with preserved ejection fraction Hepatic encephalopathy History of Mohs micrographic surgery for skin cancer History of rectal cancer s/p surgical resection (1999). Previously monitored by periodic colonoscopy (08/12 unremarkable w/ 3-5 year follow up) Hyperlipidemia Hypertension Insomnia Olecranon fracture history of open treatment of fracture of the olecranon Portal hypertension Presence of cardiac pacemaker Pulmonary nodules Rectal bleed Second degree AV block Followed by cardiology Splenomegaly Thrombocytopenia Surgical History History of excision of lesion History of partial colectomy Hx of appendectomy Hx of cataract surgery Bilateral Hx of cholecystectomy Hx of colonoscopy Hx of hernia repair Left inguinal hernia Family History Sister Breast cancer Heart disease Hypertension Father , 61yo Myocardial infarction Secondary to electrocution Mother , 51yo Myocardial infarction Cause of injury, MVA Son Aortic aneurysm Had surgical repair Aortic heart valve Brother Hypertension Diabetes Heart disease Dementia CHF (congestive heart failure) Mental health problem Sister Hypertension Daughter Hypertension Asthma COPD (chronic obstructive pulmonary disease) Depression Anxiety Basal cell carcinoma Colonic polyp Denies family history of Ovarian cancer Prostate cancer Lung cancer Social History Smoking Status: Never smoker Second Hand Exposure: No; Do You Dip or Chew Tobacco: No; Tobacco Cessation Education Requested by Patient: No Hx Alcohol Use: No Hx Substance Use: No Preferred Language: [place] Islander Communication Ability: Effective Visual Impairment: Limited Hearing Ability: Normal Architecture Manager Required: No Beliefs That Will Affect Care: None marital status: / Current Living Situation: Alone Current Living Situation Comment: patient lives alone in an apartment, uses elevator instead of stairs. current occupational status: retired How many Children do You have: 2 Other Information That Helps Us Care for You: No Feels Safe at Home: Yes Childhood Exposure to Second-Hand Smoke: No Diet: regular caffeine: No during the past year weight has: remained stable Physical Activity Frequency: Daily Physical Activity Frequency Comment: walking Seatbelt Use: always Sunscreen Use: Yes Do you think of yourself as: straight/heterosexual Assistive Devices: None Review of Systems Review of Systems: Constitutional-no fever or chills ENT-no blurred vision, no double vision, Respiratory- no shortness of breath noted with exertion. No wheezing Cardiac-no palpitations, no chest pain GI-patient presents with loose stools abdominal pain and GI bleed -no urinary retention, no urinary incontinence, Musculoskeletal-no joint pain, no muscle tenderness Skin-no bruising, no rashes, no pruritus Neuro-no isolated weakness, no paresthesia, Physical Exam Physical Exam: Head and ENT no thyroid enlargement trachea midline Cardiovascular S1-S2 are normal no S3 Lungs bilateral air entry fair no wheezing Abdomen soft nondistended positive bowel sounds no rebound tenderness Stool guaiac positive confirmed in ED Extremity shows trace edema Neurologically no focal deficits no asterixis Skin shows no rash no cyanosis Results & Data Results & Data Vital Signs (Past 12 Hours) Vital Signs Temp Pulse Pulse Resp BP BP Pulse Ox 11/01/22 04:37 60 11/01/22 04:08 36.8 C 70 14 118/74 100 11/01/22 03:00 62 20 99 11/01/22 03:00 92/48 L 11/01/22 02:30 65 22 95 11/01/22 02:30 99/58 L 11/01/22 02:01 104/54 L 11/01/22 02:01 65 20 98 11/01/22 02:00 66 18 98 11/01/22 01:30 63 17 93 11/01/22 01:30 90/53 L 11/01/22 01:14 72 17 97 11/01/22 00:30 66 24 99 11/01/22 00:30 116/58 L 11/01/22 00:00 69 19 99 11/01/22 00:00 114/66 10/31/22 23:30 66 17 99 10/31/22 23:30 112/59 L 10/31/22 23:00 75 30 H 10/31/22 23:00 130/67 10/31/22 22:58 79 26 H 99 10/31/22 23:00 79 10/31/22 23:02 70 16 130/67 99 10/31/22 22:49 36.4 C L 124/65 O2 Del Method 11/01/22 04:37 11/01/22 04:08 Room Air 11/01/22 03:00 11/01/22 03:00 11/01/22 02:30 11/01/22 02:30 11/01/22 02:01 11/01/22 02:01 11/01/22 02:00 11/01/22 01:30 11/01/22 01:30 11/01/22 01:14 11/01/22 00:30 11/01/22 00:30 11/01/22 00:00 11/01/22 00:00 10/31/22 23:30 10/31/22 23:30 10/31/22 23:00 10/31/22 23:00 10/31/22 22:58 10/31/22 23:00 10/31/22 23:02 Room Air 10/31/22 22:49 Laboratory Results Short CBC 10/31/22 Range/Units 23:04 WBC 2.29 L (4.8-10.8) K/ul Hgb 9.4 L (14.0-18.0) g/dl Hct 28.8 L (42.0-52.0) % Plt Count 59 L (130-400) K/uL BMP 10/31/22 23:04 Sodium 139 Potassium 3.8 Chloride 110 H Carbon Dioxide 22 BUN 32 H Creatinine 1.34 Glucose 101 H Calcium 8.6 Liver Function 10/31/22 Range/Units 23:04 Total Bilirubin 1.2 H (0.2-1.0) mg/dl AST 46 H (13-39) U/L ALT 35 (7-52) U/L Alkaline Phosphatase 114 H (34-104) U/L Albumin 3.4 (3.4-5.0) gm/dl Urine 10/31/22 Range/Units 23:04 Urine Color Yellow Urine Appearance Clear (Clear) Urine pH 5.5 (4.5-7.5) Ur Specific [place] 1.019 (1.000-1.030) Urine Protein Negative (Negative) Urine Glucose (UA) Negative (Negative) Diagnostic Findings Abdomen/Pelvis CT 11/01/22 00:11 Exam(s): CT ABDOMEN + PELVIS With Contrast IV Amt: 90ml OPTIRAY 320 EXAM: CT Abdomen and Pelvis With Intravenous Contrast CLINICAL HISTORY: Reason for exam: abd pain, GI bleed. TECHNIQUE: Axial computed tomography images of the abdomen and pelvis with intravenous contrast. CTDI is 23.6 mGy and DLP is 1147.47 mGy-cm. Automated exposure control was utilized for the study. A dose lowering technique was utilized adhering to the principles of ALARA. CONTRAST: Patient received 90ml OPTIRAY 320 of IV contrast COMPARISON: October 09, 2022 FINDINGS: Lung bases: Unremarkable. No mass. No consolidation. ABDOMEN: Liver: Nodular liver surface consistent with cirrhosis. There is splenomegaly measuring 15 cm. Esophageal varices are present. No acute hemorrhage is seen. Gallbladder and bile ducts: Unremarkable. No calcified stones. No ductal dilation. Pancreas: Unremarkable. No mass. No ductal dilation. Spleen: See above. Adrenals: Unremarkable. No mass. Kidneys and ureters: Unremarkable. No solid mass. No hydronephrosis. Stomach and bowel: Unremarkable. No obstruction. No mucosal thickening. PELVIS: Appendix: Staple line adjacent to the cecum. The appendix is not visible. Bowel loops are nondilated. There is a previous small bowel anastomosis. No acute inflammatory changes are seen involving the bowel. Bladder: Unremarkable. No mass. Reproductive: Unremarkable as visualized. ABDOMEN and PELVIS: Intraperitoneal space: Unremarkable. No free air. No significant fluid collection. Bones/joints: Mild multilevel degenerative changes throughout the spine. No acute fracture or subluxation is seen. Soft tissues: Unremarkable. Vasculature: The portal vein is patent and within normal limits in diameter measuring 14 mm. The abdominal aorta is mildly calcified but nondilated. There is no aneurysm or dissection. Lymph nodes: Unremarkable. No enlarged lymph nodes. Tubes, lines and devices: Pacing device in place with severe coronary calcification. IMPRESSION: 1. Nodular liver surface consistent with cirrhosis. There is splenomegaly measuring 15 cm. Esophageal varices are present. No acute hemorrhage is seen. 2. Staple line adjacent to the cecum. The appendix is not visible. Bowel loops are nondilated. There is a previous small bowel anastomosis. No acute inflammatory changes are seen involving the bowel. No free fluid. Electronically signed by: Blaine Guardado MD 11/01/22 01:40 AM Code Status & VTE Plan VTE Prophylaxis Plan VTE Prophylaxis will be ordered: Yes PG Care Time/CCT Total # of Minutes Spent Total Time Spent with Patient: Total time spent is greater than 50% in coordination of care (as documented) at patient's floor/unit and/or counseling patient: Coding Level of Care Code 20211 INT INP/OBS CARE 2/55MIN Diagnoses Acute GI bleeding K92.2 Abdominal pain R10.9 Pancytopenia D61.818 Cirrhosis K74.60 Hypertension I10 Diabetes mellitus, type II E11.9 PAF (paroxysmal atrial fibrillation) I48.0 Liver mass R16.0
--- NOTE | 2022-11-01 06:48 | Hospitalist Progress Note ---
Date of Service November 01, 2022 Assessment & Plan (1) Abdominal pain: (2) Acute GI bleeding: (3) Pancytopenia: (4) Pancytopenia: (5) Cirrhosis: (6) Heart failure with preserved ejection fraction: (7) Hypertension: (8) PAF (paroxysmal atrial fibrillation): (9) Chronic kidney disease: (10) Diabetes mellitus, type II: Plan Polo Mancia is a 82 year old male with past medical history of T2DM, HTN, Paroxysmal A fib, HFpEF, and is currently receiving treatment for liver cancer and MANLEY. He presented to the ED due to abdominal pain and several bloody, loose bowel movements. Mr. Mancia was recently admitted to [facility] from 10/09-10/16/22 for norovirus and hepatic encephalopathy- he was discharged on Rifaximin but this was not covered by insurance so he was started on lactulose while at home and took his first dose several hours before his symptoms started yesterday. GI Bleed -Abdominal pain and loose, bloody bowel movements starting on evening of 10/31. Bleeding resolved, some additional episodes of diarrhea. -Recent admission for norovirus and hepatic encephalopathy, was started on lactulose -Hgb 9.4 on admission. Repeat Hgb this a.m. 8.4. BP normotensive and HR 60s-70s -Repeat Hgb 8.1, vitals remain stable -Repeat CBC in a.m. -Hx of rectal bleed with hemorrhoids -Started on Protonix 40 IV BID -GI consulted, appreciate recommendations -D/c lactulose, will resume Rifaximin -No current indication for scope while admitted -Can restart diet, if tolerating PO can d/c IVF Cirrhosis, Recent History of Hepatic Encephalopathy -Ammonia WNL -No current symptoms of encephalopathy -Due for repeat AFP testing and should follow up with GI clinic upon discharge Pancytopenia -WBC of 1.27 along with low platelets of 38 and anemia -Determined secondary to underlying cirrhosis -Low cell lines are chronic -Recent TSH, B12, and folate levels WNL Hypertension -Normotensive -Continue home Lisinopril, Amlodipine, Spironolactone Paroxysmal Atrial Fibrillation -History of bleed on Eliquis. No current anticoagulation. -Monitor on telemetry Diabetes Mellitus- Type 2 -A1C 5.8% -On no medications at home -No sliding scale insulin ordered at this time Diet: VTE Prophylaxis: Dispo: PCU Code Status: Full Code Admission and Anticipated Discharge Date Admission Date: November 01, 2022 Supervising Physician Co-Signing Physician Notes Resident Physician Supervision Note: I independently interviewed and examined the patient and verified the hauser history and physical, reviewed labs and image studies and agree with resident findings and care plan. Subjective Polo Mancia is a 82 year old male with past medical history of T2DM, HTN, Paroxysmal A fib, HFpEF, and is currently receiving treatment for liver cancer and MANLEY. He has a history of rectal cancer and a prior rectal bleed while on Eliquis. He presented to the ED due to abdominal pain and several bloody, loose bowel movements. Mr. Mancia was recently admitted to [facility] from 10/09-10/16/22 for norovirus and hepatic encephalopathy- he was discharged on Rifaximin but this was not covered by insurance so he was started on lactulose while at home and took his first dose several hours before his symptoms started yesterday. 11/01: Patient seen and examined at bedside. He notes that his abdomen feels less bloated this morning but has still had some diarrhea- although has not noticed any more blood in his BM. Denies dizziness/weakness/chest pain/shortness of breath. Review of Systems Review of Systems: As per above Physical Exam Constitutional: WD/WN, vitals as above Eyes: Ptosis of right eye. ENMT: External ears and nose normal. Moist mucous membranes. Neck: trachea midline, no thyromegaly Respiratory: normal respiratory effort, lungs clear to auscultation Cardiovascular: Rate/Rhythm: regular rate and regular rhythm Extremities: normal capillary refill; no edema Gastrointestinal (Abdomen): Inspection/Auscultation: normal bowel sounds; abdomen not distended Percussion/Palpation: abdomen soft; abdomen nontender Skin: no rashes, warm and dry Neurologic: moves all extremities and awake; no focal motor deficits Psychiatric: A+Ox3, euthymic affect Results & Data Results & Data Vital Signs (Past 12 Hours) Vital Signs Temp Pulse Pulse Resp BP BP Pulse Ox 11/01/22 04:37 60 11/01/22 04:08 36.8 C 70 14 118/74 100 11/01/22 03:00 62 20 99 11/01/22 03:00 92/48 L 11/01/22 02:30 65 22 95 11/01/22 02:30 99/58 L 11/01/22 02:01 104/54 L 11/01/22 02:01 65 20 98 11/01/22 02:00 66 18 98 11/01/22 01:30 63 17 93 11/01/22 01:30 90/53 L 11/01/22 01:14 72 17 97 11/01/22 00:30 66 24 99 11/01/22 00:30 116/58 L 11/01/22 00:00 69 19 99 11/01/22 00:00 114/66 10/31/22 23:30 66 17 99 10/31/22 23:30 112/59 L 10/31/22 23:00 75 30 H 10/31/22 23:00 130/67 10/31/22 22:58 79 26 H 99 10/31/22 23:00 79 10/31/22 23:02 70 16 130/67 99 10/31/22 22:49 36.4 C L 124/65 O2 Del Method 11/01/22 04:37 11/01/22 04:08 Room Air 11/01/22 03:00 11/01/22 03:00 11/01/22 02:30 11/01/22 02:30 11/01/22 02:01 11/01/22 02:01 11/01/22 02:00 11/01/22 01:30 11/01/22 01:30 11/01/22 01:14 11/01/22 00:30 11/01/22 00:30 11/01/22 00:00 11/01/22 00:00 10/31/22 23:30 10/31/22 23:30 10/31/22 23:00 10/31/22 23:00 10/31/22 22:58 10/31/22 23:00 10/31/22 23:02 Room Air 10/31/22 22:49 Resident Activity Tracking Resident Involvement: Resident Care Provided Care Provided: Adult Hospital Medicine
[2022-11-01 08:14] LABS: Hematocrit (blood only) 25.5 % (42.0-52.0); Hemoglobin 8.4 g/dl (14.0-18.0); Mean Corpuscular Hemoglobin 33.3 pg (25.0-34.0); Mean Corpuscular Hgb Conc 32.9 g/dL (32.0-36.0); Mean Corpuscular Volume 101.2 fL (80.0-100.0); Mean Platelet Volume 10.6 fL (9.4-12.4); Platelet Count 38 K/uL (130-400); RDW Coefficient of Variation 13.3 % (11.5-14.5); RDW Standard Deviation 50.4 fL (36.4-46.3); Red Blood Count 2.52 M/uL (4.70-6.10); White Blood Count 1.27 K/ul (4.8-10.8)
[2022-11-01 08:31] LABS: Albumin Globulin Ratio 0.9 (0.9-2); Albumin Level 2.9 gm/dl (3.4-5.0); BUN Creatinine Ratio 22.3 (10-20); Bilirubin Direct 0.3 mg/dl (0-0.2); Calcium 8.3 mg/dl (8.6-10.3); Est GFR (African American) 64.2 ml/min; Est GFR (Non-African American) 55.4 ml/min; Globulin 3.2 gm/dl (2.5-4.0); Potassium 4.2 mmol/L (3.5-5.1); Total Protein 6.1 gm/dl (6.0-8.3)
--- NOTE | 2022-11-01 08:40 | Electrocardiogram Report ---
Test Reason : Blood Pressure : / mmHG Vent. Rate : 068 BPM Atrial Rate : 068 BPM P-R Int : 208 ms QRS Dur : 152 ms QT Int : 460 ms P-R-T Axes : 000 220 011 degrees QTc Int : 489 ms AV dual-paced rhythm Abnormal ECG When compared with ECG of 09-OCT-2022 11:18, Vent. rate has decreased BY 3 BPM Confirmed by Eugene Burks ([id number]) on 11/01/2022 8:40:23 AM Referred By: REFERRED SELF Confirmed By:Eugene Burks
[2022-11-01] MEDS ORDERED: LACTULOSE SYRUP 20 GM/30 ML UDC PO SCH (09:00)
[2022-11-01] MEDS: PANTOprazole 40 MG in SYRINGE 0 ML IV SCH ×2 (09:07→19:44)
[2022-11-01] MEDS: amLODIPine BESYLATE 5 MG TAB PO SCH (09:08)
[2022-11-01] MEDS: TAMSULOSIN HCL 0.4 MG CAP PO SCH (09:09)
[2022-11-01] MEDS: CHOLECALCIFEROL 1,000 UNITS 25 MCG TAB PO SCH (09:09)
[2022-11-01] MEDS: lisinopril 40 MG TAB PO SCH (09:09)
[2022-11-01] MEDS: SPIRONOLACTONE 25 MG TAB PO SCH (09:09)
[2022-11-01 09:11] LABS: Estimated Average Glucose 120 mg/dl; Hemoglobin A1C 5.8 % (4.5-5.6)
[2022-11-01 09:31] LABS: Basophils # (auto) 0.01 K/uL (0-0.2); Basophils % (auto) 0.8 %; Eosinophils # (auto) 0.03 K/uL (0-0.50); Eosinophils % (auto) 2.4 %; Lymphocytes # (auto) 0.25 K/uL (1.2-3.4); Lymphocytes % (auto) 19.7 %; Monocytes # (auto) 0.17 K/uL (0.11-0.59); Monocytes % (auto) 13.4 %; Neutrophils % (auto) 63.7 %
--- NOTE | 2022-11-01 10:00 | Gastrointestinal Consultation ---
Supervising physicians note Case discussed with Preethi Alexander NP, reviewed records and met with patient. See Preethi Alexander's note for full details. Pleasant man with HCCA admitted with abdominal pain and diarrhea after starting lactulose in place of rifaximin for encephalopathy. The rifaximin was too expensive. On my visit his pain and diarrhea is gone and he is feeling well. There is a mention of rectal bleeding and he does have a history of rectal cancer. He needs to maintain rifaximin since he cannot tolerate lactulose. Will discuss colonoscopy as an outpatient but I question the appropriateness of it with his other problems Pratibha Infante Jr, MD, FAC Date of Consultation November 01, 2022 Assessment & Plan (1) Abdominal pain: Abdominal pain: Patient presented to the emergency department with acute abdominal pain and loose stools worsened by use of lactulose. Rifaximin was initiated at last inpatient admission due to hepatic encephalopathy. Due to high [id number] cost, rifaximin was changed to lactulose which the patient poorly tolerated. He was prescribed 20 g po 3 times daily. If reinitiated would start lower dose and titrate dose to have 3-5 bowel movements daily.. Patient declines further use of lactulose. Would recommend continuation of rifaximin 550 mg p.o. twice daily. He is currently NPO. He was experiencing some abdominal discomfort with palpation this morning and continued loose stools. Would consider slowly advance diet as tolerated starting with clears. Acute GI bleeding: Patient with the recent norovirus infection 10/09/2022. Nursing reports positive fecal occult blood although I do not see this in laboratory records. Patient does have history of rectal carcinoma. Most recent colonoscopy normal 09/2020 and flexible sigmoidoscopy 10/2020 with moderate bleeding from hemorrhoids. No indication for repeat colonoscopy while inpatient at this time. Will discuss with outpatient although family does report that patient is unlikely to agree to repeat colonoscopy. Liver carcinoma: Patient diagnosed with hepatocellular carcinoma 03/2022 and has completed SBRT of the liver lesion. Repeat imaging 08/2022 demonstrates increase in size in the lesion receiving radiation. 2 additional hypervascular foci identified within the right hepatic lobe. Most recent AFP testing 05/2022. He is due to have repeat. We will follow this up as outpatient. Cirrhosis: Patient does have known history of cirrhosis likely secondary to JARRETT. Has not followed with GI clinic in 2 years. Recommend continuing rifaximin due to history of hepatic encephalopathy and we will follow-up with patient in outpatient clinic Case reviewed with Dr. Infante. Please refer to supervising physician addendum for further recommendations. I have spent 50 minutes of discrete time performing the activities of this visit which include but are not limited to review of the medical record, obtaining a history, physical exam, and entering information in the electronic record. 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 Recent admission for hepatic encephalopathy associated with norovirus. Had started rifaximin during last admission was changed to lactulose as outpatient due to cost prohibitive nature of rifaximin. GI service was consulted due to to history of cirrhosis. The patient has not been seen since 11/2020 by the GI clinic. At that time finding of cirrhosis with history of rectal carcinoma status post resection with loop ileostomy and reversal of ileostomy. The patient reports his cirrhosis has been managed by his primary care physician. Ultrasound of the liver was obtained 01/2022 which demonstrated concern for hepatic mass. MRI of the liver demonstrated enhancing lesion in the inferior aspect of segment 5 of the liver with AFP of over 23,000. Patient completed SBRT to liver lesion. He reports that he was admitted to the hospital due to abdominal pain and loose stools. He does not ever want to be given lactulose again. Denies any current abdominal pain. Denies nausea or vomiting. He continues to have loose stools. Denies fever, chills, night sweats. He lives alone in the [facility] [address]. He is a . His daughter and son are his healthcare power of [employer] transactions attorney's. He gave permission for me to call his daughter. I did call and speak to his daughter who reports that she feels that her father is depressed but that he always denies this when talking to healthcare provider. She reports he has not been eating or drinking well at home. She reports that they have gotten rifaximin filled but that it is a high [id number] cost for the patient. She also reports that he does not want further intervention done. He does have positive fecal occult blood testing at the hospital. Most recent colonoscopy 09/2020 which demonstrated hemorrhoids. With flexible sigmoidoscopy 10/2020 which demonstrated rectal stricture moderate bleeding from hemorrhoids. Allergies Allergy/AdvReac Type Severity Reaction Status Date / Time metoprolol Allergy Intermediate NONTOLERATED, Verified 10/31/22 23:32 DIZZINESS sertraline Allergy Intermediate "NUMBNESS Verified 10/31/22 23:32 IN MY FACE" apixaban [From Eliquis] AdvReac Intermediate rectal Verified 10/31/22 23:32 bleeding Home Medications Medication Instructions Recorded Confirmed Type cholecalciferol (vitamin D3) 25 25 mcg PO QAM 11/02/20 10/31/22 History mcg (1,000 unit) capsule tamsulosin 0.4 mg capsule 0.4 mg PO QAM #90 caps 03/14/22 10/31/22 Rx lisinopril 40 mg tablet 40 mg PO QAM #90 tabs 06/12/22 10/31/22 Rx mirtazapine 15 mg tablet 15 mg PO HS #30 tabs 08/06/22 10/31/22 Rx spironolactone 25 mg tablet 25 mg PO QAM #90 tabs 08/06/22 10/31/22 Rx atorvastatin 10 mg tablet 10 mg PO HS 10/09/22 10/31/22 History diclofenac sodium 1 % topical gel 4 g EXT QID PRN shoulder pain #100 10/16/22 10/31/22 Rx (Voltaren Arthritis Pain) grams amlodipine 5 mg tablet 5 mg PO QAM #90 tabs 10/24/22 10/31/22 Rx lactulose 20 gram/30 mL oral 20 g (30 mL) PO TID #3,000 mL 10/24/22 10/31/22 Rx solution trazodone 50 mg tablet 25 mg PO HS 10/31/22 10/31/22 History Patient History Medical History Atrial fibrillation Back pain Chronic kidney disease Chronic leukopenia Past evaluation by Hematology with negative work up. No changes with CBC over time. Diabetes mellitus, type II Diverticulosis of colon (12/06/12) GIB (gastrointestinal bleeding) Heart failure with preserved ejection fraction Hepatic encephalopathy History of Mohs micrographic surgery for skin cancer History of rectal cancer s/p surgical resection (1999). Previously monitored by periodic colonoscopy (08/12 unremarkable w/ 3-5 year follow up) Hyperlipidemia Hypertension Insomnia Olecranon fracture history of open treatment of fracture of the olecranon Portal hypertension Presence of cardiac pacemaker Pulmonary nodules Rectal bleed Second degree AV block Followed by cardiology Splenomegaly Thrombocytopenia Surgical History History of excision of lesion History of partial colectomy Hx of appendectomy Hx of cataract surgery Bilateral Hx of cholecystectomy Hx of colonoscopy Hx of hernia repair Left inguinal hernia Family History Sister Breast cancer Heart disease Hypertension Father , 61yo Myocardial infarction Secondary to electrocution Mother , 51yo Myocardial infarction Cause of injury, MVA Son Aortic aneurysm Had surgical repair Aortic heart valve Brother Hypertension Diabetes Heart disease Dementia CHF (congestive heart failure) Mental health problem Sister Hypertension Daughter Hypertension Asthma COPD (chronic obstructive pulmonary disease) Depression Anxiety Basal cell carcinoma Colonic polyp Denies family history of Ovarian cancer Prostate cancer Lung cancer Social History Smoking Status: Never smoker Second Hand Exposure: No; Do You Dip or Chew Tobacco: No; Tobacco Cessation Education Requested by Patient: No Hx Alcohol Use: No Hx Substance Use: No Preferred Language: Malaysian Communication Ability: Effective Visual Impairment: Limited Hearing Ability: Normal Rubber Process Hand Required: No Beliefs That Will Affect Care: None marital status: / Current Living Situation: Alone Current Living Situation Comment: patient lives alone in an apartment, uses elevator instead of stairs. current occupational status: retired How many Children do You have: 2 Other Information That Helps Us Care for You: No Feels Safe at Home: Yes Childhood Exposure to Second-Hand Smoke: No Diet: regular caffeine: No during the past year weight has: remained stable Physical Activity Frequency: Daily Physical Activity Frequency Comment: walking Seatbelt Use: always Sunscreen Use: Yes Do you think of yourself as: straight/heterosexual Assistive Devices: None Review of Systems Review of Systems: All systems reviewed & are unremarkable except as noted in Subjective Physical Exam Respiratory: normal respiratory effort; no respiratory distress and no labored breathing Cardiovascular: Extremities: + edema (BLE +1) Gastrointestinal (Abdomen): Inspection/Auscultation: abdomen normal to inspection; abdomen not distended and + abnormal bowel sounds Percussion/Palpation: + abdomen tender (rlq) and abdomen soft; no guarding and abdomen not rigid Results & Data Vital Signs (Past 12 Hours) Vital Signs Temp Pulse Pulse Resp BP BP Pulse Ox 11/01/22 07:09 36.7 C 66 20 115/70 98 11/01/22 04:37 60 11/01/22 04:08 36.8 C 70 14 118/74 100 11/01/22 03:00 62 20 99 11/01/22 03:00 92/48 L 11/01/22 02:30 65 22 95 11/01/22 02:30 99/58 L 11/01/22 02:01 104/54 L 11/01/22 02:01 65 20 98 11/01/22 02:00 66 18 98 11/01/22 01:30 63 17 93 11/01/22 01:30 90/53 L 11/01/22 01:14 72 17 97 11/01/22 00:30 66 24 99 11/01/22 00:30 116/58 L 11/01/22 00:00 69 19 99 11/01/22 00:00 114/66 10/31/22 23:30 66 17 99 10/31/22 23:30 112/59 L 10/31/22 23:00 75 30 H 10/31/22 23:00 130/67 10/31/22 22:58 79 26 H 99 10/31/22 23:00 79 10/31/22 23:02 70 16 130/67 99 10/31/22 22:49 36.4 C L 124/65 O2 Del Method 11/01/22 07:09 Room Air 11/01/22 04:37 11/01/22 04:08 Room Air 11/01/22 03:00 11/01/22 03:00 11/01/22 02:30 11/01/22 02:30 11/01/22 02:01 11/01/22 02:01 11/01/22 02:00 11/01/22 01:30 11/01/22 01:30 11/01/22 01:14 11/01/22 00:30 11/01/22 00:30 11/01/22 00:00 11/01/22 00:00 10/31/22 23:30 10/31/22 23:30 10/31/22 23:00 10/31/22 23:00 10/31/22 22:58 10/31/22 23:00 10/31/22 23:02 Room Air 10/31/22 22:49 Laboratory Results Laboratory Results - last 24 hr 10/31/22 10/31/22 10/31/22 23:04 23:04 23:04 WBC 2.29 L RBC 2.81 L Hgb 9.4 L Hct 28.8 L MCV 102.5 H MCH 33.5 MCHC 32.6 RDW Std Deviation 50.4 H RDW Coeff of Ro 13.4 Plt Count 59 L MPV 11.4 Immature Gran % (Auto) 0.4 Neut % (Auto) 70.8 Lymph % (Auto) 15.3 Long % (Auto) 10.5 Eos % (Auto) 2.6 Baso % (Auto) 0.4 Neut # (Auto) 1.62 Lymph # (Auto) 0.35 L Long # (Auto) 0.24 Eos # (Auto) 0.06 Baso # (Auto) 0.01 Immature Gran # (Auto) 0.01 PT 13.2 H INR 1.2 H Sodium 139 Potassium 3.8 Chloride 110 H Carbon Dioxide 22 Anion Gap 7 BUN 32 H Creatinine 1.34 Est Cr Clr Drug Dosing Not Reportable Est GFR ( Amer) 56.8 Est GFR (Non-Af Amer) 49.0 BUN/Creatinine Ratio 23.9 H Glucose 101 H Estimat Average Glucose Hemoglobin A1c Calcium 8.6 Magnesium 2.1 Total Bilirubin 1.2 H Direct Bilirubin AST 46 H ALT 35 Alkaline Phosphatase 114 H Ammonia Total Protein 7.3 Albumin 3.4 Globulin 3.9 Albumin/Globulin Ratio 0.9 Urine Color Urine Appearance Urine pH Ur Specific [place] Urine Protein Urine Glucose (UA) Urine Ketones Urine Blood Urine Nitrite Urine Bilirubin Urine Urobilinogen Ur Leukocyte Esterase SARS-CoV-2, RNA, NAAT 10/31/22 10/31/22 11/01/22 23:04 23:04 07:58 WBC 1.27 L RBC 2.52 L Hgb 8.4 L Hct 25.5 L MCV 101.2 H MCH 33.3 MCHC 32.9 RDW Std Deviation 50.4 H RDW Coeff of Ro 13.3 Plt Count 38 L MPV 10.6 Immature Gran % (Auto) 0.0 Neut % (Auto) 63.7 Lymph % (Auto) 19.7 Long % (Auto) 13.4 Eos % (Auto) 2.4 Baso % (Auto) 0.8 Neut # (Auto) 0.81 L* Lymph # (Auto) 0.25 L Long # (Auto) 0.17 Eos # (Auto) 0.03 Baso # (Auto) 0.01 Immature Gran # (Auto) 0.00 L PT INR Sodium Potassium Chloride Carbon Dioxide Anion Gap BUN Creatinine Est Cr Clr Drug Dosing Est GFR ( Amer) Est GFR (Non-Af Amer) BUN/Creatinine Ratio Glucose Estimat Average Glucose Hemoglobin A1c Calcium Magnesium Total Bilirubin Direct Bilirubin AST ALT Alkaline Phosphatase Ammonia Total Protein Albumin Globulin Albumin/Globulin Ratio Urine Color Yellow Urine Appearance Clear Urine pH 5.5 Ur Specific [place] 1.019 Urine Protein Negative Urine Glucose (UA) Negative Urine Ketones Trace H Urine Blood Negative Urine Nitrite Negative Urine Bilirubin Negative Urine Urobilinogen Negative Ur Leukocyte Esterase Negative SARS-CoV-2, RNA, NAAT NEGATIVE 11/01/22 11/01/22 11/01/22 07:58 07:58 07:58 WBC RBC Hgb Hct MCV MCH MCHC RDW Std Deviation RDW Coeff of Ro Plt Count MPV Immature Gran % (Auto) Neut % (Auto) Lymph % (Auto) Long % (Auto) Eos % (Auto) Baso % (Auto) Neut # (Auto) Lymph # (Auto) Long # (Auto) Eos # (Auto) Baso # (Auto) Immature Gran # (Auto) PT INR Sodium 139 Potassium 4.2 Chloride 113 H Carbon Dioxide 22 Anion Gap 4 BUN 27 H Creatinine 1.21 Est Cr Clr Drug Dosing 44.0 Est GFR ( Amer) 64.2 Est GFR (Non-Af Amer) 55.4 BUN/Creatinine Ratio 22.3 H Glucose 83 Estimat Average Glucose 120 Hemoglobin A1c 5.8 H Calcium 8.3 L Magnesium Total Bilirubin 1.0 Direct Bilirubin 0.3 H AST 36 ALT 29 Alkaline Phosphatase 91 Ammonia 37.0 Total Protein 6.1 Albumin 2.9 L Globulin 3.2 Albumin/Globulin Ratio 0.9 Urine Color Urine Appearance Urine pH Ur Specific [place] Urine Protein Urine Glucose (UA) Urine Ketones Urine Blood Urine Nitrite Urine Bilirubin Urine Urobilinogen Ur Leukocyte Esterase SARS-CoV-2, RNA, NAAT Diagnostic Findings Abdomen/Pelvis CT 11/01/22 00:11 Exam(s): CT ABDOMEN + PELVIS With Contrast IV Amt: 90ml OPTIRAY 320 EXAM: CT Abdomen and Pelvis With Intravenous Contrast CLINICAL HISTORY: Reason for exam: abd pain, GI bleed. TECHNIQUE: Axial computed tomography images of the abdomen and pelvis with intravenous contrast. CTDI is 23.6 mGy and DLP is 1147.47 mGy-cm. Automated exposure control was utilized for the study. A dose lowering technique was utilized adhering to the principles of ALARA. CONTRAST: Patient received 90ml OPTIRAY 320 of IV contrast COMPARISON: October 09, 2022 FINDINGS: Lung bases: Unremarkable. No mass. No consolidation. ABDOMEN: Liver: Nodular liver surface consistent with cirrhosis. There is splenomegaly measuring 15 cm. Esophageal varices are present. No acute hemorrhage is seen. Gallbladder and bile ducts: Unremarkable. No calcified stones. No ductal dilation. Pancreas: Unremarkable. No mass. No ductal dilation. Spleen: See above. Adrenals: Unremarkable. No mass. Kidneys and ureters: Unremarkable. No solid mass. No hydronephrosis. Stomach and bowel: Unremarkable. No obstruction. No mucosal thickening. PELVIS: Appendix: Staple line adjacent to the cecum. The appendix is not visible. Bowel loops are nondilated. There is a previous small bowel anastomosis. No acute inflammatory changes are seen involving the bowel. Bladder: Unremarkable. No mass. Reproductive: Unremarkable as visualized. ABDOMEN and PELVIS: Intraperitoneal space: Unremarkable. No free air. No significant fluid collection. Bones/joints: Mild multilevel degenerative changes throughout the spine. No acute fracture or subluxation is seen. Soft tissues: Unremarkable. Vasculature: The portal vein is patent and within normal limits in diameter measuring 14 mm. The abdominal aorta is mildly calcified but nondilated. There is no aneurysm or dissection. Lymph nodes: Unremarkable. No enlarged lymph nodes. Tubes, lines and devices: Pacing device in place with severe coronary calcification. IMPRESSION: 1. Nodular liver surface consistent with cirrhosis. There is splenomegaly measuring 15 cm. Esophageal varices are present. No acute hemorrhage is seen. 2. Staple line adjacent to the cecum. The appendix is not visible. Bowel loops are nondilated. There is a previous small bowel anastomosis. No acute inflammatory changes are seen involving the bowel. No free fluid. Electronically signed by: Blaine Guardado MD 11/01/22 01:40 AM
[2022-11-01] MEDS: SODIUM CHLORIDE 0.9% 1000ML 1,000 ML IV SCH ×2 (13:03→23:10)
[2022-11-01 14:10] LABS: Hematocrit (blood only) 24.8 % (42.0-52.0); Hemoglobin 8.1 g/dl (14.0-18.0)
[2022-11-01] MEDS: rifAXIMin 550 MG TABLET PO SCH (20:42)
[2022-11-01] MEDS ORDERED: MIRTAZAPINE TAB 15 MG TAB PO SCH (21:00)
[2022-11-01] MEDS ORDERED: ATORVASTATIN 10 MG TAB PO SCH (21:00)
[2022-11-01] MEDS ORDERED: traZODone HCL 50 MG TAB PO SCH (21:00)
[2022-11-02 04:43] LABS: Hematocrit (blood only) 24.4 % (42.0-52.0); Mean Corpuscular Hemoglobin 33.1 pg (25.0-34.0); Mean Corpuscular Hgb Conc 32.8 g/dL (32.0-36.0); Mean Corpuscular Volume 100.8 fL (80.0-100.0); Mean Platelet Volume 11.1 fL (9.4-12.4); Platelet Count 40 K/uL (130-400); RDW Coefficient of Variation 13.2 % (11.5-14.5); RDW Standard Deviation 49.4 fL (36.4-46.3); Red Blood Count 2.42 M/uL (4.70-6.10); White Blood Count 1.47 K/ul (4.8-10.8)
[2022-11-02 05:01] LABS: Albumin Globulin Ratio 0.8 (0.9-2); Albumin Level 2.6 gm/dl (3.4-5.0); Calcium 7.6 mg/dl (8.6-10.3); Creatinine Clr Calc Pharmacy 36.2 ml/min; Est GFR (African American) 50.8 ml/min; Est GFR (Non-African American) 43.8 ml/min; Globulin 3.1 gm/dl (2.5-4.0); Total Protein 5.7 gm/dl (6.0-8.3)
[2022-11-02 05:48] LABS: Eosinophils # (auto) 0.03 K/uL (0-0.50); Immature Granulocytes # (auto) 0.01 K/uL (0.01-0.20); Immature Granulocytes % (auto) 0.7 %; Lymphocytes # (auto) 0.28 K/uL (1.2-3.4); Monocytes # (auto) 0.19 K/uL (0.11-0.59); Monocytes % (auto) 12.9 %; Neutrophils # (auto) 0.96 K/uL (1.40-6.50); Neutrophils % (auto) 65.4 %
--- NOTE | 2022-11-02 09:06 | Gastroenterology Progress Note ---
Date of Service November 02, 2022 Assessment & Plan (1) Abdominal pain: Plan: From a GI standpoint he seems to be back to normal. No further intervention while in hospital. He will follow with Preethi Alexander in the clinic. Will sign off Please call if we can be of further assistance Admission and Anticipated Discharge Date Admission Date: November 01, 2022 Subjective Feeling well. Tolerated regular breakfast. No pain. No bleeding. Still with watery stools Physical Exam Physical Exam: He looks well Results & Data Vital Signs (Past 12 Hours) Vital Signs Temp Pulse Pulse Resp BP BP Pulse Ox 11/02/22 07:26 36.5 C 75 18 111/62 95 11/02/22 02:30 36.5 C 60 20 98/62 L 97 11/01/22 23:54 66 11/01/22 22:48 37.2 C 65 20 98/61 L 99 O2 Del Method 11/02/22 07:26 Room Air 11/02/22 02:30 Room Air 11/01/22 23:54 11/01/22 22:48 Room Air
[2022-11-02] MEDS: amLODIPine BESYLATE 5 MG TAB PO SCH (09:11)
[2022-11-02] MEDS: lisinopril 40 MG TAB PO SCH (09:12)
[2022-11-02] MEDS: CHOLECALCIFEROL 1,000 UNITS 25 MCG TAB PO SCH (09:12)
[2022-11-02] MEDS: TAMSULOSIN HCL 0.4 MG CAP PO SCH (09:13)
[2022-11-02] MEDS: SPIRONOLACTONE 25 MG TAB PO SCH (09:13)
[2022-11-02] MEDS: PANTOprazole 40 MG in SYRINGE 0 ML IV SCH (09:14)
[2022-11-02] MEDS: rifAXIMin 550 MG TABLET PO SCH (09:14)
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
[2022-11-02 10:23] LABS: Neutrophils # (auto) 0.81 K/uL (1.40-6.50)
[2022-11-02] MEDS: SODIUM CHLORIDE 0.9% 1000ML 1,000 ML IV SCH (13:15)
== END 2022-11-02 14:34 | disposition home health service (06) | DRG 378 ==
LOC: ED 22:38 → 4W 11-01 02:26 → SUATTDRO 11-01 02:26 → 4W 11-01 03:32

== ENCOUNTER 2022-12-06 18:03 | Inpatient (IN) ==
[2022-12-06] MEDS ORDERED: rifAXIMin 550 MG TABLET PO ONE (18:59)
--- NOTE | 2022-12-06 19:00 | Emergency Department Note ---
Impression & Plan Anasarca, Decompensated hepatic cirrhosis, Anemia ED Provider Note Provider: Blaine Verde MD DATE OF SERVICE: 12/06/2022 CHIEF COMPLAINT: Swelling, abnormal labs HISTORY OF PRESENT ILLNESS: Patient is a 82-year-old gentleman with a history of hepatic cirrhosis, type 2 diabetes, hypertension, paroxysmal atrial fibrillation, liver cancer and MANLEY presenting here today brought by daughter trish hernandez to increased leg swelling as well as abnormal blood work. Patient evidently over the past 3 weeks or so has had about a 20 pound weight gain. Significant swelling of the legs into the upper arms and abdomen. Shortness of breath on exertion. States today little bit of chest discomfort with exertion walking as well but not at rest. Denies shortness of breath at rest. Reports some ache in his legs from the swelling. Has been following with the outpatient doctors office and doubled spironolactone and added Lasix about a week ago. Had home health visit and blood work reportedly showed some anemia and was referred in today. Denies black or bloody stools. Denies significant abdominal discomfort. At sometimes a little nausea. PAST MEDICAL HISTORY: As noted above MEDICATIONS: Reviewed home medications SOCIAL HISTORY: Lives alone in assisted living PHYSICAL EXAM: GENERAL: alert and oriented in no acute distress on stretcher Head: normocephalic and atraumatic EYES: No injection, discharge or icterus. NECK: Trachea midline. Supple. ENT: Mucous membranes pink and moist. LUNGS: Airway patent. No retractions. Breath sounds clear with slightly diminished lung bases. HEART: Regular rate and rhythm. No chest wall tenderness ABDOMEN: Soft moderately distended and non-tender, without guarding or rebound. SKIN: Acyanotic, warm, dry, without rashes EXTREMITIES: Patient with 2-3+ edema through the thighs bilaterally without erythema or weeping. NEUROLOGICAL: No aphasia. Chronic right facial droop reported. No significant slurred speech. Ambulatory. EK bpm ventricularly paced rhythm without PVC. No clear acute ST segment elevation. Compared to previous from October no longer AV paced CONTINUOUS CARDIAC MONITORING: was ordered and showed a heart rate of 70s-80s b pm in ventricular paced rhythm Patient's laboratory studies and imaging reviewed. Differential includes pneumonia, CHF, cirrhosis, infections, cardiac ischemia, pulmonary embolism, musculoskeletal, gastrointestinal, as well as other pathologies. IMPRESSION/MEDICAL DECISION MAKING: Patient with significant increased leg swelling. Some dyspnea on exertion as well as bit of exertional chest discomfort. Appear significant fluid overloaded. Not hypoxic. No significant new trauma reported. Reportedly to be anemic. Has a history of anemia in the past. Not on full anticoagulants at this time denies a history of transfusion. Type and screen obtained. Has been on increased doses of spironolactone and started Lasix without improvement of swelling. Denies significant abdominal pain at this time and not peritoneal. Doubt SBP or significant acute intra-abdominal pathology. Bilateral nature obvious swelling seem more likely related to cirrhosis than VTE. Not severely confused and states compliance with home rifaximin. Blood count here with some worsened anemia. Stable leukopenia. Renal function not far off baseline 1.69. No evidence of hepatitis with elevated LFTs today. No evidence of pancreatitis. Negative COVID. X-ray not with any severe fluid overload. Did consent the patient in the presence of daughters for blood transfusion at this time given his low count. 1 unit packed red blood cells ordered for give a dose of IV Lasix as well to help with diuresis with this and his general fluid overloaded state. Discussion with them given his significant fluid overload as well as the anemia discussed with the hospitalist for further care here. DIAGNOSIS: Anemia, fluid overload, hepatic cirrhosis DISPOSITION: Hospitalist will evaluate Patient was agreeable with this plan. Critical Care I have personally spent 33 minutes of critical care time in the direct management of this patient. This includes bedside care, interpretation of d iagnostic studies, and testing, discussion with consultants, patient, and family members, and other required patient management activities. These 33 minutes is in excess of all separately billable procedures. Past Med/Surg History Medical History Atrial fibrillation Back pain Chronic kidney disease Chronic leukopenia Diabetes mellitus, type II Diverticulosis of colon (12/06/12) GIB (gastrointestinal bleeding) Heart failure with preserved ejection fraction Hepatic encephalopathy History of Mohs micrographic surgery for skin cancer History of rectal cancer Hyperlipidemia Hypertension Insomnia Olecranon fracture Portal hypertension Presence of cardiac pacemaker Pulmonary nodules Rectal bleed Second degree AV block Splenomegaly Thrombocytopenia Surgical History History of excision of lesion History of partial colectomy Hx of appendectomy Hx of cataract surgery Hx of cholecystectomy Hx of colonoscopy Hx of hernia repair Family History Sister Breast cancer Heart disease Hypertension Father Myocardial infarction Mother Myocardial infarction Cause of injury, MVA Son Aortic aneurysm Brother Hypertension Diabetes Heart disease Dementia CHF (congestive heart failure) Mental health problem Sister Hypertension Daughter Hypertension Asthma COPD (chronic obstructive pulmonary disease) Depression Anxiety Basal cell carcinoma Colonic polyp Denies family history of Ovarian cancer Prostate cancer Lung cancer Social History Smoking Status: Never smoker Second Hand Exposure: No; Do You Dip or Chew Tobacco: No; Hx Alcohol Use: No Hx Substance Use: No Preferred Language: Croatian Communication Ability: Effective Visual Impairment: No Limitations Hearing Ability: Normal Manager Copy Required: No Beliefs That Will Affect Care: None marital status: / Current Living Situation: Alone Current Living Situation Comment: Lives Independently [facility] current occupational status: retired How many Children do You have: 2 Other Information That Helps Us Care for You: No Feels Safe at Home: Yes Safety Concerns: Feels Safe At This Time Childhood Exposure to Second-Hand Smoke: No Diet: regular caffeine: No during the past year weight has: remained stable Physical Activity Frequency: Daily Physical Activity Frequency Comment: walking Seatbelt Use: always Sunscreen Use: Yes Do you think of yourself as: straight/heterosexual Assistive Devices: Walker Allergies Allergies Allergy/AdvReac Type Severity Reaction Status Date / Time metoprolol Allergy Intermediate NONTOLERATED, Verified 12/06/22 20:36 DIZZINESS sertraline Allergy Intermediate "NUMBNESS Verified 12/06/22 20:36 IN MY FACE" apixaban [From Eliquis] AdvReac Intermediate rectal Verified 12/06/22 20:36 bleeding Home Meds Home Medications Medication Instructions Recorded Confirmed cholecalciferol (vitamin D3) 25 25 mcg PO QAM 11/02/20 12/06/22 mcg (1,000 unit) capsule atorvastatin 10 mg tablet 10 mg PO HS 10/09/22 12/06/22 trazodone 50 mg tablet 25 mg PO HS 10/31/22 12/06/22 Previous Rx's Medication Instructions Recorded tamsulosin 0.4 mg capsule 0.4 mg PO QAM #90 caps 03/14/22 lisinopril 40 mg tablet 40 mg PO QAM #90 tabs 06/12/22 amlodipine 5 mg tablet 5 mg PO QAM #90 tabs 10/24/22 rifaximin 550 mg tablet (Xifaxan) 550 mg PO BID #60 tabs 11/14/22 furosemide 20 mg tablet (Lasix) 20 mg PO DAILY #30 tabs 11/28/22 spironolactone 25 mg tablet 50 mg PO QAM #60 tabs 11/28/22 Results & Data (ED) Vital Signs Vital Signs - 24 hr 12/06/22 18:18 12/06/22 18:32 12/06/22 18:39 Temperature 36.5 C Temperature Source Oral Pulse Rate 75 77 Pulse Rate [Right Finger] 74 Pulse Rhythm Regular Pulse Rhythm [Right Finger] Regular Pulse Strength [Right Finger] Normal Respiratory Rate 20 24 Respiratory Effort / Characteristics Non-Labored Spontaneous Non-Labored Respiratory Depth Normal Normal Respiratory Pattern Regular Blood Pressure 94/54 L Blood Pressure [Right Arm] 109/59 L Blood Pressure Mean 67 Blood Pressure Mean [Right Arm] 75 Blood Pressure Position [Right Arm] Lying Pulse Oximetry 100 98 Oxygen Delivery Method Room Air Room Air Sepsis Recent Fever Within 48 Hours No Sepsis New/Unexplained Change in Mental Status No Sepsis Action Taken by Nursing No Action Required 12/06/22 18:39 12/06/22 18:39 12/06/22 20:30 Temperature Temperature Source Pulse Rate Pulse Rate [Right Finger] 74 Pulse Rhythm Pulse Rhythm [Right Finger] Pulse Strength [Right Finger] Respiratory Rate 16 Respiratory Effort / Characteristics Respiratory Depth Respiratory Pattern Blood Pressure Blood Pressure [Right Arm] 114/53 L Blood Pressure Mean Blood Pressure Mean [Right Arm] 73 Blood Pressure Position [Right Arm] Pulse Oximetry Oxygen Delivery Method Room Air Room Air Sepsis Recent Fever Within 48 Hours Sepsis New/Unexplained Change in Mental Status Sepsis Action Taken by Nursing Laboratory Data 12/06/22 18:40 12/06/22 18:40 Lab Results 12/06/22 12/06/22 12/06/22 Range/Units 18:36 18:40 18:40 WBC 2.21 L (4.8-10.8) K/ul RBC 2.10 L (4.70-6.10) M/uL Hgb 6.9 L* (14.0-18.0) g/dl Hct 21.0 L (42.0-52.0) % MCV 100.0 (80.0-100.0) fL MCH 32.9 (25.0-34.0) pg MCHC 32.9 (32.0-36.0) g/dL RDW Std Deviation 48.6 H (36.4-46.3) fL RDW Coeff of Ro 13.3 (11.5-14.5) % Plt Count 60 L (130-400) K/uL MPV 10.6 (9.4-12.4) fL Immature Gran % (Auto) 0.0 % Neut % (Auto) 75.9 % Lymph % (Auto) 12.7 % [place] % (Auto) 9.5 % Eos % (Auto) 1.4 % Baso % (Auto) 0.5 % Neut # (Auto) 1.68 (1.40-6.50) K/uL Lymph # (Auto) 0.28 L (1.2-3.4) K/uL [place] # (Auto) 0.21 (0.11-0.59) K/uL Eos # (Auto) 0.03 (0-0.50) K/uL Baso # (Auto) 0.01 (0-0.2) K/uL Immature Gran # (Auto) 0.00 L (0.01-0.20) K/uL Polychromasia 1+ PT 14.0 H (9.0-12.0) Seconds INR 1.3 H (0.9-1.1) Sodium (136-145) mmol/L Potassium (3.5-5.1) mmol/L Chloride (98-107) mmol/L Carbon Dioxide (21-32) mmol/L Anion Gap (3-11) BUN (6-23) mg/dl Creatinine (0.6-1.4) mg/dl Est Cr Clr Drug Dosing ml/min Est GFR ( Amer) ml/min Est GFR (Non-Af Amer) ml/min BUN/Creatinine Ratio (10-20) Glucose (70-99(Fasting)) mg/dl Lactate (0.4-2.0) mmol/L Calcium (8.6-10.3) mg/dl Magnesium (1.7-2.4) mg/dl Total Bilirubin (0.2-1.0) mg/dl AST (13-39) U/L ALT (7-52) U/L Alkaline Phosphatase (34-104) U/L Ammonia (18-72) umol/L Troponin I High Sens (0-20) pg/ml Total Protein (6.0-8.3) gm/dl Albumin (3.4-5.0) gm/dl Globulin (2.5-4.0) gm/dl Albumin/Globulin Ratio (0.9-2) Lipase (11-82) U/L TSH (0.300-4.500) uIu/ml Urine Color Urine Appearance (Clear) Urine pH (4.5-7.5) Ur Specific [place] (1.000-1.030) Urine Protein (Negative) Urine Glucose (UA) (Negative) Urine Ketones (Negative) Urine Blood (Negative) Urine Nitrite (Negative) Urine Bilirubin (Negative) Urine Urobilinogen (Negative) Ur Leukocyte Esterase (Negative) SARS-CoV-2, RNA, NAAT (NEGATIVE) Blood Type O Positive Blood Type Recheck Antibody Screen NEGATIVE Crossmatch See Detail 12/06/22 12/06/22 12/06/22 Range/Units 18:40 18:40 18:40 WBC (4.8-10.8) K/ul RBC (4.70-6.10) M/uL Hgb (14.0-18.0) g/dl Hct (42.0-52.0) % MCV (80.0-100.0) fL MCH (25.0-34.0) pg MCHC (32.0-36.0) g/dL RDW Std Deviation (36.4-46.3) fL RDW Coeff of Ro (11.5-14.5) % Plt Count (130-400) K/uL MPV (9.4-12.4) fL Immature Gran % (Auto) % Neut % (Auto) % Lymph % (Auto) % [place] % (Auto) % Eos % (Auto) % Baso % (Auto) % Neut # (Auto) (1.40-6.50) K/uL Lymph # (Auto) (1.2-3.4) K/uL [place] # (Auto) (0.11-0.59) K/uL Eos # (Auto) (0-0.50) K/uL Baso # (Auto) (0-0.2) K/uL Immature Gran # (Auto) (0.01-0.20) K/uL Polychromasia PT (9.0-12.0) Seconds INR (0.9-1.1) Sodium 136 (136-145) mmol/L Potassium 4.4 (3.5-5.1) mmol/L Chloride 107 (98-107) mmol/L Carbon Dioxide 23 (21-32) mmol/L Anion Gap 6 (3-11) BUN 33 H (6-23) mg/dl Creatinine 1.69 H (0.6-1.4) mg/dl Est Cr Clr Drug Dosing 33.0 ml/min Est GFR ( Amer) 42.9 ml/min Est GFR (Non-Af Amer) 37.0 ml/min BUN/Creatinine Ratio 19.5 (10-20) Glucose 122 H (70-99(Fasting)) mg/dl Lactate 1.1 (0.4-2.0) mmol/L Calcium 8.5 L (8.6-10.3) mg/dl Magnesium 2.1 (1.7-2.4) mg/dl Total Bilirubin 1.1 H (0.2-1.0) mg/dl AST 34 (13-39) U/L ALT 24 (7-52) U/L Alkaline Phosphatase 85 (34-104) U/L Ammonia (18-72) umol/L Troponin I High Sens 11.4 (0-20) pg/ml Total Protein 6.4 (6.0-8.3) gm/dl Albumin 3.1 L (3.4-5.0) gm/dl Globulin 3.3 (2.5-4.0) gm/dl Albumin/Globulin Ratio 0.9 (0.9-2) Lipase 35 (11-82) U/L TSH 2.488 (0.300-4.500) uIu/ml Urine Color Urine Appearance (Clear) Urine pH (4.5-7.5) Ur Specific [place] (1.000-1.030) Urine Protein (Negative) Urine Glucose (UA) (Negative) Urine Ketones (Negative) Urine Blood (Negative) Urine Nitrite (Negative) Urine Bilirubin (Negative) Urine Urobilinogen (Negative) Ur Leukocyte Esterase (Negative) SARS-CoV-2, RNA, NAAT (NEGATIVE) Blood Type Blood Type Recheck Antibody Screen Crossmatch 12/06/22 12/06/22 12/06/22 Range/Units 18:40 18:40 20:50 WBC (4.8-10.8) K/ul RBC (4.70-6.10) M/uL Hgb (14.0-18.0) g/dl Hct (42.0-52.0) % MCV (80.0-100.0) fL MCH (25.0-34.0) pg MCHC (32.0-36.0) g/dL RDW Std Deviation (36.4-46.3) fL RDW Coeff of Ro (11.5-14.5) % Plt Count (130-400) K/uL MPV (9.4-12.4) fL Immature Gran % (Auto) % Neut % (Auto) % Lymph % (Auto) % [place] % (Auto) % Eos % (Auto) % Baso % (Auto) % Neut # (Auto) (1.40-6.50) K/uL Lymph # (Auto) (1.2-3.4) K/uL [place] # (Auto) (0.11-0.59) K/uL Eos # (Auto) (0-0.50) K/uL Baso # (Auto) (0-0.2) K/uL Immature Gran # (Auto) (0.01-0.20) K/uL Polychromasia PT (9.0-12.0) Seconds INR (0.9-1.1) Sodium (136-145) mmol/L Potassium (3.5-5.1) mmol/L Chloride (98-107) mmol/L Carbon Dioxide (21-32) mmol/L Anion Gap (3-11) BUN (6-23) mg/dl Creatinine (0.6-1.4) mg/dl Est Cr Clr Drug Dosing ml/min Est GFR ( Amer) ml/min Est GFR (Non-Af Amer) ml/min BUN/Creatinine Ratio (10-20) Glucose (70-99(Fasting)) mg/dl Lactate (0.4-2.0) mmol/L Calcium (8.6-10.3) mg/dl Magnesium (1.7-2.4) mg/dl Total Bilirubin (0.2-1.0) mg/dl AST (13-39) U/L ALT (7-52) U/L Alkaline Phosphatase (34-104) U/L Ammonia 42.0 (18-72) umol/L Troponin I High Sens (0-20) pg/ml Total Protein (6.0-8.3) gm/dl Albumin (3.4-5.0) gm/dl Globulin (2.5-4.0) gm/dl Albumin/Globulin Ratio (0.9-2) Lipase (11-82) U/L TSH (0.300-4.500) uIu/ml Urine Color Yellow Urine Appearance Clear (Clear) Urine pH 5.5 (4.5-7.5) Ur Specific [place] 1.007 (1.000-1.030) Urine Protein Negative (Negative) Urine Glucose (UA) Negative (Negative) Urine Ketones Negative (Negative) Urine Blood Negative (Negative) Urine Nitrite Negative (Negative) Urine Bilirubin Negative (Negative) Urine Urobilinogen Negative (Negative) Ur Leukocyte Esterase Negative (Negative) SARS-CoV-2, RNA, NAAT NEGATIVE (NEGATIVE) Blood Type Blood Type Recheck Antibody Screen Crossmatch 12/06/22 Range/Units 21:05 WBC (4.8-10.8) K/ul RBC (4.70-6.10) M/uL Hgb (14.0-18.0) g/dl Hct (42.0-52.0) % MCV (80.0-100.0) fL MCH (25.0-34.0) pg MCHC (32.0-36.0) g/dL RDW Std Deviation (36.4-46.3) fL RDW Coeff of Ro (11.5-14.5) % Plt Count (130-400) K/uL MPV (9.4-12.4) fL Immature Gran % (Auto) % Neut % (Auto) % Lymph % (Auto) % [place] % (Auto) % Eos % (Auto) % Baso % (Auto) % Neut # (Auto) (1.40-6.50) K/uL Lymph # (Auto) (1.2-3.4) K/uL [place] # (Auto) (0.11-0.59) K/uL Eos # (Auto) (0-0.50) K/uL Baso # (Auto) (0-0.2) K/uL Immature Gran # (Auto) (0.01-0.20) K/uL Polychromasia PT (9.0-12.0) Seconds INR (0.9-1.1) Sodium (136-145) mmol/L Potassium (3.5-5.1) mmol/L Chloride (98-107) mmol/L Carbon Dioxide (21-32) mmol/L Anion Gap (3-11) BUN (6-23) mg/dl Creatinine (0.6-1.4) mg/dl Est Cr Clr Drug Dosing ml/min Est GFR ( Amer) ml/min Est GFR (Non-Af Amer) ml/min BUN/Creatinine Ratio (10-20) Glucose (70-99(Fasting)) mg/dl Lactate (0.4-2.0) mmol/L Calcium (8.6-10.3) mg/dl Magnesium (1.7-2.4) mg/dl Total Bilirubin (0.2-1.0) mg/dl AST (13-39) U/L ALT (7-52) U/L Alkaline Phosphatase (34-104) U/L Ammonia (18-72) umol/L Troponin I High Sens (0-20) pg/ml Total Protein (6.0-8.3) gm/dl Albumin (3.4-5.0) gm/dl Globulin (2.5-4.0) gm/dl Albumin/Globulin Ratio (0.9-2) Lipase (11-82) U/L TSH (0.300-4.500) uIu/ml Urine Color Urine Appearance (Clear) Urine pH (4.5-7.5) Ur Specific [place] (1.000-1.030) Urine Protein (Negative) Urine Glucose (UA) (Negative) Urine Ketones (Negative) Urine Blood (Negative) Urine Nitrite (Negative) Urine Bilirubin (Negative) Urine Urobilinogen (Negative) Ur Leukocyte Esterase (Negative) SARS-CoV-2, RNA, NAAT (NEGATIVE) Blood Type Blood Type Recheck O Positive Antibody Screen Crossmatch Administered Medications Discontinued Medications Furosemide (Furosemide 40 Mg/4 Ml Vial) 40 mg IV ONE ONE Stop: 12/06/22 19:28 Last Admin: 12/06/22 19:38 Dose: 40 mg Documented By: LIZET Rifaximin (Rifaximin 550 Mg Tablet) 550 mg PO ONCE ONE Stop: 12/06/22 19:00 Last Admin: 12/06/22 19:37 Dose: 550 mg Documented By: LIZET Imaging Data Radiologist's Impression: Chest X-Ray 12/06/22 18:29 SINGLE VIEW CHEST CLINICAL HISTORY: Generalized weakness. FINDINGS: An AP, portable, upright chest radiograph is compared to study dated 10/11/2022. A 2-lead cardiac pacemaker is unchanged in position and partially obscures the left upper chest. The heart is enlarged. The pulmonary vasculature is noncongested. Chronic interstitial thickening is similar to previous. There is a small right pleural effusion and bibasilar atelectasis. No pneumothorax is seen. The skeletal structures are osteopenic. There are chronic/healed left- sided rib fractures. IMPRESSION: 1. Cardiomegaly and cardiac pacemaker without radiographic evidence of congestive failure. 2. Small right pleural effusion. ACT 112: Negative or not required by law. Electronically signed by: Richy Grace M.D. 12/06/2022 11:06 PM Discharge Plan Visit Data Chief Complaint: Hypotension Stated Complaint: REF BY DOC,LIVER DISEASE,RETAINING FLUID ED Provider: Blaine Verde Discharge Problem: Anasarca, Decompensated hepatic cirrhosis, Anemia Patient Disposition: Admitted As Inpatient Discharge Instructions Interventions: ED Discharge Assessment Last Done: 12/06/22 21:53
[2022-12-06 19:09] LABS: Hemoglobin 6.9 g/dl (14.0-18.0); Mean Corpuscular Hemoglobin 32.9 pg (25.0-34.0); Mean Corpuscular Hgb Conc 32.9 g/dL (32.0-36.0); Mean Platelet Volume 10.6 fL (9.4-12.4); Platelet Count 60 K/uL (130-400); RDW Coefficient of Variation 13.3 % (11.5-14.5); RDW Standard Deviation 48.6 fL (36.4-46.3); White Blood Count 2.21 K/ul (4.8-10.8)
[2022-12-06 19:16] LABS: Albumin Globulin Ratio 0.9 (0.9-2); Albumin Level 3.1 gm/dl (3.4-5.0); BUN Creatinine Ratio 19.5 (10-20); Bilirubin,Total 1.1 mg/dl (0.2-1.0); Calcium 8.5 mg/dl (8.6-10.3); Est GFR (African American) 42.9 ml/min; Globulin 3.3 gm/dl (2.5-4.0); Magnesium 2.1 mg/dl (1.7-2.4); Potassium 4.4 mmol/L (3.5-5.1); Total Protein 6.4 gm/dl (6.0-8.3)
[2022-12-06 19:21] LABS: Basophils # (auto) 0.01 K/uL (0-0.2); Basophils % (auto) 0.5 %; Eosinophils # (auto) 0.03 K/uL (0-0.50); Eosinophils % (auto) 1.4 %; Lymphocytes # (auto) 0.28 K/uL (1.2-3.4); Lymphocytes % (auto) 12.7 %; Monocytes # (auto) 0.21 K/uL (0.11-0.59); Monocytes % (auto) 9.5 %; Neutrophils # (auto) 1.68 K/uL (1.40-6.50); Neutrophils % (auto) 75.9 %; Polychromasia 1+; Troponin I High Sensitivity 11.4 pg/ml (0-20)
[2022-12-06 19:26] LABS: INR 1.3 (0.9-1.1)
[2022-12-06] MEDS ORDERED: FUROSEMIDE 40 MG/4 ML VIAL IV ONE (19:27)
[2022-12-06] MEDS ORDERED: SODIUM CHLORIDE 0.9% 250 ML IV PRN (20:48)
[2022-12-06 21:27] LABS: Appearance Urine Clear (Clear); Bilirubin Urine Negative (Negative); Blood Urine Negative (Negative); Color Urine Yellow; Glucose Urine UA Negative (Negative); Ketones Urine Negative (Negative); Leukocyte Esterase Urine Negative (Negative); Nitrite Urine Negative (Negative); Protein Urine Negative (Negative); Specific Gravity Urine 1.007 (1.000-1.030); Urobilinogen Urine Negative (Negative); pH Urine 5.5 (4.5-7.5)
--- NOTE | 2022-12-06 21:31 | History & Physical Report ---
Date of Service December 06, 2022 Assessment & Plan (1) Anemia: (2) Decompensated hepatic cirrhosis: (3) Acute GI bleeding: (4) Cirrhosis: (5) Liver mass: (6) Anasarca: (7) Heart failure with preserved ejection fraction: (8) PAF (paroxysmal atrial fibrillation): (9) Hypertension: (10) Diabetes mellitus, type II: (11) Chronic kidney disease: (12) Esophageal varices: (13) Splenomegaly: (14) Portal hypertension: Plan anemia- Hemoglobin 6.9 on admission, with baseline 8.0-9.6 History of GI bleeding, however, patient does not have any recent blood in bowel movements, and has not noticed a change in his stool pattern since last hospitalization Patient to receive 1 unit PRBCs from the ED, and will recheck laboratories in a.m. Most recent colonoscopy from 10/20, and flexible sigmoidoscopy from 11/20 showed moderate bleeding from hemorrhoids. From hospitalization on 11/01/2022 there is no indication for colonoscopy at that time, and family felt that patient was not likely to agree to repeat colonoscopy Patient does have history of esophageal varices, but has not had any change in stool pattern to suggest bleeding from varices We will consult gastroenterology MANLEY cirrhosis/history of hepatic encephalopathy/ hepatocellular carcinoma/History of rectal cancer- Continue rifaximin Acute kidney injury on CKD- Creatinine 1.69, with base around 1.2 hold lisinopril and spironolactone Retest after transfusion and follow closely while diuresing Lower extremity edema/anasarca/20 pound weight gain- Given furosemide 40 mg IV in the ED, and will continue furosemide 40 mg IV every morning Follow laboratories serially in the a.m. hypertension/PAF/HFpEF/AV pacer- Continue amlodipine, temporarily holding lisinopril and spironolactone due to LUDIN History of Present Illness Chief Complaint: the patient is brought to the emergency department by his daughter, due to concerns regarding increased bilateral lower extremity swelling, weight gain of about 20 pounds over the past 3 weeks, and abnormal blood work. Primary Care Provider: Alfredo Moreno DO The patient is an 82-year-old male with a past medical history including decompensated hepatic cirrhosis, GI bleeding, pancytopenia, benign essential tremor, liver mass, anasarca, hypoalbuminemia, HFpEF, PAF, presence of cardiac pacemaker, CKD and thrombocytopenia. The patient was brought to the emergency department due to worsening lower extremity edema and weight gain as noted Significant laboratories: WBC 2.21, hemoglobin 6.9, hematocrit 21.0, platelets 60, glucose 122, creatinine 1.69, INR 1.3, albumin 3.1. Patient's most recent admissions from 10/09-10/16/2022 for neurovirus gastroenteritis, MANLEY encephalopathy treated with rifaximin, and acute kidney injury. He was then admitted from 11/01-11/02/2022 for abdominal pain and GI bleeding, which was treated with discontinuance of lactulose and restarting rifaximin. Gastroenterology did not feel any further work-up as far as colonoscopy needed to be done at admission, and recommended rifaximin to be used at home, with follow-up in the outpatient setting Allergies Allergy/AdvReac Type Severity Reaction Status Date / Time metoprolol Allergy Intermediate NONTOLERATED, Verified 12/06/22 20:36 DIZZINESS sertraline Allergy Intermediate "NUMBNESS Verified 12/06/22 20:36 IN MY FACE" apixaban [From Eliquis] AdvReac Intermediate rectal Verified 12/06/22 20:36 bleeding Home Medications Medication Instructions Recorded Confirmed Type cholecalciferol (vitamin D3) 25 25 mcg PO QAM 11/02/20 12/06/22 History mcg (1,000 unit) capsule tamsulosin 0.4 mg capsule 0.4 mg PO QAM #90 caps 03/14/22 12/06/22 Rx lisinopril 40 mg tablet 40 mg PO QAM #90 tabs 06/12/22 12/06/22 Rx atorvastatin 10 mg tablet 10 mg PO HS 10/09/22 12/06/22 History amlodipine 5 mg tablet 5 mg PO QAM #90 tabs 10/24/22 12/06/22 Rx trazodone 50 mg tablet 25 mg PO HS 10/31/22 12/06/22 History rifaximin 550 mg tablet (Xifaxan) 550 mg PO BID #60 tabs 11/14/22 12/06/22 Rx furosemide 20 mg tablet (Lasix) 20 mg PO DAILY #30 tabs 11/28/22 12/06/22 Rx spironolactone 25 mg tablet 50 mg PO QAM #60 tabs 11/28/22 12/06/22 Rx Past Med/Surg History Medical History (Updated 12/07/22 @ 02:47 by Woody Edwards MD) Atrial fibrillation Back pain Chronic kidney disease Chronic leukopenia Past evaluation by Hematology with negative work up. No changes with CBC over time. Diabetes mellitus, type II Diverticulosis of colon (12/06/12) Esophageal varices GIB (gastrointestinal bleeding) Heart failure with preserved ejection fraction Hepatic encephalopathy History of Mohs micrographic surgery for skin cancer History of rectal cancer s/p surgical resection (1999). Previously monitored by periodic colonoscopy (08/12 unremarkable w/ 3-5 year follow up) Hyperlipidemia Hypertension Insomnia Olecranon fracture history of open treatment of fracture of the olecranon Portal hypertension Presence of cardiac pacemaker Pulmonary nodules Rectal bleed Second degree AV block Followed by cardiology Splenomegaly Thrombocytopenia Surgical History History of excision of lesion History of partial colectomy Hx of appendectomy Hx of cataract surgery Bilateral Hx of cholecystectomy Hx of colonoscopy Hx of hernia repair Left inguinal hernia Family History Sister Breast cancer Heart disease Hypertension Father Myocardial infarction Mother Myocardial infarction Cause of injury, MVA Son Aortic aneurysm Brother Hypertension Diabetes Heart disease Dementia CHF (congestive heart failure) Mental health problem Sister Hypertension Daughter Hypertension Asthma COPD (chronic obstructive pulmonary disease) Depression Anxiety Basal cell carcinoma Colonic polyp Denies family history of Ovarian cancer Prostate cancer Lung cancer Social History Smoking Status: Never smoker Second Hand Exposure: No; Do You Dip or Chew Tobacco: No; Hx Alcohol Use: No Hx Substance Use: No Preferred Language: Cymro Communication Ability: Effective Visual Impairment: No Limitations Hearing Ability: Normal Taxi Cab Driver Required: No Beliefs That Will Affect Care: None marital status: / Current Living Situation: Alone Current Living Situation Comment: Lives Independently in intermediate [facility] current occupational status: retired How many Children do You have: 2 Other Information That Helps Us Care for You: No Feels Safe at Home: Yes Safety Concerns: Feels Safe At This Time Childhood Exposure to Second-Hand Smoke: No Diet: regular caffeine: No during the past year weight has: remained stable Physical Activity Frequency: Daily Physical Activity Frequency Comment: walking Seatbelt Use: always Sunscreen Use: Yes Do you think of yourself as: straight/heterosexual Assistive Devices: Walker Review of Systems Review of Systems: the patient denies chest pain, Palpitations, cough, sore throat, fevers, chills, sweats, nausea, vomiting, blood in urine or stool, dysuria, urinary frequency or urgency, lightheadedness, dizziness, headache, memory loss, loss of consciousness, rash, focal weakness, numbness or tingling in arms or legs, generalized arthralgias or myalgias, back or neck pain, or night sweats. The review of systems is otherwise negative other than for that already noted above, and at least 10 systems have been reviewed. Physical Exam Physical Exam: the patient is awake, alert and oriented 3, well developed and well nourished, normocephalic and atraumatic, lying in bed and in no acute distress. HEENT--PERRL, EOMI, mucous membranes and oropharynx Normal Neck--supple. No JVD. No bruits. Thyroid normal, trachea midline, no adenopathy. Heart--normal S1 and S2. No murmurs, rubs or gallops. Lungs--clear bilaterally, no respiratory distress, no accessory muscle use. Abdomen--normal bowel sounds and soft. Nontender. Nondistended Extremities--no cyanosis or clubbing. 2+ bilateral pretibial pitting edema Dermatologic-- no rash Neurologic--cranial nerves II through XII grossly intact. Rheumatologic--normal range of motion. Psychiatric--normal affect. Results & Data Results & Data Vital Signs (Past 12 Hours) Vital Signs Temp Pulse Pulse Resp BP BP Pulse Ox 12/06/22 20:30 74 16 114/53 L 12/06/22 18:39 12/06/22 18:39 12/06/22 18:39 74 24 109/59 L 98 12/06/22 18:32 77 12/06/22 18:18 36.5 C 75 20 94/54 L 100 O2 Del Method 12/06/22 20:30 12/06/22 18:39 Room Air 12/06/22 18:39 Room Air 12/06/22 18:39 Room Air 12/06/22 18:32 12/06/22 18:18 Room Air Laboratory Results Laboratory Results WBC 1.64 K/ul (4.8-10.8) L 12/07/22 02:09 RBC 2.28 M/uL (4.70-6.10) L 12/07/22 02:09 Hgb 7.4 g/dl (14.0-18.0) L 12/07/22 02:09 Hgb 7.4 g/dl (14.0-18.0) L 12/07/22 02:09 Hct 22.0 % (42.0-52.0) L 12/07/22 02:09 MCV 96.5 fL (80.0-100.0) 12/07/22 02:09 MCH 32.5 pg (25.0-34.0) 12/07/22 02:09 MCHC 33.6 g/dL (32.0-36.0) 12/07/22 02:09 RDW Std Deviation 49.1 fL (36.4-46.3) H 12/07/22 02:09 RDW Coeff of Ro 13.8 % (11.5-14.5) 12/07/22 02:09 Plt Count 50 K/uL (130-400) L 12/07/22 02:09 MPV 10.7 fL (9.4-12.4) 12/07/22 02:09 Immature Gran % (Auto) 0.0 % 12/07/22 02:09 Neut % (Auto) 68.3 % 12/07/22 02:09 Lymph % (Auto) 15.9 % 12/07/22 02:09 [place] % (Auto) 12.8 % 12/07/22 02:09 Eos % (Auto) 2.4 % 12/07/22 02:09 Baso % (Auto) 0.6 % 12/07/22 02:09 Neut # (Auto) 1.12 K/uL (1.40-6.50) L 12/07/22 02:09 Lymph # (Auto) 0.26 K/uL (1.2-3.4) L 12/07/22 02:09 [place] # (Auto) 0.21 K/uL (0.11-0.59) 12/07/22 02:09 Eos # (Auto) 0.04 K/uL (0-0.50) 12/07/22 02:09 Baso # (Auto) 0.01 K/uL (0-0.2) 12/07/22 02:09 Immature Gran # (Auto) 0.00 K/uL (0.01-0.20) L 12/07/22 02:09 Polychromasia 1+ 12/06/22 18:40 PT 14.0 Seconds (9.0-12.0) H 12/06/22 18:40 INR 1.3 (0.9-1.1) H 12/06/22 18:40 Sodium 136 mmol/L (136-145) 12/06/22 18:40 Potassium 4.4 mmol/L (3.5-5.1) 12/06/22 18:40 Chloride 107 mmol/L (98-107) 12/06/22 18:40 Carbon Dioxide 23 mmol/L (21-32) 12/06/22 18:40 Anion Gap 6 (3-11) 12/06/22 18:40 BUN 33 mg/dl (6-23) H 12/06/22 18:40 Creatinine 1.69 mg/dl (0.6-1.4) H 12/06/22 18:40 Est Cr Clr Drug Dosing 33.0 ml/min 12/06/22 18:40 Est GFR ( Amer) 42.9 ml/min 12/06/22 18:40 Est GFR (Non-Af Amer) 37.0 ml/min 12/06/22 18:40 BUN/Creatinine Ratio 19.5 (10-20) 12/06/22 18:40 Glucose 122 mg/dl (70-99(Fasting)) H 12/06/22 18:40 POC Glucose 109 mg/dl (70-99) H 12/06/22 22:10 Lactate 1.1 mmol/L (0.4-2.0) 12/06/22 18:40 Calcium 8.5 mg/dl (8.6-10.3) L 12/06/22 18:40 Magnesium 2.1 mg/dl (1.7-2.4) 12/06/22 18:40 Total Bilirubin 1.1 mg/dl (0.2-1.0) H 12/06/22 18:40 AST 34 U/L (13-39) 12/06/22 18:40 ALT 24 U/L (7-52) 12/06/22 18:40 Alkaline Phosphatase 85 U/L (34-104) 12/06/22 18:40 Ammonia 42.0 umol/L (18-72) 12/06/22 18:40 Troponin I High Sens 11.4 pg/ml (0-20) 12/06/22 18:40 Total Protein 6.4 gm/dl (6.0-8.3) 12/06/22 18:40 Albumin 3.1 gm/dl (3.4-5.0) L 12/06/22 18:40 Globulin 3.3 gm/dl (2.5-4.0) 12/06/22 18:40 Albumin/Globulin Ratio 0.9 (0.9-2) 12/06/22 18:40 Lipase 35 U/L (11-82) 12/06/22 18:40 TSH 2.488 uIu/ml (0.300-4.500) 12/06/22 18:40 Urine Color Yellow 12/06/22 20:50 Urine Appearance Clear (Clear) 12/06/22 20:50 Urine pH 5.5 (4.5-7.5) 12/06/22 20:50 Ur Specific [place] 1.007 (1.000-1.030) 12/06/22 20:50 Urine Protein Negative (Negative) 12/06/22 20:50 Urine Glucose (UA) Negative (Negative) 12/06/22 20:50 Urine Ketones Negative (Negative) 12/06/22 20:50 Urine Blood Negative (Negative) 12/06/22 20:50 Urine Nitrite Negative (Negative) 12/06/22 20:50 Urine Bilirubin Negative (Negative) 12/06/22 20:50 Urine Urobilinogen Negative (Negative) 12/06/22 20:50 Ur Leukocyte Esterase Negative (Negative) 12/06/22 20:50 SARS-CoV-2, RNA, NAAT NEGATIVE (NEGATIVE) 12/06/22 18:40 Blood Type O Positive 12/06/22 18:36 Blood Type Recheck O Positive 12/06/22 21:05 Antibody Screen NEGATIVE 12/06/22 18:36 Crossmatch See Detail 12/06/22 18:36 Impressions Chest X-Ray 12/06/22 18:29 SINGLE VIEW CHEST CLINICAL HISTORY: Generalized weakness. FINDINGS: An AP, portable, upright chest radiograph is compared to study dated 10/11/2022. A 2-lead cardiac pacemaker is unchanged in position and partially obscures the left upper chest. The heart is enlarged. The pulmonary vasculature is noncongested. Chronic interstitial thickening is similar to previous. There is a small right pleural effusion and bibasilar atelectasis. No pneumothorax is seen. The skeletal structures are osteopenic. There are chronic/healed left- sided rib fractures. IMPRESSION: 1. Cardiomegaly and cardiac pacemaker without radiographic evidence of congestive failure. 2. Small right pleural effusion. ACT 112: Negative or not required by law. Electronically signed by: Richy Grace M.D. 12/06/2022 11:06 PM Code Status & VTE Plan Code Status full code VTE Prophylaxis Plan VTE Prophylaxis will be ordered: Yes PG Care Time/CCT Total # of Minutes Spent Total Time Spent with Patient: Total time spent is greater than 50% in coordination of care (as documented) at patient's floor/unit and/or counseling patient: Coding Level of Care Code 33141 INT INP/OBS CARE 3/75MIN Diagnoses Anemia D64.9 Decompensated hepatic cirrhosis K72.90; K74.60 Acute GI bleeding K92.2 Cirrhosis K74.60 Liver mass R16.0 Anasarca R60.1 Heart failure with preserved ejection fraction I50.30 PAF (paroxysmal atrial fibrillation) I48.0 Hypertension I10 Diabetes mellitus, type II E11.9 Chronic kidney disease N18.9 Esophageal varices I85.00 Splenomegaly R16.1 Portal hypertension K76.6
[2022-12-06] MEDS ORDERED: ONDANSETRON INJ 2 MG/ML 2 ML VIAL IV PRN (22:16)
[2022-12-06] MEDS ORDERED: ACETAMINOPHEN 325 MG TAB PO PRN (22:16)
--- NOTE | 2022-12-06 23:07 | XRay Report ---
SINGLE VIEW CHEST CLINICAL HISTORY: Generalized weakness. FINDINGS: An AP, portable, upright chest radiograph is compared to study dated 10/11/2022. A 2-lead ca rdiac pacemaker is unchanged in position and partially obscures the left upper chest. The heart is en larged. The pulmonary vasculature is noncongested. Chronic interstitial thickening is similar to prev ious. There is a small right pleural effusion and bibasilar atelectasis. No pneumothorax is seen. The skeletal structures are osteopenic. There are chronic/healed left-sided rib fractures. IMPRESSION: 1. Cardiomegaly and cardiac pacemaker without radiographic evidence of congestive failure. 2. Small right pleural effusion. ACT 112: Negative or not required by law. Electronically signed by: Richy Grace M.D. 12/06/2022 11:06 PM
[2022-12-07 02:30] LABS: Basophils # (auto) 0.01 K/uL (0-0.2); Basophils % (auto) 0.6 %; Eosinophils # (auto) 0.04 K/uL (0-0.50); Eosinophils % (auto) 2.4 %; Hemoglobin 7.4 g/dl (14.0-18.0); Lymphocytes # (auto) 0.26 K/uL (1.2-3.4); Lymphocytes % (auto) 15.9 %; Mean Corpuscular Hemoglobin 32.5 pg (25.0-34.0); Mean Corpuscular Hgb Conc 33.6 g/dL (32.0-36.0); Mean Corpuscular Volume 96.5 fL (80.0-100.0); Mean Platelet Volume 10.7 fL (9.4-12.4); Monocytes # (auto) 0.21 K/uL (0.11-0.59); Monocytes % (auto) 12.8 %; Neutrophils # (auto) 1.12 K/uL (1.40-6.50); Neutrophils % (auto) 68.3 %; Platelet Count 50 K/uL (130-400); RDW Coefficient of Variation 13.8 % (11.5-14.5); RDW Standard Deviation 49.1 fL (36.4-46.3); Red Blood Count 2.28 M/uL (4.70-6.10); White Blood Count 1.64 K/ul (4.8-10.8)
[2022-12-07 02:44] LABS: Albumin Level 2.9 gm/dl (3.4-5.0); BUN Creatinine Ratio 18.6 (10-20); Bilirubin,Total 1.3 mg/dl (0.2-1.0); Calcium 8.1 mg/dl (8.6-10.3); Creatinine Clr Calc Pharmacy 31.9 ml/min; Est GFR (African American) 43.5 ml/min; Est GFR (Non-African American) 37.5 ml/min; Potassium 4.1 mmol/L (3.5-5.1); Total Protein 5.9 gm/dl (6.0-8.3)
[2022-12-07 02:56] LABS: Polychromasia 1+
--- NOTE | 2022-12-07 07:15 | Electrocardiogram Report ---
Test Reason : Blood Pressure : / mmHG Vent. Rate : 083 BPM Atrial Rate : 082 BPM P-R Int : 000 ms QRS Dur : 156 ms QT Int : 454 ms P-R-T Axes : 000 -77 084 degrees QTc Int : 533 ms Ventricular-paced rhythm with occasional Premature ventricular complexes Abnormal ECG When compared with ECG of 31-OCT-2022 23:07, Premature ventricular complexes are now Present Vent. rate has increased BY 15 BPM Confirmed by Filiberto Curtis ([id number]) on 12/07/2022 7:14:47 AM Referred By: Alfredo Moreno Confirmed By:Eddie Curtis
[2022-12-07] MEDS: rifAXIMin 550 MG TABLET PO SCH ×2 (08:15→20:21)
[2022-12-07] MEDS: TAMSULOSIN HCL 0.4 MG CAP PO SCH (08:15)
[2022-12-07] MEDS: FUROSEMIDE 40 MG/4 ML VIAL IV SCH (08:15)
[2022-12-07] MEDS: amLODIPine BESYLATE 5 MG TAB PO SCH (08:16)
[2022-12-07] MEDS: CHOLECALCIFEROL 1,000 UNITS 25 MCG TAB PO SCH (08:16)
--- NOTE | 2022-12-07 09:19 | Hospitalist Progress Note ---
Date of Service December 07, 2022 Assessment & Plan (1) Pancytopenia: Plan: pancytopenis, for this anemia- History of GI bleeding, 1 unit PRBCs Most recent colonoscopy from 10/20, and flexible sigmoidoscopy from 11/20 showed moderate bleeding from hemorrhoids. Pt refused to repeat colonoscopy Patient does have history of esophageal varices,but not a history of bleeding from varices PT now is considering modest treatment vs palliative care but is not decided at this time will permit blood transfusions for leukopenia and thrombocytopenia, will check tic borne illness, low platelets can be from liver disease and splenic sequestration from portal hypertension (2) Cirrhosis: Plan: INR 1.3, LFT are ok on rifamixin, not on lactulose, ammonia normal on admission previous history of HCC liver masses seen on previous CT CT imaging , 11/22 nodular liver, splenomegaly 15cm, esophageal varices Pt has body wall anasarca, on lasix in patient, sprionolactone outpt (3) Anasarca: (4) Heart failure with preserved ejection fraction: Plan: hypertension/PAF/HFpEF/AV pacer- Continue amlodipine, temporarily holding lisinopril and spironolactone due to LUDIN PAF, typically not on anticoagulation or rate control, ventricular paced rhythm (5) Diabetes mellitus, type II: Plan: last A1c was 5.8, not on any treatment at this time (6) Chronic kidney disease: Plan: Acute kidney injury on CKD- Creatinine 1.69, with base around 1.2 hold lisinopril and spironolactone Plan had a long discussion with patient and family patient seems like he is really leaning towards this going to palliative care route. We discussed the fact that his cirrhosis is not a curative problem and he has put progress of decline over the last few months with repeat recent multiple hospitalizations hepatic encephalopathy from elevated ammonia and progressive recurrent abdominal ascites. Now with pancytopenia and maroon stools patient is going to discuss with his family over the weekend to determine if he wishes to enter into palliative care mode. However while we are waiting for that discussion of formalize patient will permit blood product infusion Admission and Anticipated Discharge Date Admission Date: December 06, 2022 Subjective pt has no focal complaints , daughter and family in room maroon stool no pain but is weak and tired Physical Exam Physical Exam: Pt is awake and alert, abdomen is soft and non tender, no focal complaints or guarding Results & Data Results & Data Vital Signs (Past 12 Hours) Vital Signs Temp Pulse Pulse Resp BP BP Pulse Ox 12/07/22 07:54 98.2 F 62 19 101/50 L 96 12/06/22 22:00 70 12/07/22 03:00 98.2 F 66 20 98/56 L 96 12/06/22 22:16 12/06/22 22:16 12/07/22 01:23 97.9 F 65 18 95/52 L 97 12/07/22 00:36 97.9 F 65 18 95/52 L 97 12/06/22 23:36 98.1 F 71 18 96/54 L 100 12/06/22 23:33 98.1 F 71 18 96/54 L 100 12/06/22 22:10 97.7 F 74 18 108/61 98 12/06/22 23:06 98.1 F 73 18 93/53 L 97 12/06/22 22:51 98.1 F 69 18 88/40 L 100 12/06/22 22:16 97.7 F 74 18 108/61 98 12/06/22 22:33 98.1 F 70 18 92/51 L 99 12/06/22 21:30 70 16 98/59 L 97 Pulse Ox O2 Del Method O2 Del Method 12/07/22 07:54 Room Air 12/06/22 22:00 12/07/22 03:00 Room Air 12/06/22 22:16 Room Air 12/06/22 22:16 98 Room Air 12/07/22 01:23 12/07/22 00:36 12/06/22 23:36 12/06/22 23:33 12/06/22 22:10 Room Air 12/06/22 23:06 12/06/22 22:51 12/06/22 22:16 Room Air 12/06/22 22:33 12/06/22 21:30 Room Air Laboratory Results reviewed cbc reviewed chemistry PG Care Time/CCT Total # of Minutes Spent Total Time Spent with Patient: Total time spent is greater than 50% in coordination of care (as documented) at patient's floor/unit and/or counseling patient: Coding Level of Care Code 31595 SUB INP/OBS CARE 2/35MIN Diagnoses Pancytopenia D61.818 Cirrhosis K74.60 Anasarca R60.1 Heart failure with preserved ejection fraction I50.30 Diabetes mellitus, type II E11.9 Chronic kidney disease N18.9
[2022-12-07 10:34] LABS: Lyme Ab IgG w/WB Rflx Negative (Negative); Lyme Ab IgM w/WB Rflx Negative (Negative)
--- NOTE | 2022-12-07 16:07 | Gastrointestinal Consultation ---
Date of Consultation December 07, 2022 Assessment & Plan (1) Decompensated hepatic cirrhosis: (2) Anemia: (3) Hematochezia: Plan cirrhosis: MELD-Na is 16, continue rifaximin BID and lasix at this time especially given his edema as long as kidney function tolerates. anemia/hematochezia: he refuses colonoscopy at this time, is considering palliative care it appears. There is a hx of varices, could consider octreotide drip if he continues to bleed/hgb decreases, and if he is amenable could consider EGD for further evaluation down the road, for now can monitor Thank you for allowing me to participate in the care of this patient History of Present Illness Attending Physician: Sesar Oconnell MD History of Present Illness 82 yo male with hx decompensated cirrhosis, GI bleeding and esophageal varices, CHF, afib previously on eliquis but stopped due to bleeding, CKD here with worsening LE edema. GI consulted as he developed hematochezia as well hgb was 6.9 on admission now 7.7 s/p 1 unit PRBC. Was just here last month for GI bleeding, did not want colonoscopy at that time it appears. rifaximin was restarted then. Currently it appears that he is considering palliative care options. labs reviewed. Allergies Allergy/AdvReac Type Severity Reaction Status Date / Time metoprolol Allergy Intermediate NONTOLERATED, Verified 12/06/22 20:36 DIZZINESS sertraline Allergy Intermediate "NUMBNESS Verified 12/06/22 20:36 IN MY FACE" apixaban [From Eliquis] AdvReac Intermediate rectal Verified 12/06/22 20:36 bleeding Home Medications Medication Instructions Recorded Confirmed Type cholecalciferol (vitamin D3) 25 25 mcg PO QAM 11/02/20 12/06/22 History mcg (1,000 unit) capsule tamsulosin 0.4 mg capsule 0.4 mg PO QAM #90 caps 03/14/22 12/06/22 Rx lisinopril 40 mg tablet 40 mg PO QAM #90 tabs 06/12/22 12/06/22 Rx atorvastatin 10 mg tablet 10 mg PO HS 10/09/22 12/06/22 History amlodipine 5 mg tablet 5 mg PO QAM #90 tabs 10/24/22 12/06/22 Rx trazodone 50 mg tablet 25 mg PO HS 10/31/22 12/06/22 History rifaximin 550 mg tablet (Xifaxan) 550 mg PO BID #60 tabs 11/14/22 12/06/22 Rx furosemide 20 mg tablet (Lasix) 20 mg PO DAILY #30 tabs 11/28/22 12/06/22 Rx spironolactone 25 mg tablet 50 mg PO QAM #60 tabs 11/28/22 12/06/22 Rx Patient History Medical History Atrial fibrillation Back pain Chronic kidney disease Chronic leukopenia Past evaluation by Hematology with negative work up. No changes with CBC over time. Diabetes mellitus, type II Diverticulosis of colon (12/06/12) Esophageal varices GIB (gastrointestinal bleeding) Heart failure with preserved ejection fraction Hepatic encephalopathy History of Mohs micrographic surgery for skin cancer History of rectal cancer s/p surgical resection (1999). Previously monitored by periodic colonoscopy (08/12 unremarkable w/ 3-5 year follow up) Hyperlipidemia Hypertension Insomnia Olecranon fracture history of open treatment of fracture of the olecranon Portal hypertension Presence of cardiac pacemaker Pulmonary nodules Rectal bleed Second degree AV block Followed by cardiology Splenomegaly Thrombocytopenia Surgical History History of excision of lesion History of partial colectomy Hx of appendectomy Hx of cataract surgery Bilateral Hx of cholecystectomy Hx of colonoscopy Hx of hernia repair Left inguinal hernia Family History Sister Breast cancer Heart disease Hypertension Father , 61yo Myocardial infarction Secondary to electrocution Mother , 51yo Myocardial infarction Cause of injury, MVA Son Aortic aneurysm Had surgical repair Aortic heart valve Brother Hypertension Diabetes Heart disease Dementia CHF (congestive heart failure) Mental health problem Sister Hypertension Daughter Hypertension Asthma COPD (chronic obstructive pulmonary disease) Depression Anxiety Basal cell carcinoma Colonic polyp Denies family history of Ovarian cancer Prostate cancer Lung cancer Social History Smoking Status: Never smoker Second Hand Exposure: No; Do You Dip or Chew Tobacco: No; Hx Alcohol Use: No Hx Substance Use: No Preferred Language: Tamazight Communication Ability: Effective Visual Impairment: No Limitations Hearing Ability: Normal Aquatic Laborer Required: No Beliefs That Will Affect Care: None marital status: / Current Living Situation: Alone Current Living Situation Comment: Lives Independently in shelter center current occupational status: retired How many Children do You have: 2 Other Information That Helps Us Care for You: No Feels Safe at Home: Yes Safety Concerns: Feels Safe At This Time Childhood Exposure to Second-Hand Smoke: No Diet: regular caffeine: No during the past year weight has: remained stable Physical Activity Frequency: Daily Physical Activity Frequency Comment: walking Seatbelt Use: always Sunscreen Use: Yes Do you think of yourself as: straight/heterosexual Assistive Devices: Walker Review of Systems Constitutional: no fever, no chills and no weight loss Eyes: as per Subjective / HPI Ear, Nose, Mouth, Throat: as per Subjective / HPI Respiratory: no dyspnea and no dyspnea on exertion Cardiovascular: no chest pain and no palpitations Gastrointestinal: as per Subjective / HPI Musculoskeletal: no joint pain and no swelling Integumentary: no rash and no lesions Neurologic: no numbness and no paresthesia Psychiatric: no depression and no anxiety Endocrine: no fatigue Hematologic / Lymphatic: no easy bleeding and no easy bruising Physical Exam Constitutional: WD/WN, vitals as above Eyes: EOM intact bilaterally Neck: normal visual inspection Respiratory: normal respiratory effort, lungs clear to auscultation Cardiovascular: Rate/Rhythm: regular rate and regular rhythm Heart Sounds: no murmur Extremities: + edema (pitting LE edema noted) Gastrointestinal (Abdomen): Inspection/Auscultation: + abdomen distended and normal bowel sounds Percussion/Palpation: abdomen soft; abdomen nontender and no hepatosplenomegaly no asterixis Musculoskeletal: Head/Neck/Chest: normocephalic and head atraumatic Extremities: no cyanosis Skin: no rashes, warm and dry Neurologic: moves all extremities Psychiatric: A+Ox3, euthymic affect Results & Data Vital Signs (Past 12 Hours) Vital Signs Temp Pulse Pulse Resp BP Pulse Ox O2 Del Method 12/07/22 12:46 36.8 C 64 20 96/55 L 99 Room Air 12/07/22 09:00 67 12/07/22 09:00 Room Air 12/07/22 07:54 36.8 C 62 19 101/50 L 96 Room Air PG Care Time/CCT Total # of Minutes Spent Total Time Spent with Patient: Total time spent is greater than 50% in coordination of care (as documented) at patient's floor/unit and/or counseling patient: Coding Level of Care Code 23069 INT INP/OBS CARE Diagnoses Decompensated hepatic cirrhosis K72.90; K74.60 Anemia D64.9 Hematochezia K92.1
[2022-12-07] MEDS ORDERED: PHYTONADIONE 5 MG TAB PO STA (17:50)
[2022-12-07] MEDS: traZODone HCL 50 MG TAB PO SCH (20:21)
[2022-12-07] MEDS: ATORVASTATIN 10 MG TAB PO SCH (20:22)
[2022-12-08 06:31] LABS: Hematocrit (blood only) 20.8 % (42.0-52.0); Mean Corpuscular Hemoglobin 32.6 pg (25.0-34.0); Mean Corpuscular Hgb Conc 33.7 g/dL (32.0-36.0); Mean Corpuscular Volume 96.7 fL (80.0-100.0); Platelet Count 45 K/uL (130-400); RDW Coefficient of Variation 13.8 % (11.5-14.5); RDW Standard Deviation 49.5 fL (36.4-46.3); Red Blood Count 2.15 M/uL (4.70-6.10); White Blood Count 1.64 K/ul (4.8-10.8)
[2022-12-08 06:32] LABS: Albumin Globulin Ratio 0.9 (0.9-2); Albumin Level 2.6 gm/dl (3.4-5.0); BUN Creatinine Ratio 20.4 (10-20); Bilirubin,Total 1.3 mg/dl (0.2-1.0); Calcium 7.8 mg/dl (8.6-10.3); Creatinine Clr Calc Pharmacy 31.9 ml/min; Est GFR (African American) 43.5 ml/min; Est GFR (Non-African American) 37.5 ml/min; Globulin 2.9 gm/dl (2.5-4.0); Magnesium 1.9 mg/dl (1.7-2.4); Potassium 4.5 mmol/L (3.5-5.1); Total Protein 5.5 gm/dl (6.0-8.3)
[2022-12-08 06:52] LABS: Basophils # (auto) 0.01 K/uL (0-0.2); Basophils % (auto) 0.6 %; Eosinophils # (auto) 0.02 K/uL (0-0.50); Eosinophils % (auto) 1.2 %; Lymphocytes # (auto) 0.28 K/uL (1.2-3.4); Lymphocytes % (auto) 17.1 %; Monocytes # (auto) 0.18 K/uL (0.11-0.59); Neutrophils # (auto) 1.15 K/uL (1.40-6.50); Neutrophils % (auto) 70.1 %; RBC Morphology Unremarkable
[2022-12-08] MEDS ORDERED: SODIUM CHLORIDE 0.9% 250 ML IV PRN ×2 (08:12→08:30)
[2022-12-08] MEDS: TAMSULOSIN HCL 0.4 MG CAP PO SCH (08:20)
[2022-12-08] MEDS: rifAXIMin 550 MG TABLET PO SCH ×2 (08:21→20:55)
[2022-12-08] MEDS: amLODIPine BESYLATE 5 MG TAB PO SCH (08:21)
[2022-12-08] MEDS: FUROSEMIDE 40 MG/4 ML VIAL IV SCH (08:22)
[2022-12-08] MEDS: CHOLECALCIFEROL 1,000 UNITS 25 MCG TAB PO SCH (08:22)
[2022-12-08] MEDS ORDERED: FUROSEMIDE INJ 20 MG/2 ML VIAL IV SCH (08:45)
--- NOTE | 2022-12-08 14:17 | Hospitalist Progress Note ---
Date of Service December 08, 2022 Assessment & Plan (1) Pancytopenia: Plan: pancytopenis, for this anemia- History of GI bleeding, now ordered a total of 3 unit PRBCs last transfusion being 12/08/2022 Most recent colonoscopy from 10/20, and flexible sigmoidoscopy from 11/20 showed moderate bleeding from hemorrhoids. Pt refused to repeat colonoscopy refused additional upper endoscopy Patient does have history of esophageal varices,but not a history of bleeding from varices PT now is considering modest treatment vs palliative care but is not decided at this time will permit blood transfusions for leukopenia and thrombocytopenia, will check tic borne illness, low platelets can be from liver disease and splenic sequestration from portal hypertension platelets have remained stable if they did further may consider platelet transfusion patient is agreeable to this at this time (2) Cirrhosis: Plan: INR 1.3, LFT are ok patient given dose of oral vitamin K on rifamixin, not on lactulose, ammonia normal on admission previous history of HCC liver masses seen on previous CT CT imaging , 11/22 nodular liver, splenomegaly 15cm, esophageal varices Pt has body wall anasarca, on lasix in patient, spironolactone outpt (3) Anasarca: (4) Heart failure with preserved ejection fraction: Plan: hypertension/PAF/HFpEF/AV pacer- Continue amlodipine, temporarily holding lisinopril and spironolactone due to LUDIN PAF, typically not on anticoagulation or rate control, ventricular paced rhythm (5) Diabetes mellitus, type II: Plan: last A1c was 5.8, not on any treatment at this time (6) Chronic kidney disease: Plan: Acute kidney injury on CKD- Creatinine 1.69, with base around 1.2 hold lisinopril and spironolactone Plan had a long discussion with patient and family patient seems like he is really leaning towards this going to palliative care route. We discussed the fact that his cirrhosis is not a curative problem and he has put progress of decline over the last few months with repeat recent multiple hospitalizations hepatic encephalopathy from elevated ammonia and progressive recurrent abdominal ascites. for him at this point time wishes to pursue blood product infusions to support his blood counts but may consider palliative care consultation on 12/09/2022 Admission and Anticipated Discharge Date Admission Date: December 06, 2022 Subjective patient says he feels weak and tired today. His hemoglobin dropped further. He is slated to get 2 units of packed red blood cells today. He has no focal abdominal pain no epigastric discomfort or left lower quadrant discomfort. He has had no significant vomitus he has had maroon stools Physical Exam Physical Exam: patient is awake and alert he is not particularly pale despite his hemoglobin being 7 cardiac exam is regular lungs are clear but diminished at the bases abdomen is slightly distended consistent with his ascites no focal complaints or rebound Results & Data Results & Data Vital Signs (Past 12 Hours) Vital Signs Temp Pulse Pulse Pulse Resp BP BP 12/08/22 13:25 98.1 F 76 19 111/55 L 12/08/22 12:30 98.1 F 70 20 100/59 L 12/08/22 11:30 98.1 F 72 20 121/61 12/08/22 11:00 98.1 F 74 20 114/62 12/08/22 10:45 98.1 F 74 16 106/51 L 12/08/22 10:43 98.6 F 75 18 94/54 L 12/08/22 10:34 98.6 F 76 20 98/58 L 12/08/22 08:00 66 12/08/22 08:00 12/08/22 08:00 98.2 F 74 18 105/61 12/08/22 03:12 98.8 F 43 L 16 101/51 L Pulse Ox O2 Del Method 12/08/22 13:25 96 12/08/22 12:30 95 12/08/22 11:30 94 12/08/22 11:00 95 12/08/22 10:45 94 12/08/22 10:43 94 12/08/22 10:34 97 12/08/22 08:00 12/08/22 08:00 Room Air 12/08/22 08:00 92 Room Air 12/08/22 03:12 94 Room Air Laboratory Results reviewed CBC reviewed chemistry ordered 2 units packed red blood cells transfused ordered Lasix between transfusion units PG Care Time/CCT Total # of Minutes Spent Total Time Spent with Patient: Total time spent is greater than 50% in coordination of care (as documented) at patient's floor/unit and/or counseling patient: Coding Level of Care Code 96097 SUB INP/OBS CARE 3/50MIN Diagnoses Pancytopenia D61.818 Cirrhosis K74.60 Anasarca R60.1 Heart failure with preserved ejection fraction I50.30 Diabetes mellitus, type II E11.9 Chronic kidney disease N18.9
[2022-12-08] MEDS: ATORVASTATIN 10 MG TAB PO SCH (20:56)
[2022-12-08] MEDS: traZODone HCL 50 MG TAB PO SCH (20:56)
[2022-12-08 21:07] LABS: Appearance Urine Clear (Clear); Bilirubin Urine Negative (Negative); Blood Urine Negative (Negative); Color Urine Yellow; Glucose Urine UA Negative (Negative); Ketones Urine Negative (Negative); Leukocyte Esterase Urine Negative (Negative); Nitrite Urine Negative (Negative); Protein Urine Negative (Negative); Specific Gravity Urine 1.012 (1.000-1.030); Urobilinogen Urine Negative (Negative); pH Urine 7.5 (4.5-7.5)
[2022-12-09 06:24] LABS: Basophils # (auto) 0.01 K/uL (0-0.2); Basophils % (auto) 0.5 %; Eosinophils # (auto) 0.03 K/uL (0-0.50); Eosinophils % (auto) 1.5 %; Hematocrit (blood only) 25.5 % (42.0-52.0); Hemoglobin 8.7 g/dl (14.0-18.0); Immature Granulocytes # (auto) 0.01 K/uL (0.01-0.20); Immature Granulocytes % (auto) 0.5 %; Lymphocytes # (auto) 0.24 K/uL (1.2-3.4); Lymphocytes % (auto) 11.7 %; Mean Corpuscular Hemoglobin 32.7 pg (25.0-34.0); Mean Corpuscular Hgb Conc 34.1 g/dL (32.0-36.0); Mean Corpuscular Volume 95.9 fL (80.0-100.0); Monocytes # (auto) 0.28 K/uL (0.11-0.59); Monocytes % (auto) 13.7 %; Neutrophils # (auto) 1.48 K/uL (1.40-6.50); Neutrophils % (auto) 72.1 %; Platelet Count 48 K/uL (130-400); RDW Coefficient of Variation 14.6 % (11.5-14.5); RDW Standard Deviation 50.8 fL (36.4-46.3); Red Blood Count 2.66 M/uL (4.70-6.10); White Blood Count 2.05 K/ul (4.8-10.8)
[2022-12-09 06:50] LABS: Albumin Level 2.7 gm/dl (3.4-5.0); BUN Creatinine Ratio 20.1 (10-20); Bilirubin,Total 1.8 mg/dl (0.2-1.0); Calcium 7.8 mg/dl (8.6-10.3); Creatinine Clr Calc Pharmacy 29.1 ml/min; Est GFR (Non-African American) 34.5 ml/min; Globulin 2.8 gm/dl (2.5-4.0); Magnesium 1.8 mg/dl (1.7-2.4); Potassium 4.3 mmol/L (3.5-5.1); Total Protein 5.5 gm/dl (6.0-8.3)
[2022-12-09] MEDS: rifAXIMin 550 MG TABLET PO SCH ×2 (08:20→21:21)
[2022-12-09] MEDS: CHOLECALCIFEROL 1,000 UNITS 25 MCG TAB PO SCH (08:20)
[2022-12-09] MEDS: FUROSEMIDE 40 MG/4 ML VIAL IV SCH (08:20)
[2022-12-09] MEDS: amLODIPine BESYLATE 5 MG TAB PO SCH (08:20)
[2022-12-09] MEDS: TAMSULOSIN HCL 0.4 MG CAP PO SCH (08:20)
--- NOTE | 2022-12-09 12:42 | Palliative Care Consultation ---
Date of Consultation December 09, 2022 Assessment & Plan (1) Palliative care encounter: I talked with Mr. Mancia about how he is coping with his illness. He tells me that he notices that he is able to do less of the things that he wants to do. He tells me that he had always thought that living as long as possible, trying to reach 89 years old, was important to him. His goal for his care was to do whatever was necessary to accomplish this. However, more recently, he is seeing that the quality of his life is more important than longevity. I asked him if that changes how he feels about his code status and interventions for his care. He tells me that at this point, if his heart or breathing stopped, he would want to peacefully and not have resuscitation. He also told me that he has talked with his family and feels that he's had about all the testing and procedures that he wants to go through. He is very proud of his large family and has made good friends in his apartment complex. He would want his son and daughter, Jyoti and Polo, to be his surrogate decision makers and tells me that they are co POAs. He feels confident that they would know what decisions to make on his behalf and that they would agree on these decisions. I also met with Mr. Mancia and his daughter, Jyoti, at bedside. We discussed options for care moving forward including SNF for rehab with continued medical management, shift of focus to comfort and symptom management and the possibility of him returning to his apartment with the support of hospice. With both Jyoti and her brother living a couple hours away, it would not be possible to provide 24/7 support for him to return to his apartment. They are considering rehab at [facility] and have discussed this with case management. We also discussed concern that he is likely to need repeated transfusions which could be a burden in terms of transport from [facility]. His prognosis would likely be days to weeks without transfusions. They would like to discuss this as a family with her brother to determine what goals of care will be moving forward. Mr. Mancia again mentioned that he was not certain that he had good quality of life and would want to continue treatment. Discussed with case management who also offered option for [facility] with hospice if they choose to focus on comfort and symptom management. She will meet with Jyoti tomorrow to review. Discussed with Dr. Oconnell. History of Present Illness Reason for Consultation: goals of care Requesting Physician: Dr. Oconnell Attending Physician: Sesar Oconnell MD History of Present Illness 82 yo gentleman with history of MANLEY and decompensated cirrhosis, pancytopenia, GI bleed, HFpEF, afib, pacemaker and CKD. He has had three hospitalizations in the last two months, previously for gastroenteritis and LUDIN and later for abdominal pain and GI bleeding. He presented this admission he presented with hemoglobin of 6.9, anasarca and LDUIN. He has received three units of PRBCs and responded to diuresis, but continues to have elevated creatinine which is 1.79 today with GFR of 34.5. He denies pain or dyspnea at this time. He does note that he feels very weak and that even simple things like moving around in the bed are difficult. Allergies Allergy/AdvReac Type Severity Reaction Status Date / Time metoprolol Allergy Intermediate NONTOLERATED, Verified 12/06/22 20:36 DIZZINESS sertraline Allergy Intermediate "NUMBNESS Verified 12/06/22 20:36 IN MY FACE" apixaban [From Eliquis] AdvReac Intermediate rectal Verified 12/06/22 20:36 bleeding Home Medications Medication Instructions Recorded Confirmed Type cholecalciferol (vitamin D3) 25 25 mcg PO QAM 11/02/20 12/06/22 History mcg (1,000 unit) capsule tamsulosin 0.4 mg capsule 0.4 mg PO QAM #90 caps 03/14/22 12/06/22 Rx lisinopril 40 mg tablet 40 mg PO QAM #90 tabs 06/12/22 12/06/22 Rx atorvastatin 10 mg tablet 10 mg PO HS 10/09/22 12/06/22 History amlodipine 5 mg tablet 5 mg PO QAM #90 tabs 10/24/22 12/06/22 Rx trazodone 50 mg tablet 25 mg PO HS 10/31/22 12/06/22 History rifaximin 550 mg tablet (Xifaxan) 550 mg PO BID #60 tabs 11/14/22 12/06/22 Rx furosemide 20 mg tablet (Lasix) 20 mg PO DAILY #30 tabs 11/28/22 12/06/22 Rx spironolactone 25 mg tablet 50 mg PO QAM #60 tabs 11/28/22 12/06/22 Rx Patient History Medical History Atrial fibrillation Back pain Chronic kidney disease Chronic leukopenia Past evaluation by Hematology with negative work up. No changes with CBC over time. Diabetes mellitus, type II Diverticulosis of colon (12/06/12) Esophageal varices GIB (gastrointestinal bleeding) Heart failure with preserved ejection fraction Hepatic encephalopathy History of Mohs micrographic surgery for skin cancer History of rectal cancer s/p surgical resection (1999). Previously monitored by periodic colonoscopy (08/12 unremarkable w/ 3-5 year follow up) Hyperlipidemia Hypertension Insomnia Olecranon fracture history of open treatment of fracture of the olecranon Portal hypertension Presence of cardiac pacemaker Pulmonary nodules Rectal bleed Second degree AV block Followed by cardiology Splenomegaly Thrombocytopenia Surgical History History of excision of lesion History of partial colectomy Hx of appendectomy Hx of cataract surgery Bilateral Hx of cholecystectomy Hx of colonoscopy Hx of hernia repair Left inguinal hernia Family History Sister Breast cancer Heart disease Hypertension Father , 61yo Myocardial infarction Secondary to electrocution Mother , 51yo Myocardial infarction Cause of injury, MVA Son Aortic aneurysm Had surgical repair Aortic heart valve Brother Hypertension Diabetes Heart disease Dementia CHF (congestive heart failure) Mental health problem Sister Hypertension Daughter Hypertension Asthma COPD (chronic obstructive pulmonary disease) Depression Anxiety Basal cell carcinoma Colonic polyp Denies family history of Ovarian cancer Prostate cancer Lung cancer Social History Smoking Status: Never smoker Second Hand Exposure: No; Do You Dip or Chew Tobacco: No; Hx Alcohol Use: No Hx Substance Use: No Preferred Language: Welsh Communication Ability: Effective Visual Impairment: No Limitations Hearing Ability: Normal Religion Instructor Required: No Beliefs That Will Affect Care: None marital status: / Current Living Situation: Alone Current Living Situation Comment: Lives Independently in long-term center current occupational status: retired How many Children do You have: 2 Feels Safe at Home: Yes Childhood Exposure to Second-Hand Smoke: No Diet: regular caffeine: No during the past year weight has: remained stable Physical Activity Frequency: Daily Physical Activity Frequency Comment: walking Seatbelt Use: always Sunscreen Use: Yes Do you think of yourself as: straight/heterosexual Assistive Devices: Walker Review of Systems Review of Systems: ESAS Pain 0/3 Dyspnea 0/3 NAusea 0/3 Drowsiness 0/3 Physical Exam Constitutional: + ill appearing Respiratory: normal respiratory effort; no labored breathing Cardiovascular: Rate/Rhythm: regular rate and regular rhythm Gastrointestinal (Abdomen): distended Musculoskeletal: Extremities: + muscle atrophy Neurologic: Speech / Cognition: normal cognition Genitourinary: continent Results & Data Vital Signs (Past 12 Hours) Vital Signs Temp Pulse Pulse Pulse Resp BP Pulse Ox 12/09/22 08:00 67 12/09/22 08:00 12/09/22 07:00 98.8 F 72 16 115/62 96 12/09/22 03:27 98.1 F 64 16 98/58 L 95 O2 Del Method 12/09/22 08:00 12/09/22 08:00 Room Air 12/09/22 07:00 Room Air 12/09/22 03:27 Room Air PG Care Time/CCT Total # of Minutes Spent Total Time Spent: 136 Total Time Spent with Patient: Total time spent is greater than 50% in coordination of care (as documented) at patient's floor/unit and/or counseling patient:[id number], [id number] goals of care, symptom management, hospice, prognosis, patient and family education and support, coordination of care Coding Level of Care Code 91372 INT INP/OBS CARE 3/75MIN Diagnoses Palliative care encounter Z51.5
--- NOTE | 2022-12-09 17:42 | Hospitalist Progress Note ---
Date of Service December 09, 2022 Assessment & Plan (1) Pancytopenia: Plan: pancytopenis, for this anemia- History of GI bleeding, now ordered a total of 3 unit PRBCs last transfusion being 12/08/2022 Most recent colonoscopy from 10/20, and flexible sigmoidoscopy from 11/20 showed moderate bleeding from hemorrhoids. Pt refused to repeat colonoscopy refused additional upper endoscopy Patient does have history of esophageal varices,but not a history of bleeding from varices Palliative care saw pt and discussed with family, appreciate oversight, discussion appropriate disposition location and after care if hospice for leukopenia and thrombocytopenia,negative lyme , low platelets can be from liver disease and splenic sequestration from portal hypertension platelets have remained stable if they did further may consider platelet transfusion patient is agreeable to this at this time (2) Cirrhosis: Plan: INR 1.3, LFT are ok patient given dose of oral vitamin K on rifamixin, not on lactulose, ammonia normal on admission previous history of HCC liver masses seen on previous CT CT imaging , 11/22 nodular liver, splenomegaly 15cm, esophageal varices Pt has body wall anasarca, on lasix in patient, spironolactone outpt (3) Anasarca: (4) Heart failure with preserved ejection fraction: Plan: hypertension/PAF/HFpEF/AV pacer- Continue amlodipine, temporarily holding lisinopril and spironolactone due to LUDIN PAF, typically not on anticoagulation or rate control, ventricular paced rhythm (5) Diabetes mellitus, type II: Plan: last A1c was 5.8, not on any treatment at this time (6) Chronic kidney disease: Plan: Acute kidney injury on CKD- Creatinine 1.69, with base around 1.2 continue to hold lisinopril and spironolactone Plan had a long discussion with patient and family patient seems like he is really leaning towards this going to palliative care route. We discussed the fact that his cirrhosis is not a curative problem and he has put progress of decline over the last few months with repeat recent multiple hospitalizations hepatic encephalopathy from elevated ammonia and progressive recurrent abdominal ascites. for him at this point time wishes to pursue blood product infusions to support his blood counts but may consider palliative care consultation on 12/09/2022 Admission and Anticipated Discharge Date Admission Date: December 06, 2022 Subjective patient says he feels weak and tired today. hgb augmented with 2 units of packed red blood cells slightly less than expected. He has no focal abdominal pain no epigastric discomfort or left lower quadrant discomfort. He continues without n/v Physical Exam Physical Exam: patient is awake and alert he is not particularly pale despite his hemoglobin being 7 cardiac exam is regular lungs are clear but diminished at the bases abdomen is slightly distended consistent with his ascites no focal complaints or rebound Results & Data Results & Data Vital Signs (Past 12 Hours) Vital Signs Temp Pulse Pulse Pulse Resp BP Pulse Ox 12/09/22 16:08 98.4 F 76 19 101/54 L 97 12/09/22 12:31 98.4 F 73 16 97/60 L 97 12/09/22 08:00 67 12/09/22 08:00 12/09/22 07:00 98.8 F 72 16 115/62 96 O2 Del Method 12/09/22 16:08 Room Air 12/09/22 12:31 Room Air 12/09/22 08:00 12/09/22 08:00 Room Air 12/09/22 07:00 Room Air PG Care Time/CCT Total # of Minutes Spent Total Time Spent with Patient: Total time spent is greater than 50% in coordination of care (as documented) at patient's floor/unit and/or counseling patient: Coding Level of Care Code 19428 SUB INP/OBS CARE 2/35MIN Diagnoses Pancytopenia D61.818 Cirrhosis K74.60 Anasarca R60.1 Heart failure with preserved ejection fraction I50.30 Diabetes mellitus, type II E11.9 Chronic kidney disease N18.9
[2022-12-09] MEDS: traZODone HCL 50 MG TAB PO SCH (21:21)
[2022-12-09] MEDS: ATORVASTATIN 10 MG TAB PO SCH (21:22)
[2022-12-10] MEDS: CHOLECALCIFEROL 1,000 UNITS 25 MCG TAB PO SCH (07:48)
[2022-12-10] MEDS: rifAXIMin 550 MG TABLET PO SCH ×2 (07:48→20:57)
[2022-12-10] MEDS: TAMSULOSIN HCL 0.4 MG CAP PO SCH (07:48)
[2022-12-10] MEDS: amLODIPine BESYLATE 5 MG TAB PO SCH (07:48)
[2022-12-10] MEDS: FUROSEMIDE 40 MG/4 ML VIAL IV SCH (07:49)
--- NOTE | 2022-12-10 12:59 | Palliative Care Progress Note ---
Date of Service December 10, 2022 Assessment & Plan (1) Palliative care encounter: Plan: I met with Mr. Mancia and his daughter, Jyoti, at bedside along with lining caser who explained to them the options of SNF with rehab or hospice versus [facility] with hospice. We talked about how Mr. Mancia feels about receiving additional transfusions. He would want transfusion while he is hospitalized if needed. His goal would be to be as well as he could be when his son arrives tomorrow so that they can enjoy time together. He is clear that he does not want to hospitalization after discharge and would not want to go through transport back and forth to the hospital for transfusions. He would consider trial of rehab. However, in general he would want comfort focused care. We talked about hospice care for support and symptom management and clarified that he would not qualify for hospice if he were receiving skilled care/rehab at SNF. We discussed concern that he his prognosis would likely be weeks rather than months with comfort focused care. We discussed hospice as additional layer of support at either type of facility and case management clarified levels of nursing care and support at the facilities. His daughter is concerned that he may need higher level of care than available at [facility] and would prefer SNF with initial rehab and then transition to hospice. He had completed a POLST at Dr. Moreno's office previously. Based on his current wishes, POLST was reviewed and updated for DNR, comfort measures, no artificial nutrition or hydration, determine antibiotic use at the time. POLST completed and on chart. Admission and Anticipated Discharge Date Admission Date: December 06, 2022 Subjective Sitting in chair at bedside. No complaints of pain or discomfort. Review of Systems Review of Systems: ESAS Pain 0/3 Dyspnea 0/3 Nausea 0/3 Drowsiness 1/3 Physical Exam Constitutional: + frail appearing; no acute distress Respiratory: normal respiratory effort; no labored breathing Cardiovascular: Extremities: no edema Musculoskeletal: Extremities: + muscle atrophy Neurologic: Speech / Cognition: normal cognition Genitourinary: continent Results & Data Vital Signs (Past 12 Hours) Vital Signs Temp Pulse Resp BP Pulse Ox O2 Del Method 12/10/22 12:00 97.5 F L 64 17 99/47 L 98 Room Air 12/10/22 08:00 Room Air 12/10/22 08:11 98.6 F 68 17 101/58 L 93 Room Air 12/10/22 03:40 97.9 F 62 16 100/45 L 92 Room Air PG Care Time/CCT Total # of Minutes Spent Total Time Spent: 75 Total Time Spent with Patient: Total time spent is greater than 50% in coordination of care (as documented) at patient's floor/unit and/or counseling patient: goals of care, code status, P OLST, patient and family education and support Coding Level of Care Code 43316 SUB INP/OBS CARE 3/50MIN Diagnoses Palliative care encounter Z51.5
[2022-12-10] MEDS: NAPHAZOLIN/PHENIRAMIN OPH SOLN 75 DROPS/5 ML BTL OP PRN (16:42)
--- NOTE | 2022-12-10 17:06 | Hospitalist Progress Note ---
Date of Service December 10, 2022 Assessment & Plan (1) Pancytopenia: Plan: pancytopenis, for this anemia- History of GI bleeding, now ordered a total of 3 unit PRBCs last transfusion being 12/08/2022 Most recent colonoscopy from 10/20, and flexible sigmoidoscopy from 11/20 showed moderate bleeding from hemorrhoids. Pt refused to repeat colonoscopy refused additional upper endoscopy Patient does have history of esophageal varices,but not a history of bleeding from varices Palliative care saw pt and discussed with family, appreciate oversight, discussion appropriate disposition location and after care if hospice. will not want invasive testing or resuscitation but will decide antibiotics on a case by case basis. Also pt and family in favor or transfusion as needed for leukopenia and thrombocytopenia,negative lyme , low platelets can be from liver disease and splenic sequestration from portal hypertension (2) Cirrhosis: Plan: INR 1.3, LFT are ok patient given dose of oral vitamin K on rifamixin, not on lactulose, ammonia normal on admission previous history of HCC liver masses seen on previous CT CT imaging , 11/22 nodular liver, splenomegaly 15cm, esophageal varices Pt has body wall anasarca, on lasix in patient, spironolactone outpt (3) Anasarca: (4) Heart failure with preserved ejection fraction: Plan: hypertension/PAF/HFpEF/AV pacer- Continue amlodipine, temporarily holding lisinopril and spironolactone due to LUDIN *Acute on chronic diastolic (congestive) heart failure PAF, typically not on anticoagulation or rate control, ventricular paced rhythm (5) Diabetes mellitus, type II: Plan: last A1c was 5.8, not on any treatment at this time (6) Chronic kidney disease: Plan: Acute kidney injury on CKD- Creatinine 1.69, with base around 1.2 continue to hold lisinopril and spironolactone due to low blood pressure Plan had a long discussion with patient and family patient seems like he is really leaning towards this going to palliative care route. We discussed the fact that his cirrhosis is not a curative problem and he has put progress of decline over the last few months with repeat recent multiple hospitalizations hepatic encephalopathy from elevated ammonia and progressive recurrent abdominal ascites. for him at this point time wishes to pursue blood product infusions to support his blood counts but may consider palliative care consultation on 12/09/2022 Admission and Anticipated Discharge Date Admission Date: December 06, 2022 Subjective Sitting in chair at bedside. No complaints of pain some dryness to right eye without obvious conjunctivitis was seem with family Physical Exam Physical Exam: patient is awake and alert eyes are without injection or drainage no chalazion abdomen is slightly distended consistent with his ascites no focal complaints or rebound Results & Data Results & Data Vital Signs (Past 12 Hours) Vital Signs Temp Pulse Resp BP Pulse Ox O2 Del Method 12/10/22 15:17 98.1 F 60 17 94/44 L 95 Room Air 12/10/22 12:00 97.5 F L 64 17 99/47 L 98 Room Air 12/10/22 08:00 Room Air 12/10/22 08:11 98.6 F 68 17 101/58 L 93 Room Air PG Care Time/CCT Total # of Minutes Spent Total Time Spent with Patient: Total time spent is greater than 50% in coordination of care (as documented) at patient's floor/unit and/or counseling patient: Coding Level of Care Code 34556 SUB INP/OBS CARE 2/35MIN Diagnoses Pancytopenia D61.818 Cirrhosis K74.60 Anasarca R60.1 Heart failure with preserved ejection fraction I50.30 Diabetes mellitus, type II E11.9 Chronic kidney disease N18.9
[2022-12-10] MEDS: traZODone HCL 50 MG TAB PO SCH (20:57)
[2022-12-11 03:12] LABS: Babesia microti DNA Not Detected (Not Detected)
[2022-12-11 06:14] LABS: Hemoglobin 8.6 g/dl (14.0-18.0); Mean Corpuscular Hemoglobin 32.6 pg (25.0-34.0); Mean Corpuscular Hgb Conc 34.4 g/dL (32.0-36.0); Mean Corpuscular Volume 94.7 fL (80.0-100.0); Mean Platelet Volume 11.1 fL (9.4-12.4); Platelet Count 50 K/uL (130-400); RDW Coefficient of Variation 13.3 % (11.5-14.5); RDW Standard Deviation 46.2 fL (36.4-46.3); Red Blood Count 2.64 M/uL (4.70-6.10); White Blood Count 2.26 K/ul (4.8-10.8)
[2022-12-11] MEDS: TAMSULOSIN HCL 0.4 MG CAP PO SCH (08:05)
[2022-12-11] MEDS: rifAXIMin 550 MG TABLET PO SCH ×2 (08:05→20:50)
[2022-12-11] MEDS: CHOLECALCIFEROL 1,000 UNITS 25 MCG TAB PO SCH (08:05)
--- NOTE | 2022-12-11 16:52 | Hospitalist Progress Note ---
Date of Service December 11, 2022 Assessment & Plan (1) Pancytopenia: Plan: pancytopenis, for this anemia- History of GI bleeding, now ordered a total of 3 unit PRBCs last transfusion being 12/08/2022 Most recent colonoscopy from 10/20, and flexible sigmoidoscopy from 11/20 showed moderate bleeding from hemorrhoids. Pt refused to repeat colonoscopy refused additional upper endoscopy Patient does have history of esophageal varices,but not a history of bleeding from varices Palliative care saw pt and discussed with family, appreciate oversight, discussion appropriate disposition location and after care if hospice. will not want invasive testing or resuscitation but will decide antibiotics on a case by case basis. Also pt and family in favor or transfusion as needed, family endorses attempted subacute rehab to see if he can improve his health return to personal-custodial and then if he declines will have support in place to transition to palliative care or personal-custodial. for leukopenia and thrombocytopenia,negative lyme , low platelets can be from liver disease and splenic sequestration from portal hypertension (2) Cirrhosis: Plan: INR 1.3, LFT are ok patient given dose of oral vitamin K on rifamixin, not on lactulose, ammonia normal on admission previous history of HCC liver masses seen on previous CT CT imaging , 11/22 nodular liver, splenomegaly 15cm, esophageal varices Pt has body wall anasarca, on lasix in patient, spironolactone outpt (3) Anasarca: (4) Heart failure with preserved ejection fraction: Plan: hypertension/PAF/HFpEF/AV pacer- Continue amlodipine, temporarily holding lisinopril and spironolactone due to LUDIN *Acute on chronic diastolic (congestive) heart failure PAF, typically not on anticoagulation or rate control, ventricular paced rhythm (5) Diabetes mellitus, type II: Plan: last A1c was 5.8, not on any treatment at this time (6) Chronic kidney disease: Plan: Acute kidney injury on CKD- Creatinine 1.69, with base around 1.2 continue to hold lisinopril and spironolactone due to low blood pressure Plan had a long discussion with patient and family patient seems like he is really leaning towards this going to palliative care route. We discussed the fact that his cirrhosis is not a curative problem and he has put progress of decline over the last few months with repeat recent multiple hospitalizations hepatic encephalopathy from elevated ammonia and progressive recurrent abdominal ascites. for him at this point time wishes to pursue blood product infusions to support his blood counts but may consider palliative care consultation on 12/09/2022 Admission and Anticipated Discharge Date Admission Date: December 06, 2022 Subjective Sitting in chair at bedside. No complaints of pain some dryness to right eye w ithout obvious conjunctivitis was seem with family endorses plan to go to [facility] Physical Exam Physical Exam: patient is awake and alert eyes are without injection or drainage no chalazion abdomen is slightly distended consistent with his ascites no focal complaints or rebound Results & Data Results & Data Vital Signs (Past 12 Hours) Vital Signs Temp Pulse Pulse Resp BP BP Pulse Ox 12/11/22 15:13 98.4 F 77 14 108/65 99 12/11/22 11:09 98.1 F 64 16 111/46 L 100 12/11/22 07:35 98.1 F 68 16 105/54 L 97 O2 Del Method 12/11/22 15:13 Room Air 12/11/22 11:09 Room Air 12/11/22 07:35 Room Air Laboratory Results reviewed CBC PG Care Time/CCT Total # of Minutes Spent Total Time Spent with Patient: Total time spent is greater than 50% in coordination of care (as documented) at patient's floor/unit and/or counseling patient: Coding Level of Care Code 82873 SUB INP/OBS CARE 2/35MIN Diagnoses Pancytopenia D61.818 Cirrhosis K74.60 Anasarca R60.1 Heart failure with preserved ejection fraction I50.30 Diabetes mellitus, type II E11.9 Chronic kidney disease N18.9
[2022-12-11] MEDS ORDERED: FUROSEMIDE 40 MG TAB PO ONE (16:53)
[2022-12-11] MEDS: traZODone HCL 50 MG TAB PO SCH (20:50)
--- NOTE | 2022-12-12 07:24 | Discharge Summary ---
Discharge Summary Date of Service December 12, 2022 Admission HPI Per Admitting Provider The patient is an 82-year-old male with a past medical history including decompensated hepatic cirrhosis, GI bleeding, pancytopenia, benign essential tremor, liver mass, anasarca, hypoalbuminemia, HFpEF, PAF, presence of cardiac pacemaker, CKD and thrombocytopenia. The patient was brought to the emergency department due to worsening lower extremity edema and weight gain as noted Significant laboratories: WBC 2.21, hemoglobin 6.9, hematocrit 21.0, platelets 60, glucose 122, creatinine 1.69, INR 1.3, albumin 3.1. Patient's most recent admissions from 10/09-10/16/2022 for neurovirus gastroenteritis, MANLEY encephalopathy treated with rifaximin, and acute kidney injury. He was then admitted from 11/01-11/02/2022 for abdominal pain and GI bleeding, which was treated with discontinuance of lactulose and restarting rifaximin. Gastroenterology did not feel any further work-up as far as colonoscopy needed to be done at admission, and recommended rifaximin to be used at home, with follow-up in the outpatient setting Admission Exam Per Admitting Provider the patient is awake, alert and oriented 3, well developed and well nourished, normocephalic and atraumatic, lying in bed and in no acute distress. HEENT--PERRL, EOMI, mucous membranes and oropharynx Normal Neck--supple. No JVD. No bruits. Thyroid normal, trachea midline, no adenopathy. Heart--normal S1 and S2. No murmurs, rubs or gallops. Lungs--clear bilaterally, no respiratory distress, no accessory muscle use. Abdomen--normal bowel sounds and soft. Nontender. Nondistended Extremities--no cyanosis or clubbing. 2+ bilateral pretibial pitting edema Dermatologic-- no rash Neurologic--cranial nerves II through XII grossly intact. Rheumatologic--normal range of motion. Psychiatric--normal affect. Principal Dx & Hospital Course #1 = Principal Diagnosis (1) Pancytopenia: History of GI bleeding and cirrhosis, received a total of 3 unit PRBCs with last transfusion being 12/08/2022 Most recent colonoscopy from 10/20, and flexible sigmoidoscopy from 11/20 showed moderate bleeding from hemorrhoids Patient does have history of esophageal varices, but not a history of bleeding from varices Pt declined repeat endoscopic evaluation this admission Palliative care saw pt and discussed with family, appreciate oversight, discussed appropriate disposition location and after care if hospice decided upon outpatient Patient does not want invasive testing or resuscitation but will decide antibiotics on a case by case basis. Also pt and family in favor of transfusion as needed Family endorses attempted subacute rehab to see if he can improve his health to return to personal intermediate, and then if he declines will have support in place to transition to palliative care at personal intermediate For leukopenia and thrombocytopenia: negative lyme testing. Low platelets likely from liver disease and splenic sequestration from portal hypertension (2) Cirrhosis: INR 1.3, LFTs are ok, patient given dose of oral vitamin K due to bleeding earlier in admission On rifamixin, not on lactulose, ammonia normal on admission Previous history of HCC liver masses seen on previous CT CT imaging 11/22 with nodular liver, splenomegaly 15cm, esophageal varices Pt has body wall anasarca, continue spironolactone outpatient Did have fever x1 overnight 12/11, but otherwise feeling well, as patient is leaning toward palliative care route in near future will send with cipro oral course for discharge (3) Anasarca: see above (4) Heart failure with preserved ejection fraction: *Acute on chronic diastolic (congestive) heart failure, Hypertension/PAF/HFpEF/AV pacer Continue amlodipine Temporarily holding lisinopril and spironolactone due to LUDIN PAF: typically not on anticoagulation or rate control, ventricular paced rhythm (5) Diabetes mellitus, type II: Last A1c was 5.8, not on any treatment at this time (6) Chronic kidney disease: Acute kidney injury on CKD Creatinine 1.69, with base around 1.2 continue to hold lisinopril and spironolactone due to low blood pressure, did recommend lab recheck however patient declines blood draws at this time, defer follow up to rehab/PCP Plan Previous provider had a long discussion with patient and family patient seems like he is really leaning towards this going to palliative care route. It was discussed that his cirrhosis is not a curative problem and he has had progress of decline over the last few months with repeat recent multiple hospitalizations, hepatic encephalopathy from elevated ammonia, and progressive recurrent abdominal ascites. At this time, he wishes to pursue blood product infusions to support his blood counts, with anticipated transition in the near future to a more palliative care approach. Discharge Exam Constitutional WD/WN, vitals as above Gastrointestinal (Abdomen) normal bowel sounds, soft, nontender, no hepatosplenomegaly Psychiatric A+Ox3, euthymic affect Updated Medication List Medication Instructions Recorded Confirmed Type cholecalciferol (vitamin D3) 25 25 mcg PO QAM 11/02/20 12/06/22 History mcg (1,000 unit) capsule tamsulosin 0.4 mg capsule 0.4 mg PO QAM #90 caps 03/14/22 12/06/22 Rx atorvastatin 10 mg tablet 10 mg PO HS 10/09/22 12/06/22 History amlodipine 5 mg tablet 5 mg PO QAM #90 tabs 10/24/22 12/06/22 Rx trazodone 50 mg tablet 25 mg PO HS 10/31/22 12/06/22 History rifaximin 550 mg tablet (Xifaxan) 550 mg PO BID #60 tabs 11/14/22 12/06/22 Rx furosemide 20 mg tablet (Lasix) 20 mg PO DAILY #30 tabs 11/28/22 12/06/22 Rx spironolactone 25 mg tablet 50 mg PO QAM #60 tabs 11/28/22 12/06/22 Rx ciprofloxacin HCl 500 mg tablet 500 mg PO BID 7 days #14 tabs 12/12/22 Rx (Cipro) Hospital Stay Data Consultations 12/06/22 20:22 ED Decision to Admit Stat 12/07/22 03:01 Consult Gastroenterology Routine 12/09/22 08:24 Consult Palliative Care Routine Discharge Instructions Given to Patient (Per Discharging Provider) Pancytopenia: History of GI bleeding and cirrhosis, received a total of 3 unit PRBCs with last transfusion being 12/08/2022 Most recent colonoscopy from 10/20, and flexible sigmoidoscopy from 11/20 showed moderate bleeding from hemorrhoids Patient does have history of esophageal varices,but not a history of bleeding from varices Pt declined repeat endoscopic evaluation Palliative care saw pt and discussed with family, appreciate oversight, patient does not want invasive testing or resuscitation but will decide antibiotics on a case by case basis. Also pt and family in favor of transfusion as needed Family endorses attempted subacute rehab to see if he can improve his health return to personal intermediate and then if he declines will have support in place to transition to palliative care or personal intermediate For leukopenia and thrombocytopenia: negative lyme testing. Low platelets likely from liver disease and splenic sequestration from portal hypertension Cirrhosis, anasarca: INR 1.3, LFTs stable, patient given dose of oral vitamin K due to concern for bleeding earlier in admission On rifaximin, not on lactulose, ammonia normal on admission Previous history of HCC liver masses seen on previous CT CT imaging 11/22 with nodular liver, splenomegaly 15cm, esophageal varices Pt has body wall anasarca, continue spironolactone outpatient Did have fever x1 overnight 12/11, but otherwise feeling well, declines blood draws, as patient is leaning toward palliative care route in near future will send with cipro oral course BID x7 days for discharge Acute on chronic diastolic heart failure, hypertension/PAF/HFpEF/AV pacer: Continue amlodipine Holding lisinopril due to LUDIN, BP normotensive despite holding this PAF: typically not on anticoagulation or rate control, ventricular paced rhythm On Lasix while admitted, can transition back to home spironolactone on discharge with low sodium diet Diabetes mellitus, type II: Last A1c was 5.8, not on any treatment at this time Chronic kidney disease: Acute kidney injury on CKD Creatinine 1.69, with base around 1.2 Continue to hold lisinopril due to low blood pressure, patient does not want blood draws at this time, should have at some point this week to see if LUDIN improving Total Time Total Time Spent Total Time Spent (In Minutes): 35 min Coding Level of Care Code 78642 INP/OBS DISCH >30 MIN Diagnoses Pancytopenia D61.818 Cirrhosis K74.60 Anasarca R60.1 Heart failure with preserved ejection fraction I50.30 Diabetes mellitus, type II E11.9 Chronic kidney disease N18.9
[2022-12-12] MEDS: rifAXIMin 550 MG TABLET PO SCH (08:30)
[2022-12-12] MEDS: TAMSULOSIN HCL 0.4 MG CAP PO SCH (08:30)
[2022-12-12] MEDS: NAPHAZOLIN/PHENIRAMIN OPH SOLN 75 DROPS/5 ML BTL OP PRN (08:30)
[2022-12-12] MEDS: CHOLECALCIFEROL 1,000 UNITS 25 MCG TAB PO SCH (08:30)
[2022-12-12] MEDS ORDERED: FUROSEMIDE 40 MG TAB PO SCH (09:00)
== END 2022-12-12 15:46 | DRG 808 ==
LOC: ED 18:03 → SUATTDRO 21:30 → 4W 21:30